=== PATIENT | male | born 1985 | race Caucasian/White ===

== ENCOUNTER 2023-08-28 13:20 | Emergency (ER) | payer MEDICAID, SELFPAY ==
[2023-08-28] VITALS (33 sets, daily range): BP systolic 88–120; BP diastolic 55–76; PULSE 70–176; RESP 18; TEMP 36.7; O2SAT 97–100; BMI 23.0
[2023-08-28] MEDS: 0.9 % SODIUM CHLORIDE 1000 ml 1,000 ML IV (13:30)
[2023-08-28] MEDS: ADENOSINE 6 MG/2ML INJ 12 MG IVP (13:35)
[2023-08-28 14:02] LABS: Basophils Absolute Auto 0.04 K/uL (0.00-0.30); Basophils Percent Auto 0.6 % (0.0-3.0); Eosinophils Absolute Auto 0.12 K/uL (0.00-0.50); Eosinophils Percent Auto 1.8 % (0.0-7.0); Hematocrit 45.4 % (37.0-53.0); Hemoglobin* 15.3 gm/dL (13.5-17.5); Lymphocytes Absolute Auto 2.33 K/uL (0.90-2.90); Lymphocytes Percent Auto 35.3 % (20-44); Mean Corpuscular HGB Conc 34 gm/dL (32-36); Mean Corpuscular Hemoglobin 30 pg (26-34); Mean Corpuscular Volume 88 fL (80-100); Monocytes Percent Auto 6.8 % (0.0-11.0); Neutrophils Absolute Auto 3.66 K/uL (1.7-7.0); Neutrophils Percent Auto 55.5 % (42.0-72.0); Platelet Count* 195 K/uL (140-440); RDW Coefficient of Variation % 13.1 % (11.5-15.5); Red Blood Count 5.19 m/uL (4.30-5.90)
[2023-08-28 14:03] LABS: Chloride* 104 mmol/L (96-114)
[2023-08-28 14:04] LABS: Potassium* 3.9 mmol/L (3.6-5.1); Sodium* 139 mmol/L (135-149)
[2023-08-28 14:06] LABS: Anion Gap 8 mEq/L (7-15); Carbon Dioxide* 27 mmol/L (20-32); Creatinine* 0.4 mg/dL (0.5-1.5); Est. Creatinine Clearance* 207.45; Estimated Glomerular Filt Rate 146 ml/min
[2023-08-28 14:07] LABS: Blood Urea Nitrogen* 20 mg/dL (5-24); Calcium* 9.7 mg/dL (8.4-10.6); Glucose* 81 mg/dL (60-115); Magnesium* 1.8 mg/dL (1.5-2.6)
[2023-08-28] MEDS: dilTIAZem 5 MG/ML inj 15 MG IVP (14:07)
[2023-08-28 14:08] LABS: Slide Review Reflex No
--- OUTSIDE RECORDS SUMMARY | 2023-08-28 14:10 | XMS_ITS | Clinical Summary ---
Author Name Unknown Organization [facility] Address [place], [place] [address] Care Team Providers Care Heating And Ventilating Worker Name Role Phone Roberto Marie MD Primary Care Provider [phone] Allergies Active Allergy Reactions Criticality Noted Date Comments Ciprofloxacin *Unknown - Follow up needed,Angioedema,Flu shing,Itching,Diaphor esis,Edema High 06/26/2020 Doxycycline Diarrhea Low 03/12/2022 Homeopathic Products 12/03/2006 stuffy nose and post nasal drip. Vancomycin Itching Low 12/12/2021 Itchy face and hair Itchy face and hair - resolved with Benadryl Itchy face and hair - resolved with Benadryl Medications Medication Sig Dispensed Refills Start Date End Date Status cholecalciferol, Vitamin D3, 2,000 unit tablet Take 2,000 units by mouth. Active ascorbic acid SR (VITAMIN C) 500 mg capsule Take 1,000 Capsules by mouth. Active Kbppr-1-PGV-EPA-Fish Oil (Fish OiL) 1,000 mg (120 mg-180 mg) cap Take by mouth. Active lactobacillus combination no.4 (Probiotic) 3 billion cell cap Take by mouth. Acti ve magnesium aspartate/vit B6/Zn (ZINC MAGNESIUM ASPARTATE ORAL) Take by mouth. Activ e oxybutynin (DITROPAN XL) 15 mg CR tabletIndications:Sp inal cord injury, T7-T12 (HC) Take 1 Tablet (15 mg) by mouth once daily. 30 Tablet 11 04/22/2023 Active pregabalin (LYRICA) 150 mg capsuleIndications:S connor cord injury, T7-T12 (HC) Take 1 Capsule (150 mg) by mouth two times daily. 60 Capsule 5 04/22/2023 Active Active Problems Problem Noted Date Diagnosed Date Other acne 12/03/2006 Allergic rhinitis, cause unspecified 12/03/2006 Immunizations Name Administration Dates Next Due DTP 12/19/1992, 0,06/13/1988,05/02/1988 ,02/29/1988 Hepatitis B (Peds) 12/29/2000,09/16/2000, 001 Hib Conjugate, Unspecified 06/11/1989 Inactivated Polio Vaccine 06/11/1989,06/13/1988, 05/02/1988,02/29/1988 MMR 08/17/2000 Measles 12/19/1992 Meningococcal Vaccine (Menactra) 12/03/2006 Mumps 03/19/1989 Polio Virus, Unspecified 06/11/1989,06/13/1988,1 1987,02/29/1988 Rubella 03/19/1989 Td (Age >=7 Years) 05/25/2001,08/17/2000 Tdap 05/05/2011 Family History Medical History Relation Name Comments Cancer Father malignant melan miah Heart Disease Father stents Relation Name Status Comments Father Alive Mother Alive Social History Tobacco Use Types Packs/Day Years Used Date Smoking Tobacco: Never Smokeless Tobacco: Never Tobacco Cessation:Counseling Given: Yes Alcohol Use Standard Drinks/Week Comments No 0 (1 standard drink = 0.6 oz pur e alcohol) PHQ-2 Answer Date Recorded PHQ-2 TOTAL SCORE 1 04/22/2023 Social Connections Answer Date Recorded Frequency of Communication with Friends and Fami ly Not on file 04/22/2023 Sex and Gender Information Value Date Recorded Sex Assigned at Not on file Gender Identity Not on file Sexual Orientation Not on file Obstetrics History Last Filed Vital Signs Vital Sign Reading Time Taken Comments Blood Pressure 104/66 04/22/2023 4:12 PM BOG WORKER Pulse 72 04/22/2023 4:12 PM BOG WORKER Temperature 36.5 ??C (97.7 ??F) 08/15/2009 2:00 PM CD T Respiratory Rate - - Oxygen Saturation 94% 04/22/2023 4:12 PM BOG WORKER Inhaled Oxygen Concentration - - Weight 69.4 kg (153 lb) 08/15/2009 2:00 PM CDT Height 172.1 cm (5' 7.75) 12/03/2006 10:00 AM C DT Body Mass Index - - Plan of Treatment Health Maintenance Due Date Last Done Comments HIV for age 15-65 12/22/2002 BMI (ht and wt on same day) for age 18+ 12/22/2005 Hepatitis C screening for ag e 18-79 12/22/2005 Tetanus booster 05/05/2021 05/05/2011, 05/25/2001, 08/17/2000 Lipids for age 35-44 12/22/2022 COVID-19 vaccine series (2022-24 season) 2023 Influenza for age 9-49 01/24/2024 Depression screening for age 12+ 04/22/2024 04/22/2023 Tdap Completed 05/05/2011 Pneumococcal series for age 6-64 Aged Out No longer eligible b ased on patient's age to complete this topic Care Teams Heating And Ventilating Worker Relationship Specialty Start Date End Date Roberto Marie MD [address] [place] [address] [address] [place] [address] PCP - General 06/29/09
[2023-08-28 14:19] LABS: Troponin, Point-of-Care* 0.02 ng/ml (0.01-0.04)
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
== END 2023-08-28 15:41 | disposition home or self-care (01) ==
PROVIDERS: Emergency Provider Student in an Organized Health Care Education/Training Program
DX: I48.92 Unspecified atrial flutter (principal)
CPT/HCPCS: 36415; 80048; 83735; 84484; 85025; 93005; 99284; 99285; 99291; J0153; J7030

== ENCOUNTER 2023-09-05 05:23 | Emergency (ER) | payer MEDICAID, SELFPAY ==
[2023-09-05 05:38] VITALS: BP 111/75; PULSE 89; RESP 20; TEMP 37.1; O2SAT 97
--- NOTE | 2023-09-05 05:49 | ED_ITS ---
HPI - Arrhythmia/Palpitations General Chief Complaint: Arrhythmia/Palpitations Stated Complaint: feeling tachycardia Time Seen by Provider: 09/05/23 05:41 History of Present Illness HPI narrative: Patient is a 37-year-old gentleman who was here proximally week ago and cardioverted from a tachycardic narrow rhythm with diltiazem. He was initially felt that he had SVT but did sheet turner that he actually had atrial flutter. He has been feeling well but at bedtime tonight he felt like his heart was racing. He woke up with sensations of his heart racing again I came to the emergency room where his rate is under good control 89 beats per minute but is rhythm is atrial flutter. He has had no neurologic symptoms no fevers chills night sweats chest pain shortness a breath orthopnea no PND. He is otherwise feeling well. Related Data Home Medications Medication Instructions Recorded Confirmed oxybutynin chloride 5 mg tablet 5 mg PO QDAY 04/09/23 09/05/23 Previous Rx's Medication Instructions Recorded pregabalin 150 mg capsule 150 mg PO BID #30 caps 04/09/23 apixaban 5 mg tablet 5 mg PO BID #60 tabs 09/05/23 diltiazem HCl 120 mg 120 mg PO DAILY #30 caps 09/05/23 capsule,extended release 24 hr (Cardizem CD) Allergies Allergy/AdvReac Type Severity Reaction Status Date / Time ciprofloxacin Allergy Unknown Verified 09/05/23 05:38 vancomycin Allergy Unknown Verified 09/05/23 05:38 doxycycline AdvReac Intermediate Verified 09/05/23 05:38 Review of Systems Status of ROS: Reports: 10 or more systems reviewed and unremarkable except as noted in History and below [facility] Medical History History of pressure injury of skin ?Z87.2 - Personal history of diseases of the skin and subcutaneous tissue (ICD-10) History of spinal cord injury ?Z87.828 - Personal history of other (healed) physical injury and trauma (ICD-10) Social History Smoking Status: Unknown if ever smoked Exam Narrative: Exam Narrative: EXAM GENERAL: Patient appears comfortable and well. EYES: No scleral icterus. LYMPH: No supraclavicular or cervical lymphadenopathy. SKIN: Visible skin seen during exam normal or with benign process only. EXT: No dependent lower extremity pedal edema. HEART: Regular rate and rhythm with no murmurs, rubs, or gallops. LUNGS: Clear to auscultation bilaterally with no crackles or wheezes. ABD: Soft, non tender, non distended. PSYCH: Good eye contact, speech is not pressured. Const: Vital Signs, click to edit/add: Vital Signs - 24 hr 09/05/23 05:38 Temperature 98.8 F Pulse Rate [Right Pulse Oximeter] 89 Respiratory Rate 20 Blood Pressure [Le ft Upper Arm] 111/75 Pulse Oximetry 97 Oxygen Delivery Me thod Room Air Course Course ED Course: Patient seen and examined. Vital Signs Vital signs: Initial Vital Signs Temperature 98.8 F 09/05/23 05:38 Temperature Source Temporal Artery Scan 09/05/23 05:38 Pulse Rate 89 09/05/23 05:38 Respiratory Rate 20 09/05/23 05:38 Blood Pressure 111/75 09/05/23 05:38 Blood Pressure Mean 87 09/05/23 05:38 Blood Pressure Position Sitting 09/05/23 05:38 Pulse Oximetry 97 09/05/23 05:38 Oxygen Delivery Method Room Air 09/05/23 05:38 Vital Signs Temperature 98.8 F 09/05/23 05:38 Pulse Rate 89 09/05/23 05:38 Respiratory Rate 20 09/05/23 05:38 Blood Pressure 111/75 09/05/23 05:38 Pulse Oximetry 97 09/05/23 05:38 Oxygen Delivery Method Room Air 09/05/23 05:38 Temperature 98.8 F 09/05/23 05:38 Pulse Rate 89 09/05/23 05:38 Respiratory Rate 20 09/05/23 05:38 Blood Pressure 111/75 09/05/23 05:38 Pulse Oximetry 97 09/05/23 05:38 Oxygen Delivery Method Room Air 09/05/23 05:38 MDM - Arrhythmia/Palpitations MDM Narrative Medical decision making narrative: This very interesting gentleman comes in tonight with a recurrence of his atrial flutter. His rate is controlled he has no unstable cardiovascular symptoms. I do not believe further workup is indicated. I do think we should start him on Cardizem CD and 120 mg daily which is started as well as anticoagulation with apixaban. Patient will be in contact with my office in the next few days will range for cardiology follow-up. Differential diagnosis includes but not limited to atrial fibrillation atrial flutter SVT stable ventricular tachycardia junctional rhythm. Discharge Plan Discharge Clinical Impression: Atrial flutter Patient Disposition: Home, Self-Care Condition: Stable Instructions: Atrial Flutter (ED) Additional Instructions: Cardizem CD as directed Apixaban as directed Follow-up Dr. Fowler by phone this week to arrange cardiology follow-up. Activity Level: No Restrictions Discharge Diet: Regular Prescriptions: New diltiazem HCl [Cardizem CD] 120 mg capsule,extended release 24hr 120 mg PO DAILY Qty: 30 2RF apixaban 5 mg tablet 5 mg PO BID Qty: 60 2RF No Action oxybutynin chloride 5 mg tablet 5 mg PO QDAY pregabalin 150 mg capsule 150 mg PO BID Qty: 30 0RF Follow Up/Referrals: Provider,Not a Local [Primary Care Provider] - Stand Alone Forms: [employer] Info Instructions
[2023-09-05] MEDS: dilTIAZem 120 MG CAP.ER.24H PO (06:02)
--- OUTSIDE RECORDS SUMMARY | 2023-09-05 06:03 | XMS_ITS | Clinical Summary ---
Author Name Unknown Organization [employer] Address [place], [place] [address] Care Team Providers Care Field Horticultural Specialty Grower Name Role Phone Roberto Marie MD Primary Care Provider [phone] Allergies Active Allergy Reactions Criticality Noted Date [...] capsule Take 1,000 Capsules by mouth. Active Cjtit-3-MQS-EPA-Fish Oil (Fish OiL) 1,000 mg (120 mg-180 [...] Comments Blood Pressure 104/66 04/22/2023 4:12 PM HISTORIC SITE ADMINISTRATOR Pulse 72 04/22/2023 4:12 PM HISTORIC SITE ADMINISTRATOR Temperature 36.5 ??C (97.7 ??F) 08/15/2009 2:00 PM CD T Respiratory Rate - - Oxygen Saturation 94% 04/22/2023 4:12 PM HISTORIC SITE ADMINISTRATOR Inhaled Oxygen Concentration - - Weight 69.4 [...] age to complete this topic Care Teams Field Horticultural Specialty Grower Relationship Specialty Start Date End Date Roberto Marie MD [address] [place] [address] [address] [place] [address] PCP - General 06/29/09
== END 2023-09-05 06:46 | disposition home or self-care (01) ==
LOC: ED 06:01
PROVIDERS: Emergency Provider Internal Medicine
DX: I48.92 Unspecified atrial flutter (principal)
CPT/HCPCS: 93005; 99283; 99284; A9270

== ENCOUNTER 2023-10-24 04:23 | Outpatient (CLI) | payer MEDICAID, SELFPAY ==
--- OUTSIDE RECORDS SUMMARY | 2023-11-13 14:43 | XMS_ITS | Clinical Summary ---
Author Organization [facility] Address [address] [place] [id number] Care Team Providers Care Dispatcher Electric Power Name Role Phone Elsewhere, Pcp Primary Care Provider Unavailabl e Source Comments Patient records contain information from all sites at [facility]. For routine questions regarding patient records, call [phone] during business hours, M-F 8:00 AM - 5:00 PM Central Time. Record requests for emergency care only can be directed to [phone] at any time.[facility] Allergies Active Allergy Reactions Criticality Noted Date [...] by mouth every 6 (six) hours. Active sulfamethoxazole -trimethoprim (Bactrim DS) 800-160 mg per tablet Take 1 tablet by mouth 2 (two) times a day. 10/30/2023 4 Active UNABLE TO FIND DILTIAZEM HCL (CARDIZEM CD) 120 MG CAPSULE,EXTEND ED RELEASE 24HR Active metoprolol tartrate (LOPRESSOR) 25 mg tabletIndication s:Flutter Atrial (HCC) Take 1 tablet (25 mg total) by mouth as needed (for atrial flutter). 30 tablet 10/05/2023 4 Discontinued pregabalin (Lyrica) 150 mg capsule Take 150 mg by mouth 2 (two) times a day. 04/09/2023 4 Discontinued(Dup licate order) Active Problems Problem Noted Date Diagnosed Date Flutter Atrial 11/03/2023 Neurogenic Bladder 11/03/2023 Pain Neuropathic 11/03/2023 Paraplegia 01/17/2013 Resolved Problems Problem Noted Date Diagnosed Date Resolved Date Atypical Atrial Flutter 11/03/202310/23 Encounters Date Type Department Care Team Description 11/12/2023 8:00 AM CDT Comprehensive Visit Division of Pain Medicine in [place], [place] [address] [place] [address] Angelina Jefferson APRN, C.N.P., M.S.N. Pain Neuropathic (Primary Dx); Injury Thoracic Spinal Cord Subsequent (HCC) 11/03/2023 11:59 AM CDT - 11/03/2023 11:59 PM CDT Hospital Encounter Department of Radiology, [facility], in [place], [place] [address] [place] [address] Rosemary Gregorio APRN, SPORTS NUTRITIONIST, M.S. Injury Thoracic Spinal Cord Subsequent (HCC); Paraplegia (HCC); Osteoporosis Discharge Disposition: Home or Self Care 11/03/2023 10:00 AM CDT Clinical Support Healthy Living Program in [place], [place] [address] [place] [phone] Avtar Aaron M.D. Kiersten Quigley, [facility] Wellness Screening (Primary Dx) 11/03/2023 9:00 AM CDT Clinical Support Healthy Living Program in [place], [place] [address] [place] [phone] Bubba Perez M.D., M.S. Paraplegia (HCC) (Primary Dx); Flutter Atrial (HCC); Pain Neuropathic; Wellness Screening 10/09/2023 1:00 PM CDT Comprehensive Visit Department of Physical Medicine and Rehabilitation in [address] [phone] Karoline Carney M.D. Pain Shoulder Left (Primary Dx); Tear Glenoid Labral Initial Left; Rotator Cuff Disorder Left; Tendinitis Bicipital Left 10/09/2023 Clinical Communication Division of General Internal Medicine in [address] [phone] Avtar Aaron M.D. 10/08/2023 11:00 AM CDT Comprehensive Visit Department of Physical Medicine and Rehabilitation in [address] [phone] Avtar Aaron M.D. Stanecki, Catherine E MTracyS., O.T. Injury Thoracic Spinal Cord Subsequent (HCC) (Primary Dx) Discharge Disposition: Home or Self Care 10/08/2023 10:00 AM CDT Comprehensive Visit Department of Physical Medicine and Rehabilitation in [address] [phone] Rosemary Gregorio APRN, CNS, M.S. Paraplegia (HCC) (Primary Dx); Injury Thoracic Spinal Cord Subsequent (HCC); Osteoporosis; Neurogenic Bladder; Neurogenic Bowel; Abnormal Posture; Mobility Limited; Pain Neuropathic; Sensation Skin Altered Discharge Disposition: Home or Self Care 10/08/2023 Clinical Communication Department of Cardiovascular Medicine in [address] [phone] Sticker Machine OperatorRobert M.D. INT REF TRIAGE (INT / GIM / symptomatic a flutter.) 10/07/2023 7:24 PM CDT - 10/07/2023 11:59 PM CDT Hospital Encounter Department of Radiology, [facility] in [place], [place] [address] [place] [address] Avtar Aaron M.D. Rotator Cuff Disorder Left Discharge Disposition: Home or Self Care 10/07/2023 Clinical Communication Division of General Internal Medicine in [place], [place] [address] [place] [address] Avtar Aaron M.D. Holter result (Notification Result: Holter result for Michael Bauman showed atrial flutter was 30 seconds or longer during the start of the test noted on 10/06/23 8:57 AM. /) 10/07/2023 Clinical Communication Division of General Internal Medicine in [place], [place] [address] [place] [address] Avtar Aaron M.D. 10/07/2023 Clinical Communication Division of General Internal Medicine in [place], [place] [address] [place] [address] Avtar Aaron M.D. 10/06/2023 8:34 AM CDT - 10/06/2023 11:59 PM CDT Hospital Encounter Department of Cardiovascular Diseases in [place], [place] [address] [place] [phone] Avtar Aaron M.D. Flutter Atrial (HCC) Discharge Disposition: Home or Self Care 10/05/2023 4:03 PM CDT - 10/05/2023 11:59 PM CDT Hospital Encounter Department of Laboratory Medicine and Pathology, [facility] in [place], [place] [address] [place] [address] Avtar Aaron M.D. Flutter Atrial (HCC) Discharge Disposition: Home or Self Care 10/05/2023 2:58 PM CDT - 10/05/2023 4:02 PM CDT Hospital Encounter Department of Radiology, [facility], in [place], [place] [address] [place] [phone] Avtar Aaron M.D. Flutter Atrial (HCC) Discharge Disposition: Home or Self Care 10/05/2023 2:58 PM CDT - 10/05/2023 4:02 PM CDT Hospital Encounter Department of Radiology, [facility], in [place], [place] [address] [place] [phone] Avtar Aaron M.D. Pain Shoulder Left Discharge Disposition: Home or Self Care 10/05/2023 2:57 PM CDT Hospital Encounter Department of Radiology, [facility], in [place], [place] [address] [place] [phone] Avtar Aaron M.D. Injury Thoracic Spinal Cord Subsequent (HCC) Discharge Disposition: Home or Self Care 10/05/2023 1:00 PM CDT Comprehensive Visit Division of General Internal Medicine in [place], [place] [address] [place] [phone] Avtar Aaron M.D. Flutter Atrial (HCC) (Primary Dx); Injury Thoracic Spinal Cord Subsequent (HCC); Rotator Cuff Disorder Left; Tendinitis Bicipital Left 10/05/2023 8:50 AM CDT - 10/05/2023 2:56 PM CDT Hospital Encounter Department of Cardiovascular Diseases in [place], [place] [address] [place] [phone] Avtar Aaron M.D. Flutter Atrial (HCC) Discharge Disposition: Home or Self Care 10/05/2023 Clinical Communication Division of General Internal Medicine in [address] [phone] Avtar Aaron M.D. Outside EKG reports 10/02/2023 3:00 PM CDT Clinical Communication Virtual Review in [place], [place] 200 [place] [address] Pre-visit Intake 09/15/2023 Clinical Communication Department of Cardiovascular Medicine in [place], [place] [address] [place] [address] Sticker Machine OperatorRobert M.D. INTERNAL REFERRAL (KADE [id number]) 09/15/2023 Clinical Communication Division of General Internal Medicine in [place], [place] [address] [place] [address] Prescheduling, Provider Echo Movep for 10/04 visit 09/08/2023 Clinical Communication Division of General Internal Medicine in [place], [place] [address] [place] [address] Prescheduling, Provider Triage from Last 3 Months Immunizations Name Administration Dates Next Due DTP 12/19/1992, 0,06/13/1988,1987,02/29/1988 HepB Pediatric/Adolescent 12/29/2000,09/16/2000, 08/17/2000 Hib, Unspecified 06/11/1989 IPV 06/11/1989, 9,05/02/1988,1987 Influenza, Unspecified 10/02/2023(Deferred: Manuela ent decision) MCV4 (Menactra)(Discontinued) 12/03/2006 MMR 08/17/2000 Measles 12/19/1992 Mumps 03/19/1989 Polio, Unspecified 06/11/1989, 9,05/02/1988,1987 Rubella 03/19/1989 SARS-COV-2 (COVID-19) - MODE RNA (12 YEARS AND OLDER) [id number] 10/05/2023(Deferred: Patient decision - Patinet has received [...] for many years. I stopped in 2013. [facility] pfwaterworksities Answer Date Recorded In the past 12 months has [employer], [employer], or water [employer] threatened to shut off services in your [...] your living situation today? 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 Body Mass Index - - Plan of Treatment Upcoming Encounters Date Type Department Care Team (Latest Contact Info) Description 12/30/2023 11:10 AM CDT Appointment Department of Laboratory Medicine and Pathology, [place], [place] [address] Rosemary Gregorio APRN, SPORTS NUTRITIONIST, M.S. [address] [place] [address] 12/30/2023 11:20 AM CDT Appointment Department of Laboratory Medicine and Pathology, [place], [place] [address] [place] [address] Rosemary Gregorio APRN, SPORTS NUTRITIONIST, [place] [address] 12/30/2023 12:30 PM CDT Appointment Department of Radiology, [facility], in [place], [place] [address] [place] [phone] Rosemary Gregorio APRN, SPORTS NUTRITIONIST, M.S. [address] [place] [phone] 12/31/2023 12:40 PM CDT Ancillary Procedure Department of Cardiovascular Medicine in [place], [place] [address] [place] [phone] Fredi Horner M.D. [address] [place] [phone] 12/31/2023 1:45 PM CDT Comprehensive Visit Department of Urology in [place], [place] [address] [place] [phone] Tabitha Rich, [place] [address] [place] [phone] 12/31/2023 2:30 PM CDT Procedure visit Department of Urology in [place], [place] [address] [place] [phone] Rosemary Gregorio APRN, SPORTS NUTRITIONIST, M.S. [address] [place] [phone] 01/01/2024 8:00 AM CDT Comprehensive Visit Department of Cardiovascular Medicine in [place], [place] [address] [place] [phone] Fredi Horner M.D. [address] [place] [phone] 01/01/2024 1:30 PM CDT Comprehensive Visit Division of Endocrinology in [place], [place] [address] [place] [phone] Horacio Harp M.D. [address] [place] [phone] 01/01/2024 3:00 PM CDT Office Visit Section of Executive Medicine in [place], [place] [address] [place] [phone] Avtar Aaron M.D. [address] [place] [phone] Health Maintenance Due Date Last Done Comments DTaP,Tdap,and Td Vaccines (7 - Td or Tdap) 05/05/2021 05/05/2011, 05/25/2001, 08/17/2000, Additional history exists COVID-19 Vaccine ( season) 2023 Influenza Vaccine (#1) 2023 Lipid [...] this topic Medical Devices Implanted Type Area Novelty Maker Device Identifier Shelf Expiration Date Model / Serial / Lot Conversions - Default Historical Implant Device Implanted:08/22 (Quantity not on file) Hardware e.g. pins/screws /rods Description:Device Status Te xt - Hardware. Gm-Syn Cocr 5.5 X 400mm - [employer] [id number] Implanted:Qty: 1 on 01/15/2013 Spine Implant Depuy Synthes Description:Device Manufactu rer - Synthes. Device Status Text - [id number]. Head Reduction Ti Polyaxial - [place] [id number] Implanted:Qty: 2 on 01/15/2013 Spine Implant Depuy Synthes Description:Device Manufactu rer - Synthes. Device Status Text - [id number]. Screw-Matrix Bone 5.0 X 45mm - [employer]ia [id number] Implanted:Qty: 8 on 01/15/2013 Spine Implant Depuy Synthes Description:Device Manufactu rer - Synthes. Device Status Text - [id number] [id number]. Synthes-Transco n. 30mm - [place]ia [id number] Implanted:Qty: 2 on 01/15/2013 Spine Implant Depuy Synthes Description:Device Manufactu rer - Synthes. Device Status Text - [id number]. Cap-Synthes Matrix Locking Ti - [employer]ia [id number] Implanted:Qty: 12 on 01/15/2013 Spine Implant Depuy Synthes Description:Device Manufactu rer - Synthes. Device Status Text - [id number]. Screw-Matrix Bone 6.0 X 45mm - [employer]ia [id number] Implanted:Qty: 4 on 01/15/2013 Spine Implant Depuy Synthes Description:Device Manufactu rer - Synthes. Device Status Text - [id number]. Cap-Synthes Matrix Polyax Head Ti - [place] [id number] Implanted:Qty: 10 on 01/15/2013 Spine Implant Depuy Synthes Description:Device Manufactu rer - Synthes. Device Status Text - [id number] [id number]. Graft Tag Thoracic Endo 21 X 10 - [employer]adia [id number] Implanted:Qty: 1 on 01/15/2013 Vascular Graft Other/Legacy - See Implant Description [place] Description:Device Manufactu rer - [employer] [place] [employer] Body Location - Other. Vascular. Device Status Text - [id number]. Procedures Procedure Name Priority Date/Time Associated Diagnosis Comments BMD BONE DENSITY HIPS KNEES RAD - Routine (most inpatients and all outpatients) 11/03/2023 2:21 PM CDT Injury Thoracic Spinal Cord Subsequent (HCC) Paraplegia (HCC) Osteoporosis MR SHOULDER LEFT WITHOUT IV CONTRAST RAD - Routine (most inpatients and all outpatients) 10/07/2023 8:16 PM CDT Rotator Cuff Disorder Left HOLTER MONITOR - IN CLINIC PARASITOLOGY TEACHER Routine 10/07/2023 9:43 AM CDT Flutter Atrial [...] Bone Mineral Density (BMD) analysis performed on Adviqo with serial number [id number]. ? FINDINGS: Left Hip: Femur Neck: BMD = 0.618 g/cm2 Z-score = -2.9 Total Hip: BMD = 0.543 g/cm2 Z-score = -3.4 Right Hip: Femur Neck: BMD = 0.549 g/cm2 Z-score = -3.4 Total Hip: BMD = 0.474 g/cm2 Z-score = -3.9 ? Please note: A more comprehensive DXA report, including images and graphs, is available in WritePath. In the absence of other causes of [...] Bone Mineral Density (BMD) analysis performed on [employer] iDXA with serialnumber [id number]. FINDINGS: Left Hip: Femur Neck: BMD = [...] range for age. DULCE Perera APRN, M.S. [facility] DXA PROC EDURES * MR Shoulder Left [...] 3 mm, para labral cyst (series 5 [id number]). No donal labral detachment. The glenoid labrum [...] 3. Mild subacromial/subdeltoid bursopathy. Avtar Aaron M.D. IMBrandi MRI PROCEDU RES * HOLTER MONITOR - IN CLINIC PARASITOLOGY TEACHER (10/07/2023 9:43 AM CDT) Min Heart Rate [...] 1h 35m duration INFOBION IC MOME AF [place] 6.71 percent INFOBIONIC MOME Longest AF Duration 1h 36m duration INFOBIONIC MOME Symptom Count 1 count INFOBI ONIC MOME 10/06/2023 8:39 AM CDT Narrative INFOBIONIC MOME - 10/11/2023 2:23 PM CDT [place] 1. The basic rhythm was sinus with [...] this event, there was no ectopy noted. General Accountant: COLETTE Rivera/ COLETTE Bray A Holter monitor with cascade to extended monitoring was ordered for the indication of Atrial fibrillation or flutter calculate burden/% time in AF. During the Holter monitoring period, the patient did have atrial fibrillation or flutter >=30 seconds. Therefore, the study was not cascaded to extended monitoring. Procedure Note Lisandro Ellison M.D. - 10/11/2023 [facility]. The basic rhythm was sinus with [...] this event, there was no ectopy noted. General Accountant: COLETTE Rivera/ COLETTE Bray A Holter monitor with cascade to extended monitoring was ordered for theindication of Atrial fibrillation or flutter calculate burden/% time inAF. During the Holter monitoring period, the patient did have atrialfibrillation or flutter >=30 seconds. Therefore, the study was not cascaded to extended monitoring. Avtar Aaron M.D. CV CARDIAC SERV ICES PROCEDURES Performing Organization Address [facility] de Phone Number INFOBIONIC GEMMA NA * ECG 12 Lead (10/06/2023 8:33 AM CDT) Ventricular Rate ECG/Min 89 BPM MUSE QRSD Interval 96 ms MUSE QT Interval 364 ms MUSE QTC Interval 442 ms MUSE P Sabina 78 degrees MUSE R Sabina 54 degrees MUSE T Wave Sabina 29 degrees MUSE 10/06/2023 8:33 AM CDT [...] Aaron M.D. ECG ORDERABLES Performing Organization Address [facility] Phone Number MUSE NA * Lipid Panel [...] LAB BLOOD ADD-O N Performing Organization Address [facility] Co de Phone Number [facility] [address] [place] [address] * Thyroid Function [place] (10/05/2023 4:15 PM CDT) TSH, Sensitive 1.4 0.3 - 4.2 mIU/L 10/05/2023 5:30 PM CDT DTL Blood (Blood, Venous) 10/05/2023 4:15 PM CDT 10/05/2023 4:58 PM CDT Avtar Aaron M.D. LAB BLOOD ADD-O N Performing Organization Address City/[facility]/ZIP Co de Phone Number [facility] [address] [place] [address], [facility] [place] [address] * Magnesium (10/05/2023 4:15 PM CDT) Magnesium, S 1.8 1.7 - 2.3 mg/dL 10/05/2023 5:30 PM CDT DTL Blood (Blood, Venous) 10/05/2023 4:15 PM CDT 10/05/2023 4:58 PM CDT Avtar Aaron M.D. LAB BLOOD ADD-O N Performing Organization Address City/[facility]/ZIP Co de Phone Number [facility] [address] [place], [place] [phone] [place] [address] * Hemoglobin A1c (10/05/2023 4:15 PM CDT) Pathologist [facility] Hemoglobin A1c, B 4.9 4.0 - 5.6 % 10/05/2023 5:21 PM CDT DTL Blood (Blood, Venous) 10/05/2023 4:15 PM CDT 10/05/2023 4:41 PM CDT Avtar Aaron M.D. LAB BLOOD ADD-O N Performing Organization Address City/[facility]/ZIP Co de Phone Number [facility] [address] [place], [place] [phone] [place] [address] * (ABNORMAL) Basic Metabolic Panel (10/05/2023 4:15 [...] Avtar Aaron M.D. [place] [address], [facility] [place] [address] * DX Chest AP or PA and [...] effusion has largely resolved. Avtar Aaron M.D. [facility] DIAGNOSTIC IMAGING PROCEDURES * DX Shoulder Left [...] IMPRESSION: Negative left shoulder. Avtar Aaron M.D. [facility] DIAGNOSTIC IMAGING PROCEDURES * DX Lumbar Spine [...] L5-S1. Thoracic aortic endograft. Avtar Aaron M.D. [facility] DIAGNOSTIC IMAGING PROCEDURES * DX Thoracic Spine [...] L5-S1. Thoracic aortic endograft. Avtar Aaron M.D. Brandi DIAGNOSTIC IMAGING PROCEDURES * (TTE) 2D ECHO [...] Acute Hepatitis Profile (02/06/2013 1:58 PM CDT) Pathologist [facility] HBs Antigen, S Negative Negative [facility] Comment:Drawn From PIC Hepatitis A IgM Ab, S Negative Negative [facility] Comment:Drawn From PICC HBc IgM Ab, S Negative Negative [facility] Comment:Drawn From PICC HCV Ab, S Negative Negative [facility] Comment: Drawn From PICC ? Yfzkoj-qh-bfyqjq ratio is <1.00. ? 

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
--- OUTSIDE RECORDS SUMMARY | 2023-11-13 14:44 | XMS_ITS | Encounter Summary ---
Author Organization [facility] Address [address] [place] [address] Care Team Providers Care Regional Account Director Name Role Phone Unavailable Primary Care [...] Communication Division of General Internal Medicine in [place], [place] [address] [place] [phone] Avtar Aaron M.D. [address] [place] [phone] Holter result (Notification Result: Holter result for [...] years. I stopped in 2013. [facility] Utilities Answer Date Recorded In the [...] your living situation today? I have a [facility] place to live 10/01/2023 Sex and [...] Medicine and Pathology, [facility] in [place], [place] [address] [place] [phone] Rosemary Gregorio APRN, ONLINE COMMUNICATIONS SPECIALIST, M.S. [address] [place] [phone] 12/30/2023 11:20 AM CDT Appointment Department of Laboratory Medicine and Pathology, [facility] in [place], [place] [address] [place] [phone] Rosemary Gregorio APRN, ONLINE COMMUNICATIONS SPECIALIST, M.S. [address] [place] [phone] 12/30/2023 12:30 PM CDT Appointment Department of Radiology, [facility] in [place], [place] [address] [place] [phone] Rosemary Gregorio APRN, ONLINE COMMUNICATIONS SPECIALIST, M.S. [address] [place] [phone] 12/31/2023 12:40 PM CDT Ancillary Procedure Department of Cardiovascular Medicine in [place], [place] [address] [place] [phone] Fredi Horner M.D. [address] [place] [phone] 12/31/2023 1:45 PM CDT Comprehensive Visit Department of Urology in [place], [place] [address] [place] [phone] Tabitha Rich P.A.-C. [address] [place] [phone] 12/31/2023 2:30 PM CDT Procedure visit Department of Urology in [place], [place] [address] [place] [phone] Rosemary Gregorio APRN, ONLINE COMMUNICATIONS SPECIALIST, M.S. [address] [place] [phone] 01/01/2024 8:00 AM CDT Comprehensive Visit Department of Cardiovascular Medicine in [place], [place] [address] [place] [phone] Fredi Horner M.D. [address] [place] [phone] 01/01/2024 1:30 PM CDT Comprehensive Visit Division of Endocrinology in [place], [place] [address] [place] [phone] Horacio Harp M.D. [address] [place] [phone] 01/01/2024 3:00 PM CDT Office Visit Section of Executive Medicine in [address] [phone] Avtar Aaron M.D. 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
--- OUTSIDE RECORDS SUMMARY | 2023-11-13 14:44 | XMS_ITS | Encounter Summary ---
Author Organization [facility] Address [address] [place] [address] Care Team Providers Care Hog Cooler Name Role Phone Unavailable Primary Care Provider Unavailabl e Reason for Visit * Outpatient (Routine) - Closed Specialty Diagnoses / Procedures Referred By Candice maki Referred To Contact Wellness Diagnoses Wellness Screening Avtar Aaron M.D. [address] [place] [phone] [facility] Referral ID Status Reason Start Date Expiration Date Visits Re quested Visits Authorized [id number] Closed 09/14/2023 03/15/2025 1 1 Encounter Details Date Type Department Care Team (Latest Contact Info) Description 11/03/2023 10:00 AM CDT Clinical Support Healthy Living Program in [place], [place] [address] [place] [address] Avtar Aaron M.D. [address] [place] [phone] Kiersten Quigley, [facility] Wellness Screening (Primary Dx) Social History Tobacco [...] years. I stopped in 2013. [facility] Utilities Answer Date Recorded In the past 12 months has th e [employer], gas, oil, or water company threatened to [...] your living situation today? I have a [facility] place to live 10/01/2023 Sex and Gender Information Value Date Recorded Sex Assigned at Male 09/11/2023 10:52 AM CDT Gender Identity Male 09/11/2023 10:52 AM CDT Sexual Orientation Straight 09/11/2023 10 :52 AM CDT documented as of this encounter Progress Notes * Kiersten Quigley, [facility] - 11/03/2023 10:00 AM CDT SUBJECTIVE REASON FOR VISIT Wellness Coaching Wellness Coaching The wellness manager from this encounter is a non-physician health client care consultant certified by [facility] Board for Health and Wellness Coaching.?Concierge Receptionist training includes behavior change theory, motivational strategies, communication techniques, and health promotion. Wellness coaches build relationships to support patients in moving toward optimal health and wellness by experimenting with behaviors or ways of thinking, overcoming barriers, identifying support networks and building self-awareness.?? HISTORY OF PRESENT ILLNESS Michael Bauman engaged in wellness coaching through a Lifestyle Medicine Consult at the [facility] Healthy Living Program via cndj-ui-roqo visit. Session Summary This session focused on [...] Laboratory Medicine and Pathology, [facility] in [place], [place] [address] [place] [phone] Rosemary Gregorio APRN, CRUSHER, M.S. [address] [place] [address] 12/30/2023 11:20 AM CDT Appointment Department of Laboratory Medicine and Pathology, [facility] in [place], [place] [address] [place] [phone] Rosemary Gregorio APRN, DULCE, M.S. [address] [place] [phone] 12/30/2023 12:30 PM CDT Appointment Department of Radiology, [facility] in [place], [place] [address] [place] [phone] Rosemary Gregorio APRN, DULCE, M.S. [address] [place] [phone] 12/31/2023 12:40 PM CDT Ancillary Procedure Department of Cardiovascular Medicine in [place], [place] [address] [place] [phone] Fredi Horner M.D. [address] [place] [phone] 12/31/2023 1:45 PM CDT Comprehensive Visit Department of Urology in [place], [place] [address] [place] [phone] Tabitha Rich P.A.-C. [address] [place] [phone] 12/31/2023 2:30 PM CDT Procedure visit Department of Urology in [place], [place] [address] [place] [phone] Rosemary Gregorio APRN, DULCE, M.S. [address] [place] [phone] 01/01/2024 8:00 AM CDT Comprehensive Visit Department of Cardiovascular Medicine in [place], [place] [address] [place] [phone] Fredi Horner M.D. [address] [place] [address] [place] [phone] 01/01/2024 1:30 PM CDT Comprehensive Visit Division of Endocrinology in [place], [place] [address] [place] [address] Horacio Harp M.D. [address] [place] [phone] 01/01/2024 3:00 PM CDT Office Visit Section of Executive Medicine in [place], [place] [address] [place] [address] Avtar Aaron M.D. 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
--- OUTSIDE RECORDS SUMMARY | 2023-11-13 14:44 | XMS_ITS | Encounter Summary ---
Author Organization [facility] Address [address] [place] [address] Care Team Providers Care Compressor Repairer Name Role Phone Unavailable Primary Care Provider Unavailabl e Encounter Details Date Type Department Care Team (Late st Contact Info) Description 10/07/2023 Clinical Communication Division of General Internal Medicine in [place], [place] [address] [place] [phone] Avtar Aaron M.D. [address] [place] [address] Social History Tobacco Use Types Packs/Day Years [...] for many years. I stopped in 2013. [facility] Utilities Answer Date Recorded In the past 12 months has [employer], gas, oil, or water [employer] threatened to shut off services in your [...] your living situation today? I have a [facility] place to live 10/01/2023 Sex and Gender [...] Appointment Department of Laboratory Medicine and Pathology, [place], [place] [address] [place] [address] Rosemary Gregorio APRN, TUMBLING BARREL PAINTER, M.S. [address] [place] [phone] 12/30/2023 11:20 AM CDT Appointment Department of Laboratory Medicine and Pathology, [facility] in [place], [place] [address] [place] [address] Rosemary Gregorio APRN, TUMBLING BARREL PAINTER, M.S. [address] [place] [phone] 12/30/2023 12:30 PM CDT Appointment Department of Radiology, [facility], in [place], [place] [address] [place] [address] Rosemayr Gregorio APRN, TUMBLING BARREL PAINTER, M.S. [address] [place] [phone] 12/31/2023 12:40 PM CDT Ancillary Procedure Department of Cardiovascular Medicine in [place], [place] [address] [place] [phone] Fredi Horner M.D. [address] [place] [phone] 12/31/2023 1:45 PM CDT Comprehensive Visit Department of Urology in [place], [place] [address] [place] [phone] Tabitha Rich, [place] [address] [place] [phone] 12/31/2023 2:30 PM CDT Procedure visit Department of Urology in [place], [place] [address] [place] [phone] Rosemary Gregorio APRN, TUMBLING BARREL PAINTER, M.S. [address] [place] [phone] 01/01/2024 8:00 AM CDT Comprehensive Visit Department of Cardiovascular Medicine in [place], [place] [address] [place] [phone] Fredi Horner M.D. [address] [place] [phone] 01/01/2024 1:30 PM CDT Comprehensive Visit Division of Endocrinology in [place], [place] [address] [place] [phone] Horacio Harp M.D. [address] [place] [phone] 01/01/2024 3:00 PM CDT Office Visit Section of Executive Medicine in [place], [place] [address] [place] [phone] Avtar Aaron M.D. 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
--- OUTSIDE RECORDS SUMMARY | 2023-11-13 14:44 | XMS_ITS | Encounter Summary ---
Author Organization [facility] Address [address] [place] [address] Care Team Providers Care Vascular Technician Name Role Phone Unavailable Primary Care Provider Unavailabl e Reason for Referral * Physical Therapy (Routine) - Authorized Specialty Diagnoses / Procedures Referred By Candice maki Referred To Contact Diagnoses Pain Shoulder Left Rotator Cuff Disorder Left Tear Glenoid Labral Initial Left Karoline Carney M.D. 200 [place] [address] Referral ID Status Reason Start Date Expiration Date Visits Requested Visits Authorized [id number] Authorized Patient Preference 10/09/2023 04/09/2025 99 99 Reason for Visit * Outpatient (Routine) - Closed Specialty Diagnoses / Procedures Referred By Contact Referred To Contact Physical Medicine and Rehabilitation Diagnoses Rotator Cuff Disorder Left Tendinitis Bicipital Left Avtar Aaron M.D. 200 [place] [address] [facility] Referral ID Status Reason Start Date Expiration Date Visits Re quested Visits Authorized [id number] Closed 10/05/2023 04/05/2025 1 1 Encounter Details Date Type Department Care Team (Latest Contact Info) Description 10/09/2023 1:00 PM CDT Comprehensive Visit Department of Physical Medicine and Rehabilitation in [place], [place] [address] [place] [phone] Karoline Carney M.D. [address] [place] [address] Pain Shoulder Left (Primary Dx); Tear Glenoid [...] many years. I stopped in 2013. [facility] Twice Answer Date Recorded In the past 12 months has [employer], [employer], oil, or water [employer] threatened to shut off services in [...] of this encounter Consult Notes * Karoline Craney M.D. - 10/09/2023 1:00 PM CDT SUBJECTIVE [...] upper limb weight exercises. He lives in [place], [place] having recently moved there. 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 Trenton's positive in supination, labral grind positive. DIAGNOSTICS [...] barriers were identified. Total time spent including yrws-oe-ulid and non hbmf-sy-csbd time [address] Castro. Karoline Reyes M.D. documented in this encounter Plan of Treatment Upcoming Encounters Date Type Department Care Team (Latest Contact Info) Description 12/30/2023 11:10 AM CDT Appointment Department of Laboratory Medicine and Pathology, [address] [phone] Rosemary Gregorio APRN, EXECUTIVE WELLNESS PROGRAMS DIRECTOR, M.S. [address] [place] [phone] 12/30/2023 11:20 AM CDT Appointment Department of Laboratory Medicine and Pathology, [place], [place] [address] [place] [phone] Rosemary Gregorio APRN, EXECUTIVE WELLNESS PROGRAMS DIRECTOR, M.S. [address] [place] [phone] 12/30/2023 12:30 PM CDT Appointment Department of Radiology, [place], [place] [address] [place] [phone] Rosemary Gregorio APRN, EXECUTIVE WELLNESS PROGRAMS DIRECTOR, M.S. [address] [place] [phone] 12/31/2023 12:40 PM CDT Ancillary Procedure Department of Cardiovascular Medicine in [address] [phone] Fredi Horner M.D. [address] [place] [phone] 12/31/2023 1:45 PM CDT Comprehensive Visit Department of Urology in [place], [place] [address] [place] [phone] Tabitha Rich P.A.-C. [address] [place] [phone] 12/31/2023 2:30 PM CDT Procedure visit Department of Urology in [place], [place] [address] [place] [phone] Rosemary Gregorio APRN, EXECUTIVE WELLNESS PROGRAMS DIRECTOR, M.S. [address] [place] [phone] 01/01/2024 8:00 AM CDT Comprehensive Visit Department of Cardiovascular Medicine in [place], [place] [address] [place] [phone] Fredi Horner M.D. [address] [place] [phone] 01/01/2024 1:30 PM CDT Comprehensive Visit Division of Endocrinology in [address] [phone] Horacio Harp M.D. [address] [place] [phone] 01/01/2024 3:00 PM CDT Office Visit Section of Executive Medicine in [address] [phone] Avtar Aaron M.D. [address] [place] [phone] documented as of this encounter Visit Diagnoses [...]
--- OUTSIDE RECORDS SUMMARY | 2023-11-13 14:44 | XMS_ITS | Encounter Summary ---
Author Organization [facility] Address [address] [place] [address] Care Team Providers Care Bioprocess Development Engineer Name Role Phone Unavailable Primary Care Provider Unavailabl e Reason for Referral * Occupational Therapy (Routine) - Pending Review Specialty Diagnoses / Procedures Referred By Contac t Referred To Contact Diagnoses Injury Thoracic Spinal Cord Subsequent (HCC) Procedures OT Ongoing Treatment Rst Pmr Tex [address] [place] [phone] [facility] Referral ID Status Reason Start Date Expiration Date V isits Requested Visits Authorized [id number] Pending Review 10/09/2023 10/08/2024 99 99 Reason for Visit * Physical Therapy (Routine) - Closed Specialty Diagnoses / Procedures Referred By Contac t Referred To Contact Diagnoses Injury Thoracic Spinal Cord Subsequent (HCC) Procedures PT or OT eval and treat (first available) Avtar Aaron M.D. [address] [place] [phone] [facility] Referral ID Status Reason Start Date Expiration Date Visits Re quested Visits Authorized [id number] Closed 09/14/2023 09/13/2024 1 1 Encounter Details Date Type Department Care Team (Latest Contact Info) Description 10/08/2023 11:00 AM CDT Comprehensive Visit Department of Physical Medicine and Rehabilitation in [place], [place] [address] [place] [phone] Avtar Aaron M.D. [address] [place] [phone] Al Fraser M.S., O.T. [address] [place] [phone] Injury Thoracic Spinal Cord Subsequent (HCC) (Primary [...] years. I stopped in 2013. [facility] Utilities Answer Date Recorded In the past 12 months has [employer], gas, oil, or water [employer] threatened to shut off services in your [...] your living situation today? I have a [facility] place to live 10/01/2023 Sex [...] may be considered the completion of the jucw-vl-gldi evaluation. SUBJECTIVE Patient's Name: Michael Merna Referring Provider: Avtar Aaron M.D. Reason for Referral: Patient was referred to the outpatient wheelchair/seating clinic for occupational therapy examination, evaluation and determination of the most appropriate durable medical equipment to accomplish mobility-related activities of daily living in the home. t 1. Injury Thoracic Spinal Cord Subsequent (HCC) Payor: [place] MED[place] / Plan: [place] MED[place] / Product Type: Medicaid / Pertinent [...] skin breakdown during ADL performance. Xensor device: [place] First trial setup: Initial map on ride [...] note has no financial relationship with the [employer] rehabilitation technology vendor/supplier. Parts of this note was completed using voice recognition software (Ariagora). A reasonable attempt has been made to [...] Appointment Department of Laboratory Medicine and Pathology, [place], [place] [address] [place] [phone] Rosemary Gregorio APRN, WILDLIFE BIOLOGY TECHNICIAN, M.S. [address] [place] [phone] 12/30/2023 11:20 AM CDT Appointment Department of Laboratory Medicine and Pathology, [place], [place] [address] [place] [phone] Roesmary Gregorio APRN, WILDLIFE BIOLOGY TECHNICIAN, M.S. [address] [place] [phone] 12/30/2023 12:30 PM CDT Appointment Department of Radiology, [facility], in [place], [place] [address] [place] [phone] Rosemary Gregorio APRN, WILDLIFE BIOLOGY TECHNICIAN, M.S. [address] [place] [phone] 12/31/2023 12:40 PM CDT Ancillary Procedure Department of Cardiovascular Medicine in [place], [place] [address] [place] [phone] Fredi Horner M.D. [address] [place] [phone] 12/31/2023 1:45 PM CDT Comprehensive Visit Department of Urology in [place], [place] [address] [place] [phone] Tabitha Rich P.A.-C. [address] [place] [phone] 12/31/2023 2:30 PM CDT Procedure visit Department of Urology in [place], [place] [address] [place] [phone] Rosemary Gregorio APRN, WILDLIFE BIOLOGY TECHNICIAN, M.S. [address] [place] [phone] 01/01/2024 8:00 AM CDT Comprehensive Visit Department of Cardiovascular Medicine in [place], [place] [address] [place] [phone] Fredi Horner M.D. [address] [place] [phone] 01/01/2024 1:30 PM CDT Comprehensive Visit Division of Endocrinology in [place], [place] [address] [place] [phone] Horacio Harp M.D. [address] [place] [phone] 01/01/2024 3:00 PM CDT Office Visit Section of Executive Medicine in [place], [place] [address] [place] [address] Avtar Aaron M.D. 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
--- OUTSIDE RECORDS SUMMARY | 2023-11-13 14:44 | XMS_ITS | Encounter Summary ---
Author Organization [facility] Address [address] [place] [address] Care Team Providers Care Occupational Rehabilitation Aide Name Role Phone Unavailable Primary Care Provider Unavailabl e Encounter Details Date Type Department Care Team (Late st Contact Info) Description 10/09/2023 Clinical Communication Division of General Internal Medicine in [place], [place] [address] [place] [phone] Avtar Aaron M.D. [address] [place] [phone] Social History Tobacco Use Types Packs/Day Years [...] years. I stopped in 2013. [facility] Utilities Answer Date Recorded In the past 12 months has [employer], gas, oil, or water [employer] threatened to shut off services in your [...] your living situation today? I have a [facility] place to live 10/01/2023 Sex and [...] Appointment Department of Laboratory Medicine and Pathology, [place], [place] [address] [place] [address] Rosemary Grgeorio APRN, INTERLOCKING AND SIGNAL MECHANIC, M.S. [address] [place] [phone] 12/30/2023 11:20 AM CDT Appointment Department of Laboratory Medicine and Pathology, [facility] in [place], [place] [address] [place] [address] Rosemary Gregorio APRN, INTERLOCKING AND SIGNAL MECHANIC, M.S. [address] [place] [phone] 12/30/2023 12:30 PM CDT Appointment Department of Radiology, [facility], in [place], [place] [address] [place] [address] Rosemary Gregorio APRN, INTERLOCKING AND SIGNAL MECHANIC, M.S. [address] [place] [phone] 12/31/2023 12:40 PM CDT Ancillary Procedure Department of Cardiovascular Medicine in [place], [place] [address] [place] [phone] Fredi Horner M.D. [address] [place] [phone] 12/31/2023 1:45 PM CDT Comprehensive Visit Department of Urology in [place], [place] [address] [place] [phone] Tabitha Rich, [place] [address] [place] [phone] 12/31/2023 2:30 PM CDT Procedure visit Department of Urology in [place], [place] [address] [place] [phone] Rosemary Gregorio APRN, INTERLOCKING AND SIGNAL MECHANIC, M.S. [address] [place] [phone] 01/01/2024 8:00 AM CDT Comprehensive Visit Department of Cardiovascular Medicine in [place], [place] [address] [place] [phone] Fredi Horner M.D. [address] [place] [phone] 01/01/2024 1:30 PM CDT Comprehensive Visit Division of Endocrinology in [place], [place] [address] [place] [phone] Horacio Harp M.D. [address] [place] [phone] 01/01/2024 3:00 PM CDT Office Visit Section of Executive Medicine in [place], [place] [address] [place] [phone] Avtar Aaron M.D. 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
--- OUTSIDE RECORDS SUMMARY | 2023-11-13 14:44 | XMS_ITS | Encounter Summary ---
Author Organization [facility] Address [address] [place] [address] Care Team Providers Care Material Liaison Name Role Phone Unavailable Primary Care Provider Unavailabl e Encounter Details Date Type Department Care Team (Late st Contact Info) Description 10/07/2023 Clinical Communication Division of General Internal Medicine in [place], [place] [address] [place] [phone] Avtar Aaron M.D. [address] [place] [address] Social History Tobacco Use Types Packs/Day Years [...] I stopped in 2013. [facility] Utilities Answer Date Recorded In the past 12 months has [employer], gas, oil, or water [employer] threatened to shut off services in your [...] Appointment Department of Laboratory Medicine and Pathology, [place], [place] [address] [place] [address] Rosemary Gregorio APRN, COOKIE PADDER, M.S. [address] [place] [phone] 12/30/2023 11:20 AM CDT Appointment Department of Laboratory Medicine and Pathology, [facility] in [place], [place] [address] [place] [address] Rosemary Gregorio APRN, COOKIE PADDER, M.S. [address] [place] [phone] 12/30/2023 12:30 PM CDT Appointment Department of Radiology, [facility], in [place], [place] [address] [place] [address] Rosemary Gregorio APRN, COOKIE PADDER, M.S. [address] [place] [phone] 12/31/2023 12:40 PM CDT Ancillary Procedure Department of Cardiovascular Medicine in [place], [place] [address] [place] [phone] Fredi Horner M.D. [address] [place] [phone] 12/31/2023 1:45 PM CDT Comprehensive Visit Department of Urology in [place], [place] [address] [place] [phone] Tabitha Rich, [place] [address] [place] [phone] 12/31/2023 2:30 PM CDT Procedure visit Department of Urology in [place], [place] [address] [place] [phone] Rosemary Gregorio APRN, COOKIE PADDER, M.S. [address] [place] [phone] 01/01/2024 8:00 AM CDT Comprehensive Visit Department of Cardiovascular Medicine in [place], [place] [address] [place] [phone] Fredi Horner M.D. [address] [place] [phone] 01/01/2024 1:30 PM CDT Comprehensive Visit Division of Endocrinology in [place], [place] [address] [place] [phone] Horacio Harp M.D. [address] [place] [phone] 01/01/2024 3:00 PM CDT Office Visit Section of Executive Medicine in [place], [place] [address] [place] [phone] Avtar Aaron M.D. 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
--- OUTSIDE RECORDS SUMMARY | 2023-11-13 14:44 | XMS_ITS | Encounter Summary ---
Author Organization [facility] Address [address] [place] [address] Care Team Providers Care Grain Packer Name Role Phone Unavailable Primary Care Provider Unavailabl e Reason for Visit * Outpatient (Routine) - Closed Specialty Diagnoses / Procedures Referred By Candice maki Referred To Contact Wellness Diagnoses Wellness Screening Avtar Aaron M.D. [address] [place] [phone] [facility] Referral ID Status Reason Start Date Expiration Date Visits Re quested Visits Authorized [id number] Closed 09/14/2023 03/15/2025 1 1 Encounter Details Date Type Department Care Team (Latest Contact Info) Description 11/03/2023 9:00 AM CDT Clinical Support Healthy Living Program in [place], [place] [address] [place] [address] Bbuba Perez M.D., M.S. [address] [place] [phone] Paraplegia (HCC) (Primary Dx); Flutter Atrial (HCC); [...] years. I stopped in 2013. [facility] Utilities Answer Date Recorded In the past 12 months has th e [employer], gas, oil, or water company threatened to [...] your living situation today? I have a [facility] place to live 10/01/2023 Sex [...] old habits when disruption occurs. A good lean coach cannot play the game for you, [...] in diet and physicalactivity habits is The [facility] Diet and the associated [facility] Diet Journal. While weight loss is an obvious goal, making healthy changes in diet and physical activity behaviors have many other benefits including feeling better, being more mobile, and decreasing the risks of many different diseases. For further recommendations, please see The [facility] Diet or [facility] Substance Use: Tobacco use, opioid and other [...] Substance Abuse and Mental Health Services Administration ([facility]) Hotline - 2-217-509-UWEH (4569) Further Resources: [facility] Guide to Healthy Living The [facility] Diet, 2nd ed. The [facility] Diet Journal Cook Smart, Eat Well ([facility] cookbook) The [facility] Guide to Stress-Free Living The [facility] Handbook for Happiness No More Sleepless Nights Substance Abuse and Mental Health Services Administration ([facility]) I reviewed the above with the patient and answered questions. I spent a total of greater than 40 minutes, with over 50% spent counseling with the patient and coordination of care activities describedabove. documented in this encounter Plan of Treatment Upcoming Encounters Date Type Department Care Team (Latest Contact Info) Description 12/30/2023 11:10 AM CDT Appointment Department of Laboratory Medicine and Pathology, [facility] in [place] [address] [address] [place] [address] Rosemary Gregorio APRN, PRODUCTION PAINTER, M.S. [address] [place] [phone] 12/30/2023 11:20 AM CDT Appointment Department of Laboratory Medicine and Pathology, [facility] in [place], [place] [address] [place] [phone] Rosemary Gregorio APRN, PRODUCTION PAINTER, M.S. [address] [place] [phone] 12/30/2023 12:30 PM CDT Appointment Department of Radiology, [facility] in [place], [place] [address] [place] [phone] Rosemary Gregorio APRN, PRODUCTION PAINTER, M.S. [address] [place] [phone] 12/31/2023 12:40 PM CDT Ancillary Procedure Department of Cardiovascular Medicine in [place], [place] [address] [place] [phone] Fredi Horner M.D. [address] [place] [phone] 12/31/2023 1:45 PM CDT Comprehensive Visit Department of Urology in [place], [place] [address] [place] [phone] Tabitha Rich, PRajeev [address] [place] [phone] 12/31/2023 2:30 PM CDT Procedure visit Department of Urology in [place], [place] [address] [place] [phone] Rosemary Gregorio APRN, PRODUCTION PAINTER, M.S. [address] [place] [phone] 01/01/2024 8:00 AM CDT Comprehensive Visit Department of Cardiovascular Medicine in [place], [place] [address] [place] [address] Fredi Horner M.D. [address] [place] [phone] 01/01/2024 1:30 PM CDT Comprehensive Visit Division of Endocrinology in [place], [place] [address] [place] [phone] Horacio Harp M.D. [address] [place] [phone] 01/01/2024 3:00 PM CDT Office Visit Section of Executive Medicine in [place], [place] [address] [place] [address] Avtar Aaron M.D. 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
--- OUTSIDE RECORDS SUMMARY | 2023-11-13 14:44 | XMS_ITS ---
Author Organization [facility] Address [address] [place] [address] Care Team Providers Care Gas Line Repairer Name Role Phone Unavailable Unavailable Unavailable Surgery Details Not on file Complications Check Surgery Details section. Procedure Estimated Blood Loss Check Surgery Details section. Procedure Findings Check Surgery Details section. Procedure Specimens Taken Check Surgery Details section.
--- OUTSIDE RECORDS SUMMARY | 2023-11-13 14:44 | XMS_ITS | Referral Summary ---
Author Organization [facility] Address [address] [place] [id number] Care Team Providers Care Payroll And Benefits Coordinator Name Role Phone Elsewhere, Pcp Primary Care Provider Unavailabl e Source Comments Patient records contain information from all sites at [facility]. For routine questions regarding patient records, call [phone] during business hours, M-F 8:00 AM - 5:00 PM Central Time. Record requests for emergency care only can be directed to [phone] at any time.[facility] Encounters Date Type Department Care Team Description 11/12/2023 8:00 AM CDT Comprehensive Visit Division of Pain Medicine in [place], [place] [address] [place] [address] Angelina Jefferson APRN, C.N.P., M.S.N. Pain Neuropathic (Primary Dx); Injury Thoracic Spinal Cord Subsequent (HCC) 11/03/2023 11:59 AM CDT - 11/03/2023 11:59 PM CDT Hospital Encounter Department of Radiology, [facility], in [place], [place] [address] [place] [address] Rosemary Gregorio APRN, UNIFORM CAP OPERATOR, M.S. Injury Thoracic Spinal Cord Subsequent (HCC); Paraplegia (HCC); Osteoporosis Discharge Disposition: Home or Self Care 11/03/2023 10:00 AM CDT Clinical Support Healthy Living Program in [place], [place] [address] [place] [address] UdayappanAvtar M.D. Peterson, Stacy M, [facility] Wellness Screening (Primary Dx) 11/03/2023 9:00 AM CDT Clinical Support Healthy Living Program in [address] [phone] Bubba Perez M.D., M.S. Paraplegia (HCC) (Primary Dx); Flutter Atrial (HCC); Pain Neuropathic; Wellness Screening 10/09/2023 Clinical Communication Division of General Internal Medicine in [place], [place] [address] [place], [place] [phone] Avtar Aaron M.D. 10/09/2023 1:00 PM CDT Comprehensive Visit Department of Physical Medicine and Rehabilitation in [place] [phone] Karoline Carney M.D. Pain Shoulder Left (Primary Dx); Tear Glenoid Labral Initial Left; Rotator Cuff Disorder Left; Tendinitis Bicipital Left 10/08/2023 Clinical Communication Department of Cardiovascular Medicine in [address] [phone] School LibrarianRobert M.D. INT REF TRIAGE (INT / GIM / symptomatic a flutter.) 10/08/2023 10:00 AM CDT Comprehensive Visit Department of Physical Medicine and Rehabilitation in [address] [phone] Rosemary Gregorio APRN, UNIFORM CAP OPERATOR, M.S. Paraplegia (HCC) (Primary Dx); Injury Thoracic Spinal Cord Subsequent (HCC); Osteoporosis; Neurogenic Bladder; Neurogenic Bowel; Abnormal Posture; Mobility Limited; Pain Neuropathic; Sensation Skin Altered Discharge Disposition: Home or Self Care 10/08/2023 11:00 AM CDT Comprehensive Visit Department of Physical Medicine and Rehabilitation in [address] [phone] Avtar Aaron M.D. Stanecki, Catherine E, M.S., O.T. Injury Thoracic Spinal Cord Subsequent (HCC) (Primary Dx) Discharge Disposition: Home or Self Care 10/07/2023 Clinical Communication Division of General Internal Medicine in [place], [place] [address] [place] [phone] Avtar Aaron M.D. Holter result (Notification Result: Holter result for Michael Bauman showed atrial flutter was 30 seconds or longer during the start of the test noted on 10/06/23 8:57 AM. /) 10/07/2023 Clinical Communication Division of General Internal Medicine in [place], [place] [address] [place] [phone] Avtar Aaron M.D. 10/07/2023 Clinical Communication Division of General Internal Medicine in [place], [place] [address] [place] [phone] Avtar Aaron M.D. 10/07/2023 7:24 PM CDT - 10/07/2023 11:59 PM CDT Hospital Encounter Department of Radiology, [place], [place] [address] [place] [phone] Avtar Aaron M.D. Rotator Cuff Disorder Left Discharge Disposition: Home or Self Care 10/06/2023 8:34 AM CDT - 10/06/2023 11:59 PM CDT Hospital Encounter Department of Cardiovascular Diseases in [place], [place] [address] [place] [phone] Avtar Aaron M.D. Flutter Atrial (HCC) Discharge Disposition: Home or Self Care 10/05/2023 Clinical Communication Division of General Internal Medicine in [place], [place] [address] [place] [phone] Avtar Aaron M.D. Outside EKG reports 10/05/2023 4:03 PM CDT - 10/05/2023 11:59 PM CDT Hospital Encounter Department [place] [address] [place] [phone] Avtar Aaron M.D. Flutter Atrial (HCC) Discharge Disposition: Home or Self Care 10/05/2023 8:50 AM CDT - 10/05/2023 2:56 PM CDT Hospital Encounter Department of Cardiovascular Diseases in [place], [place] [address] [place] [phone] Avtar Aaron M.D. Flutter Atrial (HCC) Discharge Disposition: Home or Self Care 10/05/2023 2:58 PM CDT - 10/05/2023 4:02 PM CDT Hospital Encounter Department of Radiology, [facility], in [place], [place] [address] [place] [phone] Avtar Aaron M.D. Flutter Atrial (HCC) Discharge Disposition: Home or Self Care 10/05/2023 2:58 PM CDT - 10/05/2023 4:02 PM CDT Hospital Encounter Department of Radiology, [facility], in [place], [place] [address] [place] [phone] Avtar Aaron M.D. Pain Shoulder Left Discharge Disposition: Home or Self Care 10/05/2023 2:57 PM CDT Hospital Encounter Department of Radiology, [facility], in [address] [phone] Avtar Aaron M.D. Injury Thoracic Spinal Cord Subsequent (HCC) Discharge Disposition: Home or Self Care 10/05/2023 1:00 PM CDT Comprehensive Visit Division of General Internal Medicine in [address] [phone] Avtar Aaron M.D. Flutter Atrial (HCC) (Primary Dx); Injury Thoracic Spinal Cord Subsequent (HCC); Rotator Cuff Disorder Left; Tendinitis Bicipital Left 10/02/2023 3:00 PM CDT Clinical Communication Virtual Review in [address] [phone] Pre-visit Intake 09/15/2023 Clinical Communication Department of Cardiovascular Medicine in [address] [phone] School LibrarianRobert manzanares M.D. INTERNAL REFERR[place] (GI [id number]) 09/15/2023 Clinical Communication Division of General Internal Medicine in [place], [place] [address] [place] [phone] Prescheduling, Provider Echo Movep for 10/04 visit 09/08/2023 Clinical Communication Division of General Internal Medicine in [place], [place] [address] [place] [phone] Prescheduling, Provider Triage from Last 3 Months [...] mouth 2 (two) times a day. 10/30/2023 Active UNABLE TO FIND DILTIAZEM HCL (CARDIZEM [...] - MODE RNA (12 YEARS AND OLDER) [id number] 10/05/2023(Deferred: Patient decision - Patinet has received [...] years. I stopped in 2013. [facility] Utilities Answer Date Recorded In the past 12 months has th e blogfoster, gas, oil, or water company threatened to [...] your living situation today? I have a [facility] place to live 10/01/2023 Sex [...] cm (5' 10.08) 04/14/2013 10 :43 AM CUSTODIAN BLOOD BANK Vital sign result from Clinical Notes. Body Mass Index - - Plan of Treatment Upcoming Encounters Date Type Department Care Team (Latest Contact Info) Description 12/30/2023 11:10 AM CDT Appointment Department of Laboratory Medicine and Pathology, [place], [place] [address] [place] [phone] Rosemary Gregorio APRN, UNIFORM CAP OPERATOR, M.S. [address] [place] [phone] 12/30/2023 11:20 AM CDT Appointment Department of Laboratory Medicine and Pathology, [place], [place] [address] [place] [phone] Rosemary Gregorio APRN, UNIFORM CAP OPERATOR, M.S. [address] [place] [phone] 12/30/2023 12:30 PM CDT Appointment Department of Radiology, [place], [place] [address] [place] [phone] Rosemary Gregorio APRN, UNIFORM CAP OPERATOR, M.S. [address] [place] [phone] 12/31/2023 12:40 PM CDT Ancillary Procedure Department of Cardiovascular Medicine in [place], [place] [address] [place] [phone] Fredi Horner M.D. [address] [place] [phone] 12/31/2023 1:45 PM CDT Comprehensive Visit Department of Urology in [place], [place] [address] [place] [phone] Tabitha Rich P.A.-C. [address] [place] [phone] 12/31/2023 2:30 PM CDT Procedure visit Department of Urology in [place], [place] [address] [place] [phone] Rosemary Gregorio APRN, UNIFORM CAP OPERATOR, M.S. [address] [place] [phone] 01/01/2024 8:00 AM CDT Comprehensive Visit Department of Cardiovascular Medicine in [address] [phone] Fredi Horner M.D. [address] [place] [phone] 01/01/2024 1:30 PM CDT Comprehensive Visit Division of Endocrinology in [address] [phone] Horacio Harp M.D. [address] [place] [phone] 01/01/2024 3:00 PM CDT Office Visit Section of Executive Medicine in [address] [phone] Avtar Aaron M.D. [address] [place] [phone] Medical Devices Implanted Type Area Patient Financial Services Manager Device Identifier Shelf Expiration Date Model / Serial / Lot Conversions - Default Historical Implant Device Implanted:08/22 (Quantity not on file) Hardware e.g. pins/screws /rods Description:Device Status Te xt - Hardware. Gm-Syn Cocr 5.5 X 400mm - [place] [id number] Implanted:Qty: 1 on 01/15/2013 Spine Implant Depuy Synthes Description:Device Manufactu rer - Synthes. Device Status Text - [id number]. Head Reduction Ti Polyaxial - [place] [id number] Implanted:Qty: 2 on 01/15/2013 Spine Implant Depuy Synthes Description:Device Manufactu rer - Synthes. Device Status Text - [id number]. Screw-Matrix Bone 5.0 X 45mm - [place] [id number] Implanted:Qty: 8 on 01/15/2013 Spine Implant Depuy Synthes Description:Device Manufactu rer - Synthes. Device Status Text - [id number]. Synthes-Transco n. 30mm - [place] [id number] Implanted:Qty: 2 on 01/15/2013 Spine Implant Depuy Synthes Description:Device Manufactu rer - Synthes. Device Status Text - [id number]. Cap-Synthes Matrix Locking Ti - [place] [id number] Implanted:Qty: 12 on 01/15/2013 Spine Implant Depuy Synthes Description:Device Manufactu rer - Synthes. Device Status Text - [id number]. Screw-Matrix Bone 6.0 X 45mm - [place] [id number] Implanted:Qty: 4 on 01/15/2013 Spine Implant Depuy Synthes Description:Device Manufactu rer - Synthes. Device Status Text - [id number]. Cap-Synthes Matrix Polyax Head Ti - [place] [id number] Implanted:Qty: 10 on 01/15/2013 Spine Implant Depuy Synthes Description:Device Manufactu rer - Synthes. Device Status Text - [id number]. Graft Tag Thoracic Endo 21 X 10 - [place] [id number] Implanted:Qty: 1 on 01/15/2013 Vascular Graft Other/Legacy - See Implant Description [place] Description:Device Manufactu rer - [employer] Body Location - Other. Vascular. Device Status Text - [id number]. Procedures Procedure Name Priority Date/Time Associated Diagnosis Comments BMD BONE DENSITY HIPS KNEES RAD - Routine (most inpatients and all outpatients) 11/03/2023 2:21 PM CDT Injury Thoracic Spinal Cord Subsequent (HCC) Paraplegia (HCC) Osteoporosis MR SHOULDER LEFT WITHOUT IV CONTRAST RAD - Routine (most inpatients and all outpatients) 10/07/2023 8:16 PM CDT Rotator Cuff Disorder Left HOLTER MONITOR - IN CLINIC COMMERCIAL REAL ESTATE LENDER Routine 10/07/2023 9:43 AM CDT Flutter Atrial [...] Bone Mineral Density (BMD) analysis performed on Eqvilibria with serial number [id number]. ? FINDINGS: Left Hip: Femur Neck: BMD = 0.618 g/cm2 Z-score = -2.9 Total Hip: BMD = 0.543 g/cm2 Z-score = -3.4 Right Hip: Femur Neck: BMD = 0.549 g/cm2 Z-score = -3.4 Total Hip: BMD = 0.474 g/cm2 Z-score = -3.9 ? Please note: A more comprehensive DXA report, including images and graphs, is available in [email or web address]. In the absence of other causes of [...] Bone Mineral Density (BMD) analysis performed on Ads-FiXA with serialnumber [id number]. FINDINGS: Left Hip: Femur Neck: BMD = [...] expected range for age. Rosemary Gregorio APRN, UNIFORM CAP OPERATOR, M.S. G DXA PROC EDURES * MR Shoulder Left [...] 3 mm, para labral cyst (series 5 -06). No donal labral detachment. The glenoid labrum [...] RES * HOLTER MONITOR - IN CLINIC [employer]ER[employer] REAL ESTATE LENDER (10/07/2023 9:43 AM CDT) Min Heart Rate [...] 1h 35m duration INFOBION IC MOME AF [place] 6.71 percent INFOBIONIC MOME Longest AF Duration 1h 36m duration INFOBIONIC MOME Symptom Count 1 count JUAN JOSE MENENDEZ 10/06/2023 8:39 AM CDT Narrative DIANDRA MENENDEZ - 10/11/2023 2:23 PM CDT [facility] 1. The basic rhythm was sinus with [...] this event, there was no ectopy noted. Dresser Tender: COLETTE Rivera/ CLOETTE Bray A Holter monitor with cascade to extended monitoring was ordered for the indication of Atrial fibrillation or flutter calculate burden/% time in AF. During the Holter monitoring period, the patient did have atrial fibrillation or flutter >=30 seconds. Therefore, the study was not cascaded to extended monitoring. Procedure Note Lisandro Ellison M.D. - 10/11/2023 [facility] 1. The basic rhythm was sinus with [...] this event, there was no ectopy noted. Dresser Tender: COLETTE Rivera/ COLETTE Bray A Holter monitor with cascade to extended monitoring was ordered for theindication of Atrial fibrillation or flutter calculate burden/% time inAF. During the Holter monitoring period, the patient did have atrialfibrillation or flutter >=30 seconds. Therefore, the study was not cascaded to extended monitoring. Avtar Aaron M.D. CV CARDIAC SERV ICES PROCEDURES Performing Organization Address [facility] Co de Phone Number DIANDRA MENENDEZ NA * ECG 12 Lead (10/06/2023 8:33 AM CDT) Ventricular Rate ECG/Min 89 BPM MUSE QRSD Interval 96 ms MUSE QT Interval 364 ms MUSE QTC Interval 442 ms MUSE P [place] 78 degrees MUSE R [place] 54 degrees MUSE T Wave [place] 29 degrees MUSE 10/06/2023 8:33 AM CDT [...] Aaron M.D. ECG ORDERABLES Performing Organization Address [facility] Co de Phone Number MUSE NA [...] [facility] [address] [place] [address], [facility] [address] [place] [address] * Thyroid Function [place] (10/05/2023 4:15 PM CDT) TSH, Sensitive 1.4 0.3 - 4.2 mIU/L 10/05/2023 5:30 PM CDT DT Blood (Blood, Venous) 10/05/2023 4:15 PM CDT 10/05/2023 4:58 PM CDT Avtar Aaron M.D. LAB BLOOD ADD-O N [facility] [address] [place] [address] * Magnesium (10/05/2023 4:15 PM CDT) Magnesium, S 1.8 1.7 - 2.3 mg/dL 10/05/2023 5:30 PM CDT DT Blood (Blood, Venous) 10/05/2023 4:15 PM CDT 10/05/2023 4:58 PM CDT Avtar Aaron M.D. LAB BLOOD ADD-O N Performing Organization Address City/[facility]/ZIP Co de Phone Number [facility] [address] [place] [address] * Hemoglobin A1c (10/05/2023 4:15 PM CDT) Hemoglobin A1c, B 4.9 4.0 - 5.6 % 10/05/2023 5:21 PM CDT DT Blood (Blood, Venous) 10/05/2023 4:15 PM CDT 10/05/2023 4:41 PM CDT Avtar Aaron M.D. LAB BLOOD ADD-O N [facility] [address] [place] [address] * (ABNORMAL) Basic Metabolic Panel (10/05/2023 4:15 [...] [facility] [address] [place] [address], [place] [facility] [address] [place] [address] * DX Chest AP or PA and [...] largely resolved. Avtar Aaron M.D. [facility]ST[facility]AGING PROCEDURES * DX Shoulder Left [...] IMPRESSION: Negative left shoulder. Avtar Aaron M.D. IM DIAGNOSTIC IMAGING PROCEDURES * DX Lumbar Spine [...] ECHO DOPPLER COLOR (10/05/2023 10:32 AM CDT) [facility] Ejection Fraction 50 MC CV EIMS [...] PM CDT) HBs Antigen, S Negative Negative [facility] Comment:Drawn From PICC Hepatitis A IgM Ab, S Negative Negative [facility] Comment:Drawn From PICC HBc IgM Ab, S Negative Negative [place] [facility] Comment:Drawn From PICC HCV Ab, S Negative Negative [facility] Comment: Drawn From PICC ? Rmjygm-fm-ddvqcl ratio is <1.00. ? 02/06/2013 1:58 PM CDT 02/06/2013 1:58 PM CDT Narrative [facility] - 02/07/2013 12:12 PM CDT Drawn From PICC Hunter Celeste APRN, C.N.P., D.N.P. 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
--- OUTSIDE RECORDS SUMMARY | 2023-11-13 14:44 | XMS_ITS | Encounter Summary ---
Author Organization [facility] Address [address] [place] [address] Care Team Providers Care District Attorney Name Role Phone Unavailable Primary Care Provider Unavailabl e Reason for Referral * Physical Therapy (Routine) - Authorized Specialty Diagnoses / Procedures Referred By Contac t Referred To Contact Diagnoses Paraplegia (HCC) Abnormal Posture Mobility Limited Procedures PT or OT eval and treat (first available) Rosemary Gregorio APRN, CNS, M.S. [address] [place] [phone] [facility] Referral ID Status Reason Start Date Expiration Date V isits Requested Visits Authorized [id number] Authorized 10/08/2023 10/07/2024 99 99 * Outpatient (Routine) - Authorized Specialty Diagnoses / Procedures Referred By Contact Referred To Contact Physical Medicine and Rehabilitation Rosemary Gregorio APRN, CNS, M.S. [address] [place] [phone] [facility] Referral ID Status Reason Start Date Expiration Date V isits Requested Visits Authorized [id number] Authorized 10/08/2023 04/08/2025 1 1 Scheduling Instructions Please double with seating clinic in 2024 for face to face for replacement wheelchair * Outpatient (Routine) - Authorized Specialty Diagnoses / Procedures Referred By Contac t Referred To Contact Diagnoses Paraplegia (HCC) Neurogenic Bladder Procedures US Kidneys Bilateral with Bladder Rosemary Gregorio APRN, CNS, M.S. [address] [place] [phone] [facility] Referral ID Status Reason Start Date Expiration Date V isits Requested Visits Authorized [id number] Authorized 10/08/2023 10/07/2024 1 1 * Outpatient (Routine) - Authorized Specialty Diagnoses / Procedures Referred By Contac t Referred To Contact Diagnoses Paraplegia (HCC) Neurogenic Bladder Procedures URO Urodynamic study (with flow) Rosemary Gregorio APRN, CNS, M.S. [address] [place] [phone] [facility] Referral ID Status Reason Start Date Expiration Date V isits Requested Visits Authorized [id number] Authorized 10/08/2023 10/07/2024 1 1 * Outpatient (Routine) - Authorized Specialty Diagnoses / Procedures Referred By Contac t Referred To Contact Urology Diagnoses Paraplegia (HCC) Neurogenic Bladder Rosemary Gregorio APRN, CNS, M.S. [address] [place] [phone] [facility] Referral ID Status Reason Start Date Expiration Date V isits Requested Visits Authorized [id number] Authorized 10/08/2023 04/08/2025 1 1 * Outpatient (Routine) - Closed Specialty Diagnoses / Procedures Referred By Contac t Referred To Contact Diagnoses Injury Thoracic Spinal Cord Subsequent (HCC) Paraplegia (HCC) Osteoporosis Procedures BMD Bone Density Hips Knees Rosemary Gregorio APRN, CNS, M.S. [address] [place] [phone] [facility] Referral ID Status Reason Start Date Expiration Date Visits Re quested Visits Authorized [id number] Closed 10/08/2023 10/07/2024 1 1 * Outpatient (Routine) - Authorized Specialty Diagnoses / Procedures Referred By Contac t Referred To Contact Endocrinology Diagnoses Injury Thoracic Spinal Cord Subsequent (HCC) Paraplegia (HCC) Osteoporosis Rosemary Gregorio APRN, CNS, M.S. 200 [place] [phone] [facility] Referral ID Status Reason Start Date Expiration Date V isits Requested Visits Authorized [id number] Authorized 10/08/2023 04/08/2025 1 1 Reason for Visit * Outpatient (Routine) - Closed Specialty Diagnoses / Procedures Referred By Contact Referred To Contact Physical Medicine and Rehabilitation Diagnoses Injury Thoracic Spinal Cord Subsequent (HCC) Avtar Aaron M.D. [address] [place] [phone] Referral ID Status Reason Start Date Expiration Date Visits Re quested Visits Authorized [id number] Closed 09/14/2023 03/15/2025 1 1 Encounter Details Date Type Department Care Team (Latest Contact Info) Description 10/08/2023 10:00 AM CDT Comprehensive Visit Department of Physical Medicine and Rehabilitation in [place], [place] [address] [place] [phone] Rosemary Gregorio APRN, CNS, M.S. [address] [place] [phone] Paraplegia (HCC) (Primary Dx); Injury Thoracic Spinal [...] for many years. I stopped in 2013. [facility] Utilities Answer Date Recorded In the past 12 months has e [employer], gas, oil, or water [employer] threatened to shut off services in your [...] your living situation today? I have a [facility] place to live 10/01/2023 Sex and [...] 2012. He had been living in the [facility] and was followed closely by primary care provider, however not so much by a spinal cord specialist. He has moved to [place] and would like to reestablishhis care especially spinal cord related care at [facility]. 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 He was 27 years old [...] He had been followed by Urology via [facility], but would like to transition his urology care to [facility] as well. Since I have last [...] 2 years old that he obtained from [employer] He also has a rigid [place] back rest. He unfortunately developed a left [...] our percutaneous spinal stimulation research here at [facility], and has been in contact with our milieu coordinator. At this time he has no [...] transition to our urology colleagues here at [facility]. I did place orders for our [...] have placed orders for next year for mozx-or-ihuf with myself and seating clinic and his [...] will be seen by our seating clinical research nurse to assure appropriate pressure relief of his [...] patient today. Signed by: Rosemary Gregorio APRN, GRADER GREEN MEAT, M.S. 10/08/2023 11:01 AM CDT documented in this encounter Plan of Treatment Upcoming Encounters Date Type Department Care Team (Latest Contact Info) Description 12/30/2023 11:10 AM CDT Appointment Department of Laboratory Medicine and Pathology, [facility] in [address] [phone] Rosemary Gregorio APRN, DULCE, M.S. [address] [place] [phone] 12/30/2023 11:20 AM CDT Appointment Department of Laboratory Medicine and Pathology, [facility] in [place], [place] [address] [place] [phone] Rosemary Gregorio APRN, DLUCE, M.S. [address] [place] [phone] 12/30/2023 12:30 PM CDT Appointment Department of Radiology, [facility] in [place], [place] [address] [place] [phone] Rosemary Gregorio APRN, GRADER GREEN MEAT, M.S. [address] [place] [phone] 12/31/2023 12:40 PM CDT Ancillary Procedure Department of Cardiovascular Medicine in [place], [place] [address] [place] [phone] Fredi Horner M.D. [address] [place] [phone] 12/31/2023 1:45 PM CDT Comprehensive Visit Department of Urology in [address] [phone] Tabitha Rich P.A.-C. [address] [place] [phone] 12/31/2023 2:30 PM CDT Procedure visit Department of Urology in [place], [place] [address] [place] [phone] Rosemary Gregorio APRN, GRADER GREEN MEAT, M.S. [address] [place] [phone] 01/01/2024 8:00 AM CDT Comprehensive Visit Department of Cardiovascular Medicine in [place], [place] [address] [place] [phone] Fredi Horner M.D. [address] [place] [phone] 01/01/2024 1:30 PM CDT Comprehensive Visit Division of Endocrinology in [place], [place] [address] [place] [phone] Horacio Harp M.D. [address] [place] [phone] 01/01/2024 3:00 PM CDT Office Visit Section of Executive Medicine in [place], [place] [address] [place] [phone] Avtar Aaron M.D. [address] [place] [phone] Scheduled Orders Name Type Priority Associated Diagnoses [...] Bone Mineral Density (BMD) analysis performed on [employer] with serial number [id number]. ? FINDINGS: Left Hip: Femur Neck: BMD = 0.618 g/cm2 Z-score = -2.9 Total Hip: BMD = 0.543 g/cm2 Z-score = -3.4 Right Hip: Femur Neck: BMD = 0.549 g/cm2 Z-score = -3.4 Total Hip: BMD = 0.474 g/cm2 Z-score = -3.9 ? Please note: A more comprehensive DXA report, including images and graphs, is available in QREADS. In the absence of [...] Bone Mineral Density (BMD) analysis performed on [employer] with serialnumber [id number]. FINDINGS: Left Hip: Femur Neck: BMD = [...] range for age. DULCE Perera APRN, M.S. [facility] DXA PROC EDURES documented in this encounter [...]
--- OUTSIDE RECORDS SUMMARY | 2023-11-13 14:44 | XMS_ITS | Encounter Summary ---
Author Organization [facility] Address [address] [place] [address] Care Team Providers Care Pearl Digger Name Role Phone Unavailable Primary Care Provider Unavailabl e Reason for Referral * Outpatient (Routine) - Authorized Specialty Diagnoses / Procedures Referred By Contac t Referred To Contact Diagnoses Flutter Atrial (HCC) Procedures ECG 12 Lead Fredi Horner M.D. [address] [place] [phone] [facility] Referral ID Status Reason Start Date Expiration Date V isits Requested Visits Authorized [id number] Authorized 10/13/2023 10/12/2024 1 1 Reason for Visit * Reason Onset Date Comments INT REF TRIAGE 10/08/2023 INT / GIM / symp tomatic a flutter. Encounter Details Date Type Department Care Team (Latest Contact Info) Description 10/08/2023 Clinical Communication Department of Cardiovascular Medicine in [place], [place] [address] [place] [phone] Stonecutter AssistantRobert M.D. INT REF TRIAGE (INT / GIM [...] for many years. I stopped in 2013. [facility] Utilities Answer Date Recorded In the past 12 months has th e [employer], gas, oil, or water company threatened to [...] your living situation today? I have a [facility] place to live 10/01/2023 Sex and [...] questions, please contact the patient's primary provider. [facility]' Nurse Chart Review: [...] Requested date: First Available Additional comments: GIM [phone] documented in this encounter Plan of Treatment Upcoming Encounters Date Type Department Care Team (Latest Contact Info) Description 12/30/2023 11:10 AM CDT Appointment Department of Laboratory Medicine and Pathology, [facility] in [place], [place] [address] [place] [phone] Rosemary Gregorio APRN, CLOTH SHRINKER, M.S. [address] [place] [phone] 12/30/2023 11:20 AM CDT Appointment Department of Laboratory Medicine and Pathology, [facility] in [place], [place] [address] [place] [phone] oRsemary Gregorio APRN, CLOTH SHRINKER, M.S. [address] [place] [phone] 12/30/2023 12:30 PM CDT Appointment Department of Radiology, [facility] in [place], [place] [address] [place] [phone] Rosemary Gregorio APRN, CLOTH SHRINKER, M.S. [address] [place] [phone] 12/31/2023 12:40 PM CDT Ancillary Procedure Department of Cardiovascular Medicine in [place], [place] [address] [place] [phone] Fredi Horner M.D. [address] [place] [phone] 12/31/2023 1:45 PM CDT Comprehensive Visit Department of Urology in [place], [place] [address] [place] [phone] Tabitha Rich P.A.-C. [address] [place] [phone] 12/31/2023 2:30 PM CDT Procedure visit Department of Urology in [place], [place] [address] [place] [phone] Rosemary Gregorio APRN, CLOTH SHRINKER, M.S. [address] [place] [phone] 01/01/2024 8:00 AM CDT Comprehensive Visit Department of Cardiovascular Medicine in [place], [place] [address] [place] [phone] Fredi Horner M.D. [address] [place] [phone] 01/01/2024 1:30 PM CDT Comprehensive Visit Division of Endocrinology in [place], [place] [address] [place] [phone] Horacio Harp M.D. [address] [place] [phone] 01/01/2024 3:00 PM CDT Office Visit Section of Executive Medicine in [address] [phone] Chase Savage M.D. [address] [place] [phone] Scheduled Orders Name Type Priority Associated Diagnoses [...]
--- OUTSIDE RECORDS SUMMARY | 2023-11-13 14:44 | XMS_ITS | Encounter Summary ---
Author Organization [facility] Address [address] [place] [address] Care Team Providers Care Peer Counselor Name Role Phone Unavailable Primary Care Provider Unavailabl e Reason for Referral * Outpatient (Routine) - Closed Specialty Diagnoses / Procedures Referred By Contac t Referred To Contact Diagnoses Injury Thoracic Spinal Cord Subsequent (HCC) Paraplegia (HCC) Osteoporosis Procedures BMD Bone Density Hips Knees Rosemary Gregorio APRN, SERVICE TRANSFORMER REPAIR SUPERVISOR, M.S. [address] [place] [phone] [facility] Referral ID Status Reason Start Date Expiration Date Visits Re quested Visits Authorized [id number] Closed 10/08/2023 10/07/2024 1 1 Electronically signed by Rosemary Gregorio APRN SERVICE TRANSFORMER REPAIR SUPERVISOR, M.S. at 11/03/2023 11:59 AM CDT Reason for Visit * Outpatient (Routine) - Closed Specialty Diagnoses / Procedures Referred By Contac t Referred To Contact Diagnoses Injury Thoracic Spinal Cord Subsequent (HCC) Paraplegia (HCC) Osteoporosis Procedures BMD Bone Density Hips Knees Rosemary Gregorio APRN, SERVICE TRANSFORMER REPAIR SUPERVISOR, M.S. [address] [place] [phone] [facility] Referral ID Status Reason Start Date Expiration Date Visits Re quested Visits Authorized [id number] Closed 10/08/2023 10/07/2024 1 1 Encounter Details Date Type Department Care Team (Latest Contact Info) Description 11/03/2023 11:59 AM CDT - 11/03/2023 11:59 PM CDT Hospital Encounter Department of Radiology, [facility], in [place], [place] [address] [place] [phone] Rosemary Gregorio APRN, SERVICE TRANSFORMER REPAIR SUPERVISOR, M.S. [address] [place] [address] Injury Thoracic Spinal Cord Subsequent (HCC); Paraplegia [...] many years. I stopped in 2013. [facility] Utilities Answer Date Recorded In the past 12 months has [employer], gas, oil, or water [employer] threatened to shut off services in your [...] your living situation today? I have a [facility] place to live 10/01/2023 Sex [...] by mouth 2 (two) times a day. sulfamethoxazole-trimetho prim (Bactrim DS) 800-160 mg per tablet Take 1 tablet by mouth 2 (two) times a day. 10/30/2023 11/21/2023 pregabalin (Lyrica) 150 mg capsule Take 150 mg by mouth 2 (two) times a day. 04/09/2023 11/12/2023 documented as of this encounter Plan of Treatment Upcoming Encounters Date Type Department Care Team (Latest Contact Info) Description 12/30/2023 11:10 AM CDT Appointment Department of Laboratory Medicine and Pathology, [facility], in [place], [place] [address] [place] [phone] Rosemary Gregorio APRN, SERVICE TRANSFORMER REPAIR SUPERVISOR, M.S. [address] [place] [phone] 12/30/2023 11:20 AM CDT Appointment Department of Laboratory Medicine and Pathology, [facility] in [place], [place] [address] [place] [address] Rosemary Gregorio APRN, SERVICE TRANSFORMER REPAIR SUPERVISOR, M.S. [address] [place] [phone] 12/30/2023 12:30 PM CDT Appointment Department of Radiology, [facility] in [place], [place] [address] [place] [address] Rosemary Gregorio APRN, SERVICE TRANSFORMER REPAIR SUPERVISOR, M.S. [address] [place] [phone] 12/31/2023 12:40 PM CDT Ancillary Procedure Department of Cardiovascular Medicine in [place], [place] [address] [place] [phone] Fredi Horner M.D. [address] [place] [phone] 12/31/2023 1:45 PM CDT Comprehensive Visit Department of Urology in [place], [place] [address] [place] [phone] Tabitha Rich, [place] [address] [place] [phone] 12/31/2023 2:30 PM CDT Procedure visit Department of Urology in [place], [place] [address] [place] [phone] Rosemary Gregorio APRN, SERVICE TRANSFORMER REPAIR SUPERVISOR, M.S. [address] [place] [phone] 01/01/2024 8:00 AM CDT Comprehensive Visit Department of Cardiovascular Medicine in [place], [place] [address] [place] [phone] Fredi Horner M.D. [address] [place] [phone] 01/01/2024 1:30 PM CDT Comprehensive Visit Division of Endocrinology in [place], [place] [address] [place] [phone] Horacio Harp M.D. [address] [place] [phone] 01/01/2024 3:00 PM CDT Office Visit Section of Executive Medicine in [place], [place] [address] [place] [phone] Avtar Aaron M.D. [address] [place] [phone] documented as of this encounter Procedures Procedure [...] Bone Mineral Density (BMD) analysis performed on [employer] with serial number [id number]. ? FINDINGS: Left Hip: Femur Neck: BMD = 0.618 g/cm2 Z-score = -2.9 Total Hip: BMD = 0.543 g/cm2 Z-score = -3.4 Right Hip: Femur Neck: BMD = 0.549 g/cm2 Z-score = -3.4 Total Hip: BMD = 0.474 g/cm2 Z-score = -3.9 ? Please note: A more comprehensive DXA report, including images and graphs, is available in 3FLOZ. In the absence of other causes of [...] Bone Mineral Density (BMD) analysis performed on [employer] iDXA with serialnumber [id number]. FINDINGS: Left Hip: Femur Neck: BMD = [...] Time VRE Comment:No Historical Comment Imported in [facility] 02/07/2013 02/07/2013 Assessment Noted Time PHQ-9 Depression Total Score: 1 01/28/20 13 5:52 PM CDT documented as of this encounter
--- OUTSIDE RECORDS SUMMARY | 2023-11-13 14:45 | XMS_ITS | Encounter Summary ---
Author Organization [facility] Address [address] [place] [address] Care Team Providers Care Dental Insurance Biller Name Role Phone Unavailable Primary Care Provider Unavailabl e Reason for Visit * Reason Onset Date Comments [place] REFERRAL 09/15/[place] [id number] Encounter Details Date Type Department Care Team (Latest Contact Info) Description 09/15/2023 Clinical Communication Department of Cardiovascular Medicine in [place], [place] [address] [place] [address] Gas Station Service Attendant, Frantz Jones [place] ([place] [id number]) Social History Tobacco Use Types Packs/Day Years Used Date Smoking Tobacco: Former [facility] Utilities Answer Date Recorded In the past 12 months has [facility], gas, oil, or water company [...] your living situation today? I have a [facility] place to live 10/01/2023 Sex and [...] Appointment Department of Laboratory Medicine and Pathology, [place], [place] [address] [place] [address] Rosemary Gregorio APRN, ORAL AND MAXILLOFACIAL SURGEON, M.S. [address] [place] [phone] 12/30/2023 11:20 AM CDT Appointment Department of Laboratory Medicine and Pathology, [place], [place] [address] [place] [address] Rosemary Gregorio APRN, ORAL AND MAXILLOFACIAL SURGEON, M.S. [address] [place] [phone] 12/30/2023 12:30 PM CDT Appointment Department of Radiology, [facility], in [place], [place] [address] [place] [phone] Rosemary Gregorio APRN, ORAL AND MAXILLOFACIAL SURGEON, M.S. [address] [place] [phone] 12/31/2023 12:40 PM CDT Ancillary Procedure Department of Cardiovascular Medicine in [place], [place] [address] [place] [phone] Fredi Horner M.D. [address] [place] [phone] 12/31/2023 1:45 PM CDT Comprehensive Visit Department of Urology in [place], [place] [address] [place] [phone] Tabitha Rich P.A.-C. [address] [place] [phone] 12/31/2023 2:30 PM CDT Procedure visit Department of Urology in [place], [place] [address] [place] [phone] Rosemary Gregorio APRN, ORAL AND MAXILLOFACIAL SURGEON, M.S. [address] [place] [phone] 01/01/2024 8:00 AM CDT Comprehensive Visit Department of Cardiovascular Medicine in [place], [place] [address] [place] [phone] Fredi Horner M.D. [address] [place] [phone] 01/01/2024 1:30 PM CDT Comprehensive Visit Division of Endocrinology in [place], [place] [address] [place] [phone] Horacio Harp M.D. [address] [place] [phone] 01/01/2024 3:00 PM CDT Office Visit Section of Executive Medicine in [place], [place] [address] [place] [address] Avtar Aaron M.D. [address] [place] [phone] documented as of this encounter Visit Diagnoses Not on filedocumented in this encounter Additional Health Concerns Infection 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
--- OUTSIDE RECORDS SUMMARY | 2023-11-13 14:45 | XMS_ITS | Encounter Summary ---
Author Organization [facility] Address [address] [place] [address] Care Team Providers Care Thermodynamics Professor Name Role Phone Unavailable Primary Care Provider Unavailabl e Reason for Referral * Outpatient (Routine) - Closed Specialty Diagnoses / Procedures Referred By Candice maki Referred To Contact Diagnoses Flutter Atrial (HCC) Procedures DX Chest AP or PA and Lateral 2 Views Avtar Araon M.D. 200 [place] [address] [facility] Referral ID Status Reason Start Date Expiration Date Visits Re quested Visits Authorized [id number] Closed 09/14/2023 09/13/2024 1 1 Reason for Visit * Outpatient (Routine) - Closed Specialty Diagnoses / Procedures Referred By Candice maki Referred To Contact Diagnoses Flutter Atrial (HCC) Procedures DX Chest AP or PA and Lateral 2 Views Avtar Aaron M.D. [address] [place] [phone] [facility] Referral ID Status Reason Start Date Expiration Date Visits Re quested Visits Authorized [id number] Closed 09/14/2023 09/13/2024 1 1 Encounter Details Date Type Department Care Team (Latest Contact Info) Description 10/05/2023 2:58 PM CDT - 10/05/2023 4:02 PM CDT Hospital Encounter Department of Radiology, [facility], in [place], [place] [address] [place] [address] Avtar Aaorn M.D. [address] [place] [address] Flutter Atrial (HCC) Discharge Disposition: Home or [...] [facility] Utilities Answer Date Recorded In the past 12 months has [employer], oil, or water [employer] threatened to shut off services in your [...] your living situation today? I have a [facility] [facility] [employer] place to live 10/01/2023 Sex and Gender [...] (for atrial flutter). 30 tablet 10/05/2023 11/03/2023 pregabalin (Lyrica) 150 mg capsule Take 150 mg by mouth 2 (two) times a day. 04/09/2023 11/12/2023 documented as of this encounter Plan of Treatment Upcoming Encounters Date Type Department Care Team (Latest Contact Info) Description 12/30/2023 11:10 AM CDT Appointment Department of Laboratory Medicine and Pathology, [facility] in [place], [place] [address] [place] [address] Rosemary Gregorio APRN, MACHINE ASSEMBLER SUPERVISOR, M.S. [address] [place] [address] 12/30/2023 11:20 AM CDT Appointment Department of Laboratory Medicine and Pathology, [facility] in [place], [place] [address] [place] [phone] Rosemary Gregorio APRN, MACHINE ASSEMBLER SUPERVISOR, M.S. [address] [place] [phone] 12/30/2023 12:30 PM CDT Appointment Department of Radiology, [facility] in [place], [place] [address] [place] [phone] Rosemary Gregorio APRN, MACHINE ASSEMBLER SUPERVISOR, M.S. [address] [place] [phone] 12/31/2023 12:40 PM CDT Ancillary Procedure Department of Cardiovascular Medicine in [place], [place] [address] [place] [phone] Fredi Horner M.D. [address] [place] [phone] 12/31/2023 1:45 PM CDT Comprehensive Visit Department of Urology in [place], [place] [address] [place] [phone] Tabitha Rich P.A.-C. [address] [place] [phone] 12/31/2023 2:30 PM CDT Procedure visit Department of Urology in [place], [place] [address] [place] [phone] Rosemary Gregorio APRN, MACHINE ASSEMBLER SUPERVISOR, M.S. [address] [place] [phone] 01/01/2024 8:00 AM CDT Comprehensive Visit Department of Cardiovascular Medicine in [place], [place] [address] [place] [address] Fredi Horner M.D. [address] [place] [phone] 01/01/2024 1:30 PM CDT Comprehensive Visit Division of Endocrinology in [place], [place] [address] [place] [phone] Horacio Harp M.D. [address] [place] [phone] 01/01/2024 3:00 PM CDT Office Visit Section of Executive [facility] in [place], [place] [address] [place] [phone] Avtar Aaron M.D. [address] [place] [phone] documented as of this encounter Procedures Procedure [...] Time VRE Comment:No Historical Comment Imported in [facility] 02/07/2013 02/07/2013 Assessment Noted Time PHQ-9 Depression Total Score: 1 01/28/20 13 5:52 PM CDT documented as of this encounter
--- OUTSIDE RECORDS SUMMARY | 2023-11-13 14:45 | XMS_ITS | Encounter Summary ---
Author Organization [facility] [place] [facility] Address [address] [place] [address] Care Team Providers Care Programmer Engineering And Scientific Name Role Phone Unavailable Primary Care Provider Unavailabl e Reason for Referral * Outpatient (Routine) - Closed Specialty Diagnoses / Procedures Referred By Candice maki Referred To Contact Diagnoses Flutter Atrial (HCC) Procedures Echo Transthoracic (TTE) Avtar Aaron M.D. 200 [place] [address] [facility] Referral ID Status Reason Start Date Expiration Date Visits Re quested Visits Authorized [id number] Closed 09/14/2023 09/13/2024 1 1 Reason for Visit * Outpatient (Routine) - Closed Specialty Diagnoses / Procedures Referred By Candice maki Referred To Contact Diagnoses Flutter Atrial (HCC) Procedures Echo Transthoracic (TTE) Avtar Aaron M.D. [address] [place] [phone] [facility] Referral ID Status Reason Start Date Expiration Date Visits Re quested Visits Authorized [id number] Closed 09/14/2023 09/13/2024 1 1 Encounter Details Date Type Department Care Team (Latest Contact Info) Description 10/05/2023 8:50 AM CDT - 10/05/2023 2:56 PM CDT Hospital Encounter Department of Cardiovascular Diseases in [place], [place] [address] [place] [address] Avtar Aaron M.D. [address] [place] [address] Flutter Atrial (HCC) Discharge Disposition: Home or [...] I stopped in 2013. [facility] [employer] Answer Date Recorded In the past 12 months has th e [employer], [employer], oil, or water [employer] threatened to shut off services in your [...] your living situation today? I have a [facility] place to live 10/01/2023 Sex [...] Medicine and Pathology, [facility], in [place], [place] [address] [place] [address] Rosemary Gregorio APRN, NURSE INFORMATICS EDUCATOR, M.S. [address] [place] [address] 12/30/2023 11:20 AM CDT Appointment Department of Laboratory Medicine and Pathology, [facility] in [place], [place] [address] [place] [phone] Rosemary Gregorio APRN, DULCE, M.S. [address] [place] [phone] 12/30/2023 12:30 PM CDT Appointment Department of Radiology, [facility] in [place], [place] [address] [place] [phone] Rosemary Gregorio APRN, DULCE, M.S. [address] [place] [phone] 12/31/2023 12:40 PM CDT Ancillary Procedure Department of Cardiovascular Medicine in [place], [place] [address] [place] [phone] Fredi Horner M.D. [address] [place] [phone] 12/31/2023 1:45 PM CDT Comprehensive Visit Department of Urology in [address] [phone] Tabitha Rich P.A.-C. [address] [place] [phone] 12/31/2023 2:30 PM CDT Procedure visit Department of Urology in [place], [place] [address] [place] [phone] Rosemary Gregorio APRN, DULCE, M.S. [address] [place] [phone] 01/01/2024 8:00 AM CDT Comprehensive Visit Department of Cardiovascular Medicine in [address] [phone] Fredi Horner M.D. [address] [place] [phone] 01/01/2024 1:30 PM CDT Comprehensive Visit Division of Endocrinology in [place], [place] [address] [place] [address] Horacio Harp M.D. [address] [place] [phone] 01/01/2024 3:00 PM CDT Office Visit Section of Executive Medicine in [place], [place] [address] [place] [phone] Avtar Aaron M.D. [address] [place] [phone] documented as of this encounter Procedures Procedure [...] for agitated saline (bubble) studies, Starting on Thu10/05/23 at 1018, Intraprocedure - Diagnostic, See Marni. 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
--- OUTSIDE RECORDS SUMMARY | 2023-11-13 14:45 | XMS_ITS | Encounter Summary ---
Author Organization [facility] Address [address] [place] [address] Care Team Providers Care Customer Experience Intern Name Role Phone Unavailable Primary Care Provider Unavailabl e Reason for Referral * MRI/CAT/PET Scan (Routine) - Closed Specialty Diagnoses / Procedures Referred By Candice maki Referred To Contact Radiology Diagnoses Rotator Cuff Disorder Left Procedures MR Shoulder Left without IV Contrast Avtar Aaron M.D. 200 [place] [address] [facility] Referral ID Status Reason Start Date Expiration Date Visits Re quested Visits Authorized [id number] Closed 10/05/2023 10/04/2024 1 1 Reason for Visit * MRI/CAT/PET Scan (Routine) - Closed Specialty Diagnoses / Procedures Referred By Candice maki Referred To Contact Radiology Diagnoses Rotator Cuff Disorder Left Procedures MR Shoulder Left without IV Contrast Avtar Aaron M.D. [address] [place] [address] [facility] Referral ID Status Reason Start Date Expiration Date Visits Re quested Visits Authorized [id number] Closed 10/05/2023 10/04/2024 1 1 Encounter Details Date Type Department Care Team (Latest Contact Info) Description 10/07/2023 7:24 PM CDT - 10/07/2023 11:59 PM CDT Hospital Encounter Department of Radiology, [facility], in [place], [place] [address] [place] [address] Avtar Aaron M.D. [address] [place] [address] Rotator Cuff Disorder Left Discharge Disposition: Home [...] years. I stopped in 2013. [facility] Utilities Answer Date Recorded In the past 12 months has e [employer], [employer], oil, or water [employer] threatened to shut off services in your [...] your living situation today? I have a [facility] place to live 10/01/2023 Sex [...] Appointment Department of Laboratory Medicine and Pathology, [facility] in [place], [place] [address] [place] [address] Rosemary Gregorio APRN, MEDICAL SERVICES ASSISTANT, M.S. [address] [place] [address] 12/30/2023 11:20 AM CDT Appointment Department of Laboratory Medicine and Pathology, [facility] in [place], [place] [address] [place] [phone] Rosemary Gregorio APRN, MEDICAL SERVICES ASSISTANT, M.S. [address] [place] [phone] 12/30/2023 12:30 PM CDT Appointment Department of Radiology, [facility] in [place], [place] [address] [place] [address] Rosemary Gregorio APRN, DULCE, M.S. [address] [place] [phone] 12/31/2023 12:40 PM CDT Ancillary Procedure Department of Cardiovascular Medicine in [place], [place] [address] [place] [phone] Fredi Horner M.D. [address] [place] [phone] 12/31/2023 1:45 PM CDT Comprehensive Visit Department of Urology in [place], [place] [address] [place] [phone] Tabitha Rich P.A.-C. [address] [place] [phone] 12/31/2023 2:30 PM CDT Procedure visit Department of Urology in [place], [place] [address] [place] [phone] Rosemary Gregorio APRN, MEDICAL SERVICES ASSISTANT, M.S. [address] [place] [phone] 01/01/2024 8:00 AM CDT Comprehensive Visit Department of Cardiovascular Medicine in [place], [place] [address] [place] [phone] Fredi Horner M.D. [address] [place] [phone] 01/01/2024 1:30 PM CDT Comprehensive Visit Division of Endocrinology in [place], [place] [address] [place] [address] Horacio Harp M.D. [address] [place] [phone] 01/01/2024 3:00 PM CDT Office Visit Section of [facility] in [place], [place] [address] [place] [address] Avtar Aaron M.D. [address] [place] [phone] documented as of this encounter Procedures Procedure [...] 3 mm, para labral cyst (series 5 -26). No donal labral detachment. The glenoid labrum [...]
--- OUTSIDE RECORDS SUMMARY | 2023-11-13 14:45 | XMS_ITS | Encounter Summary ---
Author Organization [facility] Address [address] [place] [address] Care Team Providers Care Brine Tank Tender Name Role Phone Unavailable Primary Care Provider Unavailabl e Encounter Details Date Type Department Care Team (Latest Contact Info) Description 10/05/2023 4:03 PM CDT - 10/05/2023 11:59 PM CDT Hospital Encounter Department of Laboratory Medicine and Pathology, [place], [place] [address] [place] [address] Avtar Aaron M.D. [address] [place] [phone] Flutter Atrial (HCC) Discharge Disposition: Home or [...] for many years. I stopped in 2013. [facility] Utilities Answer Date Recorded In the past 12 months has [employer], gas, oil, or water company threatened [...] living situation today? I have a [facility] place to live 10/01/2023 Sex and Gender [...] Appointment Department of Laboratory Medicine and Pathology, [place], [place] [address] [place] [phone] Rosemary Gregorio APRN, ADVERTISING DISPATCH CLERKS SUPERVISOR, M.S. [address] [place] [phone] 12/30/2023 11:20 AM CDT Appointment Department of Laboratory Medicine and Pathology, [place], [place] [address] [place] [phone] Rosemary Gregorio APRN, DULCE, M.S. [address] [place] [phone] 12/30/2023 12:30 PM CDT Appointment Department of Radiology, [place], [place] [address] [place] [phone] Rosemary Gregorio APRN, DULCE, M.S. [address] [place] [phone] 12/31/2023 12:40 PM CDT Ancillary Procedure Department of Cardiovascular Medicine in [address] [phone] Fredi Horner M.D. [address] [place] [phone] 12/31/2023 1:45 PM CDT Comprehensive Visit Department of Urology in [place], [place] [address] [place] [phone] Tabitha Rich P.A.-C. [address] [place] [phone] 12/31/2023 2:30 PM CDT Procedure visit Department of Urology in [place], [place] [address] [place] [phone] Rosemary Gregorio APRN, DULCE, M.S. [address] [place] [phone] 01/01/2024 8:00 AM CDT Comprehensive Visit Department of Cardiovascular Medicine in [place], [place] [address] [place] [phone] Fredi Horner M.D. [address] [place] [phone] 01/01/2024 1:30 PM CDT Comprehensive Visit Division of Endocrinology in [address] [phone] Horacio Harp M.D. [address] [place] [phone] 01/01/2024 3:00 PM CDT Office Visit Section of Executive Medicine in [address] [phone] Avtar Aaron M.D. [address] [place] [phone] documented as of this encounter Procedures Procedure [...] Avtar Aaron M.D. LAB BLOOD ADD-O N [place] [address] [place] [address], [facility] [address] [place] [address] * Lipid Panel (10/05/2023 4:15 PM CDT) [...] LAB BLOOD ADD-O N Performing Organization Address City/[facility]/ZIP Co de Phone Number [facility] 200 [place] [address], [facility] [address] [place] [address] * Hemoglobin A1c (10/05/2023 4:15 PM CDT) Hemoglobin A1c, B 4.9 4.0 - 5.6 % 10/05/2023 5:21 PM CDT DTL Blood (Blood, Venous) 10/05/2023 4:15 PM CDT 10/05/2023 4:41 PM CDT Avtar Aaron M.D. LAB BLOOD ADD-O N [place] [id number] [place] [address] * Thyroid Function Phillips (10/05/2023 4:15 PM CDT) [facility] TSH, Sensitive 1.4 0.3 - 4.2 mIU/L 10/05/2023 5:30 PM CDT DTL Blood (Blood, Venous) 10/05/2023 4:15 PM CDT 10/05/2023 4:58 PM CDT Avtar Aaron M.D. LAB BLOOD ADD-O N [address] [address], [place] [address] * (ABNORMAL) Basic Metabolic Panel (10/05/2023 4:15 PM CDT) [facility] Potassium, S 4.0 3.6 - 5.2 mmol/L [...] M.D. 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
--- OUTSIDE RECORDS SUMMARY | 2023-11-13 14:45 | XMS_ITS | Encounter Summary ---
Author Organization [facility] Address [address] [place] [address] Care Team Providers Care Meat Specialist Name Role Phone Unavailable Primary Care Provider Unavailabl e Reason for Referral * Outpatient (Routine) - Closed Specialty Diagnoses / Procedures Referred By Contac t Referred To Contact Diagnoses Injury Thoracic Spinal Cord Subsequent (HCC) Procedures DX Thoracic Spine 2 Views Avtar Aaron M.D. 200 [place] [address] [facility] Referral ID Status Reason Start Date Expiration Date Visits Re quested Visits Authorized [id number] Closed 09/14/2023 09/13/2024 1 1 * Outpatient (Routine) - Closed Specialty Diagnoses / Procedures Referred By Contac t Referred To Contact Diagnoses Injury Thoracic Spinal Cord Subsequent (HCC) Procedures DX Lumbar Spine 2-3 Views Avtar Aaron M.D. 200 [place] [address] [facility] Referral ID Status Reason Start Date Expiration Date Visits Re quested Visits Authorized [id number] Closed 09/14/2023 09/13/2024 1 1 Reason for Visit * Outpatient (Routine) - Closed Specialty Diagnoses / Procedures Referred By Contac t Referred To Contact Diagnoses Injury Thoracic Spinal Cord Subsequent (HCC) Procedures DX Thoracic Spine 2 Views Avtar Aaron M.D. [address] [place] [address] [facility] Referral ID Status Reason Start Date Expiration Date Visits Re quested Visits Authorized [id number] Closed 09/14/2023 09/13/2024 1 1 Encounter Details Date Type Department Care Team (Latest Contact Info) Description 10/05/2023 2:57 PM CDT Hospital Encounter Department of Radiology, [facility], in [place], [place] [address] [place] [address] Avtar Aaron M.D. [address] [place] [address] Injury Thoracic Spinal Cord Subsequent [...] for many years. I stopped in 2013. [facility] Utilities Answer Date Recorded In the past 12 months has [employer], [employer], oil, or water [employer] threatened to shut off services in your [...] Appointment Department of Laboratory Medicine and Pathology, [facility] in [place], [place] [address] [place] [phone] Rosemary Gregorio APRN, VP HOME HEALTH, M.S. [address] [place] [phone] 12/30/2023 11:20 AM CDT Appointment Department of Laboratory Medicine and Pathology, [facility] in [place], [place] [address] [place] [phone] Rosemary Gregorio APRN, DULCE, M.S. [address] [place] [phone] 12/30/2023 12:30 PM CDT Appointment Department of Radiology, [facility] in [place], [place] [address] [place] [phone] Rosemary Gregorio APRN, VP HOME HEALTH, M.S. [address] [place] [phone] 12/31/2023 12:40 PM CDT Ancillary Procedure Department of Cardiovascular Medicine in [place], [place] [address] [place] [phone] Fredi Horner M.D. [address] [place] [phone] 12/31/2023 1:45 PM CDT Comprehensive Visit Department of Urology in [place], [place] [address] [place] [phone] Tabitha Rich PRajeev [address] [place] [phone] 12/31/2023 2:30 PM CDT Procedure visit Department of Urology in [place], [place] [address] [place] [phone] Rosemary Gregorio APRN, VP HOME HEALTH, M.S. [address] [place] [phone] 01/01/2024 8:00 AM CDT Comprehensive Visit Department of Cardiovascular Medicine in [place], [place] [address] [place] [phone] Fredi Horner M.D. [address] [place] [phone] 01/01/2024 1:30 PM CDT Comprehensive Visit Division of Endocrinology in [address] [phone] Horacio Harp M.D. [address] [place] [phone] 01/01/2024 3:00 PM CDT Office Visit Section of Executive Medicine in [address] [phone] Avtar Aaron M.D. 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
--- OUTSIDE RECORDS SUMMARY | 2023-11-13 14:45 | XMS_ITS | Encounter Summary ---
Author Organization [facility] Address [address] [place] [address] Care Team Providers Care Underwriting Consultant Name Role Phone Unavailable Primary Care Provider Unavailabl e Reason for Referral * Outpatient (Routine) - Closed Specialty Diagnoses / Procedures Referred By Contac t Referred To Contact Pain Medicine Diagnoses Injury Thoracic Spinal Cord Subsequent (HCC) Avtar Aaron M.D. 200 [place] [address] [facility] Referral ID Status Reason Start Date Expiration Date V isits Requested Visits Authorized [id number] Closed Specialty Services Required 09/14/2023 03/15/2025 1 1 * Outpatient (Routine) - Closed Specialty Diagnoses / Procedures Referred By Contac t Referred To Contact Diagnoses Injury Thoracic Spinal Cord Subsequent (HCC) Procedures DX Thoracic Spine 2 Views Avtar Aaron M.D. [address] [place] [address] [facility] Referral ID Status Reason Start Date Expiration Date Visits Re quested Visits Authorized [id number] Closed 09/14/2023 09/13/2024 1 1 * Outpatient (Routine) - Closed Specialty Diagnoses / Procedures Referred By Contac t Referred To Contact Diagnoses Injury Thoracic Spinal Cord Subsequent (HCC) Procedures DX Lumbar Spine 2-3 Views Avtar Aaron M.D. 200 [place] [address] [facility] Referral ID Status Reason Start Date Expiration Date Visits Re quested Visits Authorized [id number] Closed 09/14/2023 09/13/2024 1 1 * Outpatient (Routine) - Closed Specialty Diagnoses / Procedures Referred By Contact Referred To Contact Physical Medicine and Rehabilitation Diagnoses Injury Thoracic Spinal Cord Subsequent (HCC) Avtar Aaron M.D. 200 [place] [address] Referral ID Status Reason Start Date Expiration Date Visits Re quested Visits Authorized [id number] Closed 09/14/2023 03/15/2025 1 1 * Physical Therapy (Routine) - Closed Specialty Diagnoses / Procedures Referred By Contac t Referred To Contact Diagnoses Injury Thoracic Spinal Cord Subsequent (HCC) Procedures PT or OT eval and treat (first available) Avtar Aaron M.D. 200 [place] [address] [facility] Referral ID Status Reason Start Date Expiration Date Visits Re quested Visits Authorized [id number] Closed 09/14/2023 09/13/2024 1 1 * Outpatient (Routine) - Closed Specialty Diagnoses / Procedures Referred By Contac t Referred To Contact Diagnoses Pain Shoulder Left Procedures DX Shoulder Left 2+ Views Avtar Aaron M.D. 200 [place] [address] [facility] Referral ID Status Reason Start Date Expiration Date Visits Re quested Visits Authorized [id number] Closed 09/14/2023 09/13/2024 1 1 * Outpatient (Routine) - Closed Specialty Diagnoses / Procedures Referred By Contac t Referred To Contact Wellness Diagnoses Wellness Screening Avtar Aaron M.D. [address] [place] [phone] [facility] Referral ID Status Reason Start Date Expiration Date Visits Re quested Visits Authorized [id number] Closed 09/14/2023 03/15/2025 1 1 Scheduling Instructions CM * Outpatient (Routine) - Closed Specialty Diagnoses / Procedures Referred By Contac t Referred To Contact Diagnoses Flutter Atrial (HCC) Procedures Echo Transthoracic (TTE) Avtar Aaron M.D. 200 [place] [address] [facility] Referral ID Status Reason Start Date Expiration Date Visits Re quested Visits Authorized [id number] Closed 09/14/2023 09/13/2024 1 1 * Outpatient (Routine) - Closed Specialty Diagnoses / Procedures Referred By Contac t Referred To Contact Diagnoses Flutter Atrial (HCC) Procedures DX Chest AP or PA and Lateral 2 Views Avtar Aaron M.D. 200 [place] [address] [facility] Referral ID Status Reason Start Date Expiration Date Visits Re quested Visits Authorized [id number] Closed 09/14/2023 09/13/2024 1 1 * Outpatient (Routine) - Authorized Specialty Diagnoses / Procedures Referred By Contac t Referred To Contact Diagnoses Flutter Atrial (HCC) Procedures ECG Heart rhythm monitor (Holter) Avtar Aaron M.D. [address] [place] [phone] [facility] Referral ID Status Reason Start Date Expiration Date V isits Requested Visits Authorized [id number] Authorized 09/14/2023 09/13/2024 1 1 * Outpatient (Routine) - Closed Specialty Diagnoses / Procedures Referred By Contac t Referred To Contact Diagnoses Flutter Atrial (HCC) Procedures ECG 12 Lead Avtar Aaron M.D. 200 [place] [address] [facility] Referral ID Status Reason Start Date Expiration Date Visits Re quested Visits Authorized [id number] Closed 09/14/2023 09/13/2024 1 1 * Outpatient (Routine) - Authorized Specialty Diagnoses / Procedures Referred By Contact Referred To Contact Cardiovascular Diseases / Cardiovascular Disease Diagnoses Flutter Atrial (HCC) Avtar Aaron M.D. 200 [place] [address] [facility] Referral ID Status Reason Start Date Expiration Date V isits Requested Visits Authorized [id number] Authorized 09/14/2023 03/15/2025 1 1 Scheduling Instructions CM Reason for Visit * Reason Onset Date Comments Triage 09/08/2023 Encounter Details Date Type Department Care Team (Late st Contact Info) Description 09/08/2023 Clinical Communication Division of General Internal Medicine in [place], [place] [address] [place] [phone] Prescheduling, Provider Triage Social History Tobacco Use Types Packs/Day Years Used Date Smoking Tobacco: Former [facility] Utilities Answer Date Recorded In the [...] your living situation today? [facility] 10/01/2023 Sex and Gender Information Value Date Recorded Sex Assigned at Male 09/11/2023 10:52 AM CDT Gender Identity Male 09/11/2023 10:52 AM CDT Sexual Orientation Straight 09/11/2023 10 :52 AM CDT documented as of this encounter Miscellaneous Notes * Telephone Encounter - Lillian Rich Diogo - 09/08/2023 2:49 PM CDT Michael Bauman 1985 [id number] 37 years Height: 5'8?? Weight: 130 Lbs [...] than 12 months Previous Eval: Yes Location: [facility] Have had: None of the above Diagnosis: [...] than 12 months Previous Eval: Yes Location: [facility] Have had: Procedures (surgeries, colonoscopies, biopsies, etc.), Images (X-Rays, CT scan, MRI scan, etc.), Blood or urine tests Diagnosis: Stage 4 Pressure Ulcer with Osteomyelitis Outcome: Flap surgery and Hyperbaric Oxygen Therapy. 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 This happened about 10 years ago. I had a spinal fusion with rods and screws placed in. Since then my posture has changed and I haven't had the hardware examined for years. I also had an aortic stent, which also hasn't been examined for years. Duration: More than 12 months Previous Eval: Yes Location: [facility] Have had: Procedures (surgeries, colonoscopies, biopsies, etc.), Images (X-Rays, CT scan, MRI scan, etc.), Blood or urine tests Diagnosis: T7 Complete Spinal Cord Injury Outcome: I was treated and rehabilitated at [facility] initially, but haven't been examined for [...] than 12 months Previous Eval: Yes Location: [facility] Have had: None of the above [...] WEEKS: SLEEP APNEA DIAGNOSIS: Willing to attend [facility] or [facility] appointments - Probably yes DAILY MEDS: 2 OPIOIDS: No CURRENT DIALYSIS: No CURRENT HEALTH/PAST YEAR: Very Good CONFIDENCE: Agree NOT AVAILABLE: 09/14, 09/20, 10/30-11/04, 12/20-12/24, Saturdays PHONE: [phone] documented in this encounter Plan of Treatment Upcoming Encounters Date Type Department Care Team (Latest Contact Info) Description 12/30/2023 11:10 AM CDT Appointment Department of Laboratory Medicine and Pathology, [facility] in [place], [place] [address] [place] [phone] Rosemary Gregorio APRN, FARM EQUIPMENT ASSEMBLER, M.S. [address] [place] [phone] 12/30/2023 11:20 AM CDT Appointment Department of Laboratory Medicine and Pathology, [facility] in [place], [place] [address] [place] [phone] Rosemary Gregorio APRN, FARM EQUIPMENT ASSEMBLER, M.S. [address] [place] [phone] 12/30/2023 12:30 PM CDT Appointment Department of Radiology, [place], [place] [address] [place] [address] Rosemary Gregorio APRN, FARM EQUIPMENT ASSEMBLER, M.S. [address] [place] [phone] 12/31/2023 12:40 PM CDT Ancillary Procedure Department of Cardiovascular Medicine in [place], [place] [address] [place] [phone] rFedi Horner M.D. [address] [place] [phone] 12/31/2023 1:45 PM CDT Comprehensive Visit Department of Urology in [place], [place] [address] [place] [phone] Tabitha Rich P.A.-C. [address] [place] [phone] 12/31/2023 2:30 PM CDT Procedure visit Department of Urology in [place], [place] [address] [place] [phone] Rosemary Gregorio APRN, FARM EQUIPMENT ASSEMBLER, M.S. [address] [place] [phone] 01/01/2024 8:00 AM CDT Comprehensive Visit Department of Cardiovascular Medicine in [place], [place] [address] [place] [phone] Fredi Horner M.D. [address] [place] [phone] 01/01/2024 1:30 PM CDT Comprehensive Visit Division of Endocrinology in [place], [place] [address] [place] [phone] Horacio Harp M.D. [address] [place] [phone] 01/01/2024 3:00 PM CDT Office Visit Section of Executive Medicine in [place], [place] [address] [place] [phone] Avtar Aaron M.D. [address] [place] [phone] Scheduled Referrals Name Type Priority Associated Diagnoses [...] Results * HOLTER MONITOR - IN CLINIC TEST AND TURN UP TECHNICIAN (10/07/2023 9:43 AM CDT) Min Heart [...] 1h 35m duration INFOBION IC MOME AF Downing 6.71 percent INFOBIONIC MOME Longest AF Duration 1h 36m duration INFOBIONIC MOME Symptom Count 1 count INFOBI ONIC MOME 10/06/2023 8:39 AM CDT Narrative INFOBIONIC MOME - 10/11/2023 2:23 PM CDT [facility] 1. The basic rhythm was sinus with [...] this event, there was no ectopy noted. Nurse Special: COLETTE Rivera/ COLETTE Bray A Holter monitor with cascade to extended monitoring was ordered for the indication of Atrial fibrillation or flutter calculate burden/% time in AF. During the Holter monitoring period, the patient did have atrial fibrillation or flutter >=30 seconds. Therefore, the study was not cascaded to extended monitoring. Procedure Note Lisandro Ellison M.D. - 10/11/2023 [facility] 1. The basic rhythm was sinus with [...] this event, there was no ectopy noted. Nurse Special: COLETTE Rivera/ COLETTE Bray A Holter monitor [...] ECG 12 Lead (10/06/2023 8:33 AM CDT) Pathologist [facility] Ventricular Rate ECG/Min 89 BPM MUSE QRSD Interval 96 ms MUSE QT Interval 364 ms MUSE QTC Interval 442 ms MUSE P [place] 78 degrees MUSE R [place] 54 degrees MUSE T Wave [place] 29 degrees MUSE 10/06/2023 8:33 AM CDT [...] ECG ORDERABLES MUSE NA * Thyroid Function Lenorah (10/05/2023 4:15 PM CDT) TSH, Sensitive 1.4 0.3 - 4.2 mIU/L 10/05/2023 5:30 PM CDT DTL Blood (Blood, Venous) 10/05/2023 4:15 PM CDT 10/05/2023 4:58 PM CDT Avtar Aaron M.D. LAB BLOOD ADD-O N [facility] [address] [place] [address], [facility] [address] [place] [address] * (ABNORMAL) Basic Metabolic Panel (10/05/2023 4:15 [...] Avtar Aaron M.D. LAB BLOOD ADD-O N [facility] [address] [place] [address], [facility] DTL [facility] [address] [place] [address] * DX Chest AP or PA and [...] IMPRESSION: Negative left shoulder. Avtar Aaron M.D. [facility] DIAGNOSTIC IMAGING PROCEDURES * DX Thoracic [...] L5-S1. Thoracic aortic endograft. Avtar Aaron M.D. [facility] DIAGNOSTIC IMAGING PROCEDURES * DX Lumbar [...] L5-S1. Thoracic aortic endograft. Avtar Aaron M.D. [facility] DIAGNOSTIC IMAGING PROCEDURES * (TTE) 2D ECHO DOPPLER COLOR (10/05/2023 10:32 AM CDT) Pathologist [facility] Ejection Fraction 50 MC CV EIMS Sinus [...]
--- OUTSIDE RECORDS SUMMARY | 2023-11-13 14:45 | XMS_ITS | Encounter Summary ---
Author Organization [facility] Address [address] [place] [address] Care Team Providers Care Animal Cruelty Investigation Supervisor Name Role Phone Unavailable Primary Care Provider Unavailabl e Reason for Referral * Outpatient (Routine) - Closed Specialty Diagnoses / Procedures Referred By Contact Referred To Contact Physical Medicine and Rehabilitation Diagnoses Rotator Cuff Disorder Left Tendinitis Bicipital Left Avtar Aaron M.D. 200 [place] [address] [facility] Referral ID Status Reason Start Date Expiration Date Visits Re quested Visits Authorized [id number] Closed 10/05/2023 04/05/2025 1 1 * MRI/CAT/PET Scan (Routine) - Closed Specialty Diagnoses / Procedures Referred By Candice maki Referred To Contact Radiology Diagnoses Rotator Cuff Disorder Left Procedures MR Shoulder Left without IV Contrast Avtar Aaron M.D. 200 [place] [address] [facility] Referral ID Status Reason Start Date Expiration Date Visits Re quested Visits Authorized [id number] Closed 10/05/2023 10/04/2024 1 1 Reason for [...] Expiration Date Visits Re quested Visits Authorized [id number] Closed 09/07/2023 09/06/2024 1 1 Encounter Details Date Type Department Care Team (Latest Contact Info) Description 10/05/2023 1:00 PM CDT Comprehensive Visit Division of General Internal Medicine in [place], [place] [address] [place] [address] Avtar Aaron M.D. [address] [place] [address] Flutter Atrial (HCC) (Primary Dx); Injury Thoracic [...] your living situation today? 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 [...] -continue pregabalin -continue oxybutynin Nitesh Aaron MD Acetylene Plant Operator [employer] [place] Hammerer Consultative Medicine, General Internal Medicine [facility] Total visit time greater than 90 minutes, with over 50% spent counseling with the patient and coordination of care activities described above. documented in this encounter Plan of Treatment Upcoming Encounters Date Type Department Care Team (Latest Contact Info) Description 12/30/2023 11:10 AM CDT Appointment Department of Laboratory Medicine and Pathology, [facility] in [place], [place] [address] [place] [phone] Rosemary Gregorio APRN, AUDIO/VISUAL OPERATOR, M.S. [address] [place] [phone] 12/30/2023 11:20 AM CDT Appointment Department of Laboratory Medicine and Pathology, [facility] in [place], [place] [address] [place] [phone] Rosemary Gregorio APRN, AUDIO/VISUAL OPERATOR, M.S. [address] [place] [phone] 12/30/2023 12:30 PM CDT Appointment Department of Radiology, [facility] in [place], [place] [address] [place] [phone] Rosemary Gregorio APRN, AUDIO/VISUAL OPERATOR, M.S. [address] [place] [phone] 12/31/2023 12:40 PM CDT Ancillary Procedure Department of Cardiovascular Medicine in [place], [place] [address] [place] [phone] Fredi Horner M.D. [address] [place] [phone] 12/31/2023 1:45 PM CDT Comprehensive Visit Department of Urology in [place], [place] [address] [place] [phone] Tabitha Rich, PRajeev [address] [place] [phone] 12/31/2023 2:30 PM CDT Procedure visit Department of Urology in [place], [place] [address] [place] [phone] Rosemary Gregorio APRN, AUDIO/VISUAL OPERATOR, M.S. [address] [place] [phone] 01/01/2024 8:00 AM CDT Comprehensive Visit Department of Cardiovascular Medicine in [place], [place] [address] [place] [phone] Fredi Horner M.D. [address] [place] [phone] 01/01/2024 1:30 PM CDT Comprehensive Visit Division of Endocrinology in [address] [phone] Horacio Harp M.D. [address] [place] [phone] 01/01/2024 3:00 PM CDT Office Visit Section of Executive Medicine in [place], [place] [address] [place] [phone] Avtar Aaron M.D. [address] [place] [phone] Scheduled Referrals Name Type Priority Associated Diagnoses [...] 3 mm, para labral cyst (series 5 [id number]). No donal labral detachment. The glenoid labrum [...] 3. Mild subacromial/subdeltoid bursopathy. Avtar Aaron M.D. [facility] MRI PROCEDU RES * Magnesium (10/05/2023 4:15 PM CDT) Magnesium, S 1.8 1.7 - 2.3 mg/dL 10/05/2023 5:30 PM CDT DTL Blood (Blood, Venous) 10/05/2023 4:15 PM CDT 10/05/2023 4:58 PM CDT Avtar Aaron M.D. LAB BLOOD ADD-O N [facility] [address] [place] [address], [facility] DTL [facility] [address] [place] [address] * Lipid Panel (10/05/2023 4:15 PM CDT) [...] Avtar Aaron M.D. LAB BLOOD ADD-O N [facility] [address] [place] [address], [facility] DTL [facility] 200 [place] [address] * Hemoglobin A1c (10/05/2023 4:15 PM CDT) Hemoglobin A1c, B 4.9 4.0 - 5.6 % 10/05/2023 5:21 PM CDT DTL Blood (Blood, Venous) 10/05/2023 4:15 PM CDT 10/05/2023 4:41 PM CDT Avtar Aaron M.D. LAB BLOOD ADD-O N [facility] [address] [place] [address], [facility] [address] [place] [address] documented in this encounter Visit Diagnoses Diagnosis [...]
--- OUTSIDE RECORDS SUMMARY | 2023-11-13 14:45 | XMS_ITS | Encounter Summary ---
Author Organization [facility] Address [address] [place] [address] Care Team Providers Care Vp Public Relations Name Role Phone Unavailable Primary Care Provider Unavailabl e Reason for Visit * Reason Onset Date Comments Outside EKG reports 10/05/2023 Encounter Details Date Type Department Care Team (Latest Contact Info) Description 10/05/2023 Clinical Communication Division of General Internal Medicine in [place], [place] [address] [place] [address] Avtar Aaron M.D. [address] [place] [phone] Outside EKG reports Social History Tobacco Use [...] many years. I stopped in 2013. [facility] Utilities Answer Date Recorded In the [...] your living situation today? I have a [facility] place to live 10/01/2023 Sex and [...] of Laboratory Medicine and Pathology, [facility], in [place], [place] [address] [place] [phone] Rosemary Gregorio APRN, BOOK ILLUSTRATOR, M.S. [address] [place] [address] 12/30/2023 11:20 AM CDT Appointment Department of Laboratory Medicine and Pathology, [facility] in [place], [place] [address] [place] [phone] Rosemary Gregorio APRN, DULCE, M.S. [address] [place] [phone] 12/30/2023 12:30 PM CDT Appointment Department of Radiology, [facility] in [place], [place] [address] [place] [phone] Rosemary Gregorio APRN, BOOK ILLUSTRATOR, M.S. [address] [place] [phone] 12/31/2023 12:40 PM CDT Ancillary Procedure Department of Cardiovascular Medicine in [place], [place] [address] [place] [phone] Fredi Horner M.D. [address] [place] [phone] 12/31/2023 1:45 PM CDT Comprehensive Visit Department of Urology in [place], [place] [address] [place] [phone] Tabitha Rich, PRajeev [address] [place] [phone] 12/31/2023 2:30 PM CDT Procedure visit Department of Urology in [place], [place] [address] [place] [phone] Rosemary Gregorio APRN, DULCE, M.S. [address] [place] [phone] 01/01/2024 8:00 AM CDT Comprehensive Visit Department of Cardiovascular Medicine in [place], [place] [address] [place] [phone] Fredi Horner M.D. [address] [place] [phone] 01/01/2024 1:30 PM CDT Comprehensive Visit Division of Endocrinology in [place], [place] [address] [place] [address] Horacio Harp M.D. [address] [place] [phone] 01/01/2024 3:00 PM CDT Office Visit Section of Executive Medicine in [place], [place] [address] [place] [address] Avtar Aaron M.D. 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
--- OUTSIDE RECORDS SUMMARY | 2023-11-13 14:45 | XMS_ITS | Encounter Summary ---
Author Organization [facility] Address [address] [place] [address] Care Team Providers Care Pie Chef Name Role Phone Unavailable Primary Care Provider Unavailabl e Reason for Referral * Outpatient (Routine) - Authorized Specialty Diagnoses / Procedures Referred By Candice maki Referred To Contact Diagnoses Flutter Atrial (HCC) Procedures ECG Heart rhythm monitor (Holter) Avtar Aaron M.D. [address] [place] [address] [facility] Referral ID Status Reason Start Date Expiration Date V isits Requested Visits Authorized [id number] Authorized 09/14/2023 09/13/2024 1 1 Reason for Visit * Outpatient (Routine) - Authorized Specialty Diagnoses / Procedures Referred By Candice maki Referred To Contact Diagnoses Flutter Atrial (HCC) Procedures ECG Heart rhythm monitor (Holter) Avtar Aaron M.D. [address] [place] [address] [facility] Referral ID Status Reason Start Date Expiration Date V isits Requested Visits Authorized [id number] Authorized 09/14/2023 09/13/2024 1 1 Encounter Details Date Type Department Care Team (Latest Contact Info) Description 10/06/2023 8:34 AM CDT - 10/06/2023 11:59 PM CDT Hospital Encounter Department of Cardiovascular Diseases in [place], [place] [address] [place] [address] Avtar Aaron M.D. [address] [place] [address] Flutter Atrial (HCC) Discharge Disposition: Home or [...] 2013. [facility] [employer] Answer Date Recorded In the past 12 months has th e [email or web address], [employer] oil, or water [employer] threatened to shut off services in your [...] situation today? I have a [facility] place to live 10/01/2023 Sex [...] of Laboratory Medicine and Pathology, [facility], in [place], [place] [address] [place] [address] Rosemary Gregorio APRN, TAX DIRECTOR, M.S. [address] [place] [phone] 12/30/2023 11:20 AM CDT Appointment Department of Laboratory Medicine and Pathology, [facility] in [place], [place] [address] [place] [phone] Rosemary Gregorio APRN, TAX DIRECTOR, M.S. [address] [place] [phone] 12/30/2023 12:30 PM CDT Appointment Department of Radiology, [facility] in [place], [place] [address] [place] [phone] Rosemary Gregorio APRN, TAX DIRECTOR, M.S. [address] [place] [phone] 12/31/2023 12:40 PM CDT Ancillary Procedure Department of Cardiovascular Medicine in [place], [place] [address] [place] [phone] Fredi Horner M.D. [address] [place] [phone] 12/31/2023 1:45 PM CDT Comprehensive Visit Department of Urology in [address] [phone] Tabitha Rich, [place] [address] [place] [phone] 12/31/2023 2:30 PM CDT Procedure visit Department of Urology in [place], [place] [address] [place] [phone] Rosemary Gregorio APRN, TAX DIRECTOR, M.S. [address] [place] [phone] 01/01/2024 8:00 AM CDT Comprehensive Visit Department of Cardiovascular Medicine in [place], [place] [address] [place] [phone] Fredi Horner M.D. [address] [place] [address] 01/01/2024 1:30 PM CDT Comprehensive Visit Division of Endocrinology in [place], [place] [address] [place] [address] Horacio Harp M.D. [address] [place] [phone] 01/01/2024 3:00 PM CDT Office Visit Section of Executive Medicine in [place], [place] [address] [place] [phone] Avtar Aaron M.D. [address] [place] [phone] documented as of this encounter Procedures Procedure Name Priority Date/Time Associated Diagnosis Comments HOLTER MONITOR - IN CLINIC VALLEZ FILTER OPERATOR Routine 10/07/2023 9:43 AM CDT Flutter Atrial (HCC) documented in this encounter Results * HOLTER MONITOR - IN CLINIC VALLEZ FILTER OPERATOR (10/07/2023 9:43 AM CDT) Min Heart [...] 1h 35m duration INFOBION IC MOME AF Mikana 6.71 percent INFOBIONIC MOME Longest AF Duration 1h 36m duration INFOBIONIC MOME Symptom Count 1 count INFOBI ONIC MOME 10/06/2023 8:39 AM CDT Narrative INFOBIONIC MOME - 10/11/2023 2:23 PM CDT [facility] 1. The basic rhythm was sinus [...] this event, there was no ectopy noted. Leveling Machine Operator: COLETTE Rivera/ COLETTE Bray A Holter monitor with cascade to extended monitoring was ordered for the indication of Atrial fibrillation or flutter calculate burden/% time in AF. During the Holter monitoring period, the patient did have atrial fibrillation or flutter >=30 seconds. Therefore, the study was not cascaded to extended monitoring. Procedure Note Lisandro Ellison M.D. - 10/11/2023 [facility] 1. The basic rhythm was sinus [...] this event, there was no ectopy noted. Leveling Machine Operator: Jose Hameister, CRAT/ Angeles Carstensen, CRAT A Holter monitor with cascade to [...]
--- OUTSIDE RECORDS SUMMARY | 2023-11-13 14:45 | XMS_ITS | Encounter Summary ---
Author Organization [facility] Address [address] [place] [address] Care Team Providers Care Manager Implementation Name Role Phone Unavailable Primary Care Provider Unavailabl e Reason for Referral * Outpatient (Routine) - Closed Specialty Diagnoses / Procedures Referred By Candice maki Referred To Contact Diagnoses Pain Shoulder Left Procedures DX Shoulder Left 2+ Views Avtar Aaron M.D. [address] [place] [address] [facility] Referral ID Status Reason Start Date Expiration Date Visits Re quested Visits Authorized [id number] Closed 09/14/2023 09/13/2024 1 1 Reason for Visit * Outpatient (Routine) - Closed Specialty Diagnoses / Procedures Referred By Candice maki Referred To Contact Diagnoses Pain Shoulder Left Procedures DX Shoulder Left 2+ Views Avtar Aaron M.D. [address] [place] [phone] [facility] Referral ID Status Reason Start Date Expiration Date Visits Re quested Visits Authorized [id number] Closed 09/14/2023 09/13/2024 1 1 Encounter Details Date Type Department Care Team (Latest Contact Info) Description 10/05/2023 2:58 PM CDT - 10/05/2023 4:02 PM CDT Hospital Encounter Department of Radiology, [facility], in [place], [place] [address] [place] [address] Avtar Aaron M.D. [address] [place] [address] Pain Shoulder Left Discharge Disposition: Home or [...] years. I stopped in 2013. [facility] [employer]ities Answer Date Recorded In the past 12 months has [employer], [employer], oil, or water [employer] threatened to shut off services in your [...] your living situation today? I have a [facility] place to live 10/01/2023 Sex and [...] Laboratory Medicine and Pathology, [facility], in [place], [place] [address] [place] [address] Rosemary Gregorio APRN, CERAMIC ENGINEER, M.S. [address] [place] [address] 12/30/2023 11:20 AM CDT Appointment Department of Laboratory Medicine and Pathology, [facility] in [place], [place] [address] [place] [phone] Rosemary Gregorio APRN, DULCE, M.S. [address] [place] [phone] 12/30/2023 12:30 PM CDT Appointment Department of Radiology, [facility] in [place], [place] [address] [place] [phone] Rosemary Gregorio APRN, DULCE, M.S. [address] [place] [phone] 12/31/2023 12:40 PM CDT Ancillary Procedure Department of Cardiovascular Medicine in [place], [place] [address] [place] [phone] Fredi Horner M.D. [address] [place] [phone] 12/31/2023 1:45 PM CDT Comprehensive Visit Department of Urology in [address] [phone] Tabitha Rich P.A.-C. [address] [place] [phone] 12/31/2023 2:30 PM CDT Procedure visit Department of Urology in [place], [place] [address] [place] [phone] Rosemary Gregorio APRN, DLUCE, M.S. [address] [place] [phone] 01/01/2024 8:00 AM CDT Comprehensive Visit Department of Cardiovascular Medicine in [place], [place] [address] [place] [phone] Fredi Horner M.D. [address] [place] [phone] 01/01/2024 1:30 PM CDT Comprehensive Visit Division of Endocrinology in [place], [place] [address] [place] [address] Hroacio Harp M.D. [address] [place] [phone] 01/01/2024 3:00 PM CDT Office Visit Section of Executive Medicine in [place], [place] [address] [place] [phone] Avtar Aaron M.D. [address] [place] [phone] documented as of this encounter Procedures Procedure [...] IMPRESSION: Negative left shoulder. Avtar Aaron M.D. 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
--- OUTSIDE RECORDS SUMMARY | 2023-11-13 14:45 | XMS_ITS | Encounter Summary ---
Author Organization [facility] Address [address] [place] [address] Care Team Providers Care Community Relations Advisor Name Role Phone Elsewhere, Pcp Primary Care Provider Unavailabl e Encounter Details Date Type Department Care Team (Late st Contact Info) Description 01/27/2013 Confidential HX RST NO MAPPING Ilir Anne, Ph.D., L.P. [address] [place] [phone] Social History Tobacco Use Types Packs/Day Years [...] 27 Y Birthdate: 1985 Sex: M Address: [facility] [address], [address] City: [place] [address] CONFIDENTIAL NOTE Service Date/Time: 27-Jan-2013 18:24 Provider: Ilir Anne, PhD, Pager: [phone] Service: PSIRCI Type/Desc: CON Status: Fnl Revision #: [address] Juliano Edward and Kusum Arriaza. CHIEF COMPLAINT/PURPOSE OF VISIT Comprehensive rehabilitation psychology evaluation. HISTORY OF PRESENT ILLNESS Mr. Michael Bauman is a 27-year-old single male from [place], [place], admitted to [address] [place] [address] on January 25 with a T7 MAC [...] injury occurred on January [address] [facility] in [place], [place]. The reader is referred to the [...] HISTORY: Mr. Bauman reports being born in [place] and moving to [place], [place], at age 12. He is an only child. He reports that his parents when he was 18. His father moved to [place], [place], and he was alienated from his father during his high school years with a reconciliation occurring in more recent years. He was raised in the Pentec[employer]al candelario but had abandoned his candelario. He reports he is becoming much more spiritual in the past year. He reports graduating from [employer] in 2006 with a 3.7 GPA. He attended [email or web address] for two years, majoring in biology and psychology, but it was too expensive. He had a 3.5 at [employer]. He became seriously depressed about 2008 and stayed out of school for a year. He returned to the [employer], completing a degree in psychology in 2011. He was uncertain what he wanted to do with this degree. 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 He was last working at [employer] in [facility]. He precipitously quit that job in September of this year and had been living off of savings. MENTAL HEALTH HISTORY: Mr. Bauman has struggled throughout his life with feelings of depression. He states that he was somewhat depressed as a child, [place] 12[place] He states good friends in [place] helped pull him through this early. Yet, [...] years. 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 Thus, he meets CAGE criteria for abuse. [...] saw a psychiatrist at the [employer] [facility] and was prescribed Prozac, with the dose escalating to 40 mg. The emotional blunting and the sexual side effects resulted in him discontinuing this medication after about six months. He began taking this medication again in 2010, but again stopped its use as a result of the side effects. He also saw two different counselors, one session each at the [employer] [facility] and instantly did not like either [...] impulsively quit his job at an upscale [employer]. He had begun volunteering for a nonprofit organization called [employer]. He found this organizationon the internet. He also was beginning to get more information about [facility]. [facility] is an outdoor recreational nonprofit organization that is devoted to bringing able and yuw-qtvl-lzbqmk individuals together in recreational pursuits to the [...] further information including the new website entitled [email or web address]. This will be an excellent resource to him and his parents as he goes through the rehabilitation process. At the present time, there is no acute reason to pursue the issue of alcohol abuse. This issue willbe part of his overall program planning. 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 Fords II: Deferred. Fords III: T7 MAC A spinal cord injury, polytrauma Fords IV: None. Fords V: GAF equals 50/80. PATIENT EDUCATION Ready to learn, no apparent learning barriers were identified; learning preferences include listening. Explained diagnosis and treatment plan; patient expressed understanding of the content. BILLING Margin Code: DIC Total Time: 60 minutes Counseling Time: 60 minutes Original: [email or web address] revised by jonna Electronically Signed: 04-Feb-2013 13:52 by [place] Anne, PhD, Clinical Notes - [id number] Id: [id number] Status: Fnl S OUTFITTER documented in this encounter Plan of Treatment Upcoming Encounters Date Type Department Care Team (Latest Contact Info) Description 12/30/2023 11:10 AM CDT Appointment Department of Laboratory Medicine and Pathology, [address] [phone] Rosemary Gregorio APRN, TRAVELER CHANGER, M.S. [address] [place] [phone] 12/30/2023 11:20 AM CDT Appointment Department of Laboratory Medicine and Pathology, [address] [phone] Rosemary Gregorio APRN, TRAVELER CHANGER, M.S. [address] [place] [phone] 12/30/2023 12:30 PM CDT Appointment Department of Radiology, [address] [phone] Rosemary Gregorio APRN, TRAVELER CHANGER, M.S. [address] [place] [phone] 12/31/2023 12:40 PM CDT Ancillary Procedure Department of Cardiovascular Medicine in [address] [phone] Fredi Horner M.D. [address] [place] [phone] 12/31/2023 1:45 PM CDT Comprehensive Visit Department of Urology in [place], [place] [address] [place] [phone] Tabitha Rich P.A.-C. [address] [place] [phone] 12/31/2023 2:30 PM CDT Procedure visit Department of Urology in [place], [place] [address] [place] [phone] Rosemary Gregorio APRN, DULCE, M.S. [address] [place] [phone] 01/01/2024 8:00 AM CDT Comprehensive Visit Department of Cardiovascular Medicine in [address] [phone] Fredi Horner M.D. [address] [place] [phone] 01/01/2024 1:30 PM CDT Comprehensive Visit Division of Endocrinology in [address] [phone] Horacio Harp M.D. [address] [place] [phone] 01/01/2024 3:00 PM CDT Office Visit Section of Executive Medicine in [address] [phone] Avtar Aaron M.D. 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
--- OUTSIDE RECORDS SUMMARY | 2023-11-13 14:45 | XMS_ITS | Encounter Summary ---
Author Organization [facility] Address [address] [place] [address] Care Team Providers Care Marble Supervisor Name Role Phone Unavailable Primary Care Provider Unavailabl e Reason for Visit * Reason Onset Date Comments Echo Movep for 10/04 visit 09/15/2023 Encounter Details Date Type Department Care Team (Latest Contact Info) Description 09/15/2023 Clinical Communication Division of General Internal Medicine in [place], [place] [address] [place] [address] Prescheduling, Provider Echo Movep for 10/04 visit Social History Tobacco Use Types Packs/Day Years Used Date Smoking Tobacco: Former [facility] Utilities Answer Date Recorded In [...] your living situation today? I have a [facility] place to live 10/01/2023 Sex and [...] Appointment Department of Laboratory Medicine and Pathology, [place], [place] [address] [place] [address] Rosemary Gregorio APRN, DULCE, M.S. [address] [place] [phone] 12/30/2023 11:20 AM CDT Appointment Department of Laboratory Medicine and Pathology, [place], [place] [address] [place] [address] Rosemary Gregorio APRN, DULCE, M.S. [address] [place] [phone] 12/30/2023 12:30 PM CDT Appointment Department of Radiology, [place], [place] [address] [place] [address] Rosemary Gergorio APRN, DULCE, M.S. [address] [place] [phone] 12/31/2023 12:40 PM CDT Ancillary Procedure Department of Cardiovascular Medicine in [place], [place] [address] [place] [phone] Fredi Horner M.D. [address] [place] [phone] 12/31/2023 1:45 PM CDT Comprehensive Visit Department of Urology in [place], [place] [address] [place] [phone] Tabitha Rich P.A.-C. [address] [place] [phone] 12/31/2023 2:30 PM CDT Procedure visit Department of Urology in [place], [place] [address] [place] [phone] Rosemary Gregorio APRN, DULCE, M.S. [address] [place] [phone] 01/01/2024 8:00 AM CDT Comprehensive Visit Department of Cardiovascular Medicine in [place], [place] [address] [place] [phone] Fredi Horner M.D. [address] [place] [phone] 01/01/2024 1:30 PM CDT Comprehensive Visit Division of Endocrinology in [place], [place] [address] [place] [phone] Horacio Harp M.D. [address] [place] [phone] 01/01/2024 3:00 PM CDT Office Visit Section of Executive Medicine in [place], [place] [address] [place] [phone] Avtar Aaron M.D. 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
--- OUTSIDE RECORDS SUMMARY | 2023-11-13 14:45 | XMS_ITS | Encounter Summary ---
Author Organization [facility] Address [address] [place] [address] Care Team Providers Care Desk Pens Assembler Name Role Phone Unavailable Primary Care Provider Unavailabl e Reason for Visit * Reason Onset Date Comments Pre-visit Intake 10/02/2023 * Appointment Request (Routine) - Authorized Specialty Diagnoses / Procedures Referred By Candice maki Referred To Contact General Internal Medicine Referral ID Status Reason Start Date Expiration Date V isits Requested Visits Authorized [id number] Authorized 09/10/2023 09/09/2024 1 1 Encounter Details Date Type Department Care Team (Latest Contact Info) Description 10/02/2023 3:00 PM CDT Clinical Communication Virtual Review in [place], [place] 200 [place] [address] Pre-visit Intake Social History Tobacco Use Types [...] for many years. I stopped in 2013. [facility] Utilities Answer Date Recorded In the past 12 months has e [employer], gas, oil, or water [employer] threatened to shut off services in your [...] your living situation today? I have a [facility] place to live 10/01/2023 Sex and [...] Department of Laboratory Medicine and Pathology, [place], [place] [address] [place] [phone] Rosemary Gregorio APRN, LABOR UNION BUSINESS REPRESENTATIVE, M.S. 200 [place] [address] 12/30/2023 11:20 AM CDT Appointment Department of Laboratory Medicine and Pathology, [facility] in [place], [place] [address] [place] [phone] Rosemary Gregorio APRN, LABOR UNION BUSINESS REPRESENTATIVE, M.S. [address] [place] [phone] 12/30/2023 12:30 PM CDT Appointment Department of Radiology, [facility] in [place], [place] [address] [place] [address] Rosemary Gregorio APRN, LABOR UNION BUSINESS REPRESENTATIVE, M.S. [address] [place] [phone] 12/31/2023 12:40 PM CDT Ancillary Procedure Department of Cardiovascular Medicine in [place], [place] [address] [place] [phone] Fredi Horner M.D. [address] [place] [phone] 12/31/2023 1:45 PM CDT Comprehensive Visit Department of Urology in [place], [place] [address] [place] [phone] Tabitha Rich, [place] [address] [place] [phone] 12/31/2023 2:30 PM CDT Procedure visit Department of Urology in [place], [place] [address] [place] [phone] Rosemary Gregorio APRN, LABOR UNION BUSINESS REPRESENTATIVE, M.S. [address] [place] [phone] 01/01/2024 8:00 AM CDT Comprehensive Visit Department of Cardiovascular Medicine in [place], [place] [address] [place] [phone] Fredi Horner M.D. [address] [place] [phone] 01/01/2024 1:30 PM CDT Comprehensive Visit Division of Endocrinology in [place], [place] [address] [place] [address] Horacio Harp M.D. [address] [place] [phone] 01/01/2024 3:00 PM CDT Office Visit Section of Executive Medicine in [place], [place] [address] [place] [address] Avtar Aaron M.D. 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
--- OUTSIDE RECORDS SUMMARY | 2023-11-13 14:46 | XMS_ITS | Clinical Summary ---
Author Organization [facility] Address [place], [place] [address] Care Team Providers Care Data Analytics Developer Name Role Phone Roberto Marie MD Primary Care Provider [phone] Allergies Active Allergy Reactions Criticality Noted Date [...] capsule Take 1,000 Capsules by mouth. Active Slyao-9-YGO-EPA-F kendall Oil (Fish OiL) 1,000 mg (120 [...] Type Department Care Team Description 10/22/2023 Refill [facility] [address] [place] [address] Votel, Michael Flood MD Refill Request (Pregabalin) [...] Comments Blood Pressure 104/66 04/22/2023 4:12 PM REDRYING MACHINE OPERATOR Pulse 72 04/22/2023 4:12 PM REDRYING MACHINE OPERATOR Temperature 36.5 ??C (97.7 ??F) 08/15/2009 2:00 PM CD T Respiratory Rate - - Oxygen Saturation 94% 04/22/2023 4:12 PM REDRYING MACHINE OPERATOR Inhaled Oxygen Concentration - - Weight 69.4 [...] age to complete this topic Care Teams Data Analytics Developer Relationship Specialty Start Date End Date Roberto Marie MD [address] [facility] [address] [place] [address] [facility] - General 06/29/09
== END 2023-10-24 04:24 | disposition home or self-care (01) ==
LOC: AMB 11-13 14:42
PROVIDERS: PCP Family Medicine; Visit Provider Student in an Organized Health Care Education/Training Program
DX: R50.9 Fever, unspecified (principal); R11.2 Nausea with vomiting, unspecified
CPT/HCPCS: A0425; A0427

== ENCOUNTER 2023-10-24 04:59 | Emergency (ER) | payer MEDICAID, SELFPAY ==
[2023-10-24] VITALS (30 sets, daily range): BP systolic 87–121; BP diastolic 35–67; PULSE 74–125; RESP 16–18; TEMP 37.6–38.4; O2SAT 93–100; BMI 19.9
--- NOTE | 2023-10-24 05:07 | ED_ITS ---
HPI - General Adult General Date Seen: 10/24/23 Chief complaint: Fever Stated complaint: vomiting Time Seen by Provider: 10/24/23 05:00 Source: patient Mode of arrival: EMS Limitations: no limitations History of Present Illness HPI narrative: Patient is a 37-year-old male presenting to emergency department for fevers, nausea, fatigue. He is paraplegic with no sensation from about T12 down. He has a neurogenic bladder and bowel. He self caths and has a colostomy bag. Recently diagnosed with a flutter which she takes Cardizem for as needed. States he about 02:00 he woke up feeling very nauseated and had some emesis. Was also having fever with chills. Overall is feeling very stiff and is concerned about these symptoms considering his history. States he says symptoms like this before in previously he has had flu ill and UTIs associated with them. States they have happened maybe 3 or 4 times in the past. Denies chest pain, shortness of breath. Can only feel does upper abdominal region in denies any pain at this time. Has been eating and drinking well and states his colostomy has been working appropriately. Has not taken anything yet for the fever. No other concerns noted at this time. Was given Zofran and follows at mL of normal saline by EMS. He is does state that improved his symptoms. Related Data Home Medications ?Medication ?Instructions ?Recorded ?Confirmed oxybutynin chloride 5 mg tablet 5 mg PO QDAY 04/09/23 09/05/23 Previous Rx's ?Medication ?Instructions ?Recorded pregabalin 150 mg capsule 150 mg PO BID #30 caps 04/09/23 apixaban 5 mg tablet 5 mg PO BID #60 tabs 09/05/23 diltiazem HCl 120 mg 120 mg PO DAILY #30 caps 09/05/23 capsule,extended release 24 hr (Cardizem CD) Allergies Allergy/AdvReac Type Severity Reaction Status Date / Time ciprofloxacin Allergy Severe Swelling Verified 10/22/23 12:59 of Lip/Tongue/Throat vancomycin Allergy Severe Swelling Verified 10/22/23 12:59 of Lip/Tongue/Throat doxycycline AdvReac Mild Diarrhea Verified 10/22/23 12:59 Review of Systems Status of ROS: Reports: 10 or more systems reviewed and unremarkable except as noted in History and below [facility] Medical History History of alcohol use ?Z87.898 - Personal history of other specified conditions (ICD-10) Surgical History History of spinal fusion (01/15/13) ?Z98.1 - Arthrodesis status (ICD-10) 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 Does not use EtOH or drugs. Past smoker and smokeless tobacco use. Smoking Status: Never smoker Do you use any of these nicotine containing products: None Second hand tobacco smoke exposure: No How often do you have a drink containing alcohol: never AUDIT-C Alcohol total score: 0 Non-prescribed substance use: denies use service: No Exam Narrative: Exam Narrative: Const: Well-nourished, Well-developed, in mild distress Eyes: PERRL, no conjunctival injection, and symmetrical lids HENT: Atraumatic external nose and ears. Moist mucous membranes. Neck: Symmetric, trachea midline, No thyromegaly. CVS: RRR, No murmurs or gallops. Peripheral pulses 2+ and equal in all extremities RESP: Unlabored respiratory effort. Clear to auscultation bilaterally. GI: Nontender in the upper abdominal region, no sensation mid abdomen and down/Nondistended, No rebound or guarding. MSK:Extremities w/o deformity, Normal Active ROM of upper extremities. No sensation or movement of lower extremity secondary to previous injury Skin: Warm, Dry. No rashes or lesions. Neuro: Normal Muscle tone, No focal neurological deficits. Psych: Awake, Alert, & Oriented x3. Appropriate mood and affect. Const: Vital Signs, click to edit/add: Vital Signs - 24 hr 10/24/23 05:21 10/24/23 05:33 10/24/23 05:39 Temperature 100.8 F H 100.8 F H 100.8 F H Pulse Rate [Pulse Oximeter] 117 H 116 H Respiratory Rate 18 18 Blood Pressure [Ri ght Arm] 110/56 L Blood Pressure [Ri ght Upper Arm] 110/56 L Pulse Oximetry 100 100 Oxygen Delivery Me thod Room Air Room Air 10/24/23 06:12 10/24/23 06:14 10/24/23 06:23 Temperature 101.1 F H 101 F H Pulse Rate [Pulse Oximeter] 115 H Respiratory Rate 18 Blood Pressure [Ri ght Arm] Blood Pressure [Ri ght Upper Arm] 95/47 L Pulse Oximetry 100 Oxygen Delivery Me thod Room Air 10/24/23 06:56 Temperature 101 F H Pulse Rate [Pulse Oximeter] Respiratory Rate Blood Pressure [Ri ght Arm] Blood Pressure [Ri ght Upper Arm] Pulse Oximetry Oxygen Delivery Me thod Course Vital Signs Vital signs: Initial Vital Signs Temperature 100.8 F H 10/24/23 05:21 Temperature Source Temporal Artery Scan 10/24/23 05:21 Vital Signs Temperature 100.8 F H 10/24/23 05:21 Temperature 101 F H 10/24/23 06:56 Pulse Rate 115 H 10/24/23 06:12 Respiratory Rate 18 10/24/23 06:12 Blood Pressure 95/47 L 10/24/23 06:12 Pulse Oximetry 100 10/24/23 06:12 Oxygen Delivery Method Room Air 10/24/23 06:12 Medications Administered Medications: Generic Name Dose Route Start Last Admin Trade Name Freq PRN Reason Stop Dose Admin Sodium Chloride 1,000 mls @ 1,000 mls/hr 10/24/23 07:15 10/24/23 07:21 0.9 % Sodium Chloride 1000 Ml IV 10/24/23 08:14 1,000 mls/hr .Q1H BRENDEN Administration Discontinued Medications Generic Name Dose Route Start Last Admin Trade Name Freq PRN Reason Stop Dose Admin Acetaminophen 650 mg 10/24/23 05:09 10/24/23 05:21 Acetaminophen 325 Mg Tablet PO 10/24/23 05:10 650 mg ONCE ONE Administration Lactated Ringer's 1,000 mls @ 1,000 mls/hr 10/24/23 05:06 10/24/23 07:25 Lactated Ringers 1000 Ml IV 10/24/23 06:05 Infused .Q1H ONE Infusion Ceftriaxone Sodium 1 gm/ 100 mls @ 200 mls/hr 10/24/23 06:25 06/01/24 07:25 Sodium Chloride IVPB 10/24/23 06:26 Infused ONCE ONE Infusion Ibuprofen 600 mg 10/24/23 06:29 10/24/23 06:56 Ibuprofen 200 Mg Tablet PO 10/24/23 06:30 600 mg ONCE ONE Administration Medical Decision Making MDM Narrative Medical decision making narrative: Patient is a 37-year-old paraplegic male presenting to the emergency department for fevers, nausea. Previously we had symptoms like this he has been diagnosed with flu and UTIs. Was started out by ordering a CMP, COVID/flu/RSV, urinalysis, CBC, troponin, lipase, magnesium. Will give Tylenol for his fever. Considering he is tachycardic and has a fever he meets SIRS criteria blood cultures and lactate were ordered. His blood pressures are within his normal he states. He says he usually runs in the 100s systolic. EKG was also done. A L of lactated Ringer's was given. He is having some neck pain that is in the paraspinal region of the neck. He states he gets this neck pain whenever he has symptoms like this. I consider meningitis but he is having no altered mental status and has full range of motion of the neck. Seems very unlikely at this time. EKG shows sinus tachycardia with a rate of 110 beats per minute, no signs of his previously seen a flutter. Lactate within normal limits any does not meet criteria for severe sepsis. White count is elevated 15.14. Previous white blood cell count 2 months ago was 6.6. I am concerned about infection at this time. Neutrophils are elevated. CMP returns with slightly elevated AST and ALT with normal bilirubin and alkaline phosphatase. Lipase within normal limits. Electrolytes within normal limits. Creatinine appears normal. Urinalysis does show possible signs of a UTI. There are +1 leukocyte esterases and 10-25 white blood cells. It was a clean sample. Considering he does self cath he does states he calmly comes up slightly positive for UTIs at baseline. I cannot definitively say that is what is causing his symptoms at this time. We will do a CT scan of his chest abdomen pelvis to look for any other possible causes of his fever. Will give a g of Rocephin. Patient's CT returned showing what appears to be acute prostatitis. There is also concern about an abscess forming within the prostate. He cannot take Cipro due to a severe allergy and per my review gentamicin is recommended. This will be ordered. Went to speak to the patient in noticed his blood pressures have been on the lower and with a map under 65. Readjust the blood pressure cuff in the most recent map was 64 with a blood pressure of 93/50. This time he is feeling okay and I do not believe it is necessary to start him on pressors at this time. We will keep this closely monitored. I spoke to Dr. Martini of Urology who is in agreement with giving him gentamicin and transfer. Will be transferred to [place] pending my Colleague speaking to the hospitalist. Lab Data Labs: Lab Results 10/24/23 10/24/23 Range/Units 05:06 05:25 WBC 15.14 H (4.50-11.00) K/uL RBC 5.15 (4.30-5.90) m/uL Hgb 15.2 (13.5-17.5) gm/dL Hct 44.8 (37.0-53.0) % MCV 87 (80-100) fL MCH 30 (26-34) pg MCHC 34 (32-36) gm/dL RDW Coeff of Kory 13.1 (11.5-15.5) % Plt Count 166 (140-440) K/uL Neut % (Auto) 91.3 H (42.0-72.0) % Lymph % (Auto) 4.0 L (20-44) % [place] % (Auto) 4.0 (0.0-11.0) % Eos % (Auto) 0.3 (0.0-7.0) % Baso % (Auto) 0.1 (0.0-3.0) % Neut # (Auto) 13.80 H (1.7-7.0) K/uL Lymph # (Auto) 0.60 L (0.90-2.90) K/uL [place] # (Auto) 0.60 (0.00-0.90) K/UL Eos # (Auto) 0.00 (0.00-0.50) K/uL Baso # (Auto) 0.00 (0.00-0.30) K/uL Abs Immat Gran (auto) 0.00 (0.00-0.30) K/uL Imm/Tot Granulo (auto) 0.3 % Sodium 138 (135-149) mmol/L Potassium 3.7 (3.6-5.1) mmol/L Chloride 105 (96-114) mmol/L Carbon Dioxide 24 (20-32) mmol/L Anion Gap 9 (7-15) mEq/L BUN 18 (5-24) mg/dL Creatinine 0.4 L (0.5-1.5) mg/dL Estimated Creat Clear 223.25 Estimated GFR 146 ml/min Glucose 92 (60-115) mg/dL Lactate 1.7 (0.5-1.9) mmol/L Calcium 9.1 (8.4-10.6) mg/dL Magnesium 1.6 (1.5-2.6) mg/dL Total Bilirubin 0.7 (0.1-1.5) mg/dL AST 47 H (12-35) U/L ALT 69 H (4-50) U/L Alkaline Phosphatase 69 (40-150) U/L Total Protein 7.8 (6.0-8.3) g/dL Albumin 4.7 (3.3-5.0) g/dL Lipase 47 (23-300) U/L Urine Color Yellow (Yellow) Urine Appearance Clear (Clear) Urine pH 5.5 (5.0-8.5) Ur Specific [place] 1.025 (1.000-1.030) Urine Protein Negative (Negative) Urine Glucose (UA) Negative (Negative) Urine Ketones 1+ A (Negative) Urine Blood Trace-intact A (Negative) Urine Nitrite Negative (Negative) Urine Bilirubin Negative (Negative) Urine Urobilinogen 0.2 (0.2-1.0) Ur Leukocyte Esterase 1+ A (Negative) Urine RBC 2-5 A (0-2) Urine WBC 10-25 A (0-5) Ur Squamous Epith Cells None (None-Few) Urine Bacteria Few A (None) SARS-CoV-2 (PCR) Negative SARS-CoV-2 (Negative) Influenza Type A (PCR) Negative PCR FLU A (Negative) Influenza Type B (PCR) Negative PCR FLU B (Negative) RSV (PCR) Negative PCR RSV (Negative) POC Troponin I 0.01 (0.01-0.04) ng/ml Imaging Data CT Chest/Ab/Pelvis: Attestation: I have reviewed the pertinent imaging results. Radiologist's impression: 1. CHEST: No evidence of active pulmonary disease 2. ABDOMEN: Hepatic steatosis. Distended but otherwise unremarkable appearing gallbladder. Left lower quadrant stoma. Significant diffuse fecal retention pattern without donal mechanical obstruction. 3. PELVIS: Bladder wall thickening could be due to chronic bladder outlet obstruction or UTI. Correlate with urinalysis. Enlargement and abnormal low- density of the prostate gland with periprostatic inflammatory change consistent with acute prostatitis. I also can not exclude a developing abscess especially in the anterolateral lower left peripheral zone measuring about 2.5 centimeters. 4. OSSEOUS STRUCTURES: Postoperative change. 5. BODY WALL: Soft tissue induration posterior to the lower sacrum and coccyx probably a decubitus ulcer or a developing decubitus ulcer. No bone destruction. Direct evaluation of this area is advised 6. Other nonacute appearing findings as above Please note that all CT scans at this facility use dose modulation, iterative reconstruction, and/or weight-based dosing when appropriate to reduce radiation dose to as low as reasonably achievable. Dictated by Ilir Morales MD @ 10/24/2023 7:22:44 AM ECG Data Attestation: I personally reviewed and interpreted this ECG as follows: Prior ECG tracings: available for review Interpretation: Sinus tachycardia with a rate of 110 beats per minute, normal intervals, normal axis, no ST or T-wave abnormalities. Appears similar to previous EKGs on file. Critical Care Time Critical Care Time Critical Care Time: Yes Attestation: The patient required my highest level preparedness to intervene emergently and I personally spent this critical care time directly and personally managing the patient. This critical care time included: Obtaining a history; Examining the patient; Pulse oximetry; Ordering and reviewing of studies; Arranging urgent treatment with development of a management plan; Evaluation of patients response to treatment; Frequent reassessment discussions with other providers. This critical care time was performed to assess and manage the high probability of imminent life-threatening deterioration that could result in multiorgan failure. It was exclusive of separate billable procedures and treating other patients and teaching time. Total Critical Care Time in Minutes: 60 Discharge Plan Discharge Clinical Impression: Acute prostatitis Patient Disposition: [facility] Condition: Improved Prescriptions: No Action oxybutynin chloride 5 mg tablet 5 mg PO QDAY pregabalin 150 mg capsule 150 mg PO BID Qty: 30 0RF diltiazem HCl [Cardizem CD] 120 mg capsule,extended release 24hr 120 mg PO DAILY Qty: 30 2RF apixaban 5 mg tablet 5 mg PO BID Qty: 60 2RF Follow Up/Referrals: Keo Cobb MD [Primary Care Provider] - Stand Alone Forms: [employer] Info Instructions
[2023-10-24] MEDS: LACTATED RINGERS 1000 ML 1,000 ML IV ×2 (05:20→10:20)
[2023-10-24] MEDS: ACETAMINOPHEN 325 MG TABLET 650 MG PO (05:21)
[2023-10-24 05:33] LABS: Lactate* 1.7 mmol/L (0.5-1.9)
[2023-10-24 05:34] LABS: Basophils Percent Auto 0.1 % (0.0-3.0); Eosinophils Percent Auto 0.3 % (0.0-7.0); Hematocrit 44.8 % (37.0-53.0); Hemoglobin* 15.2 gm/dL (13.5-17.5); Immature Granulocytes Pct Auto 0.3 %; Mean Corpuscular HGB Conc 34 gm/dL (32-36); Mean Corpuscular Hemoglobin 30 pg (26-34); Mean Corpuscular Volume 87 fL (80-100); Neutrophils Percent Auto 91.3 % (42.0-72.0); Platelet Count* 166 K/uL (140-440); RDW Coefficient of Variation % 13.1 % (11.5-15.5); Red Blood Count 5.15 m/uL (4.30-5.90); White Blood Count* 15.14 K/uL (4.50-11.00)
[2023-10-24 05:35] LABS: Slide Review Reflex No
[2023-10-24 05:39] LABS: Troponin, Point-of-Care* 0.01 ng/ml (0.01-0.04)
[2023-10-24 05:41] LABS: Appearance Urine Clear (Clear); Bilirubin Urine Negative (Negative); Blood Urine Trace-intact (Negative); Color Urine Yellow (Yellow); Glucose Urine Negative (Negative); Ketones Urine 1+ (Negative); Leukocyte Esterase Urine 1+ (Negative); Nitrite Urine Negative (Negative); Protein Urine Negative (Negative); Specific Gravity Urine 1.025 (1.000-1.030); Urobilinogen Urine 0.2 (0.2-1.0); pH Urine 5.5 (5.0-8.5)
--- NOTE | 2023-10-24 05:49 | CRLHL7_ITS ---
For Patients: As a result of the 21st Century Cures Act, medical imaging exams and procedure reports are released immediately into your electronic medical record. You may view this report before your referring provider. If you have questions, please contact your health care provider. INDICATION: FUO. Paraplegia. COMPARISON: None TECHNIQUE: CT examination of the chest, abdomen and pelvis was performed following the uneventful intravenous administration of 66 cc of Isovue 370. Thin section axial images were obtained from the thoracic inlet through the pubic symphysis. Oral contrast was not administered. Sagittal and coronal reformatted imaging was performed Please note that all CT scans at this facility use dose modulation, iterative reconstruction, and/or weight-based dosing when appropriate to reduce radiation dose to as low as reasonably achievable. FINDINGS: CHEST: The heart size is normal. There is no mediastinal or hilar adenopathy or mass. No pericardial effusion. Lungs and pleural spaces appear normal. There is a stent in the distal thoracic aorta. ABDOMEN AND PELVIS: LIVER/BILIARY SYSTEM:The liver is normal in size and configuration. There is no focal mass and there is no intra- or extra hepatic biliary ductal dilatation.Hepatic steatosis. Distended but otherwise unremarkable appearing gallbladder. ADRENALS: Normal KIDNEYS, URETERS and BLADDER:The kidneys appear normal. The ureters are not dilated. There is bladder wall thickening which may be due to chronic bladder outlet obstruction or cystitis. Correlate with urinalysis. Abnormal prostate as below SPLEEN:Normal appearance. PANCREAS: Appears normal. RETROPERITONEUM and MESENTERY: There is no mass, adenopathy or aortic aneurysm. GASTROINTESTINAL SYSTEM: Left lower quadrant stoma. Significant diffuse fecal retention pattern without donal mechanical obstruction. No acute inflammatory process of bowel . OSSEOUS STRUCTURES and ABDOMINAL WALL: Postoperative changes of the spine.Cutaneous induration of the soft tissues dorsal to the sacrum and coccyx might be related to a decubitus ulcer or a developing decubitus ulcer. Direct clinical correlation of this area is advised. No bone destruction in this area. OTHER: No free fluid or free air. PELVIC STRUCTURES: Marked enlargement and abnormal low-density of the prostate gland with surrounding periprostatic inflammatory change consistent with prostatitis. I can not exclude a developing abscess especially in the low anterolateral left prostate. This is best seen on series 2, image 248 measuring about 2.5 centimeters. IMPRESSION: 1. CHEST: No evidence of active pulmonary disease 2. ABDOMEN: Hepatic steatosis. Distended but otherwise unremarkable appearing gallbladder. Left lower quadrant stoma. Significant diffuse fecal retention pattern without donal mechanical obstruction. 3. PELVIS: Bladder wall thickening could be due to chronic bladder outlet obstruction or UTI. Correlate with urinalysis. Enlargement and abnormal low-density of the prostate gland with periprostatic inflammatory change consistent with acute prostatitis. I also can not exclude a developing abscess especially in the anterolateral lower left peripheral zone measuring about 2.5 centimeters. 4. OSSEOUS STRUCTURES: Postoperative change. 5. BODY WALL: Soft tissue induration posterior to the lower sacrum and coccyx probably a decubitus ulcer or a developing decubitus ulcer. No bone destruction. Direct evaluation of this area is advised 6. Other nonacute appearing findings as above Please note that all CT scans at this facility use dose modulation, iterative reconstruction, and/or weight-based dosing when appropriate to reduce radiation dose to as low as reasonably achievable. Dictated by Ilir Morales MD @ 10/24/2023 7:22:44 AM (Electronically Signed)
[2023-10-24 05:50] LABS: Bacteria Urine Few
[2023-10-24 05:51] LABS: Albumin* 4.7 g/dL (3.3-5.0); Chloride* 105 mmol/L (96-114); Sodium* 138 mmol/L (135-149)
[2023-10-24 05:52] LABS: Potassium* 3.7 mmol/L (3.6-5.1)
[2023-10-24 05:54] LABS: Alkaline Phosphatase* 69 U/L (40-150); Anion Gap 9 mEq/L (7-15); Aspartate Amino Transferase* 47 U/L (12-35); Bilirubin Total* 0.7 mg/dL (0.1-1.5); Blood Urea Nitrogen* 18 mg/dL (5-24); Carbon Dioxide* 24 mmol/L (20-32); Creatinine* 0.4 mg/dL (0.5-1.5); Est. Creatinine Clearance* 223.25; Estimated Glomerular Filt Rate 146 ml/min; Glucose* 92 mg/dL (60-115); Lipase* 47 U/L (23-300); Total Protein* 7.8 g/dL (6.0-8.3)
[2023-10-24 05:55] LABS: Alanine Aminotransferase* 69 U/L (4-50); Calcium* 9.1 mg/dL (8.4-10.6); Magnesium* 1.6 mg/dL (1.5-2.6)
[2023-10-24 06:14] LABS: PCR FLU A Negative PCR FLU A (Negative); PCR FLU B Negative PCR FLU B (Negative); PCR RSV Negative PCR RSV (Negative); SARS PCR* Negative SARS-CoV-2 (Negative)
[2023-10-24] MEDS: cefTRIAXone 1 GM in 0.9 % SODIUM CHLORIDE Mini-bag 100 ML IVPB (06:55)
[2023-10-24] MEDS: IBUPROFEN 200 MG TABLET 600 MG PO (06:56)
[2023-10-24] MEDS: 0.9 % SODIUM CHLORIDE 1000 ml 1,000 ML IV (07:21)
--- OUTSIDE RECORDS SUMMARY | 2023-10-24 07:38 | XMS_ITS | Clinical Summary ---
Author Organization [facility] Address [address] [place] [phone] Care Team Providers Care Director Of Quality Control Name Role Phone Unavailable Primary Care Provider Unavailabl e Source Comments Patient records contain information from all sites at [facility]. For routine questions regarding patient records, call [phone] during business hours, M-F 8:00 AM - 5:00 PM Central Time. Record requests for emergency care only can be directed to [phone] at any time.[facility] Allergies Active Allergy Reactions Criticality Noted Date Comments Ciprofloxacin Itching,Swelling,Joce ma (Reselect Reaction),Angioedema,Duglas a, suggestive of allergic reaction, i.e., lip, tongue, or throat swelling High 06/26/2020 Doxycycline Diarrhea Low 03/12/2022 Vancomycin Itching,Rash,Angioed rose marie,E albert, suggestive of allergic reaction, i.e., lip, tongue, or throat swelling High 12/12/2021 Itchy face and hair Itchy face and hair - resolved with Benadryl Medications Medication Sig Dispensed Refills Start Date End Date Status ascorbic acid, vitamin C, 1,000 mg capsule Take 1,000 mg by mouth daily. 09/27/2018 Active cholecalciferol (VITAMIN D3) 50 mcg (2,000 Unit) tablet Take 2,000 Units by mouth daily. 07/10/2022 Active Lactobacillus acidophilus (Probiotic) 10 billion cell capsule Take 1 capsule by mouth daily. 09/27/2018 Active oxyBUTYnin (DITROPAN XL) 15 mg 24 hr tablet Take 15 mg by mouth daily. Active pregabalin (LYRICA) 150 mg capsule Take 150 mg by mouth 2 (two) times a day. Active COQ10, UBIQUINOL, ORAL Take 100 mg by mouth 2 (two) times a day. Active metoprolol tartrate (LOPRESSOR) 25 mg tabletIndications:Flu tter Atrial (HCC) Take 1 tablet (25 mg total) by mouth as needed (for atrial flutter). 30 tablet 10/05/2023 Active Active Problems Problem Noted Date Diagnosed Date Paraplegia 01/17/2013 Encounters Date Type Department Care Team Description 10/09/2023 1:00 PM CDT Comprehensive Visit Department of Physical Medicine and Rehabilitation in [place], [place] [address] [place] [phone] Karoline Carney M.D. Pain Shoulder Left (Primary Dx); Tear Glenoid Labral Initial Left; Rotator Cuff Disorder Left; Tendinitis Bicipital Left 10/09/2023 Clinical Communication Division of General Internal Medicine in [address] [phone] Avtar Aaron M.D. 10/08/2023 11:00 AM CDT Comprehensive Visit Department of Physical Medicine and Rehabilitation in [address] [phone] Avtar Aaron M.D. Stanecki, Catherine E, M.S., O.T. 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 Paraplegia (HCC) (Primary Dx); Injury Thoracic Spinal Cord Subsequent (HCC); Osteoporosis; Neurogenic Bladder; Neurogenic Bowel; Abnormal Posture; Mobility Limited; Pain Neuropathic; Sensation Skin Altered Discharge Disposition: Home or Self Care 10/08/2023 Clinical Communication Department of Cardiovascular Medicine in [address] [phone] Religious Activities DirectorRobert M.D. INT REF TRIAGE (INT / GIM / symptomatic a flutter.) 10/07/2023 7:24 PM CDT - 10/07/2023 11:59 PM CDT Hospital Encounter Department of Radiology, [facility] in [place], [place] [address] [place] [address] Avtar Aaron M.D. Rotator Cuff Disorder Left Discharge Disposition: Home or Self Care 10/07/2023 Clinical Communication Division of General Internal Medicine in [place], [place] [address] [place] [address] Avtar Aaron M.D. Holter result (Notification Result: Holter result for Michael Bauman showed atrial flutter was 30 seconds or longer during the start of the test noted on 10/06/23 8:57 AM. /) 10/07/2023 Clinical Communication Division of General Internal Medicine in [place], [place] [address] [place] [phone] Avtar Aaron M.D. 10/07/2023 Clinical Communication Division of General Internal Medicine in [place], [place] [address] [place] [address] Avtar Aaron M.D. 10/06/2023 8:34 AM CDT - 10/06/2023 11:59 PM CDT Hospital Encounter Department of Cardiovascular Diseases in [place], [place] [address] [place] [address] Avtar Aaron M.D. Flutter Atrial (HCC) Discharge Disposition: Home or Self Care 10/05/2023 4:03 PM CDT - 10/05/2023 11:59 PM CDT Hospital Encounter Department of Laboratory Medicine and Pathology, [facility] in [place], [place] [address] [place] [address] vAtar Aaron M.D. Flutter Atrial (HCC) Discharge Disposition: Home or Self Care 10/05/2023 2:58 PM CDT - 10/05/2023 4:02 PM CDT Hospital Encounter Department of Radiology, [facility] in [place], [place] [address] [place] [phone] Avtar Aaron M.D. Flutter Atrial (HCC) Discharge Disposition: Home or Self Care 10/05/2023 2:58 PM CDT - 10/05/2023 4:02 PM CDT Hospital Encounter Department of Radiology, [facility], in [place], [place] [address] [place] [phone] Avtar Aaron M.D. Pain Shoulder Left Discharge Disposition: Home or Self Care 10/05/2023 2:57 PM CDT Hospital Encounter Department of Radiology, [facility], in [place], [place] [address] [place] [phone] Avtar Aaron M.D. Injury Thoracic Spinal Cord Subsequent (HCC) Discharge Disposition: Home or Self Care 10/05/2023 1:00 PM CDT Comprehensive Visit Division of General Internal Medicine in [place], [place] [address] [place] [phone] Avtar Aaron M.D. Flutter Atrial (HCC) (Primary Dx); Injury Thoracic Spinal Cord Subsequent (HCC); Rotator Cuff Disorder Left; Tendinitis Bicipital Left 10/05/2023 8:50 AM CDT - 10/05/2023 2:56 PM CDT Hospital Encounter Department of Cardiovascular Diseases in [place], [place] [address] [place] [phone] Avtar Aaron M.D. Flutter Atrial (HCC) Discharge Disposition: Home or Self Care 10/05/2023 Clinical Communication Division of General Internal Medicine in [place], [place] [address] [place] [phone] Avtar Aaron M.D. Outside EKG reports 10/02/2023 3:00 PM CDT Clinical Communication Virtual Review in [place], [place] 200 [place] [address] Pre-visit Intake 09/15/2023 Clinical Communication Department of Cardiovascular Medicine in [place], [place] [address] [place] [phone] Religious Activities DirectorRobert M.D. INTERNAL REFERRAL (GIM [id number]) 09/15/2023 Clinical Communication Division of General Internal Medicine in [place], [place] [address] [place] [address] Prescheduling, Provider Echo Movep for 10/04 visit 09/08/2023 Clinical Communication Division of General Internal Medicine in [place], [place] [address] [place] [phone] Prescheduling, Provider Triage from Last 3 Months Immunizations Name Administration Dates Next Due DTP 12/19/1992, 0,06/13/1988,1987,02/29/1988 HepB Pediatric/Adolescent 12/29/2000,09/16/2000, 08/17/2000 Hib, Unspecified 06/11/1989 IPV 06/11/1989, 9,05/02/1988,1987 Influenza, Unspecified 10/02/2023(Deferred: Manuela ent decision) MCV4 (Menactra)(Discontinued) 12/03/2006 MMR 08/17/2000 Measles 12/19/1992 Mumps 03/19/1989 Polio, Unspecified 06/11/1989, 9,05/02/1988,1987 Rubella 03/19/1989 SARS-COV-2 (COVID-19) - MODE RNA (12 YEARS AND OLDER) [id number] 10/05/2023(Deferred: Patient decision - Patinet has received no COVID vaccines.) Td (Adult), adsorbed 05/25/2001,08/17/2000 Tdap 10/05/2023(Deferred: Other - pt states is utd),05/05/2011 Social History Tobacco Use Types Packs/Day Years Used Date Smoking Tobacco: Former Cigarettes 0.5 3 0 05/25/2009 - 05/25/2012 Cigars Hookah Passive Smoke Exposure: Never Smokeless Tobacco: Former Chew Quit: 05/25/2012 Comments:Smoked and chewed r egularly for a few years. Stopped and never done it since. Alcohol Use Standard Drinks/Week Comments Not Currently 72 (1 standard drink = 0.6 oz pure alcohol) I was a heavy drinker for many years. I stopped in 2013. [facility] Utilities Answer Date Recorded In the past 12 months has th e electric, gas, oil, or water company threatened to shut off services in your home? No 10/01/2023 PHQ-2 Answer Date Recorded PHQ-2 Score 0 10/05/2023 Exercise Vital Sign Answer Date Recorde d On average, how many days pe r week do you engage in moderate to strenuous exercise (like a brisk walk)? 4 days 10/01/2023 On average, how many minutes do you engage in exercise at this level? 60 min 10/01/2023 Hunger Vital Sign Answer Date Recorded Within the past 12 months, y ou worried that your food would run out before you got the money to buy more. Never true 10/01/19 Within the past 12 months, t he food you bought just didn't last and you didn't have money to get more. Never true 10/01/2023 PRAPARE - Transportation Answer Date Re corded In the past 12 months, has l ack of transportation kept you from medical appointments or from getting medications? No 01/2024 In the past 12 months, has l ack of transportation kept you from meetings, work, or from getting things needed for daily living? No 10/01/2023 Nutrition Answer Date Recorded On average, how many serving s of fruits and vegetables do you eat per day (serving size is equal to 1 cup or approximately the size of a tennis ball)? 3-5 10/01/2023 Dental Answer Date Recorded Dental: Regular Dentist No 10/01/19 Employment Answer Date Recorded Employment status Employed and actively working without restrictions 10/01/2023 Housing Stability Answer Date Recorded What is your living situation today? I have a [facility] place to live 10/01/2023 Sex and Gender Information Value Date Recorded Sex Assigned at Male 09/11/2023 10:52 AM CDT Gender Identity Male 09/11/2023 10:52 AM CDT Sexual Orientation Straight 09/11/2023 10 :52 AM CDT Last Filed Vital Signs Vital Sign Reading Time Taken Comments Blood Pressure 110/62 10/05/2023 12:28 PM CDT Pulse 80 10/05/2023 12:28 PM CDT Temperature - - Respiratory Rate 16 03/13/2013 5:46 AM CDT Value from [employer]. Oxygen Saturation 98% 10/05/2023 12: 28 PM CDT On room air at rest. Inhaled Oxygen Concentration - - Weight 60.1 kg (132 lb 7.9 oz) 10/05/2023 12:28 PM CDT Per W/C Scale Height 178 cm (5' 10.08) 04/14/2013 10 :43 AM MINISTER Vital sign result from Clinical Notes. Body Mass Index - - Plan of Treatment Upcoming Encounters Date Type Department Care Team (Latest Contact Info) Description 11/03/2023 9:00 AM CDT Clinical Support Healthy Living Program in [address] [phone] Bubba Perez M.D., M.S. [address] [place] [phone] 11/03/2023 10:00 AM CDT Clinical Support Healthy Living Program in [address] [phone] Avtar Aaron M.D. [address] [place] [phone] [address] [phone] 11/03/2023 1:40 PM CDT Appointment Department of Radiology, [facility], in [address] [phone] Rosemary Gregorio APRN, BARREL POLISHER INSIDE, M.S. [address] [place] [phone] 11/09/2023 8:00 AM CDT Clinical Communication Virtual Review in [place], [place] 200 [place] [address] 11/12/2023 8:00 AM CDT Comprehensive Visit Division of Pain Medicine in [address] [phone] Angelina Jefferson APRN, Carmen.P., M.S.N. [address] [place] [phone] 11/13/2023 10:00 AM CDT Telemedicine Section of Executive Medicine in [place], [place] [address] [place] [address] Avtar Aaron M.D. [address] [place] [phone] 12/30/2023 11:10 AM CDT Appointment Department of Laboratory Medicine and Pathology, [place], [place] [address] [place] [address] Rosemary Gregorio APRN, BARREL POLISHER INSIDE, M.S. [address] [place] [phone] 12/30/2023 11:20 AM CDT Appointment Department of Laboratory Medicine and Pathology, [facility] in [place], [place] [address] [place] [phone] Rosemary Gregorio APRN, BARREL POLISHER INSIDE, M.S. [address] [place] [phone] 12/30/2023 12:30 PM CDT Appointment Department of Radiology, [facility] in [place], [place] [address] [place] [address] Rosemary Gregorio APRN, BARREL POLISHER INSIDE, M.S. [address] [place] [phone] 12/31/2023 12:40 PM CDT Ancillary Procedure Department of Cardiovascular Medicine in [place], [place] [address] [place] [address] Fredi Horner M.D. [address] [place] [phone] 12/31/2023 1:45 PM CDT Comprehensive Visit Department of Urology in [place], [place] [address] [place] [phone] Tabitha Rich P.A.-C. [address] [place] [phone] 12/31/2023 2:30 PM CDT Procedure visit Department of Urology in [place], [place] [address] [place] [phone] Rosemary Gregorio APRN, DULCE, M.S. [address] [place] [phone] 01/01/2024 8:00 AM CDT Comprehensive Visit Department of Cardiovascular Medicine in [address] [phone] Fredi Horner M.D. [address] [place] [phone] 01/01/2024 1:30 PM CDT Comprehensive Visit Division of Endocrinology in [address] [phone] Horacio Harp M.D. [address] [place] [phone] Health Maintenance Due Date Last Done Comments DTaP,Tdap,and Td Vaccines (7 - Td or Tdap) 05/05/2021 05/05/2011, 05/25/2001, 08/17/2000, Additional history exists COVID-19 Vaccine (2022-24 season) 2023 Influenza Vaccine (#1) 2023 Lipid (Cholesterol) Screening 10/04/2028 10/05/2023 Hepatitis B Vaccines Completed 12/29/2000, 09/16/2000, 08/17/2000 Hepatitis C Screening Completed 02/06/2013 Depression Screening (Annual PHQ-2) Completed 10/05/2023, 10/05/2023 HPV Vaccines Aged Out No longer eligi ble based on patient's age to complete this topic Pneumococcal vaccine (0-64 years) Aged Out No longer eligible based on patient's age to complete this topic Medical Devices Implanted Type Area Pest Control Pilot Device Identifier Shelf Expiration Date Model / Serial / Lot Conversions - Default Historical Implant Device Implanted:08/22 (Quantity not on file) Hardware e.g. pins/screws /rods Description:Device Status Te xt - Hardware. Gm-Syn Cocr 5.5 X 400mm - [employer] [id number] Implanted:Qty: 1 on 01/15/2013 Spine Implant Depuy Synthes Description:Device Manufactu rer - Synthes. Device Status Text - [id number]. Head Reduction Ti Polyaxial - [employer] [id number] Implanted:Qty: 2 on 01/15/2013 Spine Implant Depuy Synthes Description:Device Manufactu rer - Synthes. Device Status Text - [id number]. Screw-Matrix Bone 5.0 X 45mm - [employer] [id number] Implanted:Qty: 8 on 01/15/2013 Spine Implant Depuy Synthes Description:Device Manufactu rer - Synthes. Device Status Text - [id number]. Synthes-Transco n. 30mm - [employer] [id number] Implanted:Qty: 2 on 01/15/2013 Spine Implant Depuy Synthes Description:Device Manufactu rer - Synthes. Device Status Text - [id number]. Cap-Synthes Matrix Locking Ti - [employer] [id number] Implanted:Qty: 12 on 01/15/2013 Spine Implant Depuy Synthes Description:Device Manufactu rer - Synthes. Device Status Text - [id number]. Screw-Matrix Bone 6.0 X 45mm - [employer]ia [id number] Implanted:Qty: 4 on 01/15/2013 Spine Implant Depuy Synthes Description:Device Manufactu rer - Synthes. Device Status Text - [id number]. Cap-Synthes Matrix Polyax Head Ti - [employer] [id number] Implanted:Qty: 10 on 01/15/2013 Spine Implant Depuy Synthes Description:Device Manufactu rer - Synthes. Device Status Text - [id number]. Graft Tag Thoracic Endo 21 X 10 - [employer]ia [id number] Implanted:Qty: 1 on 01/15/2013 Vascular Graft Other/Legacy - See Implant Description [place] Description:Device Manufactu rer - [employer] [place] [employer] Body Location - Other. Vascular. Device Status Text - [id number]. Procedures Procedure Name Priority Date/Time Associated Diagnosis Comments MR SHOULDER LEFT WITHOUT IV CONTRAST RAD - Routine (most inpatients and all outpatients) 10/07/2023 8:16 PM CDT Rotator Cuff Disorder Left HOLTER MONITOR - IN CLINIC DOOR TECHNICIAN Routine 10/07/2023 9:43 AM CDT Flutter Atrial (HCC) ECG Routine 10/06/2023 8:33 AM CDT Flutter Atrial (HCC) MAGNESIUM, S Routine 10/05/2023 4:15 PM CDT Flutter Atrial (HCC) LIPID PANEL, S Routine 10/05/2023 4:15 PM CDT Flutter Atrial (HCC) HEMOGLOBIN A1C, B Routine 10/05/2023 4:1 5 PM CDT Flutter Atrial (HCC) THYROID FUNCTION CASCADE, S Routine 10/05/2023 4:15 PM CDT Flutter Atrial (HCC) BASIC METABOLIC PANEL, S/P Routine 10/05/2023 4:15 PM CDT Flutter Atrial (HCC) DX CHEST AP OR PA AND LATERAL 2 VIEWS RAD - Routine (most inpatients and all outpatients) 10/05/2023 3:36 PM CDT Flutter Atrial (HCC) DX SHOULDER LEFT 2+ VIEWS RAD - Routine (most inpatients and all outpatients) 10/05/2023 3:35 PM CDT Pain Shoulder Left DX THORACIC SPINE 2 VIEWS RAD - Routine (most inpatients and all outpatients) 10/05/2023 3:33 PM CDT Injury Thoracic Spinal Cord Subsequent (HCC) DX LUMBAR SPINE 2-3 VIEWS RAD - Routine (most inpatients and all outpatients) 10/05/2023 3:33 PM CDT Injury Thoracic Spinal Cord Subsequent (HCC) (TTE) 2D ECHO DOPPLER COLOR Routine 10/05/2023 10:32 AM CDT Flutter Atrial (HCC) ACUTE HEPATITIS PROFILE Routine 02/06/2013 1:58 PM CDT from Last 3 Months or Most Recently Relevant to Health Maintenance Results * MR Shoulder Left without IV Contrast (10/07/2023 8:16 PM CDT) Anatomical Region Laterality Modality Upper Extremity, Shoulder, M usculoskeletal RST LOS, Musculoskeletal ARZ LOS, Muskuloskeletal FLA LOS Left Magne tic Resonance Impressions 10/08/2023 8:36 AM CDT 1. Minimal supraspinatus tendinopathy/fraying without full-thickness tear or retraction. No muscular edema or atrophy. Rotator cuff otherwise normal in appearance. 2. SLAP type tear of the glenoid labrum superiorly with tiny, 3 mm, para labral cyst. 3. Mild subacromial/subdeltoid bursopathy. Narrative 10/08/2023 8:36 AM CDT EXAM: ??MR SHOULDER LEFT WITHOUT IV CONTRAST COMPARISON: ??MRI of the left shoulder dated 01/14/2023. Radiographs of the left shoulder dated 10/05/2023. FINDINGS: ??MRI left shoulder without IV gadolinium performed at [facility]. TENDONS: Redemonstrated is mild tendinopathy of the distal supraspinatus tendon with some bursal surface fraying. No full-thickness or retracted tear. The infraspinatus, teres minor, subscapularis and intra-articular long head of biceps tendons are all intact and normal in appearance. LABRUM/ARTICULAR CARTILAGE: SLAP type tear of the glenoid labrum superiorly with a probable tiny, 3 mm, para labral cyst (series 5 images 15-16). No donal labral detachment. The glenoid labrum is otherwise intact. No significant chondromalacia and no full-thickness chondral defects. GLENOHUMERAL LIGAMENTS/ROTATOR INTERVAL: Glenohumeral ligaments are intact. No effacement of the subcoracoid fat. Minimal nonspecific edema within the anterior rotator interval (series 7 images 15-16). AC JOINT/SUBACROMIAL SPACE: Trace fluid in the subacromial/subdeltoid bursa compatible with mild bursitis. AC joint is otherwise normal in appearance. MUSCLES/BONES: Benign cystic change right humeral head near the insertional footprint and greater tuberosity. Islands of red marrow within the proximal humerus. Visualized bones are otherwise normal in appearance. Procedure Note Brayan Daley M.D. - 10/08/2023 EXAM: MR SHOULDER LEFT WITHOUT IV CONTRAST COMPARISON: MRI of the left shoulder dated 01/14/2023. Radiographs of theleft shoulder dated 10/05/2023. FINDINGS: MRI left shoulder without IV gadolinium performed at [facility]. TENDONS: Redemonstrated is mild tendinopathy of the distal supraspinatustendon with some bursal surface fraying. No full-thickness or retractedtear. The infraspinatus, teres minor, subscapularis and intra-articularlong head of biceps tendons are all intact and normal in appearance. LABRUM/ARTICULAR CARTILAGE: SLAP type tear of the glenoid labrumsuperiorly with a probable tiny, 3 mm, para labral cyst (series 5 [id number]). No donal labral detachment. The glenoid labrum is otherwiseintact. No significant chondromalacia and no full-thickness chondral defects. GLENOHUMERAL LIGAMENTS/ROTATOR INTERVAL: Glenohumeral ligaments areintact. No effacement of the subcoracoid fat. Minimal nonspecific edemawithin the anterior rotator interval (series 7 images 15-16). AC JOINT/SUBACROMIAL SPACE: Trace fluid in the subacromial/subdeltoidbursa compatible with mild bursitis. AC joint is otherwise normal inappearance. MUSCLES/BONES: Benign cystic change right humeral head near theinsertional footprint and greater tuberosity. Islands of red marrow withinthe proximal humerus. Visualized bones are otherwise normal inappearance. IMPRESSION: 1. Minimal supraspinatus tendinopathy/fraying without full-thickness tearor retraction. No muscular edema or atrophy. Rotator cuff otherwise normalin appearance. 2. SLAP type tear of the glenoid labrum superiorly with tiny, 3 mm, paralabral cyst. 3. Mild subacromial/subdeltoid bursopathy. Avtar COLON MRI PROCEDU RES * HOLTER MONITOR - IN CLINIC DOOR TECHNICIAN (10/07/2023 9:43 AM CDT) Min Heart Rate 58 bpm INFOB IONIC MOME Max Heart Rate 184 bpm INFOB IONIC MOME Mean Heart Rate 87 bpm INFOBIONIC MOME VE Total Beats 0 count INFOB IONIC MOME VE Percent Beats less than 1 percent INFOBIONIC MOME SVE Total Beats 83 count INFOBIONIC MOME SVE Percent Beats less than 1 percent INFOBIONIC MOME AF Count 1 count INFOBIONIC MOME AF Duration 1h 35m duration INFOBION IC MOME AF Warren 6.71 percent INFOBIONIC MOME Longest AF Duration 1h 36m duration INFOBIONIC MOME Symptom Count 1 count INFOBI ONIC MOME 10/06/2023 8:39 AM CDT Narrative INFOBIONIC MOME - 10/11/2023 2:23 PM CDT [facility] 1. The basic rhythm was sinus with intermittent atrial flutter. The total analyzed time was 23h 45m. The heart rate varied from 58 (SR) to 184 (AF) bpm. The average HR was 87 bpm. There was an AF burden of 6.71%. The longest AF duration was 1h 35m. The total time in AF was 1h 35m. 2. No premature ventricular and/or aberrantly conducted complexes were noted. 3. Premature supraventricular complexes were noted singly. There were 83 PACs recorded with a PAC burden of less than 1%. 4. A total of 1 symptomatic event was noted, which included shortness of breath and palpitations. The basic rhythm was atrial flutter with a heart rate of 174 bpm. During or around this event, there was no ectopy noted. Kelp Or Seagrass Gatherer: COLETTE Rivera/ COLETTE Bray A Holter monitor with cascade to extended monitoring was ordered for the indication of Atrial fibrillation or flutter calculate burden/% time in AF. During the Holter monitoring period, the patient did have atrial fibrillation or flutter >=30 seconds. Therefore, the study was not cascaded to extended monitoring. Procedure Note Lisandro Ellison M.D. - 10/11/2023 [facility] 1. The basic rhythm was sinus with intermittent atrial flutter. The totalanalyzed time was 23h 45m. The heart rate varied from 58 (SR) to 184 (AF)bpm. The average HR was 87 bpm. There was an AF burden of 6.71%. Thelongest AF duration was 1h 35m. The total time in AF was 1h 35m. 2. No premature ventricular and/or aberrantly conducted complexes werenoted. 3. Premature supraventricular complexes were noted singly. There were 83PACs recorded with a PAC burden of less than 1%. 4. A total of 1 symptomatic event was noted, which included shortness ofbreath and palpitations. The basic rhythm was atrial flutter with a heartrate of 174 bpm. During or around this event, there was no ectopy noted. Kelp Or Seagrass Gatherer: COLETTE Rivera/ COLETTE Bray A Holter monitor with cascade to extended monitoring was ordered for theindication of Atrial fibrillation or flutter calculate burden/% time inAF. During the Holter monitoring period, the patient did have atrialfibrillation or flutter >=30 seconds. Therefore, the study was not cascaded to extended monitoring. Avtar Aaron M.D. CV CARDIAC SERV ICES PROCEDURES INFOBIONIC MOME NA * ECG 12 Lead (10/06/2023 8:33 AM CDT) Ventricular Rate ECG/Min 89 BPM MUSE QRSD Interval 96 ms MUSE QT Interval 364 ms MUSE QTC Interval 442 ms MUSE P [place] 78 degrees MUSE R [place] 54 degrees MUSE T Wave [place] 29 degrees MUSE 10/06/2023 8:33 AM CDT 10/06/2023 8:36 AM CDT Impressions MUSE - 10/06/2023 8:36 AM CDT Atrial flutter with 4:1 A-V conduction Nonspecific ST abnormality No previous ECGs available Reviewed by COLETTE Reich Narrative Procedure Note Ruben Garrison Jr., M.D. - 10/06/2023 IMPRESSION: Atrial flutter with 4:1 A-V conduction Nonspecific ST abnormality No previous ECGs available Reviewed by COLETTE Reich Avtar Aaron M.D. ECG ORDERABLES MUSE NA * Lipid Panel (10/05/2023 4:15 PM CDT) Triglycerides 48 mg/dL 10/05/2023 5:30 PM CDT DTL Comment: ----REFERENCE VALUE---- Normal: <150 mg/dL Borderline High: 150-199 mg/dL High: 200-499 mg/dL Very High: > or =500 mg/dL Cholesterol, Total 162 mg/dL 2023 5:30 PM CDT DTL Comment: ----REFERENCE VALUE---- Desirable: < 200 mg/dL Borderline High: 200 - 239 mg/dL High: > or = 240 mg/dL Cholesterol, LDL, Calculated 107 mg/dL 10/05/2023 5:30 PM CDT DTL Comment: ----REFERENCE VALUE---- Desirable: <100 mg/dL Above Desirable: 100-129 mg/dL Borderline High: 130-159 mg/dL High: 160-189 mg/dL Very High: >=190 mg/dL ----ADDITIONAL INFORMATION---- LDL cholesterol calculated using the Christian/NIH equation. Cholesterol, HDL, S 45 >=40 mg/dL 10/05/2023 5:30 PM CDT DTL Cholesterol, Non-HDL, Calculated 117 mg/dL 10/05/2023 5:30 PM CDT DTL Comment: ----REFERENCE VALUE---- Desirable: <130 mg/dL Above Desirable: 130-159 mg/dL Borderline High: 160-189 mg/dL High: 190-219 mg/dL Very High: > or =220 mg/dL Fasting (8 HR or more) Unknown 10/05/2023 4:58 PM CDT DTL Blood (Blood, Venous) 10/05/2023 4:15 PM CDT 10/05/2023 4:58 PM CDT Avtar Aaron M.D. LAB BLOOD ADD-O N [facility] [address] [place] [address] * Thyroid Function [place] (10/05/2023 4:15 PM CDT) TSH, Sensitive 1.4 0.3 - 4.2 mIU/L 10/05/2023 5:30 PM CDT DTL Blood (Blood, Venous) 10/05/2023 4:15 PM CDT 10/05/2023 4:58 PM CDT Avtar Aaron M.D. LAB BLOOD ADD-O N Performing Organization Address City/[facility]/ZIP Co de Phone Number [facility] [address] [place] [address], [facility] [address] [place] [address] * Magnesium (10/05/2023 4:15 PM CDT) Magnesium, S 1.8 1.7 - 2.3 mg/dL 10/05/2023 5:30 PM CDT DTL Blood (Blood, Venous) 10/05/2023 4:15 PM CDT 10/05/2023 4:58 PM CDT Avtar Aaron M.D. LAB BLOOD ADD-O N [facility] [address] [place], [place] [address] [address] [place] [address] * Hemoglobin A1c (10/05/2023 4:15 PM CDT) [facility] Hemoglobin A1c, B 4.9 4.0 - 5.6 % 10/05/2023 5:21 PM CDT DTL Blood (Blood, Venous) 10/05/2023 4:15 PM CDT 10/05/2023 4:41 PM CDT Avtar Aaron M.D. LAB BLOOD ADD-O N [facility] [address] [place] [address], [facility] [address] [place] [address] * (ABNORMAL) Basic Metabolic Panel (10/05/2023 4:15 PM CDT) [facility] Potassium, S 4.0 3.6 - 5.2 mmol/L 10/05/2023 5:30 PM CDT DTL Sodium, S 140 135 - 145 mmol/L 10/05/2023 5:30 PM CDT DTL Chloride, S 101 98 - 107 mmol/L 10/05/2023 5:30 PM CDT DTL Bicarbonate, S 29 22 - 29 mmol/L 10/05/2023 5:30 PM CDT DTL Anion Gap 10 7 - 15 10/05/2023 5:30 PM CDT DTL BUN (Blood Urea Nitrogen), S 10 8 - 24 mg/dL 10/05/2023 5:30 PM CDT DTL Creatinine 0.54(L) 0.74 - 1.35 mg/dL 10/05/2023 5:30 PM CDT DTL Estimated GFR (eGFR) >90 >=60 mL/min/BSA 10/05/2023 5:30 PM CDT DTL Comment: Estimated GFR calculated using the 2020 CKD_EPI creatinine equation. Calcium, Total, S 9.6 8.6 - 10.0 mg/dL 10/05/2023 5:30 PM CDT DTL Glucose, S 91 70 - 140 mg/dL 10/05/2023 5:30 PM CDT DTL Blood (Blood, Venous) 10/05/2023 4:15 PM CDT 10/05/2023 4:58 PM CDT Avtar Aaron M.D. LAB BLOOD ADD-O N [facility] [address] [place] [address], [facility] DTL [facility] [address] [place] [address] * DX Chest AP or PA and Lateral 2 Views (10/05/2023 3:36 PM CDT) Anatomical Region Laterality Modality Chest, Thoracic RST LOS, Tho racic ARZ LOS, Thoracic FLA LOS N/A Digital Radiography Impressions 10/05/2023 3:38 PM CDT Posterior pedicular screw and gm fixation lower thoracic spine. Descending thoracic aortic endograft. Small amount of fluid or pleural thickening in the costophrenic angles. Lungs clear. Since 02/16/2013, the left pleural effusion has largely resolved. Narrative 10/05/2023 3:38 PM CDT EXAM: ??DX CHEST AP OR PA AND LATERAL 2 VIEWS Procedure Note Eddy Caballero M.D. - 10/05/2023 EXAM: DX CHEST AP OR PA AND LATERAL 2 VIEWS IMPRESSION: Posterior pedicular screw and gm fixation lower thoracic spine.Descending thoracic aortic endograft. Small amount of fluid or pleuralthickening in the costophrenic angles. Lungs clear. Since 02/16/2013, theleft pleural effusion has largely resolved. Avtar Aaron M.D. IMG DIAGNOSTIC IMAGING PROCEDURES * DX Shoulder Left 2+ Views (10/05/2023 3:35 PM CDT) Anatomical Region Laterality Modality Upper Extremity, Shoulder, M usculoskeletal RST LOS, Musculoskeletal ARZ LOS, Muskuloskeletal FLA LOS Left Digit al Radiography Impressions 10/05/2023 3:43 PM CDT Negative left shoulder. Narrative 10/05/2023 3:43 PM CDT EXAM: ??DX SHOULDER LEFT 2+ VIEWS Procedure Note Rajan Garcia M.D. - 10/05/2023 EXAM: DX SHOULDER LEFT 2+ VIEWS IMPRESSION: Negative left shoulder. Avtar Aaron M.D. [facility] DIAGNOSTIC IMAGING PROCEDURES * DX Lumbar Spine 2-3 Views (10/05/2023 3:33 PM CDT) Anatomical Region Laterality Modality Lumbar Spine, Musculoskeleta l RST LOS, Neuroradiology ARZ LOS, Muskuloskeletal FLA LOS N/A Digital Radiography Impressions 10/05/2023 3:57 PM CDT Thoracolumbar curvature. Posterior gm and pedicle screw fixation T7-T12. No radiographic evidence of loosening. Mild scattered spondylotic changes. Mild disc space narrowing at L5-S1. Thoracic aortic endograft. Narrative 10/05/2023 3:57 PM CDT EXAM: ??DX LUMBAR SPINE 2-3 VIEWS, DX THORACIC SPINE 2 VIEWS Procedure Note Gayla Lloyd M.D. - 10/05/2023 EXAM: DX LUMBAR SPINE 2-3 VIEWS, DX THORACIC SPINE 2 VIEWS IMPRESSION: Thoracolumbar curvature. Posterior gm and pedicle screw fixation T7-T12.No radiographic evidence of loosening. Mild scattered spondylotic changes.Mild disc space narrowing at L5-S1. Thoracic aortic endograft. Avtar Aaron M.D. [facility] DIAGNOSTIC IMAGING PROCEDURES * DX Thoracic Spine 2 Views (10/05/2023 3:33 PM CDT) Anatomical Region Laterality Modality Thoracic Spine, Musculoskele martine RST LOS, Neuroradiology ARZ LOS, Muskuloskeletal FLA LOS N/A Digita l Radiography Impressions 10/05/2023 3:57 PM CDT Thoracolumbar curvature. Posterior gm and pedicle screw fixation T7-T12. No radiographic evidence of loosening. Mild scattered spondylotic changes. Mild disc space narrowing at L5-S1. Thoracic aortic endograft. Narrative 10/05/2023 3:57 PM CDT EXAM: ??DX LUMBAR SPINE 2-3 VIEWS, DX THORACIC SPINE 2 VIEWS Procedure Note Gayla Lloyd M.D. - 10/05/2023 EXAM: DX LUMBAR SPINE 2-3 VIEWS, DX THORACIC SPINE 2 VIEWS IMPRESSION: Thoracolumbar curvature. Posterior gm and pedicle screw fixation T7-T12.No radiographic evidence of loosening. Mild scattered spondylotic changes.Mild disc space narrowing at L5-S1. Thoracic aortic endograft. Avtar COLON DIAGNOSTIC IMAGING PROCEDURES * (TTE) 2D ECHO DOPPLER COLOR (10/05/2023 10:32 AM CDT) Ejection Fraction 50 MC CV EIMS Sinus of Valsalva 35 MC CV EIMS Proximal Ascending Aorta 26 MC CV EIMS Mid-Ascending Aorta 24 MC CV EIMS LV Mass Index 61 MC CV EIMS LV End-Diastolic Diameter 45 MC CV EIMS LV End-Systolic Diameter 34 MC CV EIMS MV E Velocity 0.8 MC CV EIMS MV A Velocity 0.5 MC CV EIMS MV E/A 1.6 MC CV EIMS MV e' Velocity Medial 0.13 MC CV EIMS MV e' Velocity Lateral 0.13 MC CV EIMS MV E/e' Medial 6.2 MC CV EIMS MV E/e' Lateral 6.2 MC CV EIMS Left ventricular stroke volume index 43 MC CV EIMS Cardiac Output 4.41 MC CV EIMS Cardiac Index 2.59 MC CV EIMS LV Interventricular Septal Wall Thickness 7 MC CV EIMS LV Posterior Wall Thickness 8 MC CV EIMS LV Relative Wall Thickness 36 MC CV EIMS Tricuspid Annular S? 0.12 MC CV EIMS TR Vmax 2.03 MC CV EIMS RA Pressure 5 MC CV EIMS RV Systolic Pressure 21 MC CV EIMS Estimated diastolic pulmonary artery pressure 8 MC CV EIMS IVC Diameter 15 MC CV EIMS AV mean gradient 2 MC CV EIMS Aortic valve area 3.89 MC CV EIMS Aortic Valve Dimensionless Index 0.94 MC CV EIMS Aortic Valve Systolic Peak Velocity 0.9 MC CV EIMS Anatomical Region Laterality Modality Echocardiography 10/05/2023 9:17 AM CDT Impressions 10/05/2023 10:39 AM CDT The available image quality was limited. LEFT VENTRICLE:Normal left ventricular chamber size. Normal left ventricular geometry. Estimated left ventricular ejection fraction range 50% - 55%. No regional wall motion abnormalities. Normal left ventricular diastolic function. RIGHT VENTRICLE:Normal right ventricular chamber size by visual estimate. Normal right ventricular systolic function. Estimated right ventricular systolic pressure 21 mmHg (right atrial pressure of 5 mmHg). ATRIA:Normal left atrial size by visual estimate. Normal right atrial size by visual estimate. CARDIAC VALVES:Indeterminate number of cusps of the aortic valve. No aortic valve regurgitation. Normal mitral valve. Trivial mitral valve regurgitation. Normal pulmonary valve. Normal pulmonary valve systolic velocities. Trivial pulmonary valve regurgitation. Normal tricuspid valve. Mild tricuspid valve regurgitation. OTHER ECHO FINDINGS:Coronary sinus dilatation. Agitated saline contrast administered. Persistent left superior vena cava. Normal inferior vena cava size with normal inspiratory collapse (>50%). Normal sinus of Valsalva diameter of 35 mm. Normal proximal ascending aorta diameter of 26 mm. Abdominal aorta incompletely visualized. Normal abdominal aorta Doppler flow pattern. No atrial level shunt by color flow imaging. No intracardiac mass or thrombus, but the left atrial appendage cannot be visualized adequately with transthoracic echo to exclude thrombus in this location. No ??pericardial effusion. For the complete report, see the Order-Level Documents. Narrative 10/05/2023 10:39 AM CDT For the complete report, see the Order-Level Documents. Hemodynamics Heart Rate: 62 BPM Blood Pressure: 111 / 79 mmHg ECG: Sinus rhythm Final Impressions 1. Persistent left superior vena cava. 2. Normal left ventricular chamber size, no regional wall motion abnormalities, estimated ejection fraction range 50% - 55%. 3. Normal left ventricular geometry, normal diastolic function. 4. Normal right ventricular chamber size, normal systolic function, estimated right ventricular systolic pressure 21 mmHg (right atrial pressure of 5 mmHg). 5. No ??significant valvular heart disease. 6. No ??pericardial effusion. Procedure Note Derick Benavidez M.D. - 05/13/2024 For the complete report, see the Order-Level Documents. Hemodynamics Heart Rate: 62 BPM Blood Pressure: 111 / 79 mmHg ECG: Sinus rhythm Final Impressions 1. Persistent left superior vena cava. 2. Normal left ventricular chamber size, no regional wall motionabnormalities, estimated ejection fraction range 50% - 55%. 3. Normal left ventricular geometry, normal diastolic function. 4. Normal right ventricular chamber size, normal systolic function,estimated right ventricular systolic pressure 21 mmHg (right atrialpressure of 5 mmHg). 5. No significant valvular heart disease. 6. No pericardial effusion. Findings The available image quality was limited. LEFT VENTRICLE:Normal left ventricular chamber size. Normal leftventricular geometry. Estimated left ventricular ejection fraction range50% - 55%. No regional wall motion abnormalities. Normal left ventriculardiastolic function. RIGHT VENTRICLE:Normal right ventricular chamber size by visual estimate.Normal right ventricular systolic function. Estimated right ventricularsystolic pressure 21 mmHg (right atrial pressure of 5 mmHg). ATRIA:Normal left atrial size by visual estimate. Normal right atrial sizeby visual estimate. CARDIAC VALVES:Indeterminate number of cusps of the aortic valve. Noaortic valve regurgitation. Normal mitral valve. Trivial mitral valveregurgitation. Normal pulmonary valve. Normal pulmonary valve systolicvelocities. Trivial pulmonary valve regurgitation. Normal tricuspid valve.Mild tricuspid valve regurgitation. OTHER ECHO FINDINGS:Coronary sinus dilatation. Agitated saline contrastadministered. Persistent left superior vena cava. Normal inferior venacava size with normal inspiratory collapse (>50%). Normal sinus ofValsalva diameter of 35 mm. Normal proximal ascending aorta diameter of 26mm. Abdominal aorta incompletely visualized. Normal abdominal aortaDoppler flow pattern. No atrial level shunt by color flow imaging. Nointracardiac mass or thrombus, but the left atrial appendage cannot bevisualized adequately with transthoracic echo to exclude thrombus in thislocation. No pericardial effusion. For the complete report, see the Order-Level Documents. Avtar Aaron M.D. CV ECHO PROCEDU RES * Acute Hepatitis Profile (02/06/2013 1:58 PM CDT) HBs Antigen, S Negative Negative [facility] A IgM Ab, S Negative Negative [facility] Comment:Drawn From PICC HBc IgM Ab, S Negative Negative [place] [facility] Comment:Drawn From PICC HCV Ab, S Negative Negative [facility] Comment: Drawn From PICC ? Bkppoo-lr-[id number] ratio is <1.00. ? 02/06/2013 1:58 PM CDT 02/06/2013 1:58 PM CDT Narrative [facility] - 02/07/2013 12:12 PM CDT Drawn From PICC Hunter Celeste APRN, C.N.P., D.N.P. 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
--- OUTSIDE RECORDS SUMMARY | 2023-10-24 07:39 | XMS_ITS | Encounter Summary ---
Author Organization [facility] Address [address] [place] [id number] Care Team Providers Care Assistant Printer Floor Covering Name Role Phone Unavailable Primary Care Provider Unavailabl e Reason for Visit * Reason Onset Date Comments Holter result 10/07/2023 Notification Res ult: Holter result for Michael Bauman showed atrial flutter was 30 seconds or longer during the start of the test noted on 10/06/23 8:57 AM. Encounter Details Date Type Department Care Team (Latest Contact Info) Description 10/07/2023 Clinical Communication Division of General Internal Medicine in [place], [place] [address] [place] [phone] Avtar Aaron M.D. [address] [place] [phone] Holter result (Notification Result: Holter result for Michael Bauman showed atrial flutter was 30 seconds or longer during the start of the test noted on 10/06/23 8:57 AM. /) Social History Tobacco Use Types Packs/Day Years [...] for many years. I stopped in 2013. [facility] Utilities Answer Date Recorded In the past [...] Date Recorded Dental: Regular Dentist No 10/01/19 24 Employment Answer Date Recorded Employment status Employed and actively working without restrictions 10/01/2023 Housing Stability Answer Date Recorded What is your living situation today? I have a [facility] place to live 10/01/2023 Sex and Gender Information Value Date Recorded Sex Assigned at Male 09/11/2023 10:52 AM CDT Gender Identity Male 09/11/2023 10:52 AM CDT Sexual Orientation Straight 09/11/2023 10 :52 AM CDT documented as of this encounter Miscellaneous Notes * Telephone Encounter - Tom Castle III, COLETTE - 10/07/2023 12:55 PM CDT Notification Result: Holter result for Michael Bauman showed atrial flutter was 30 seconds or longer during the start of the test noted on 10/06/23 8:57 AM. documented in this encounter Plan of Treatment Upcoming Encounters Date Type Department Care Team (Latest Contact Info) Description 11/03/2023 9:00 AM CDT Clinical Support Healthy Living Program in [address] [phone] Bubba Perez M.D., M.S. [address] [place] [phone] 11/03/2023 10:00 AM CDT Clinical Support Healthy Living Program in [address] [phone] Avtar Aaron M.D. [address] [place] [phone] Lillian Winkler, [address] [phone] 11/03/2023 1:40 PM CDT Appointment Department of Radiology, [facility], in [address] [phone] Rosemary Gregorio APRN, PRESS OPERATOR [employer], M.S. [address] [place] [phone] 11/09/2023 8:00 AM CDT Clinical Communication Virtual Review in [address] [phone] 11/12/2023 8:00 AM CDT Comprehensive Visit Division of Pain Medicine in [address] [phone] Angelina Jefferson APRN, C.N.P., M.S.N. [address] [place] [phone] 11/13/2023 10:00 AM CDT Telemedicine Section of Executive Medicine in [place], [place] [address] [place] [phone] Avtar Aaron M.D. [address] [place] [phone] 12/30/2023 11:10 AM CDT Appointment Department of Laboratory Medicine and Pathology, [place], [place] [address] [place] [phone] Rosemary Gregorio APRN, PRESS OPERATOR [employer], M.S. [address] [place] [phone] 12/30/2023 11:20 AM CDT Appointment Department of Laboratory Medicine and Pathology, [facility] in [place], [place] [address] [place] [phone] Rosemary Gregorio APRN, PRESS OPERATOR [employer], M.S. [address] [place] [phone] 12/30/2023 12:30 PM CDT Appointment Department of Radiology, [facility] in [place], [place] [address] [place] [phone] Rosemary Gregorio APRN, PRESS OPERATOR [employer], M.S. [address] [place] [phone] 12/31/2023 12:40 PM CDT Ancillary Procedure Department of Cardiovascular Medicine in [place], [place] [address] [place] [phone] Fredi Horner M.D. [address] [place] [phone] 12/31/2023 1:45 PM CDT Comprehensive Visit Department of Urology in [place], [place] [address] [place] [phone] Tabitha Rich P.A.-C. [address] [place] [phone] 12/31/2023 2:30 PM CDT Procedure visit Department of Urology in [place], [place] [address] [place] [phone] Rosemary Gregorio APRN, PRESS OPERATOR [employer], M.S. [address] [place] [phone] 01/01/2024 8:00 AM CDT Comprehensive Visit Department of Cardiovascular Medicine in [place], [place] [address] [place] [phone] Fredi Horner M.D. [address] [place] [phone] 01/01/2024 1:30 PM CDT Comprehensive Visit Division of Endocrinology in [place], [place] [address] [place] [phone] Horacio Harp M.D. 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
--- OUTSIDE RECORDS SUMMARY | 2023-10-24 07:39 | XMS_ITS | Encounter Summary ---
Author Organization [facility] Address [address] [place] [address] Care Team Providers Care Online Marketing Director Name Role Phone Unavailable Primary Care Provider Unavailabl e Reason for Referral * Physical Therapy (Routine) - Authorized Specialty Diagnoses / Procedures Referred By Candice maki Referred To Contact Diagnoses Pain Shoulder Left Rotator Cuff Disorder Left Tear Glenoid Labral Initial Left Karoline Carney M.D. 200 [place] [address] Referral ID Status Reason Start Date Expiration Date Visits Requested Visits Authorized [id number] Authorized Patient Preference 10/09/2023 04/09/2025 99 99 Reason for Visit * Outpatient (Routine) - Closed Specialty Diagnoses / Procedures Referred By Contact Referred To Contact Physical Medicine and Rehabilitation Diagnoses Rotator Cuff Disorder Left Tendinitis Bicipital Left Avtar Aaron M.D. 200 [place] [address] [facility] Referral ID Status Reason Start Date Expiration Date Visits Re quested Visits Authorized [id number] Closed 10/05/2023 04/05/2025 1 1 Encounter Details Date Type Department Care Team (Latest Contact Info) Description 10/09/2023 1:00 PM CDT Comprehensive Visit Department of Physical Medicine and Rehabilitation in [place], [place] [address] [place] [phone] Karoline Carney M.D. [address] [place] [address] Pain Shoulder Left (Primary Dx); Tear Glenoid Labral Initial Left; Rotator Cuff Disorder Left; Tendinitis Bicipital Left Social History Tobacco Use Types Packs/Day Years [...] for many years. I stopped in 2013. [facility] [employer] Answer Date Recorded In the past 12 months has [email or web address], oil, or water [employer] threatened to shut off services in your [...] money to buy more. Never true 10/01/19 24 Within the past 12 months, t he [...] your living situation today? I have a [facility] place to live 10/01/2023 Sex and Gender Information Value Date Recorded Sex Assigned at Male 09/11/2023 10:52 AM CDT Gender Identity Male 09/11/2023 10:52 AM CDT Sexual Orientation Straight 09/11/2023 10 :52 AM CDT documented as of this encounter Consult Notes * Karoline Carney M.D. - 10/09/2023 1:00 PM CDT SUBJECTIVE REQUESTING PROVIDER Avtar Aaron M.D. REASON FOR CONSULT Left shoulder pain HISTORY OF PRESENT ILLNESS Mr. Michael Bauman a 37 y.o. male who presents today for evaluation of left shoulder pain. 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 He developed left shoulder pain approximately 2-3 months ago. There was no inciting injury or trauma. His pain is located anteriolaterally, and becomes sharp with overhead movement, supinated elbow extension, heavy lifting. He has not noticed any weakness, numbness, tingling, shooting pains. He does not have pain at rest or at night, and his pain is not exacerbated with typical wheelchair use, though he does notice some pain with long distances. Since the pains onset he feels like it has been fairly stable, maybe improving mildly. He has not tried anything for his pain, including oral or topical pain medications, physical therapy, ice, heat, injections. He exercises regularly with an arm bike, doing upper limb weight exercises. He lives in [place], [place] having recently moved there. 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 REVIEW OF SYSTEMS I have briefly reviewed the Review of Systems as noted on the Health history form. I am only responding to those symptoms which are directly relevant to the specific indication for my consultation. Irecommend that the patient follow up with their primary or referring provider to pursue any other symptoms which may be of concern. Pertinent items are noted in HPI; all other review of systems was negative. OBJECTIVE There were no vitals taken for this visit. PHYSICAL EXAM General/Constitutional: Alert. Well-developed, well-nourished individual in no acute distress. Sitting comfortably in a manual wheelchair. Mental Status/Psychiatric: Appropriate mood and affect. Grossly oriented with coherent speech and thought processing. Neurologic: Cranial nerves: Cranial nerve function grossly intact bilaterally. Coordination: Coordination is grossly normal in upper extremities. Sensation: Normal light touch sensation throughout upper extremities. Musculoskeletal: Strength: All major muscle groups of the bilateral upper extremities have normal and symmetric muscle strength, bulk, and tone. Joint ROM: Joint range of motion is full in bilateral shoulders, elbows. He has pain with shoulder abduction near the end of the range of motion. Provocative maneuvers: Shoulder: Negative Neer, Todd, Speed. Oxford's positive in supination, labral grind positive. DIAGNOSTICS Left shoulder x-ray 10/05/2023 normal. Left shoulder MRI 10/07/2023 shows slept tear of the glenoid labrum with small paralabral cyst, mild supraspinatus tendinopathy without tear and otherwise intact rotator cuff muscles, mild subacromial and subdeltoid bursopathy. ASSESSMENT / PLAN #1 Pain Shoulder Left #2 Tear Glenoid Labral Initial Left #3 Rotator Cuff Disorder Left #4 Tendinitis Bicipital Left Mr. Bauman is a 37-year-old male with subacute left shoulder pain exacerbated by overhead lifting. His physical exam and imaging are most consistent with a labral (SLAP) tear. Plan: Physical therapy (external prescription provided) to focus on scapulothoracic stabilization, rotator cuff and biceps strengthening, stretching to provide good support to the shoulder joint. We also discussed minimizing heavy weightlifting, overhead weightlifting while he was healing. He is physically active and has a good exercise program overall, and this will support his long-term shoulder health. We discussed the option of a corticosteroid injection. Since his pain is intermittent and somewhat improving at this point we will not pursue an injection currently, but could consider one in the future if his symptoms worsen. We also discussed that surgery is occasionally needed for this type of tear, but given his manual wheelchair use and the relatively long recovery from surgery, along with his improving and intermittent symptoms, do not think surgery is a consideration at this time. For his wheelchair, he does have an electrical assist device that he can use for longer distances during his shoulder rehabilitation. EDUCATION We discussed the diagnosis and treatment plan in detail. The patient expressed understanding of thecontent. No apparent learning barriers were identified. Total time spent including [id number] and non qagv-jr-uvmi time [address] Castro. Karoline Reyes M.D. documented in this encounter Plan of Treatment Upcoming Encounters Date Type Department Care Team (Latest Contact Info) Description 11/03/2023 9:00 AM CDT Clinical Support Healthy Living Program in [address] [phone] Bubba Perez M.D., M.S. [address] [place] [phone] 11/03/2023 10:00 AM CDT Clinical Support Healthy Living Program in [address] [phone] Avtar Aaron M.D. [address] [place] [phone] Lillian Winkler, [address] [phone] 11/03/2023 1:40 PM CDT Appointment Department of Radiology, [facility], in [address] [phone] Rosemary Gregorio APRN, APPLICATION SUPPORT MANAGER, M.S. [address] [place] [phone] 11/09/2023 8:00 AM CDT Clinical Communication Virtual Review in [address] [phone] 11/12/2023 8:00 AM CDT Comprehensive Visit Division of Pain Medicine in [place], [place] [address] [place] [phone] Angelina Jefferson APRN, C.N.P., M.S.N. [address] [place] [phone] 11/13/2023 10:00 AM CDT Telemedicine Section of Executive Medicine in [place], [place] [address] [place] [phone] Avtar Aaron M.D. [address] [place] [phone] 12/30/2023 11:10 AM CDT Appointment Department of Laboratory Medicine and Pathology, [facility] in [place], [place] [address] [place] [phone] Rosemary Gregorio APRN, APPLICATION SUPPORT MANAGER, M.S. [address] [place] [phone] 12/30/2023 11:20 AM CDT Appointment Department of Laboratory Medicine and Pathology, [facility] in [place], [place] [address] [place] [phone] Rosemary Gregorio APRN, APPLICATION SUPPORT MANAGER, M.S. [address] [place] [phone] 12/30/2023 12:30 PM CDT Appointment Department of Radiology, [facility] in [place], [place] [address] [place] [phone] Rosemary Gregorio APRN, APPLICATION SUPPORT MANAGER, M.S. [address] [place] [phone] 12/31/2023 12:40 PM CDT Ancillary Procedure Department of Cardiovascular Medicine in [place], [place] [address] [place] [phone] Fredi Horner M.D. [address] [place] [phone] 12/31/2023 1:45 PM CDT Comprehensive Visit Department of Urology in [place], [place] [address] [place] [phone] Tabitha Rich P.A.-C. [address] [place] [phone] 12/31/2023 2:30 PM CDT Procedure visit Department of Urology in [place], [place] [address] [place] [phone] Rosemary Gregorio APRN, DULCE, M.S. [address] [place] [phone] 01/01/2024 8:00 AM CDT Comprehensive Visit Department of Cardiovascular Medicine in [place], [place] [address] [place] [phone] Fredi Horner M.D. [address] [place] [phone] 01/01/2024 1:30 PM CDT Comprehensive Visit Division of Endocrinology in [address] [phone] Horacio Harp M.D. 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
--- OUTSIDE RECORDS SUMMARY | 2023-10-24 07:39 | XMS_ITS | Encounter Summary ---
Author Organization [facility] Address [address] [place] [address] Care Team Providers Care Underwear Cutter Name Role Phone Unavailable Primary Care Provider Unavailabl e Reason for Referral * Outpatient (Routine) - Authorized Specialty Diagnoses / Procedures Referred By Candice maki Referred To Contact Diagnoses Flutter Atrial (HCC) Procedures ECG Heart rhythm monitor (Holter) Avtar Aaron M.D. 200 [place] [address] [facility] Referral ID Status Reason Start Date Expiration Date V isits Requested Visits Authorized [id number] Authorized 09/14/2023 09/13/2024 1 1 Reason for Visit * Outpatient (Routine) - Authorized Specialty Diagnoses / Procedures Referred By Candice maki Referred To Contact Diagnoses Flutter Atrial (HCC) Procedures ECG Heart rhythm monitor (Holter) Avtar Aaron M.D. [address] [place] [address] [facility] Referral ID Status Reason Start Date Expiration Date V isits Requested Visits Authorized [id number] Authorized 09/14/2023 09/13/2024 1 1 Encounter Details Date Type Department Care Team (Latest Contact Info) Description 10/06/2023 8:34 AM CDT - 10/06/2023 11:59 PM CDT Hospital Encounter Department of Cardiovascular Diseases in [place], [place] [address] [place] [address] Avtar Aaron M.D. [address] [place] [address] Flutter Atrial (HCC) Discharge Disposition: Home or Self Care Social History Tobacco Use Types Packs/Day Years [...] for many years. I stopped in 2013. [facility] [employer] Answer Date Recorded In the past 12 months has th e [employer], oil, or water [employer] threatened to shut off services in your [...] your living situation today? I have a [facility] place to live 10/01/2023 Sex and Gender Information Value Date Recorded Sex Assigned at Male 09/11/2023 10:52 AM CDT Gender Identity Male 09/11/2023 10:52 AM CDT Sexual Orientation Straight 09/11/2023 10 :52 AM CDT documented as of this encounter Medications at Time of Discharge Medication Sig Dispensed Refills Start Date End Date ascorbic acid, vitamin C, 1,000 mg capsule Take 1,000 mg by mouth daily. 09/27/2018 cholecalciferol (VITAMIN D3) 50 mcg (2,000 Unit) tablet Take 2,000 Units by mouth daily. 07/10/2022 COQ10, UBIQUINOL, ORAL Take 100 mg by mouth 2 (two) times a day. Lactobacillus acidophilus (Probiotic) 10 billion cell capsule Take 1 capsule by mouth daily. 09/27/2018 metoprolol tartrate (LOPRESSOR) 25 mg tabletIndications:Flutter Atrial (HCC) Take 1 tablet (25 mg total) by mouth as needed (for atrial flutter). 30 tablet 10/05/2023 oxyBUTYnin (DITROPAN XL) 15 mg 24 hr tablet Take 15 mg by mouth daily. pregabalin (LYRICA) 150 mg capsule Take 150 mg by mouth 2 (two) times a day. documented as of this encounter Plan of Treatment Upcoming Encounters Date Type Department Care Team (Latest Contact Info) Description 11/03/2023 9:00 AM CDT Clinical Support Healthy Living Program in [place], [place] 200 [place] [address] Bubba Perez M.D., M.S. 200 [place] [phone] 11/03/2023 10:00 AM CDT Clinical Support Healthy Living Program in [place], [place] 200 [place] [address] Avtar Aaron M.D. [address] [place] [phone] Lillian Winkler, [facility] [address] [place] [phone] 11/03/2023 1:40 PM CDT Appointment Department of Radiology, [facility] in [place], [place] [address] [place] [phone] Rosemary Gregorio APRN, LAMINATION MACHINE OPERATOR, M.S. [address] [place] [phone] 11/09/2023 8:00 AM CDT Clinical Communication Virtual Review in [place], [place] 200 [place] [address] 11/12/2023 8:00 AM CDT Comprehensive Visit Division of Pain Medicine in [address] [phone] Angelina Jefferson APRN, C.N.P., M.S.N. [address] [place] [phone] 11/13/2023 10:00 AM CDT Telemedicine Section of Executive Medicine in [address] [address] Avtar Aaron M.D. [address] [place] [phone] 12/30/2023 11:10 AM CDT Appointment Department of Laboratory Medicine and Pathology, [facility] in [place], [place] [address] [place] [phone] Rosemary Gregorio APRN, LAMINATION MACHINE OPERATOR, M.S. [address] [place] [phone] 12/30/2023 11:20 AM CDT Appointment Department of Laboratory Medicine and Pathology, [facility] in [place], [place] [address] [place] [phone] Rosemary Gregorio APRN, DULCE, M.S. [address] [place] [phone] 12/30/2023 12:30 PM CDT Appointment Department of Radiology, [facility] in [place], [place] [address] [place] [phone] Rosemary Gregorio APRN, DULCE, M.S. [address] [place] [phone] 12/31/2023 12:40 PM CDT Ancillary Procedure Department of Cardiovascular Medicine in [place], [place] [address] [place] [phone] Fredi Horner M.D. [address] [place] [phone] 12/31/2023 1:45 PM CDT Comprehensive Visit Department of Urology in [place], [place] [address] [place] [phone] Tabitha Rich P.A.-C. [address] [place] [phone] 12/31/2023 2:30 PM CDT Procedure visit Department of Urology in [place], [place] [address] [place] [phone] Rosemary Gregorio APRN, DULCE, M.S. [address] [place] [phone] 01/01/2024 8:00 AM CDT Comprehensive Visit Department of Cardiovascular Medicine in [place], [place] [address] [place] [phone] Fredi Horner M.D. [address] [place] [address] 01/01/2024 1:30 PM CDT Comprehensive Visit Division of Endocrinology in [place], [place] [address] [place] [address] Horacio Harp M.D. [address] [place] [phone] documented as of this encounter Procedures Procedure Name Priority Date/Time Associated Diagnosis Comments HOLTER MONITOR - IN CLINIC JEWELRY INSPECTOR Routine 10/07/2023 9:43 AM CDT Flutter Atrial (HCC) documented in this encounter Results * HOLTER MONITOR - IN CLINIC JEWELRY INSPECTOR (10/07/2023 9:43 AM CDT) Min Heart Rate [...] 1h 35m duration INFOBION IC MOME AF [place] 6.71 percent INFOBIONIC MOME Longest AF Duration 1h 36m duration INFOBIONIC MOME Symptom Count 1 count INFOBI ONIC MOME 10/06/2023 8:39 AM CDT Narrative INFOBIONIC MOME - 10/11/2023 2:23 PM CDT [place] 1. The basic rhythm was sinus with [...] this event, there was no ectopy noted. Outbound Sales Professional: COLETTE Rivera/ COLTETE Bray A Holter monitor with cascade to extended monitoring was ordered for the indication of Atrial fibrillation or flutter calculate burden/% time in AF. During the Holter monitoring period, the patient did have atrial fibrillation or flutter >=30 seconds. Therefore, the study was not cascaded to extended monitoring. Procedure Note Lisandro Ellison M.D. - 10/11/2023 [place] 1. The basic rhythm was sinus with [...] this event, there was no ectopy noted. Outbound Sales Professional: NINO Rivera CRAT A Holter monitor with cascade to extended monitoring was ordered for theindication of Atrial fibrillation or flutter calculate burden/% time inAF. During the Holter monitoring period, the patient did have atrialfibrillation or flutter >=30 seconds. Therefore, the study was not cascaded to extended monitoring. Avtar Aaron M.D. 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
--- OUTSIDE RECORDS SUMMARY | 2023-10-24 07:39 | XMS_ITS | Referral Summary ---
Author Organization [facility] Address [address] [place] [address] Care Team Providers Care Threshing Department Supervisor Name Role Phone Unavailable Primary Care Provider Unavailabl e Source Comments Patient records contain information from all sites at [facility]. For routine questions regarding patient records, call [phone] during business hours, M-F 8:00 AM - 5:00 PM Central Time. Record requests for emergency care only can be directed to [phone] at any time.[facility] Encounters Date Type Department Care Team Description 10/09/2023 Clinical Communication Division of General Internal Medicine in [place], [place] [address] [place] [phone] Avtar Aaron M.D. 10/09/2023 1:00 PM CDT Comprehensive Visit Department of Physical Medicine and Rehabilitation in [place], [place] [address] [place] [address] Karoline Carney M.D. Pain Shoulder Left (Primary Dx); Tear Glenoid Labral Initial Left; Rotator Cuff Disorder Left; Tendinitis Bicipital Left 10/08/2023 Clinical Communication Department of Cardiovascular Medicine in [place], [place] [address] [place] [phone] Lift Builder WholeRobert M.D. INT REF TRIAGE (INT / GIM / symptomatic a flutter.) 10/08/2023 10:00 AM CDT Comprehensive Visit Department of Physical Medicine and Rehabilitation in [place], [place] [address] [place] [address] Rosemary Gregorio APRN, BREAKFAST HOSTESS, M.S. Paraplegia (HCC) (Primary Dx); Injury Thoracic Spinal Cord Subsequent (HCC); Osteoporosis; Neurogenic Bladder; Neurogenic Bowel; Abnormal Posture; Mobility Limited; Pain Neuropathic; Sensation Skin Altered Discharge Disposition: Home or Self Care 10/08/2023 11:00 AM CDT Comprehensive Visit Department of Physical Medicine and Rehabilitation in [place], [place] [address] [place] [address] Avtar Aaron M.D. Stanecki, Catherine E, M.S., O.T. Injury Thoracic Spinal Cord Subsequent (HCC) (Primary Dx) Discharge Disposition: Home or Self Care 10/07/2023 Clinical Communication Division of General Internal Medicine in [place], [place] [address] [place] [phone] Avtar Aaron M.D. Holter result (Notification Result: Holter result for Michael Bauman showed atrial flutter was 30 seconds or longer during the start of the test noted on 10/06/23 8:57 AM. /) 10/07/2023 Clinical Communication Division of General Internal Medicine in [place], [place] [address] [place] [phone] Avtar Aaron M.D. 10/07/2023 Clinical Communication Division of General Internal Medicine in [place], [place] [address] [place] [phone] Avtar Aaron M.D. 10/07/2023 7:24 PM CDT - 10/07/2023 11:59 PM CDT Hospital Encounter Department of Radiology, [facility], in [place], [place] [address] [place] [phone] Avtar Aaron M.D. Rotator Cuff Disorder Left Discharge Disposition: Home or Self Care 10/06/2023 8:34 AM CDT - 10/06/2023 11:59 PM CDT Hospital Encounter Department of Cardiovascular Diseases in [place], [place] [address] [place] [phone] Avtar Aaron M.D. Flutter Atrial (HCC) Discharge Disposition: Home or Self Care 10/05/2023 Clinical Communication Division of General Internal Medicine in [address] [phone] Avtar Aaron M.D. Outside EKG reports 10/05/2023 4:03 PM CDT - 10/05/2023 11:59 PM CDT Hospital Encounter Department [place] [address] [place] [phone] Avtar Aaron M.D. Flutter Atrial (HCC) Discharge Disposition: Home or Self Care 10/05/2023 8:50 AM CDT - 10/05/2023 2:56 PM CDT Hospital Encounter Department of Cardiovascular Diseases in [place], [place] [address] [place] [phone] Avtar Aaron M.D. Flutter Atrial (HCC) Discharge Disposition: Home or Self Care 10/05/2023 2:58 PM CDT - 10/05/2023 4:02 PM CDT Hospital Encounter Department of Radiology, [address] [phone] Avtar Aaron M.D. Flutter Atrial (HCC) Discharge Disposition: Home or Self Care 10/05/2023 2:58 PM CDT - 10/05/2023 4:02 PM CDT Hospital Encounter Department of Radiology, [facility] in [place], [place] [address] [place] [phone] Avtar Aaron M.D. Pain Shoulder Left Discharge Disposition: Home or Self Care 10/05/2023 2:57 PM CDT Hospital Encounter Department of Radiology, [place], [place] [address] [place] [phone] Avtar Aaron M.D. Injury Thoracic Spinal Cord Subsequent (HCC) Discharge Disposition: Home or Self Care 10/05/2023 1:00 PM CDT Comprehensive Visit Division of General Internal Medicine in [place], [place] [address] [place] [phone] Avtar Aaron M.D. Flutter Atrial (HCC) (Primary Dx); Injury Thoracic Spinal Cord Subsequent (HCC); Rotator Cuff Disorder Left; Tendinitis Bicipital Left 10/02/2023 3:00 PM CDT Clinical Communication Virtual Review in [place], [place] 200 [place] [address] Pre-visit Intake 09/15/2023 Clinical Communication Department of Cardiovascular Medicine in [place], [place] [address] [place] [phone] Lift Builder WholeRobert M.D. INTERNAL REFERRAL (GI [id number]) 09/15/2023 Clinical Communication Division of General Internal Medicine in [place], [place] [address] [place] [phone] Prescheduling, Provider Echo Movep for 10/04 visit 09/08/2023 Clinical Communication Division of General Internal Medicine in [place], [place] [address] [place] [phone] Prescheduling, Provider Triage from Last 3 Months Allergies Active Allergy Reactions Criticality Noted Date [...] Problem Noted Date Diagnosed Date Paraplegia 01/17/2013 Immunizations Name Administration Dates Next Due DTP 12/19/1992, 0,06/13/1988,1987,02/29/1988 HepB Pediatric/Adolescent 12/29/2000,09/16/2000, 08/17/2000 Hib, Unspecified 06/11/1989 IPV 06/11/1989, 9,05/02/1988,1987 Influenza, Unspecified 10/02/2023(Deferred: Manuela ent decision) MCV4 (Menactra)(Discontinued) 12/03/2006 MMR 08/17/2000 Measles 12/19/1992 Mumps 03/19/1989 Polio, Unspecified 06/11/1989, 9,05/02/1988,1987 Rubella 03/19/1989 SARS-COV-2 (COVID-19) - MODE RNA (12 YEARS AND OLDER) [id number] 10/05/2023(Deferred: Patient decision - Patinet has received [...] for many years. I stopped in 2013. [facility] Utilities Answer Date Recorded In the past [...] your living situation today? I have a [facility] place to live 10/01/2023 Sex and [...] cm (5' 10.08) 04/14/2013 10 :43 AM LOG HOOKER Vital sign result from Clinical Notes. Body Mass Index - - Plan of Treatment Upcoming Encounters Date Type Department Care Team (Latest Contact Info) Description 11/03/2023 9:00 AM CDT Clinical Support Healthy Living Program in [address] [phone] Bubba Perez M.D., M.S. [address] [place] [phone] 11/03/2023 10:00 AM CDT Clinical Support Healthy Living Program in [address] [phone] Avtar Aaron M.D. [address] [place] [phone] [phone] 11/03/2023 1:40 PM CDT Appointment Department of Radiology, [facility], in [address] [phone] Rosemary Gregorio APRN, BREAKFAST HOSTESS, M.S. [address] [place] [phone] 11/09/2023 8:00 AM CDT Clinical Communication Virtual Review in [place], [place] 200 [place] [address] 11/12/2023 8:00 AM CDT Comprehensive Visit Division of Pain Medicine in [address] [phone] Angelina Jefferson APRN, Camren.P., M.S.N. [address] [place] [phone] 11/13/2023 10:00 AM CDT Telemedicine Section of Executive Medicine in [place], [place] [address] [place] [address] Avtar Aaron M.D. [address] [place] [phone] 12/30/2023 11:10 AM CDT Appointment Department of Laboratory Medicine and Pathology, [place], [place] [address] [place] [address] Rosemary Gregorio APRN, BREAKFAST HOSTESS, M.S. [address] [place] [phone] 12/30/2023 11:20 AM CDT Appointment Department of Laboratory Medicine and Pathology, [facility] in [place], [place] [address] [place] [address] Rosemary Gregorio APRN, BREAKFAST HOSTESS, M.S. [address] [place] [phone] 12/30/2023 12:30 PM CDT Appointment Department of Radiology, [facility] in [place], [place] [address] [place] [address] Rosemary Gregorio APRN, BREAKFAST HOSTESS, M.S. [address] [place] [phone] 12/31/2023 12:40 PM CDT Ancillary Procedure Department of Cardiovascular Medicine in [place], [place] [address] [place] [address] Fredi Horner M.D. [address] [place] [phone] 12/31/2023 1:45 PM CDT Comprehensive Visit Department of Urology in [place], [place] [address] [place] [phone] Tabitha Rich P.A.-C. [address] [place] [phone] 12/31/2023 2:30 PM CDT Procedure visit Department of Urology in [place], [place] [address] [place] [phone] Rosemary Gregorio APRN, BREAKFAST HOSTESS, M.S. [address] [place] [phone] 01/01/2024 8:00 AM CDT Comprehensive Visit Department of Cardiovascular Medicine in [place], [place] [address] [place] [phone] Fredi Horner M.D. [address] [place] [phone] 01/01/2024 1:30 PM CDT Comprehensive Visit Division of Endocrinology in [place], [place] [address] [place] [phone] Horacio Harp M.D. [address] [place] [phone] Medical Devices Implanted Type Area Stock Fitter Device Identifier Shelf Expiration Date Model / Serial / Lot Conversions - Default Historical Implant Device Implanted:08/22 (Quantity not on file) Hardware e.g. pins/screws /rods Description:Device Status Te xt - Hardware. Gm-Syn Cocr 5.5 X 400mm - Kapadia [id number] Implanted:Qty: 1 on 01/15/2013 Spine Implant Depuy Synthes Description:Device Manufactu rer - Synthes. Device Status Text - [id number]. Head Reduction Ti Polyaxial - Kapadia [id number] Implanted:Qty: 2 on 01/15/2013 Spine Implant Depuy Synthes Description:Device Manufactu rer - Synthes. Device Status Text - [id number]. Screw-Matrix Bone 5.0 X 45mm - Kapadia [id number] Implanted:Qty: 8 on 01/15/2013 Spine Implant Depuy Synthes Description:Device Manufactu rer - Synthes. Device Status Text - [id number] [id number]. Synthes-Transco n. 30mm - Kapadia [id number] Implanted:Qty: 2 on 01/15/2013 Spine Implant Depuy Synthes Description:Device Manufactu rer - Synthes. Device Status Text - [id number] [id number]. Cap-Synthes Matrix Locking Ti - Kapadia [id number] Implanted:Qty: 12 on 01/15/2013 Spine Implant Depuy Synthes Description:Device Manufactu rer - Synthes. Device Status Text - [id number]. Screw-Matrix Bone 6.0 X 45mm - Kapadia [id number] Implanted:Qty: 4 on 01/15/2013 Spine Implant Depuy Synthes Description:Device Manufactu rer - Synthes. Device Status Text - [id number] [id number]. Cap-Synthes Matrix Polyax Head Ti - Kapadia [id number] Implanted:Qty: 10 on 01/15/2013 Spine Implant Depuy Synthes Description:Device Manufactu rer - Synthes. Device Status Text - [id number] [id number]. Graft Tag Thoracic Endo 21 X 10 - Kapadia [id number] Implanted:Qty: 1 on 01/15/2013 Vascular Graft Other/Legacy - See Implant Description [place] Description:Device Manufactu rer - [employer] [place] [employer] Body Location - Other. Vascular. Device Status Text - [id number]. Procedures Procedure Name Priority Date/Time Associated Diagnosis Comments MR SHOULDER LEFT WITHOUT IV CONTRAST RAD - Routine (most inpatients and all outpatients) 10/07/2023 8:16 PM CDT Rotator Cuff Disorder Left HOLTER MONITOR - IN CLINIC MALT HOUSE OPERATOR Routine 10/07/2023 9:43 AM CDT Flutter Atrial [...] 3 mm, para labral cyst (series 5 [id number]). No donal labral detachment. The glenoid labrum [...] RES * HOLTER MONITOR - IN CLINIC MALT HOUSE OPERATOR (10/07/2023 9:43 AM CDT) Min Heart Rate [...] 1h 35m duration INFOBION IC MOME AF [place] 6.71 percent INFOBIONIC MOME Longest AF Duration 1h 36m duration INFOBIONIC MOME Symptom Count 1 count INFOBI ONELMER MOME 10/06/2023 8:39 AM CDT Narrative INFOBIONIC MOME - 10/11/2023 2:23 PM CDT [facility] 1. The basic rhythm was sinus with [...] this event, there was no ectopy noted. Senior Trainer: COLETTE Rivera/ COLETTE Bray A Holter monitor with cascade to extended monitoring was ordered for the indication of Atrial fibrillation or flutter calculate burden/% time in AF. During the Holter monitoring period, the patient did have atrial fibrillation or flutter >=30 seconds. Therefore, the study was not cascaded to extended monitoring. Procedure Note Lisandro Ellison M.D. - 10/11/2023 [facility] 1. The basic rhythm was sinus with [...] this event, there was no ectopy noted. Senior Trainer: COLETTE Rivera/ COLETTE Bray A Holter monitor with cascade to extended monitoring was ordered for theindication of Atrial fibrillation or flutter calculate burden/% time inAF. During the Holter monitoring period, the patient did have atrialfibrillation or flutter >=30 seconds. Therefore, the study was not cascaded to extended monitoring. Avtar Aaron M.D. CV CARDIAC SERV ICES PROCEDURES Performing Organization Address [facility] Co de Phone Number INFOBIONIC GEMMA NA * ECG 12 Lead (10/06/2023 8:33 AM CDT) Ventricular Rate ECG/Min 89 BPM MUSE QRSD Interval 96 ms MUSE QT Interval 364 ms MUSE QTC Interval 442 ms MUSE P [place] 78 degrees MUSE R [place] 54 degrees MUSE T Wave [place] 29 degrees MUSE 10/06/2023 8:33 AM CDT [...] COLETTE Reich Avtar Aaron M.D. ECG ORDERABLES Performing Organization Address [facility] Co de Phone Number MUSE NA * Lipid Panel (10/05/2023 4:15 [...] Avtar Aaron M.D. LAB BLOOD ADD-O N [facility] [address] [place] [address], [facility] [address] [place] [address] * Thyroid Function Loving (10/05/2023 4:15 PM CDT) TSH, Sensitive 1.4 0.3 - 4.2 mIU/L 10/05/2023 5:30 PM CDT DTL Blood (Blood, Venous) 10/05/2023 4:15 PM CDT 10/05/2023 4:58 PM CDT Avtar Aaron M.D. LAB BLOOD ADD-O N [facility] [address] [place] [address], [facility] [address] [place] [address] * Magnesium (10/05/2023 4:15 PM CDT) Pathologist [facility] Magnesium, S 1.8 1.7 - 2.3 mg/dL 10/05/2023 5:30 PM CDT DTL Blood (Blood, Venous) 10/05/2023 4:15 PM CDT 10/05/2023 4:58 PM CDT Avtar Aaron M.D. LAB BLOOD ADD-O N Performing Organization Address City/[facility]/ZIP Co de Phone Number [facility] [address] [place] [address], [facility] [address] [place] [address] * Hemoglobin A1c (10/05/2023 4:15 PM CDT) Pathologist [facility] Hemoglobin A1c, B 4.9 4.0 - 5.6 % 10/05/2023 5:21 PM CDT DTL Blood (Blood, Venous) 10/05/2023 4:15 PM CDT 10/05/2023 4:41 PM CDT Avtar Aaron M.D. LAB BLOOD ADD-O N [facility] [address] [place] [address], [facility] [address] [place] [address] * (ABNORMAL) Basic Metabolic Panel (10/05/2023 4:15 PM CDT) Potassium, S 4.0 3.6 - 5.2 mmol/L [...] Avtar Aaron M.D. LAB BLOOD ADD-O N [facility] [address] [place] [address], [facility] [address] [place] [address] * DX Chest AP or PA and [...] effusion has largely resolved. Avtar Aaron M.D. [facility] PROCEDURES * DX Shoulder Left [...] IMPRESSION: Negative left shoulder. Avtar Aaron M.D. [facility]ED[facility] * DX Lumbar Spine [...] endograft. Avtar COLON DIAGNOSTIC IMAGING PROCEDURES * DX Thoracic Spine [...] ECHO DOPPLER COLOR (10/05/2023 10:32 AM CDT) [facility] Ejection Fraction 50 MC CV EIMS Sinus [...] effusion. Procedure Note Derick Benavidez M.D. - 10/05/2023 For the complete report, see the Order-Level [...] PM CDT) HBs Antigen, S Negative Negative [facility] Comment:Drawn From PICC Hepatitis A IgM Ab, S Negative Negative [facility] Comment:Drawn From PICC HBc IgM Ab, S Negative Negative [facility] Comment:Drawn From PICC HCV Ab, S Negative Negative [facility] Comment: Drawn From PICC ? Woblyi-rx-kkvbnh ratio is <1.00. ? 02/06/2013 1:58 PM CDT 02/06/2013 1:58 PM CDT Narrative [facility] - 02/07/2013 12:12 PM CDT Drawn From PICC Hunter Celeste APRN, C.N.P., D.N.P. 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
--- OUTSIDE RECORDS SUMMARY | 2023-10-24 07:39 | XMS_ITS | Encounter Summary ---
Author Organization [facility] Address [address] [place] [address] Care Team Providers Care Drawing Instructor Name Role Phone Unavailable Primary Care Provider Unavailabl e Reason for Referral * MRI/CAT/PET Scan (Routine) - Closed Specialty Diagnoses / Procedures Referred By Candice maki Referred To Contact Radiology Diagnoses Rotator Cuff Disorder Left Procedures MR Shoulder Left without IV Contrast Avtar Aaron M.D. 200 [place] [address] [facility] Referral ID Status Reason Start Date Expiration Date Visits Re quested Visits Authorized [id number] Closed 10/05/2023 10/04/2024 1 1 Reason for Visit * MRI/CAT/PET Scan (Routine) - Closed Specialty Diagnoses / Procedures Referred By Candice maki Referred To Contact Radiology Diagnoses Rotator Cuff Disorder Left Procedures MR Shoulder Left without IV Contrast Avtar Aaron M.D. [address] [place] [address] [facility] Referral ID Status Reason Start Date Expiration Date Visits Re quested Visits Authorized [id number] Closed 10/05/2023 10/04/2024 1 1 Encounter Details Date Type Department Care Team (Latest Contact Info) Description 10/07/2023 7:24 PM CDT - 10/07/2023 11:59 PM CDT Hospital Encounter Department of Radiology, [facility], in [place], [place] [address] [place] [address] Avtar Aaron M.D. [address] [place] [address] Rotator Cuff Disorder Left Discharge Disposition: Home or Self Care Social [...] for many years. I stopped in 2013. [facility] Utilities Answer Date Recorded In the past 12 months has e [employer], [employer], oil, or water [employer] threatened to shut off services in your [...] your living situation today? I have a [facility] place to live 10/01/2023 Sex and Gender [...] CDT Clinical Support Healthy Living Program in [place], [place] 200 [place] [address] Bubba Perez M.D., M.S. 200 [place] [address] 11/03/2023 10:00 AM CDT Clinical Support Healthy Living Program in [place], [place] [address] [place] [phone] Avtar Aaron M.D. [address] [place] [phone] Lillian Winkler, [facility] [address] [place] [phone] 11/03/2023 1:40 PM CDT Appointment Department of Radiology, [facility] in [place], [place] [address] [place] [phone] Rosemary Gregorio APRN, [employer], M.S. [address] [place] [phone] 11/09/2023 8:00 AM CDT Clinical Communication Virtual Review in [place], [place] 200 [place] [address] 11/12/2023 8:00 AM CDT Comprehensive Visit Division of Pain Medicine in [address] [address] Angelina Jefferson APRN, C.N.P., M.S.N. [address] [place] [phone] 11/13/2023 10:00 AM CDT Telemedicine Section of Executive Medicine in [address] [address] Avtar Aaron M.D. [address] [place] [phone] 12/30/2023 11:10 AM CDT Appointment Department of Laboratory Medicine and Pathology, [facility] in [place], [place] [address] [place] [phone] Rosemary Gregorio APRN, COOK ICE CREAM, M.S. [address] [place] [phone] 12/30/2023 11:20 AM CDT Appointment Department of Laboratory Medicine and Pathology, [facility] in [place], [place] [address] [place] [phone] Rosemary Gregorio APRN, DULCE, M.S. [address] [place] [phone] 12/30/2023 12:30 PM CDT Appointment Department of Radiology, [facility] in [place], [place] [address] [place] [phone] Rosemary Gregorio APRN, DULCE, M.S. [address] [place] [phone] 12/31/2023 12:40 PM CDT Ancillary Procedure Department of Cardiovascular Medicine in [place], [place] [address] [place] [phone] Fredi Horner M.D. [address] [place] [phone] 12/31/2023 1:45 PM CDT Comprehensive Visit Department of Urology in [place], [place] [address] [place] [phone] Tabitha Rich P.A.-C. [address] [place] [phone] 12/31/2023 2:30 PM CDT Procedure visit Department of Urology in [place], [place] [address] [place] [phone] Rosemary Gregorio APRN, DULCE, M.S. [address] [place] [phone] 01/01/2024 8:00 AM CDT Comprehensive Visit Department of Cardiovascular Medicine in [place], [place] [address] [place] [phone] Fredi Horner M.D. [address] [place] [address] 01/01/2024 1:30 PM CDT Comprehensive Visit Division of Endocrinology in [place], [place] [address] [place] [address] Horacio Harp M.D. [address] [place] [address] documented as of this encounter Procedures Procedure Name Priority Date/Time Associated Diagnosis Comments MR SHOULDER LEFT WITHOUT IV CONTRAST RAD - Routine (most inpatients and all outpatients) 10/07/2023 8:16 PM CDT Rotator Cuff Disorder Left documented in this encounter Results * MR Shoulder Left without IV [...] 3 mm, para labral cyst (series 5 [id number]). No donal labral detachment. The glenoid labrum [...] subacromial/subdeltoid bursopathy. 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
--- OUTSIDE RECORDS SUMMARY | 2023-10-24 07:39 | XMS_ITS | Encounter Summary ---
Author Organization [facility] Address [address] [place] [phone] Care Team Providers Care Outpatient Scheduler Name Role Phone Unavailable Primary Care Provider Unavailabl e Encounter Details Date Type Department Care Team (Late st Contact Info) Description 10/07/2023 Clinical Communication Division of General Internal Medicine in [place], [place] [address] [place] [phone] Avtar Aaron M.D. [address] [place] [address] Social History Tobacco Use Types Packs/Day Years [...] for many years. I stopped in 2013. [facility] Utilities Answer Date Recorded In the past 12 months has [employer], gas, oil, or water [employer] threatened to shut off services in your [...] your living situation today? I have a [facility] place to live 10/01/2023 Sex and Gender Information Value Date Recorded Sex Assigned at Male 09/11/2023 10:52 AM CDT Gender Identity Male 09/11/2023 10:52 AM CDT Sexual Orientation Straight 09/11/2023 10 :52 AM CDT documented as of this encounter Plan of Treatment Upcoming Encounters Date Type Department Care Team (Latest Contact Info) Description 11/03/2023 9:00 AM CDT Clinical Support Healthy Living Program in [place], [place] [address] [place] [address] Bubba Perez M.D., M.S. [address] [place] [address] 11/03/2023 10:00 AM CDT Clinical Support Healthy Living Program in [place], [place] [address] [place] [address] Avtar Aaron M.D. [address] [place] [phone] Lillian Winkler, [facility] [address] [place] [phone] 11/03/2023 1:40 PM CDT Appointment Department of Radiology, [facility], in [place], [place] [address] [place] [phone] Rosemary Gregorio APRN, MATCH UP PERSON, M.S. [address] [place] [phone] 11/09/2023 8:00 AM CDT Clinical Communication Virtual Review in [place], [place] 200 [place] [address] 11/12/2023 8:00 AM CDT Comprehensive Visit Division of Pain Medicine in [place], [place] [address] [place] [phone] Angelina Jefferson APRN, C.N.P., M.S.N. [address] [place] [phone] 11/13/2023 10:00 AM CDT Telemedicine Section of Executive Medicine in [address] [phone] Avtar Aaron M.D. [address] [place] [phone] 12/30/2023 11:10 AM CDT Appointment Department of Laboratory Medicine and Pathology, [facility], in [place], [place] [address] [place] [phone] Rosemary Gregorio APRN, MATCH UP PERSON, M.S. [address] [place] [phone] 12/30/2023 11:20 AM CDT Appointment Department of Laboratory Medicine and Pathology, [facility] in [place], [place] [address] [place] [address] Rosemary Gregorio APRN, DULCE, M.S. [address] [place] [phone] 12/30/2023 12:30 PM CDT Appointment Department of Radiology, [facility] in [place], [place] [address] [place] [phone] Rosemary Gregorio APRN, MATCH UP PERSON, M.S. [address] [place] [phone] 12/31/2023 12:40 PM CDT Ancillary Procedure Department of Cardiovascular Medicine in [place], [place] [address] [place] [phone] Fredi Horner M.D. [address] [place] [phone] 12/31/2023 1:45 PM CDT Comprehensive Visit Department of Urology in [place], [place] [address] [place] [phone] Tabitha Rich P.A.-C. [address] [place] [phone] 12/31/2023 2:30 PM CDT Procedure visit Department of Urology in [place], [place] [address] [place] [phone] Rosemary Gregorio APRN, DULCE, M.S. [address] [place] [phone] 01/01/2024 8:00 AM CDT Comprehensive Visit Department of Cardiovascular Medicine in [place], [place] [address] [place] [phone] Fredi Horner M.D. [address] [place] [phone] 01/01/2024 1:30 PM CDT Comprehensive Visit Division of Endocrinology in [place], [place] [address] [place] [address] Horacio Harp M.D. 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
--- OUTSIDE RECORDS SUMMARY | 2023-10-24 07:39 | XMS_ITS | Encounter Summary ---
Author Organization [facility] Address [address] [place] [address] Care Team Providers Care Fur Sorter Name Role Phone Unavailable Primary Care Provider Unavailabl e Reason for Referral * Outpatient (Routine) - Authorized Specialty Diagnoses / Procedures Referred By Contac t Referred To Contact Diagnoses Flutter Atrial (HCC) Procedures ECG 12 Lead Fredi Horner M.D. [address] [place] [address] [facility] Referral ID Status Reason Start Date Expiration Date V isits Requested Visits Authorized [id number] Authorized 10/13/2023 10/12/2024 1 1 Reason for Visit * Reason Onset Date Comments INT REF TRIAGE 10/08/2023 INT / GIM / symp tomatic a flutter. Encounter Details Date Type Department Care Team (Latest Contact Info) Description 10/08/2023 Clinical Communication Department of Cardiovascular Medicine in [place], [place] [address] [place] [phone] Coremaking SupervisorRobert M.D. INT REF TRIAGE (INT / GIM / symptomatic a flutter.) Social History Tobacco Use Types Packs/Day Years [...] for many years. I stopped in 2013. [facility] Utilities Answer Date Recorded In the past 12 months has th e [employer], gas, oil, or water company threatened to [...] your living situation today? I have a [facility] place to live 10/01/2023 Sex and Gender Information Value Date Recorded Sex Assigned at Male 09/11/2023 10:52 AM CDT Gender Identity Male 09/11/2023 10:52 AM CDT Sexual Orientation Straight 09/11/2023 10 :52 AM CDT documented as of this encounter Miscellaneous Notes * Telephone Encounter - [place] Bauer - 10/13/2023 10:28 AM CDT Called referring and scheduled. * Addendum Note - [place] Bauer - 10/13/2023 10:28 AM CDTAddended by: WARREN BAUER on: 10/13/2023 10:28 AM Modules accepted: Orders * Telephone Encounter - Arianna Barry, RTracyN. - 10/13/2023 9:08 AM CDT Images from the original note were not included. Pre-appointment cardiology triage/record review: The following information has been collected from the medical record. It is not a comprehensive summary, and has not been verified with the patient. The Appointment Triage Team does not establish a relationship with the patient, nor manage the patient's care outside of an initial review for the purposes of an appointment. For any questions, please contact the patient's primary provider. [facility]' Nurse Chart Review: REFERRING PROVIDER: Dr. Savage INDICATION: Aflutter SYMPTOMS & DURATION: pre-syncope, palpitations BRIEF HISTORY: CARDIAC TESTING COMPLETED: TTE 10/05/23 ECG 10/06/23 Holter 10/07/23- AF burden 6.71% Chest x-ray 10/05/23 BMP 10/05/23 TSH 10/05/23 HRS TESTING NEEDED: * Telephone Encounter - Rafael Aguayo - 10/08/2023 9:10 AM CDT SUBJECTIVE CHIEF COMPLAINT / REASON FOR CALL INT REF TRIAGE (INT / GIM / symptomatic a flutter.) Triage/Record Review Internal/external: INT / GIM / CHASE SAVAGE Questions to be answered: symptomatic a flutter Requested date: First Available Additional comments: GIM [phone] documented in this encounter Plan of Treatment Upcoming Encounters Date Type Department Care Team (Latest Contact Info) Description 11/03/2023 9:00 AM CDT Clinical Support Healthy Living Program in [address] [phone] Bubba Perez M.D., M.S. [address] [place] [phone] 11/03/2023 10:00 AM CDT Clinical Support Healthy Living Program in [address] [phone] Chase Savage M.D. [address] [place] [phone] [address] [phone] 11/03/2023 1:40 PM CDT Appointment Department of Radiology, [facility], in [address] [phone] Rosemary Gregorio APRN, GROUT MACHINE OPERATOR, M.S. [address] [place] [phone] 11/09/2023 8:00 AM CDT Clinical Communication Virtual Review in [place], [place] 200 [place] [address] 11/12/2023 8:00 AM CDT Comprehensive Visit Division of Pain Medicine in [address] [phone] Angelina Jefferson APRN, C.N.P., M.S.N. [address] [place] [phone] 11/13/2023 10:00 AM CDT Telemedicine Section of Executive Medicine in [place], [place] [address] [place] [phone] Chase Savage M.D. [address] [place] [phone] 12/30/2023 11:10 AM CDT Appointment Department of Laboratory Medicine and Pathology, [facility] in [place], [place] [address] [place] [phone] Rosemary Gregorio APRN, GROUT MACHINE OPERATOR, M.S. [address] [place] [phone] 12/30/2023 11:20 AM CDT Appointment Department of Laboratory Medicine and Pathology, [facility] in [place], [place] [address] [place] [phone] Rosemary Gregorio APRN, GROUT MACHINE OPERATOR, M.S. [address] [place] [phone] 12/30/2023 12:30 PM CDT Appointment Department of Radiology, [facility] in [place], [place] [address] [place] [phone] Rosemary Gregorio APRN, GROUT MACHINE OPERATOR, M.S. [address] [place] [phone] 12/31/2023 12:40 PM CDT Ancillary Procedure Department of Cardiovascular Medicine in [address] [phone] Fredi Horner M.D. [address] [place] [phone] 12/31/2023 1:45 PM CDT Comprehensive Visit Department of Urology in [place], [place] [address] [place] [phone] Tabitha Rich P.A.-C. [address] [place] [phone] 12/31/2023 2:30 PM CDT Procedure visit Department of Urology in [place], [place] [address] [place] [address] Rosemary Gregorio APRN, GROUT MACHINE OPERATOR, M.S. [address] [place] [phone] 01/01/2024 8:00 AM CDT Comprehensive Visit Department of Cardiovascular Medicine in [place], [place] [address] [place] [phone] Fredi Horner M.D. [address] [place] [phone] 01/01/2024 1:30 PM CDT Comprehensive Visit Division of Endocrinology in [place], [place] [address] [place] [phone] Horacio Harp M.D. 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
--- OUTSIDE RECORDS SUMMARY | 2023-10-24 07:39 | XMS_ITS | Encounter Summary ---
Author Organization [facility] Address [address] [place] [address] Care Team Providers Care Precision Jig Grinder Name Role Phone Unavailable Primary Care Provider Unavailabl e Encounter Details Date Type Department Care Team (Late st Contact Info) Description 10/09/2023 Clinical Communication Division of General Internal Medicine in [place], [place] [address] [place] [phone] Avtar Aaron M.D. [address] [place] [phone] Social History Tobacco Use Types Packs/Day Years [...] for many years. I stopped in 2013. [facility] Utilities Answer Date Recorded In the past 12 months has [employer], gas, oil, or water [employer] threatened to shut off services in your [...] your living situation today? I have a [facility] place to live 10/01/2023 Sex and [...] CDT Clinical Support Healthy Living Program in [place], [place] [address] [place] [address] Bubba Perez M.D., M.S. [address] [place] [address] 11/03/2023 10:00 AM CDT Clinical Support Healthy Living Program in [place], [place] [address] [place] [address] Avtar Aaron M.D. [address] [place] [phone] Lillian Winkler, [facility] [address] [place] [phone] 11/03/2023 1:40 PM CDT Appointment Department of Radiology, [facility], in [place], [place] [address] [place] [phone] Rosemary Gregorio APRN, FREELANCE ART DIRECTOR, M.S. [address] [place] [phone] 11/09/2023 8:00 AM CDT Clinical Communication Virtual Review in [place], [place] 200 [place] [address] 11/12/2023 8:00 AM CDT Comprehensive Visit Division of Pain Medicine in [place], [place] [address] [place] [phone] Angelina Jefferson APRN, C.N.P., M.S.N. [address] [place] [phone] 11/13/2023 10:00 AM CDT Telemedicine Section of Executive Medicine in [address] [phone] Avtar Aaron M.D. [address] [place] [phone] 12/30/2023 11:10 AM CDT Appointment Department of Laboratory Medicine and Pathology, [facility], in [place], [place] [address] [place] [phone] Rosemary Gregorio APRN, FREELANCE ART DIRECTOR, M.S. [address] [place] [phone] 12/30/2023 11:20 AM CDT Appointment Department of Laboratory Medicine and Pathology, [facility] in [place], [place] [address] [place] [address] Rosemary Gregorio APRN, DULCE, M.S. [address] [place] [phone] 12/30/2023 12:30 PM CDT Appointment Department of Radiology, [facility] in [place], [place] [address] [place] [phone] Rosemary Gregorio APRN, FREELANCE ART DIRECTOR, M.S. [address] [place] [phone] 12/31/2023 12:40 PM CDT Ancillary Procedure Department of Cardiovascular Medicine in [place], [place] [address] [place] [phone] Fredi Horner M.D. [address] [place] [phone] 12/31/2023 1:45 PM CDT Comprehensive Visit Department of Urology in [place], [place] [address] [place] [phone] Tabitha Rich P.A.-C. [address] [place] [phone] 12/31/2023 2:30 PM CDT Procedure visit Department of Urology in [place], [place] [address] [place] [phone] Rosemary Gregorio APRN, DULCE, M.S. [address] [place] [phone] 01/01/2024 8:00 AM CDT Comprehensive Visit Department of Cardiovascular Medicine in [place], [place] [address] [place] [phone] Fredi Horner M.D. [address] [place] [phone] 01/01/2024 1:30 PM CDT Comprehensive Visit Division of Endocrinology in [place], [place] [address] [place] [address] Horacio Harp M.D. 

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
--- OUTSIDE RECORDS SUMMARY | 2023-10-24 07:39 | XMS_ITS | Encounter Summary ---
Author Organization [facility] Address [address] [place] [phone] Care Team Providers Care Mds Nurse Name Role Phone Unavailable Primary Care Provider Unavailabl e Reason for Visit * Reason Onset Date Comments Outside EKG reports 10/05/2023 Encounter Details Date Type Department Care Team (Latest Contact Info) Description 10/05/2023 Clinical Communication Division of General Internal Medicine in [place], [place] [address] [place] [phone] Avtar Aaron M.D. [address] [place] [phone] Outside EKG reports Social History Tobacco Use Types Packs/Day Years [...] many years. I stopped in 2013. [facility] Utilities Answer Date Recorded In the past [...] your living situation today? I [facility] 10/01/2023 Sex and [...] CDT Clinical Support Healthy Living Program in [place], [place] 200 [place] [phone] Bubba Perez M.D., M.S. [address] [place] [phone] 11/03/2023 10:00 AM CDT Clinical Support Healthy Living Program in [place], [place] [address] [place] [phone] Avtar Aaron M.D. [address] [place] [phone] Lillian Winkler, [facility] [address] [place] [phone] 11/03/2023 1:40 PM CDT Appointment Department of Radiology, [facility] in [place], [place] [address] [place] [phone] Rosemary Gregorio APRN, DULCE, M.S. [address] [place] [phone] 11/09/2023 8:00 AM CDT Clinical Communication Virtual Review in [place], [place] 200 [place] [phone] 11/12/2023 8:00 AM CDT Comprehensive Visit Division of Pain Medicine in [address] [phone] Angelina Jefferson APRN, C.N.P., M.S.N. [address] [place] [phone] 11/13/2023 10:00 AM CDT Telemedicine Section of Executive Medicine in [address] [phone] Avtar Aaron M.D. [address] [place] [phone] 12/30/2023 11:10 AM CDT Appointment Department of Laboratory Medicine and Pathology, [facility], in [place], [place] [address] [place] [phone] Rosemary Gregorio APRN, DULCE, M.S. [address] [place] [phone] 12/30/2023 11:20 AM CDT Appointment Department of Laboratory Medicine and Pathology, [facility] in [place], [place] [address] [place] [phone] Rosemary Gregorio APRN, DULCE, M.S. [address] [place] [phone] 12/30/2023 12:30 PM CDT Appointment Department of Radiology, [facility] in [place], [place] [address] [place] [phone] Rosemary Gregorio APRN, TELESERVICES REPRESENTATIVE, M.S. [address] [place] [phone] 12/31/2023 12:40 PM CDT Ancillary Procedure Department of Cardiovascular Medicine in [place], [place] [address] [place] [phone] Fredi Horner M.D. [address] [place] [phone] 12/31/2023 1:45 PM CDT Comprehensive Visit Department of Urology in [address] [phone] Tabitha Rich P.A.-C. [address] [place] [phone] 12/31/2023 2:30 PM CDT Procedure visit Department of Urology in [place], [place] [address] [place] [phone] Rosemary Gregorio APRN, DULCE, M.S. [address] [place] [phone] 01/01/2024 8:00 AM CDT Comprehensive Visit Department of Cardiovascular Medicine in [place], [place] [address] [place] [phone] Fredi Horner M.D. [address] [place] [phone] 01/01/2024 1:30 PM CDT Comprehensive Visit Division of Endocrinology in [place], [place] [address] [place] [address] Horacio Harp M.D. 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
--- OUTSIDE RECORDS SUMMARY | 2023-10-24 07:39 | XMS_ITS | Encounter Summary ---
Author Organization [facility] Address [address] [place] [address] Care Team Providers Care Territory Service Representative Name Role Phone Unavailable Primary Care Provider Unavailabl e Reason for Referral * Occupational Therapy (Routine) - Pending Review Specialty Diagnoses / Procedures Referred By Contac t Referred To Contact Diagnoses Injury Thoracic Spinal Cord Subsequent (HCC) Procedures OT Ongoing Treatment Rst [place] [address] [place] [phone] [facility] Referral ID Status Reason Start Date Expiration Date V isits Requested Visits Authorized [id number] Pending Review 10/09/2023 10/08/2024 99 99 Reason for Visit * Physical Therapy (Routine) - Closed Specialty Diagnoses / Procedures Referred By Contac t Referred To Contact Diagnoses Injury Thoracic Spinal Cord Subsequent (HCC) Procedures PT or OT eval and treat (first available) Avtar Aaron M.D. [address] [place] [phone] [facility] Referral ID Status Reason Start Date Expiration Date Visits Re quested Visits Authorized [id number] Closed 09/14/2023 09/13/2024 1 1 Encounter Details Date Type Department Care Team (Latest Contact Info) Description 10/08/2023 11:00 AM CDT Comprehensive Visit Department of Physical Medicine and Rehabilitation in [place], [place] [address] [place] [phone] Avtar Aaron M.D. [address] [place] [phone] Al Fraser M.S., O.T. 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 I stopped in 2013. [facility] Utilities Answer Date Recorded In the past 12 months has [employer], gas, oil, or water [employer] threatened to shut off services in your [...] your living situation today? I have a [facility] place to live 10/01/2023 Sex and Gender Information Value Date Recorded Sex Assigned at Male 09/11/2023 10:52 AM CDT Gender Identity Male 09/11/2023 10:52 AM CDT Sexual Orientation Straight 09/11/2023 10 :52 AM CDT documented as of this encounter Consult Notes * Al Fraser M.S., O.T. - 10/08/2023 11:00 AM CDT Occupational Therapy Wheelchair Seating Evaluation/Treatment By co-signing this document, the provider concurs with the therapist's assessment and agrees with the equipment recommendations below. The co-sign date of this document may be considered the completion of the [id number] evaluation. SUBJECTIVE Patient's Name: Michael Merna Referring Provider: Avtar Aaron M.D. Reason for Referral: Patient was referred to the outpatient wheelchair/seating clinic for occupational therapy examination, evaluation and determination of the most appropriate durable medical equipment to accomplish mobility-related activities of daily living in the home. t 1. Injury Thoracic Spinal Cord Subsequent (HCC) Payor: [place] MEDICAID / Plan: [place] MEDICAID / Product Type: Medicaid / Pertinent Medical/Surgical History: Patient Active Problem List Diagnosis Paraplegia (HCC) Prior Function/Occupational Profile IADL/Homemaking Assistance: Modified independent Prior Mobility/Functional Transfers Gait Devices/Wheelchair Used: Front wheeled walker Precautions Other Precautions: spine, fall, pressure wounds Patient/Caregiver Goals: reduce onset of wounds developing OBJECTIVE Height: 1.78 cm Weight: 60.1 kg Cognition Arousal/Alertness: Appropriate responses to stimuli Initiation: No difficulty with initiation Proprioception: Severe deficits in the RLE, Severe deficits in the LLE Balance Static Sitting-Balance: Good (Maintains balance without support) Dynamic Sitting-Balance: Good (Maintains balance without support) Static Standing-Balance: Unable Dynamic Standing-Balance: Unable Coordination Overall Coordination: Movements are fluid and coordinated ROM - Upper Extremity Screen: Addressed, no concerns noted Strength - Upper Extremity Screen: Addressed, no concerns noted Bed, Chair, Wheelchair Transfers Transfer Surface: Wheelchair Transfer Approach: To and from Transfer Equipment: No device Level of Assistance: Independent Assessment/Delivery: Assessed Comments: low pivot transfer from wheelchairto mat Mat Assessment Sitting Balance While on Mat Table: Hands dependent Assistance from Examiner: None Head: Postural Control: Good Trunk: Postural Control: Good Pressure Mapping Patient participated in pressure mapping today to assess pressure distribution for wheelchair positioning needs with the Xsensor Pressure Imaging System. Pressure mapping assists in guiding clinical reasoning when assessing options that may reduce risk of skin breakdown during ADL performance. Xensor device: [place] First trial setup: Initial map on ride cushion Peak Pressure: 256 mmHG Average Pressure: 25 mmHG Pressure Surface Area: 146.25 in2 Second trial setup: following back rest modification , seat cushion shifted 1 inch forward Peak Pressure: 256 mmHG Average Pressure: 23 mmHG Pressure Surface Area: 173.5 in2 Third trial setup: following back rest modification , seat cushion shifted 1 inch forward and addition of rigidizer Peak Pressure: 96 mmHG Average Pressure: 17 mmHG Pressure Surface Area: 162 in2 The patient participated in education regarding these readings, risks for skin breakdown, and appropriate options for pressure distribution. Additional education information: Following cushion assessment and pressure map trials, Trial 3 indicates the most optimal pressure distribution through patient sitting surface. Assessment Michael Bauman is a pleasant 37 y.o. male who requires wheeled mobility in the setting of Paraplegia, IT pressure injuries. Vendor for the durable medical equipment is [employer].The patient's past medical history, functional level, home set-up, and physical/cognitive skills were assessed. Patient presents to seating clinic via manual wheelchair. He reports having noticed increasedredness and beginnings of pressure injuries forming on Sacrum and L IT. Patient underwent flap surgery in June of 2022. Following surgical intervention, patient began using his custom Ride cushion and has used this cushion ever since. He reports that he feels the foam has begun to break down to the point where it is no longer supporting him properly.Patient states that He feels he is sinking into the cushion well rather than floating on top of it. This lack of hip stability has also affected his posture as he notes he often leans to the left Upon assessment of cushion, therapist notes modifications that were previously made (by certified [employer]) to cushion by scraping out portions of the well on both right and left sides. Additionally, the back corners of the cushion had tigre cut away in order to fit with the patient's backrest.Unfortunately, this modification has seemed to weaken the integrity of the cushion, resulting in the cushion compressing and collapsing into itself. Today the following modifications / recommendations were made: back rest adjusted to provide greater anterior tilt, Ride cushion shifted forward on the seat brown in order to capture IT's, wood rigidizer placed under cushion in order to provide patientwith a more supportive sitting surface. Following these modifications, a final mapping was taken, demonstrating a reduction in overall peak pressure areas ( L and R Its). Patient was educated on how to procure a rigidizer and provided with the appropriate measurements. Patient is instructed to return to the clinic should patient experience worsening of pressure injury. Should this occur, additional options of new custom seating will be reviewed. At this time, it was deemed the patient would benefit from the recommended wheelchair equipment as outlined below. The patient, therapist, and vendor reviewed the wheelchair brands, seating system options, appropriate accessories, and specs for the recommended chair. The patient was agreeable to all discussed. Wheelchair rigidizer Seating Assessment Functional Goals and Timeframes: OT Goal #1: By the end of today's session, the client will verbalize understanding of cushion options. Goal met. OT Goal #2: By the end of today's session, the client will verbalize understanding of wheelchair seating and accessory set up and the effect on posture and skin/joint integrity. OT Goal #3: By the end of today's session, the client will verbalize understanding of the process and actions required for equipment procurement. Goal met. Plan Mr. Bauman was educated regarding evaluative findings, diagnosis, prognosis, potential risks andbenefits of rehabilitation interventions. A collaborative effort was used to establish goals and plan of care. He was informed of his right to make decisions regarding his care. Treatment Plan: Start of Plan of Care: 10/08/2023 Number of Visits: up to visits over OT Frequency: Follow-up visit only Plan: Continue with current plan Treatment interventions may include: Other OT Interventions: wheelchair seating and positioning Performance Deficits: 3 - 5 performance deficits Evaluation Complexity: Moderate Time Spent with Patient Evaluations OT Eval - Mod Complexity: 15 min Therapeutic Interventions Wheelchair Management (min): 45 min Time Tracking Total Timed Units (min): 45 min Total Treatment Time (min): 60 min The author of this note has no financial relationship with the [employer] rehabilitation technology vendor/supplier. Parts of this note was completed using voice recognition software ([employer]). A reasonable attempt has been made to edit, proofread, and amend or correct any dictation errors but some errors including spelling and typographical errors might have been missed. documented in this encounter Miscellaneous Notes * Addendum Note - Al Fraser M.S., O.T. - 10/08/2023 11:00 AM CDT Addended by: AL FRASER on: 10/09/2023 09:45 AM Modules accepted: Orders documented in this encounter Plan of Treatment Upcoming Encounters Date Type Department Care Team (Latest Contact Info) Description 11/03/2023 9:00 AM CDT Clinical Support Healthy Living Program in [place], [place] [address] [place] [phone] Bubba Perez M.D., M.S. [address] [place] [phone] 11/03/2023 10:00 AM CDT Clinical Support Healthy Living Program in [place], [place] [address] [place] [phone] Avtar Aaron M.D. [address] [place] [phone] Lillian Winkler, [facility] [address] [place] [phone] 11/03/2023 1:40 PM CDT Appointment Department of Radiology, [facility] in [place], [place] [address] [place] [phone] Rosemary Gregorio APRN, FREEZER OPERATOR, M.S. [address] [place] [phone] 11/09/2023 8:00 AM CDT Clinical Communication Virtual Review in [place], [place] 200 [place] [address] 11/12/2023 8:00 AM CDT Comprehensive Visit Division of Pain Medicine in [place], [place] [address] [place] [phone] Angelina Jefferson APRN, C.N.P., M.S.N. [address] [place] [phone] 11/13/2023 10:00 AM CDT Telemedicine Section of Executive Medicine in [address] [phone] Avtar Aaron M.D. [address] [place] [phone] 12/30/2023 11:10 AM CDT Appointment Department of Laboratory Medicine and Pathology, [facility] in [place], [place] [address] [place] [phone] Rosemary Gregorio APRN, FREEZER OPERATOR, M.S. [address] [place] [phone] 12/30/2023 11:20 AM CDT Appointment Department of Laboratory Medicine and Pathology, [facility], in [place], [place] [address] [place] [phone] Rosemary Gregorio APRN, FREEZER OPERATOR, M.S. [address] [place] [phone] 12/30/2023 12:30 PM CDT Appointment Department of Radiology, [facility], in [place], [place] [address] [place] [phone] Rosemary Gregorio APRN, FREEZER OPERATOR, M.S. [address] [place] [phone] 12/31/2023 12:40 PM CDT Ancillary Procedure Department of Cardiovascular Medicine in [place], [place] [address] [place] [phone] Fredi Horner M.D. [address] [place] [phone] 12/31/2023 1:45 PM CDT Comprehensive Visit Department of Urology in [place], [place] [address] [place] [phone] Tabitha Rich P.A.-C. [address] [place] [phone] 12/31/2023 2:30 PM CDT Procedure visit Department of Urology in [place], [place] [address] [place] [phone] Rosemary Gregorio APRN, FREEZER OPERATOR, M.S. [address] [place] [phone] 01/01/2024 8:00 AM CDT Comprehensive Visit Department of Cardiovascular Medicine in [place], [place] [address] [place] [phone] Fredi Horner M.D. [address] [place] [phone] 01/01/2024 1:30 PM CDT Comprehensive Visit Division of Endocrinology in [place], [place] [address] [place] [address] Horacio Hrap M.D. 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
--- OUTSIDE RECORDS SUMMARY | 2023-10-24 07:39 | XMS_ITS | Encounter Summary ---
Author Organization [facility] Address [address] [place] [address] Care Team Providers Care Human Resources Project Manager Name Role Phone Unavailable Primary Care Provider Unavailabl e Encounter Details Date Type Department Care Team (Late st Contact Info) Description 10/07/2023 Clinical Communication Division of General Internal Medicine in [place], [place] [address] [place] [phone] Avtar Aaron M.D. [address] [place] [address] Social History Tobacco Use Types Packs/Day Years [...] for many years. I stopped in 2013. [facility] Utilities Answer Date Recorded In the past 12 months has [employer], gas, oil, or water [employer] threatened to shut off services in your [...] your living situation today? I have a [facility] place to live 10/01/2023 Sex [...] CDT Clinical Support Healthy Living Program in [place], [place] [address] [place] [phone] Bubba Perez M.D., M.S. [address] [place] [address] 11/03/2023 10:00 AM CDT Clinical Support Healthy Living Program in [place], [place] [address] [place] [phone] Avtar Aaron M.D. [address] [place] [phone] Lillian Winkler, [facility] [address] [place] [phone] 11/03/2023 1:40 PM CDT Appointment Department of Radiology, [facility], in [place], [place] [address] [place] [phone] Rosemary Gregorio APRN, INTELLIGENCE APPLICATIONS, M.S. [address] [place] [phone] 11/09/2023 8:00 AM CDT Clinical Communication Virtual Review in [place], [place] 200 [place] [address] 11/12/2023 8:00 AM CDT Comprehensive Visit Division of Pain Medicine in [place], [place] [address] [place] [phone] Angelina Jefferson APRN, C.N.P., M.S.N. [address] [place] [phone] 11/13/2023 10:00 AM CDT Telemedicine Section of Executive Medicine in [address] [phone] Avtar Aaron M.D. [address] [place] [phone] 12/30/2023 11:10 AM CDT Appointment Department of Laboratory Medicine and Pathology, [facility], in [place], [place] [address] [place] [phone] Rosemary Gregorio APRN, INTELLIGENCE APPLICATIONS, M.S. [address] [place] [phone] 12/30/2023 11:20 AM CDT Appointment Department of Laboratory Medicine and Pathology, [facility] in [place], [place] [address] [place] [address] Rosemary Gregorio APRN, DULCE, M.S. [address] [place] [phone] 12/30/2023 12:30 PM CDT Appointment Department of Radiology, [facility] in [place], [place] [address] [place] [phone] Rosemary Gregorio APRN, INTELLIGENCE APPLICATIONS, M.S. [address] [place] [phone] 12/31/2023 12:40 PM CDT Ancillary Procedure Department of Cardiovascular Medicine in [place], [place] [address] [place] [phone] Fredi Horner M.D. [address] [place] [phone] 12/31/2023 1:45 PM CDT Comprehensive Visit Department of Urology in [place], [place] [address] [place] [phone] Tabitha Rich P.A.-C. [address] [place] [phone] 12/31/2023 2:30 PM CDT Procedure visit Department of Urology in [place], [place] [address] [place] [phone] Rosemary Gregorio APRN, DULCE, M.S. [address] [place] [phone] 01/01/2024 8:00 AM CDT Comprehensive Visit Department of Cardiovascular Medicine in [place], [place] [address] [place] [phone] Fredi Horner M.D. [address] [place] [phone] 01/01/2024 1:30 PM CDT Comprehensive Visit Division of Endocrinology in [place], [place] [address] [place] [address] Horacio Harp M.D. 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
--- OUTSIDE RECORDS SUMMARY | 2023-10-24 07:39 | XMS_ITS ---
Author Organization [facility] Address [address] [place] [address] Care Team Providers Care General Manager Farm Name Role Phone Unavailable Unavailable Unavailable Surgery Details Not on file Complications Check Surgery Details section. Procedure Estimated Blood Loss Check Surgery Details section. Procedure Findings Check Surgery Details section. Procedure Specimens Taken Check Surgery Details section.
--- OUTSIDE RECORDS SUMMARY | 2023-10-24 07:40 | XMS_ITS | Encounter Summary ---
Author Organization [facility] Address [address] [place] [address] Care Team Providers Care Appliance Line Assembler Name Role Phone Unavailable Primary Care Provider Unavailabl e Reason for Visit * Reason Onset Date Comments INTER[place] REFERRAL 09/15/[place] [id number] Encounter Details Date Type Department Care Team (Latest Contact Info) Description 09/15/2023 Clinical Communication Department of Cardiovascular Medicine in [place], [place] [address] [place] [address] Live Hanger, Frantz Jones [place]NAL [place] ([place] [id number]) Social History Tobacco Use Types Packs/Day Years Used Date Smoking Tobacco: Former [facility] Utilities Answer Date Recorded In the past 12 months has [employer], gas, oil, or water company threatened [...] your living situation today? I have a [facility] place to live 10/01/2023 Sex and Gender Information Value Date Recorded Sex Assigned at Male 09/11/2023 10:52 AM CDT Gender Identity Male 09/11/2023 10:52 AM CDT Sexual Orientation Straight 09/11/2023 10 :52 AM CDT documented as of this encounter Miscellaneous Notes * Telephone Encounter - Warren Lanza - 09/16/2023 7:36 AM CDT Called referring and relayed the message. documented in this encounter Plan of Treatment Upcoming Encounters Date Type Department Care Team (Latest Contact Info) Description 11/03/2023 9:00 AM CDT Clinical Support Healthy Living Program in [place], [place] 200 [place] [address] Bubba Perez M.D., M.S. 200 [place] [address] 11/03/2023 10:00 AM CDT Clinical Support Healthy Living Program in [place], [place] [address] [place] [address] Avtar Aaron M.D. [address] [place] [phone] Lillian Winkler, [facility] [address] [place] [phone] 11/03/2023 1:40 PM CDT Appointment Department of Radiology, [facility] in [place], [place] [address] [place] [phone] Rosemary Gregorio APRN, LONG DISTANCE OPERATOR, M.S. [address] [place] [phone] 11/09/2023 8:00 AM CDT Clinical Communication Virtual Review in [place], [place] 200 [place] [address] 11/12/2023 8:00 AM CDT Comprehensive Visit Division of Pain Medicine in [place], [place] [address] [place] [phone] Angelina Jefferson APRN, C.N.P., M.S.N. [address] [place] [phone] 11/13/2023 10:00 AM CDT Telemedicine Section of Executive Medicine in [address] [phone] Avtar Aaron M.D. [address] [place] [phone] 12/30/2023 11:10 AM CDT Appointment Department of Laboratory Medicine and Pathology, [facility] in [place], [place] [address] [place] [phone] Rosemary Gregorio APRN, LONG DISTANCE OPERATOR, M.S. [address] [place] [phone] 12/30/2023 11:20 AM CDT Appointment Department of Laboratory Medicine and Pathology, [facility], in [place], [place] [address] [place] [phone] Rosemary Gregorio APRN, LONG DISTANCE OPERATOR, M.S. [address] [place] [phone] 12/30/2023 12:30 PM CDT Appointment Department of Radiology, [facility], in [place], [place] [address] [place] [phone] Rosemary Gregorio APRN, LONG DISTANCE OPERATOR, M.S. [address] [place] [phone] 12/31/2023 12:40 PM CDT Ancillary Procedure Department of Cardiovascular Medicine in [place], [place] [address] [place] [phone] Fredi Horner M.D. [address] [place] [phone] 12/31/2023 1:45 PM CDT Comprehensive Visit Department of Urology in [place], [place] [address] [place] [phone] Tabitha Rich P.A.-C. [address] [place] [phone] 12/31/2023 2:30 PM CDT Procedure visit Department of Urology in [place], [place] [address] [place] [phone] Rosemary Gregorio APRN, LONG DISTANCE OPERATOR, M.S. [address] [place] [phone] 01/01/2024 8:00 AM CDT Comprehensive Visit Department of Cardiovascular Medicine in [place], [place] [address] [place] [phone] Fredi Horner M.D. [address] [place] [phone] 01/01/2024 1:30 PM CDT Comprehensive Visit Division of Endocrinology in [place], [place] [address] [place] [address] Horacio Harp M.D. 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
--- OUTSIDE RECORDS SUMMARY | 2023-10-24 07:40 | XMS_ITS | Encounter Summary ---
Author Organization [facility] Address [address] [place] [address] Care Team Providers Care Stacker And Sorter Operator Name Role Phone Unavailable Primary Care Provider Unavailabl e Reason for Referral * Outpatient (Routine) - Closed Specialty Diagnoses / Procedures Referred By Contac t Referred To Contact Diagnoses Injury Thoracic Spinal Cord Subsequent (HCC) Procedures DX Thoracic Spine 2 Views Avtar Aaron M.D. [address] [place] [phone] [facility] Referral ID Status Reason Start Date Expiration Date Visits Re quested Visits Authorized [id number] Closed 09/14/2023 09/13/2024 1 1 * Outpatient (Routine) - Closed Specialty Diagnoses / Procedures Referred By Contac t Referred To Contact Diagnoses Injury Thoracic Spinal Cord Subsequent (HCC) Procedures DX Lumbar Spine 2-3 Views Avtar Aaron M.D. [address] [place] [address] [facility] Referral ID Status Reason Start Date Expiration Date Visits Re quested Visits Authorized [id number] Closed 09/14/2023 09/13/2024 1 1 Reason for Visit * Outpatient (Routine) - Closed Specialty Diagnoses / Procedures Referred By Contac t Referred To Contact Diagnoses Injury Thoracic Spinal Cord Subsequent (HCC) Procedures DX Thoracic Spine 2 Views Avtar Aaron M.D. [address] [place] [address] [facility] Referral ID Status Reason Start Date Expiration Date Visits Re quested Visits Authorized [id number] Closed 09/14/2023 09/13/2024 1 1 Encounter Details Date Type Department Care Team (Latest Contact Info) Description 10/05/2023 2:57 PM CDT Hospital Encounter Department of Radiology, [facility], in [place], [place] [address] [place] [address] Avtar Aaron M.D. [address] [place] [address] Injury Thoracic Spinal Cord Subsequent (HCC) Discharge [...] years. I stopped in 2013. [facility] Utilities Answer Date Recorded In the past 12 months has [employer], oil, or water [employer] threatened to shut off services in [...] your living situation today? I have a [facility] place to live 10/01/2023 Sex [...] CDT Clinical Support Healthy Living Program in [place], [place] [address] [place] [phone] Bubba Perez M.D., M.S. [address] [place] [phone] 11/03/2023 10:00 AM CDT Clinical Support Healthy Living Program in [place], [place] [address] [place] [phone] Avtar Aaron M.D. [address] [place] [phone] Lillian Winkler, [facility] [address] [place] [phone] 11/03/2023 1:40 PM CDT Appointment Department of Radiology, [facility], in [place], [place] [address] [place] [phone] Rosemary Gregorio APRN, OVEN TENDER, M.S. [address] [place] [phone] 11/09/2023 8:00 AM CDT Clinical Communication Virtual Review in [place], [place] 200 [place] [address] 11/12/2023 8:00 AM CDT Comprehensive Visit Division of Pain Medicine in [place], [place] [address] [place] [phone] Angelina Jefferson APRN, C.N.P., M.S.N. [address] [place] [phone] 11/13/2023 10:00 AM CDT Telemedicine Section of Executive Medicine in [address] [phone] Avtar Aaron M.D. [address] [place] [phone] 12/30/2023 11:10 AM CDT Appointment Department of Laboratory Medicine and Pathology, [facility] in [place], [place] [address] [place] [phone] Rosemary Gregorio APRN, OVEN TENDER, M.S. [address] [place] [phone] 12/30/2023 11:20 AM CDT Appointment Department of Laboratory Medicine and Pathology, [facility] in [place], [place] [address] [place] [phone] Rosemary Gregorio APRN, OVEN TENDER, M.S. [address] [place] [phone] 12/30/2023 12:30 PM CDT Appointment Department of Radiology, [facility] in [place], [place] [address] [place] [phone] Rosemary Gregorio APRN, OVEN TENDER, M.S. [address] [place] [phone] 12/31/2023 12:40 PM CDT Ancillary Procedure Department of Cardiovascular Medicine in [place], [place] [address] [place] [phone] Fredi Horner M.D. [address] [place] [phone] 12/31/2023 1:45 PM CDT Comprehensive Visit Department of Urology in [place], [place] [address] [place] [phone] Tabitha Rich, [place] [address] [place] [phone] 12/31/2023 2:30 PM CDT Procedure visit Department of Urology in [place], [place] [address] [place] [phone] Rosemary Gregorio APRN, OVEN TENDER, M.S. [address] [place] [phone] 01/01/2024 8:00 AM CDT Comprehensive Visit Department of Cardiovascular Medicine in [place], [place] [address] [place] [phone] Fredi Horner M.D. [address] [place] [phone] 01/01/2024 1:30 PM CDT Comprehensive Visit Division of Endocrinology in [place], [place] [address] [place] [phone] Horacio Harp M.D. [address] [place] [phone] documented as of this encounter Procedures Procedure Name Priority Date/Time Associated Diagnosis Comments DX LUMBAR SPINE 2-3 VIEWS RAD - Routine (most inpatients and all outpatients) 10/05/2023 3:33 PM CDT Injury Thoracic Spinal Cord Subsequent (HCC) DX THORACIC SPINE 2 VIEWS RAD - Routine (most inpatients and all outpatients) 10/05/2023 3:33 PM CDT Injury Thoracic Spinal Cord Subsequent (HCC) documented in this encounter Results * DX Thoracic Spine 2 Views (10/05/2023 3:33 PM CDT) Anatomical Region Laterality Modality Thoracic Spine, Musculoskele martine RST LOS, Neuroradiology ARZ LOS, Muskuloskeletal FLA LOS N/A Digita l Radiography Impressions 10/05/2023 3:57 PM CDT Thoracolumbar curvature. Posterior dolores and pedicle screw fixation T7-T12. No radiographic evidence of loosening. Mild scattered spondylotic changes. Mild disc space narrowing at L5-S1. Thoracic aortic endograft. Narrative 10/05/2023 3:57 PM CDT EXAM: ??DX LUMBAR SPINE 2-3 VIEWS, DX THORACIC SPINE 2 VIEWS Procedure Note Gayla Lloyd M.D. - 10/05/2023 EXAM: DX LUMBAR SPINE 2-3 VIEWS, DX THORACIC SPINE 2 VIEWS IMPRESSION: Thoracolumbar curvature. Posterior dolores and pedicle screw fixation T7-T12.No radiographic evidence of loosening. Mild scattered spondylotic changes.Mild disc space narrowing at L5-S1. Thoracic aortic endograft. Avtar [facility] PROCEDURES * DX Lumbar Spine 2-3 Views (10/05/2023 3:33 PM CDT) Anatomical Region Laterality Modality Lumbar Spine, Musculoskeleta l RST LOS, Neuroradiology ARZ LOS, Muskuloskeletal FLA LOS N/A Digital Radiography Impressions 10/05/2023 3:57 PM CDT Thoracolumbar curvature. Posterior dolores and pedicle screw fixation T7-T12. No radiographic evidence of loosening. Mild scattered spondylotic changes. Mild disc space narrowing at L5-S1. Thoracic aortic endograft. Narrative 10/05/2023 3:57 PM CDT EXAM: ??DX LUMBAR SPINE 2-3 VIEWS, DX THORACIC SPINE 2 VIEWS Procedure Note Gayla Lloyd M.D. - 10/05/2023 EXAM: DX LUMBAR SPINE 2-3 VIEWS, DX THORACIC SPINE 2 VIEWS IMPRESSION: Thoracolumbar curvature. Posterior dolores and pedicle screw fixation T7-T12.No radiographic evidence of loosening. Mild scattered spondylotic changes.Mild disc space narrowing at L5-S1. Thoracic aortic endograft. 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
--- OUTSIDE RECORDS SUMMARY | 2023-10-24 07:40 | XMS_ITS | Encounter Summary ---
Author Organization [facility] Address [address] [place] [phone] Care Team Providers Care Wrapper Stripper Name Role Phone Unavailable Primary Care Provider Unavailabl e Encounter Details Date Type Department Care Team (Latest Contact Info) Description 10/05/2023 4:03 PM CDT - 10/05/2023 11:59 PM CDT Hospital Encounter Department of Laboratory Medicine and Pathology, [place], [place] [address] [place] [address] Avtar Aaron M.D. [address] [place] [phone] Flutter Atrial (HCC) Discharge Disposition: Home or [...] for many years. I stopped in 2013. [facility] Utilities Answer Date Recorded In the past 12 months has [employer], gas, oil, or water [employer] threatened to shut off services in your [...] your living situation today? I have a [facility] place to live 10/01/2023 Sex and Gender [...] CDT Clinical Support Healthy Living Program in [address] [phone] Bubba Perez M.D., M.S. [address] [place] [phone] 11/03/2023 10:00 AM CDT Clinical Support Healthy Living Program in [address] [phone] Avtar Aaron M.D. [address] [place] [phone] [phone] 11/03/2023 1:40 PM CDT Appointment Department of Radiology, [facility], in [address] [phone] Rosemary Gregorio APRN, LEGAL SUPPORT MANAGER, M.S. [address] [place] [phone] 11/09/2023 8:00 AM CDT Clinical Communication Virtual Review in [place], [place] 200 [place] [phone] 11/12/2023 8:00 AM CDT Comprehensive Visit Division of Pain Medicine in [address] [phone] Angelina Jefferson APRN, C.N.P., M.S.N. [address] [place] [phone] 11/13/2023 10:00 AM CDT Telemedicine Section of Executive Medicine in [place], [place] [address] [place] [phone] Avtar Aaron M.D. [address] [place] [phone] 12/30/2023 11:10 AM CDT Appointment Department of Laboratory Medicine and Pathology, [place], [place] [address] [place] [address] Rosemary Gregorio APRN, LEGAL SUPPORT MANAGER, M.S. [address] [place] [phone] 12/30/2023 11:20 AM CDT Appointment Department of Laboratory Medicine and Pathology, [facility] in [place], [place] [address] [place] [phone] Rosemary Gregorio APRN, LEGAL SUPPORT MANAGER, M.S. [address] [place] [phone] 12/30/2023 12:30 PM CDT Appointment Department of Radiology, [facility] in [place], [place] [address] [place] [address] Rosemary Gregorio APRN, LEGAL SUPPORT MANAGER, M.S. [address] [place] [phone] 12/31/2023 12:40 PM CDT Ancillary Procedure Department of Cardiovascular Medicine in [place], [place] [address] [place] [address] Fredi Horner M.D. [address] [place] [phone] 12/31/2023 1:45 PM CDT Comprehensive Visit Department of Urology in [place], [place] [address] [place] [phone] Tabitha Rich P.A.-C. [address] [place] [phone] 12/31/2023 2:30 PM CDT Procedure visit Department of Urology in [place], [place] [address] [place] [phone] Rosemary Gregorio APRN, DULCE, M.S. [address] [place] [phone] 01/01/2024 8:00 AM CDT Comprehensive Visit Department of Cardiovascular Medicine in [place], [place] [address] [place] [phone] Fredi Horner M.D. [address] [place] [phone] 01/01/2024 1:30 PM CDT Comprehensive Visit Division of Endocrinology in [place], [place] [address] [place] [phone] Horacio Harp M.D. [address] [place] [phone] documented as of this encounter Procedures Procedure Name Priority Date/Time Associated Diagnosis Comments LIPID PANEL, S Routine 10/05/2023 4:15 PM CDT Flutter Atrial (HCC) THYROID FUNCTION CASCADE, S Routine 10/05/2023 4:15 PM CDT Flutter Atrial (HCC) MAGNESIUM, S Routine 10/05/2023 4:15 PM CDT Flutter Atrial (HCC) HEMOGLOBIN A1C, B Routine 10/05/2023 4:1 5 PM CDT Flutter Atrial (HCC) BASIC METABOLIC PANEL, S/P Routine 10/05/2023 4:15 PM CDT Flutter Atrial (HCC) documented in this encounter Results * Magnesium (10/05/2023 4:15 PM CDT) Magnesium, S 1.8 1.7 - 2.3 mg/dL 10/05/2023 5:30 PM CDT DTL Blood (Blood, Venous) 10/05/2023 4:15 PM CDT 10/05/2023 4:58 PM CDT Avtar Aaron M.D. LAB BLOOD ADD-O N [place] [address] [place] [address], [facility] [address] [place] [address] * Lipid Panel (10/05/2023 4:15 PM CDT) [...] LAB BLOOD ADD-O N Performing Organization Address [facility]/ZIP Co de Phone Number [address] [place] [address] * Hemoglobin A1c (10/05/2023 4:15 PM CDT) Hemoglobin A1c, B 4.9 4.0 - 5.6 % 10/05/2023 5:21 PM CDT DTL Blood (Blood, Venous) 10/05/2023 4:15 PM CDT 10/05/2023 4:41 PM CDT Avtar Aaron M.D. LAB BLOOD ADD-O N Performing Organization Address City/[facility]/ZIP Co de Phone Number [facility] [address] [place] [address] * Thyroid Function [place] (10/05/2023 4:15 PM CDT) TSH, Sensitive 1.4 0.3 - 4.2 mIU/L 10/05/2023 5:30 PM CDT DTL Blood (Blood, Venous) 10/05/2023 4:15 PM CDT 10/05/2023 4:58 PM CDT Avtar Aaron M.D. LAB BLOOD ADD-O N Performing Organization Address City/State/[facility] Co de Phone Number [facility] [address] [place] [address], [facility] DTL [facility] [address] [place] [address] * (ABNORMAL) Basic Metabolic Panel (10/05/2023 4:15 [...] Avtar Aaron M.D. 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
--- OUTSIDE RECORDS SUMMARY | 2023-10-24 07:40 | XMS_ITS | Encounter Summary ---
Author Organization [facility] Address [address] [place] [address] Care Team Providers Care Window Shade Installer Name Role Phone Unavailable Primary Care Provider Unavailabl e Reason for Referral * Outpatient (Routine) - Closed Specialty Diagnoses / Procedures Referred By Contact Referred To Contact Physical Medicine and Rehabilitation Diagnoses Rotator Cuff Disorder Left Tendinitis Bicipital Left Avtar Aaron M.D. 200 [place] [address] [facility] Referral ID Status Reason Start Date Expiration Date Visits Re quested Visits Authorized [id number] Closed 10/05/2023 04/05/2025 1 1 * MRI/CAT/PET Scan (Routine) - Closed Specialty Diagnoses / Procedures Referred By Candice maki Referred To Contact Radiology Diagnoses Rotator Cuff Disorder Left Procedures MR Shoulder Left without IV Contrast Avtar Aaron M.D. 200 [place] [address] [facility] Referral ID Status Reason Start Date Expiration Date Visits Re quested Visits Authorized [id number] Closed 10/05/2023 10/04/2024 1 1 Reason for Visit * Reason Comments Cardiac History Patient states he wi ll feel his heart racing at times. Patient states he was diagnosed with atrial flutter. Shoulder Pain Patient states left shoulder pain for the past 3 months. History of Pressure Sores Patient states on his tail bone the skin is broken. Neuropathic Pain Patient states neuro pathic pain in his lower body since his spinal cord injury. Posture change Patient states he stark s noted some posture changes. He has hardware in the spinal cord. Fatigue Patient states by 4- 5 PM in the afternoon, he feels totally fatigued. He feels like he needs to sleep. * Appointment Request (Routine) - Closed Specialty Diagnoses / Procedures Referred By Candice maki Referred To Contact General Internal Medicine Diagnoses General Medical Examination Adult Pain Shoulder Left Referral ID Status Reason Start Date Expiration Date Visits Re quested Visits Authorized [id number] Closed 09/07/2023 09/06/2024 1 1 Encounter Details Date Type Department Care Team (Latest Contact Info) Description 10/05/2023 1:00 PM CDT Comprehensive Visit Division of General Internal Medicine in [place], [place] [address] [place] [address] Avtar Aaron M.D. [address] [place] [address] Flutter Atrial (HCC) (Primary Dx); Injury Thoracic [...] for many years. I stopped in 2013. [facility] Utilities Answer Date Recorded In the [...] your living situation today? I have a [facility] place to live 10/01/2023 Sex and Gender Information Value Date Recorded Sex Assigned at Male 09/11/2023 10:52 AM CDT Gender Identity Male 09/11/2023 10:52 AM CDT Sexual Orientation Straight 09/11/2023 10 :52 AM CDT documented as of this encounter Last Filed Vital Signs Vital Sign Reading Time Taken Comments Blood Pressure 110/62 10/05/2023 12:28 PM CDT Pulse 80 10/05/2023 12:28 PM CDT Temperature - - Respiratory Rate - - Oxygen Saturation 98% 10/05/2023 12: 28 PM CDT On room air at rest. Inhaled Oxygen Concentration - - Weight 60.1 kg (132 lb 7.9 oz) 10/05/2023 12:28 PM CDT Per W/C Scale Height - - Body Mass Index - - documented in this encounter H&P Notes * Avtar Aaron M.D. - 10/05/2023 1:00 PM CDT SUBJECTIVE CHIEF COMPLAINT / REASON FOR VISIT Michael Bauman is a 37 y.o. male presenting for a comprehensive evaluation. HISTORY OF PRESENT ILLNESS Mr. Bauman is a 37 y.o. male who presents for a comprehensive evaluation today and requests evaluation of the following symptoms/problems: atrial flutter, left shoulder pain Mr. Bauman was recently diagnosed with atrial fibrillation. He recalled that approximately 15 years ago, his heart rate would jump up to the 180s to 120s and he would feel like he is about to passout. This would last for approximately 2 minutes before abruptly terminating. This would occur a couple times per year. However, in the past 2 months, he has had this happen several times. A little mo re than 1 month ago, this sensation lasted for more than 1 hour and did not go away. He sought helpin the emergency room and he was placed on telemetry. He shows me an EKG (on his phone) demonstrating narrow complex tachycardia with a rate of approximately 150 without easily discernible atrial activity. He was then given adenosine and the flutter waves become very evident, at a rate of approximately 300 with much less frequent QRS complexes. Shortly after, he was given IV diltiazem which reverted him to normal sinus rhythm in his 3rd EKG. 1 week after this incident, his symptoms recurred and lasted for approximately 1 hour. However, it abruptly went away while he was on his way to the emergency room. At that time, he was prescribed Eliquis and oral diltiazem to use the next time he has symptoms when he did develop symptoms the next day, he used oral diltiazem and felt drained of energy and confused/out of it the next day. One weekago, he recalls that he had another 20 minute episode of palpitations. He also describes having left shoulder pain in the past 2-3 months, without an acute onset or associated physical exertion/event. He demonstrates that with certain movements like slight external rotation and extension of the elbow, he has lateral left shoulder pain. He does not describe any weakness in any plane of motion of his shoulder. This is an important issue for him as he uses a wheelchairand this is his only form of mobility. He experiences a pain in his mid abdomen as well as feet, similar to when his arms fall asleep. It is almost like a vibration sensation. He uses pregabalin to control this sensation. If he does not use pregabalin, this sensation becomes very intense. 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 He does not smoke or drink anymore. He last smoked 12 years ago. His last drink was approximately 10 years ago. He used to use marijuana, LSD, Adderall, and MDMA. He doesnot use these substances anymore. 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 REVIEW OF SYSTEMS All systems reviewed and negative excepted as noted in the HPI. OBJECTIVE PHYSICAL EXAM Vitals: SpO2 98% Comment: On room air at rest. General: Alert and oriented times three. Sitting comfortably in his wheelchair. No acute distress. HEENT: Extraocular movements intact. PERRL. Moist mucous membranes. Ears, nares, oropharynx clear. Heart: Regular rate and rhythm. S1, S2. No MRG Lungs: Clear to auscultation bilaterally. Abdomen: Soft, nontender, nondistended. No organomegaly. Musculoskeletal: as below The following findings are in addition to or supersede the above listed findings: -sensation is diminished 2-3 cm below the nipple line, consistent with T7 spinal cord injury -pain with resistance against supination and flexion of the right elbow, pain in the left lateral shoulder; minimal pain with empty can test, scarf test, external rotation and internal rotation; painful are test and drop-arm tests are normal; no decrease in strength appreciated -legs are atrophied compared to upper extremity, as expected OUTSIDE DATA REVIEWED: included in HPI as above ASSESSMENT / PLAN #Atrial flutter, paroxysmal His initial EKG seemed like a nonspecific SVT, possibly AVNRT. However, his EKG after adenosine clearly revealed the flutter waves, which was aborted with IV diltiazem. Flutter waves at rate of 300 and his initial EKG showed QRS rate of 150, signifying 2:1 flutter. I think this is CTI dependent flutter. His CHADSVASC is 0. TTE does not show any structural heart disease. He can continue to use pill in the pocket approach to treat this, unless he becomes unresponsive totreatment or burden of symptomatic disease is too frequent, at which point we can consider chronic therapy or CTI ablation. Given that his spinal cord injury is below the level of T6, I do not think there is a component of autonomic dysreflexia here Plan: -electrolyte, Mg, TSH, CBC -Holter with 30d escalation for burden -metop tartrate 25mg as needed (ensuring systolic BP>90 on use) -do not recommend anti-coagulation at this time -cardiology consult ADDENDUM: EKG here shows 4:1 flutter. Given the persistence especially, beta arjun is not likely to controlrates when needed nor help cardiovert to sinus as compared to diltiazem, which had felt he had a reaction to. CTI ablation needs to be discussed with cardiology vs chronic CCB/anti-arrhythmic therapy #Left biceps tendonitis #Left rotator cuff tendonitis There is pain with this speed test in Yergason's test. Slight pain with empty can test. Initially from history, I thought this would be supraspinatus or teres minor tendinitis with pain on external rotation. However the exam suggest bicipital tendinitis. This is an important issue for him to resolve given that he is dependent on a wheelchair for mobility Plan: -MRI shoulder -PMR consult #Spinal Cord Injury T7 #Traumatic aortic injury with pseudoaneurysm s/p stent placement #Hx of ischial osteomyelitis #Neurogenic bladder #Neuropathic pain in lower extremities TTE did not show any abnormalities of his abdominal or thoracic aorta. His aortic stent is in the descending thoracic aorta and ends prior to the celiac artery ostium. He does not have any signs of dysfunction including pain with eating. Plan: -PMR SCI clinic (pressure/offloading) -pain consult -continue pregabalin -continue oxybutynin Nitesh Aaron MD Balance Staff Inspector Chain Splitter Consultative Medicine, General Internal Medicine [facility] Total visit time greater than 90 minutes, with over 50% spent counseling with the patient and coordination of care activities described above. documented in this encounter Plan of Treatment Upcoming Encounters Date Type Department Care Team (Latest Contact Info) Description 11/03/2023 9:00 AM CDT Clinical Support Healthy Living Program in [place], [place] [address] [place] [phone] Bubba Perez M.D., M.S. [address] [place] [phone] 11/03/2023 10:00 AM CDT Clinical Support Healthy Living Program in [place], [place] [address] [place] [phone] Avtar Aaron M.D. [address] [place] [phone] Lillian Winkler, [facility] [address] [place] [phone] 11/03/2023 1:40 PM CDT Appointment [facility] [address] [phone] Rosemary Gregorio APRN, PROGRAM DIRECTOR SCOUTING, M.S. [address] [place] [phone] 11/09/2023 8:00 AM CDT Clinical Communication Virtual Review in [place], [place] 200 [place] [phone] 11/12/2023 8:00 AM CDT Comprehensive Visit Division of Pain Medicine in [address] [phone] Angelina Jefferson, TEOFILO, C.N.P., M.S.N. [address] [place] [phone] 11/13/2023 10:00 AM CDT Telemedicine Section of Executive Medicine in [place], [place] [address] [place] [phone] Avtar Aaron M.D. [address] [place] [phone] 12/30/2023 11:10 AM CDT Appointment Department of Laboratory Medicine and Pathology, [facility] in [place], [place] [address] [place] [address] Rosemary Gregorio APRN, PROGRAM DIRECTOR SCOUTING, M.S. [address] [place] [phone] 12/30/2023 11:20 AM CDT Appointment Department of Laboratory Medicine and Pathology, [facility] in [place], [place] [address] [place] [address] Rosemary Gregorio APRN, PROGRAM DIRECTOR SCOUTING, M.S. [address] [place] [phone] 12/30/2023 12:30 PM CDT Appointment Department of Radiology, [facility] in [place], [place] [address] [place] [address] Rosemary Gregorio APRN, PROGRAM DIRECTOR SCOUTING, M.S. [address] [place] [phone] 12/31/2023 12:40 PM CDT Ancillary Procedure Department of Cardiovascular Medicine in [place], [place] [address] [place] [phone] Fredi Horner M.D. [address] [place] [phone] 12/31/2023 1:45 PM CDT Comprehensive Visit Department of Urology in [place], [place] [address] [place] [phone] Tabitha Rich P.A.-C. [address] [place] [phone] 12/31/2023 2:30 PM CDT Procedure visit Department of Urology in [place], [place] [address] [place] [phone] Rosemary Gregorio APRN, PROGRAM DIRECTOR SCOUTING, M.S. [address] [place] [phone] 01/01/2024 8:00 AM CDT Comprehensive Visit Department of Cardiovascular Medicine in [place], [place] [address] [place] [phone] Fredi Horner M.D. [address] [place] [phone] 01/01/2024 1:30 PM CDT Comprehensive Visit Division of Endocrinology in [place], [place] [address] [place] [phone] Horacio Harp M.D. [address] [place] [phone] Scheduled Referrals Name Type Priority Associated Diagnoses Order Schedule Physical Medicine and Rehabilitation - General consult (clinic) Outpatient Referral Routine Rotator Cuff Disorder Left Tendinitis Bicipital Left Expected: 10/05/2023, Expires: 01/04/2025 documented as of this encounter Results * MR Shoulder Left [...] 3 mm, para labral cyst (series 5 -53). No donal labral detachment. The glenoid labrum [...] paralabral cyst. 3. Mild subacromial/subdeltoid bursopathy. Avtar Aaron M.D. IMG MRI PROCEDU RES * Magnesium (10/05/2023 4:15 PM CDT) Pathologist [facility] Magnesium, S 1.8 1.7 - 2.3 mg/dL 10/05/2023 5:30 PM CDT DTL Blood (Blood, Venous) 10/05/2023 4:15 PM CDT 10/05/2023 4:58 PM CDT Avtar Aaron M.D. LAB BLOOD ADD-O N [facility] [address] [place] [address], [facility] [address] [place] [address] * Lipid Panel (10/05/2023 4:15 PM CDT) Pathologist [facility] Triglycerides 48 mg/dL 10/05/2023 5:30 PM CDT [...] Avtar Aaron M.D. LAB BLOOD ADD-O N [facility] [address] [place] [address], [facility] [address] [place] [address] * Hemoglobin A1c (10/05/2023 4:15 PM CDT) Hemoglobin A1c, B 4.9 4.0 - 5.6 % 10/05/2023 5:21 PM CDT DTL Blood (Blood, Venous) 10/05/2023 4:15 PM CDT 10/05/2023 4:41 PM CDT Avtar Aaron M.D. 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
--- OUTSIDE RECORDS SUMMARY | 2023-10-24 07:40 | XMS_ITS | Encounter Summary ---
Author Organization [facility] Address [address] [place] [address] Care Team Providers Care Blow Molding Machine Tender Name Role Phone Unavailable Primary Care Provider Unavailabl e Reason for Referral * Outpatient (Routine) - Closed Specialty Diagnoses / Procedures Referred By Candice maki Referred To Contact Diagnoses Flutter Atrial (HCC) Procedures Echo Transthoracic (TTE) Avtar Aaron M.D. 200 [place] [phone] [facility] Referral ID Status Reason Start Date Expiration Date Visits Re quested Visits Authorized [id number] Closed 09/14/2023 09/13/2024 1 1 Reason for Visit * Outpatient (Routine) - Closed Specialty Diagnoses / Procedures Referred By Candice maki Referred To Contact Diagnoses Flutter Atrial (HCC) Procedures Echo Transthoracic (TTE) Avtar Aaron M.D. [address] [place] [phone] [facility] Referral ID Status Reason Start Date Expiration Date Visits Re quested Visits Authorized [id number] Closed 09/14/2023 09/13/2024 1 1 Encounter Details Date Type Department Care Team (Latest Contact Info) Description 10/05/2023 8:50 AM CDT - 10/05/2023 2:56 PM CDT Hospital Encounter Department of Cardiovascular Diseases in [place], [place] [address] [place] [address] Avtar Aaron M.D. [address] [place] [phone] Flutter Atrial (HCC) Discharge Disposition: Home or [...] for many years. I stopped in 2013. [facility] [employer] Answer Date Recorded In the past 12 months has th e [employer], [employer], oil, or water [employer] threatened to shut off services in your [...] your living situation today? I have a [facility] place to live 10/01/2023 Sex and Gender [...] CDT Clinical Support Healthy Living Program in [place], [place] [address] [place] [address] Bubba Perez M.D., M.S. [address] [place] [phone] 11/03/2023 10:00 AM CDT Clinical Support Healthy Living Program in [place], [place] [address] [place] [phone] Avtar Aaron M.D. [address] [place] [phone] Lillian Winkler, [facility] [address] [place] [phone] 11/03/2023 1:40 PM CDT Appointment Department of Radiology, [facility] in [place], [place] [address] [place] [phone] Rosemary Gregorio APRN, PHOTO LAB MANAGER, M.S. [address] [place] [phone] 11/09/2023 8:00 AM CDT Clinical Communication Virtual Review in [place], [place] 200 [place] [phone] 11/12/2023 8:00 AM CDT Comprehensive Visit Division of Pain Medicine in [place], [place] [address] [place] [phone] Angelina Jefferson APRN, C.N.P., M.S.N. [address] [place] [phone] 11/13/2023 10:00 AM CDT Telemedicine Section of Executive Medicine in [place], [place] [address] [place] [phone] Avtar Aaron M.D. [address] [place] [phone] 12/30/2023 11:10 AM CDT Appointment Department of Laboratory Medicine and Pathology, [facility] in [place], [place] [address] [place] [phone] Rosemary Gregorio APRN, PHOTO LAB MANAGER, M.S. [address] [place] [phone] 12/30/2023 11:20 AM CDT Appointment Department of Laboratory Medicine and Pathology, [facility] in [place], [place] [address] [place] [phone] Rosemary Gregorio APRN, DULCE, M.S. [address] [place] [phone] 12/30/2023 12:30 PM CDT Appointment Department of Radiology, [facility] in [place], [place] [address] [place] [phone] Rosemary Gregorio APRN, DULCE, M.S. [address] [place] [phone] 12/31/2023 12:40 PM CDT Ancillary Procedure Department of Cardiovascular Medicine in [place], [place] [address] [place] [phone] Fredi Horner M.D. [address] [place] [phone] 12/31/2023 1:45 PM CDT Comprehensive Visit Department of Urology in [place], [place] [address] [place] [phone] Tabitha Rich P.A.-C. [address] [place] [phone] 12/31/2023 2:30 PM CDT Procedure visit Department of Urology in [place], [place] [address] [place] [phone] Rosemary Gregorio APRN, DULCE, M.S. [address] [place] [phone] 01/01/2024 8:00 AM CDT Comprehensive Visit Department of Cardiovascular Medicine in [place], [place] [address] [place] [phone] Fredi Horner M.D. [address] [place] [phone] 01/01/2024 1:30 PM CDT Comprehensive Visit Division of Endocrinology in [place], [place] [address] [place] [address] Horacio Harp M.D. [address] [place] [phone] documented as of this encounter Procedures Procedure Name Priority Date/Time Associated Diagnosis Comments (TTE) 2D ECHO DOPPLER COLOR Routine 10/05/2023 10:32 AM CDT Flutter Atrial (HCC) documented in this encounter Results * (TTE) 2D ECHO DOPPLER COLOR (10/05/2023 [...] EIMS Aortic Valve Systolic Peak Velocity 0.9 CV EIMS Anatomical Region Laterality Modality Echocardiography [...] Avtar Aaron M.D. CV ECHO PROCEDU RES documented in this encounter Visit Diagnoses Diagnosis Flutter Atrial (HCC) documented in this encounter Administered Medications Inactive Administered Medications - up to 3 most recent administrations Medication Order MAR Action Action Date Dose Rate Site NaCl 0.9% bacteriostatic 0.9 % injection 30 mL 30 mL, intravenous, As needed, for agitated saline (bubble) studies, Starting on 10/05/23 at 1018, Intraprocedure - Diagnostic, See Marni. 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
--- OUTSIDE RECORDS SUMMARY | 2023-10-24 07:40 | XMS_ITS | Encounter Summary ---
Author Organization [facility] Address [address] [place] [address] Care Team Providers Care Dog Obedience Instructor Name Role Phone Unavailable Primary Care Provider Unavailabl e Reason for Visit * Reason Onset Date Comments Echo Movep for 10/04 visit 09/15/2023 Encounter Details Date Type Department Care Team (Latest Contact Info) Description 09/15/2023 Clinical Communication Division of General Internal Medicine in [place], [place] [address] [place] [address] Prescheduling, Provider Echo Movep for 10/04 visit Social History Tobacco Use Types Packs/Day Years Used Date Smoking Tobacco: Former [facility] Utilities Answer Date Recorded In [...] your living situation today? [facility] to [facility] 10/01/2023 Sex and Gender Information Value Date Recorded Sex Assigned at Male 09/11/2023 10:52 AM CDT Gender Identity Male 09/11/2023 10:52 AM CDT Sexual Orientation Straight 09/11/2023 10 :52 AM CDT documented as of this encounter Plan of Treatment Upcoming Encounters Date Type Department Care Team (Latest Contact Info) Description 11/03/2023 9:00 AM CDT Clinical Support Healthy Living Program in [place], [place] [address] [place] [phone] Bubba Perez M.D., M.S. [address] [place] [address] [phone] 11/03/2023 10:00 AM CDT Clinical Support Healthy Living Program in [place], [place] [address] [place] [phone] Avtar Aaron M.D. [address] [place] [address] [phone] Lillian Winkler, [facility] [address] [place] [phone] 11/03/2023 1:40 PM CDT Appointment Department of Radiology, [facility], in [place], [place] [address] [place] [phone] Rosemary Gregorio APRN, TRAVEL COUNSELOR [employer], M.S. [address] [place] [phone] 11/09/2023 8:00 AM CDT Clinical Communication Virtual Review in [place], [place] 200 [place] [phone] 11/12/2023 8:00 AM CDT Comprehensive Visit Division of Pain Medicine in [place], [place] [address] [place] [phone] Angelina Jefferson APRN, C.N.P., M.S.N. [address] [place] [phone] 11/13/2023 10:00 AM CDT Telemedicine Section of Executive Medicine in [place], [place] [address] [place] [phone] Avtar Aaron M.D. [address] [place] [phone] 12/30/2023 11:10 AM CDT Appointment Department of Laboratory Medicine and Pathology, [address] [phone] Rosemary Gregorio APRN, TRAVEL [employer], M.S. [address] [place] [phone] 12/30/2023 11:20 AM CDT Appointment Department of Laboratory Medicine and Pathology, [facility] in [place], [place] [address] [place] [phone] Rosemary Gregorio APRN, TRAVEL COUNSELOR [employer], M.S. [address] [place] [phone] 12/30/2023 12:30 PM CDT Appointment Department of Radiology, [facility] in [place], [place] [address] [place] [phone] Rosemary Gregorio APRN, DULCE, M.S. [address] [place] [phone] 12/31/2023 12:40 PM CDT Ancillary Procedure Department of Cardiovascular Medicine in [place], [place] [address] [place] [phone] Fredi Horner M.D. [address] [place] [phone] 12/31/2023 1:45 PM CDT Comprehensive Visit Department of Urology in [place], [place] [address] [place] [phone] Tbaitha Rich P.A.-C. [address] [place] [phone] 12/31/2023 2:30 PM CDT Procedure visit Department of Urology in [place], [place] [address] [place] [phone] Rosemary Gregorio APRN, DULCE, M.S. [address] [place] [phone] 01/01/2024 8:00 AM CDT Comprehensive Visit Department of Cardiovascular Medicine in [place], [place] [address] [place] [phone] Fredi Horner M.D. [address] [place] [phone] 01/01/2024 1:30 PM CDT Comprehensive Visit Division of Endocrinology in [place], [place] [address] [place] [phone] Horacio Harp M.D. 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
--- OUTSIDE RECORDS SUMMARY | 2023-10-24 07:40 | XMS_ITS | Encounter Summary ---
Author Organization [facility] Address [address] [place] [phone] Care Team Providers Care Shell Machine Operator Name Role Phone Unavailable Primary Care Provider Unavailabl e Reason for Referral * Outpatient (Routine) - Closed Specialty Diagnoses / Procedures Referred By Candice maki Referred To Contact Diagnoses Flutter Atrial (HCC) Procedures DX Chest AP or PA and Lateral 2 Views Avtar Aaron M.D. 200 [place] [phone] [facility] Referral ID Status Reason Start Date Expiration Date Visits Re quested Visits Authorized [id number] Closed 09/14/2023 09/13/2024 1 1 Reason for Visit * Outpatient (Routine) - Closed Specialty Diagnoses / Procedures Referred By Candice maki Referred To Contact Diagnoses Flutter Atrial (HCC) Procedures DX Chest AP or PA and Lateral 2 Views Avtar Aaron M.D. [address] [place] [phone] [facility] Referral ID Status Reason Start Date Expiration Date Visits Re quested Visits Authorized [id number] Closed 09/14/2023 09/13/2024 1 1 Encounter Details Date Type Department Care Team (Latest Contact Info) Description 10/05/2023 2:58 PM CDT - 10/05/2023 4:02 PM CDT Hospital Encounter Department of Radiology, [facility], in [place], [place] [address] [place] [phone] Avtar Aaron M.D. [address] [place] [phone] Flutter Atrial (HCC) Discharge Disposition: Home or [...] for many years. I stopped in 2013. [facility] Utilities Answer Date Recorded In the past 12 months has [employer], oil, or water [facility] threatened to shut off services in your [...] your living situation today? I have a [facility] place to live 10/01/2023 Sex and [...] CDT Clinical Support Healthy Living Program in [place], [place] 200 [place] [address] Bubba Perez M.D., M.S. 200 [place] [phone] 11/03/2023 10:00 AM CDT Clinical Support Healthy Living Program in [place], [place] [address] [place] [phone] Avtar Aaron M.D. [address] [place] [phone] Lillian Winkler, [facility] [address] [place] [phone] 11/03/2023 1:40 PM CDT Appointment Department of Radiology, [facility] in [place], [place] [address] [place] [phone] Rosemary Gregorio APRN, DULCE, M.S. [address] [place] [phone] 11/09/2023 8:00 AM CDT Clinical Communication Virtual Review in [address] [phone] 11/12/2023 8:00 AM CDT Comprehensive Visit Division of Pain Medicine in [address] [phone] Angelina Jefferson APRN, C.N.P., M.S.N. [address] [place] [phone] 11/13/2023 10:00 AM CDT Telemedicine Section of Executive Medicine in [address] [phone] Avtar Aaron M.D. [address] [place] [phone] 12/30/2023 11:10 AM CDT Appointment Department of Laboratory Medicine and Pathology, [facility], in [place], [place] [address] [place] [phone] Rosemary Gregorio APRN, DULCE, M.S. [address] [place] [phone] 12/30/2023 11:20 AM CDT Appointment Department of Laboratory Medicine and Pathology, [facility] in [place], [place] [address] [place] [phone] Rosemary Gregorio APRN, OFFICE MANAGER RECEPTIONIST, M.S. [address] [place] [phone] 12/30/2023 12:30 PM CDT Appointment Department of Radiology, [facility] in [place], [place] [address] [place] [phone] Rosemary Gregorio APRN, OFFICE MANAGER RECEPTIONIST, M.S. [address] [place] [phone] 12/31/2023 12:40 PM CDT Ancillary Procedure Department of Cardiovascular Medicine in [place], [place] [address] [place] [phone] Fredi Horner M.D. [address] [place] [phone] 12/31/2023 1:45 PM CDT Comprehensive Visit Department of Urology in [address] [phone] Tabitha Rich P.A.-C. [address] [place] [phone] 12/31/2023 2:30 PM CDT Procedure visit Department of Urology in [place], [place] [address] [place] [phone] Rosemary Gregorio APRN, DULCE, M.S. [address] [place] [phone] 01/01/2024 8:00 AM CDT Comprehensive Visit Department of Cardiovascular Medicine in [place], [place] [address] [place] [phone] Fredi Horner M.D. [address] [place] [address] 01/01/2024 1:30 PM CDT Comprehensive Visit Division of Endocrinology in [place], [place] [address] [place] [phone] Horacio Harp M.D. [address] [place] [phone] documented as of this encounter Procedures Procedure Name Priority Date/Time Associated Diagnosis Comments DX CHEST AP OR PA AND LATERAL 2 VIEWS RAD - Routine (most inpatients and all outpatients) 10/05/2023 3:36 PM CDT Flutter Atrial (HCC) documented in this encounter Results * DX Chest AP or PA and Lateral 2 Views (10/05/2023 3:36 PM CDT) Anatomical Region Laterality Modality Chest, Thoracic RST LOS, Tho racic ARZ LOS, Thoracic FLA LOS N/A Digital Radiography Impressions 10/05/2023 3:38 PM CDT Posterior pedicular screw and dolores fixation lower thoracic spine. Descending thoracic aortic endograft. Small amount of fluid or pleural thickening in the costophrenic angles. Lungs clear. Since 02/16/2013, the left pleural effusion has largely resolved. Narrative 10/05/2023 3:38 PM CDT EXAM: ??DX CHEST AP OR PA AND LATERAL 2 VIEWS Procedure Note Eddy Caballreo M.D. - 10/05/2023 EXAM: DX CHEST AP OR PA AND LATERAL 2 VIEWS IMPRESSION: Posterior pedicular screw and dolores fixation lower thoracic spine.Descending thoracic aortic endograft. Small amount of fluid or pleuralthickening in the costophrenic angles. Lungs clear. Since 02/16/2013, theleft pleural effusion has largely resolved. 

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
--- OUTSIDE RECORDS SUMMARY | 2023-10-24 07:40 | XMS_ITS | Encounter Summary ---
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 [address] [place] [address] [facility] Referral ID Status Reason Start Date Expiration Date Visits Requested Visits Authorized [id number] Authorized Specialty Services Required 09/14/2023 03/15/2025 1 1 * Outpatient (Routine) - Closed Specialty Diagnoses / Procedures Referred By Contac t Referred To Contact Diagnoses Injury Thoracic Spinal Cord Subsequent (HCC) Procedures DX Thoracic Spine 2 Views Avtar Aaron M.D. 200 [place] [address] [facility] Referral ID Status Reason Start Date Expiration Date Visits Re quested Visits Authorized [id number] Closed 09/14/2023 09/13/2024 1 1 * Outpatient (Routine) - Closed Specialty Diagnoses / Procedures Referred By Contac t Referred To Contact Diagnoses Injury Thoracic Spinal Cord Subsequent (HCC) Procedures DX Lumbar Spine 2-3 Views Avtar Aaron M.D. [address] [place] [phone] [facility] Referral ID Status Reason Start Date Expiration Date Visits Re quested Visits Authorized [id number] Closed 09/14/2023 09/13/2024 1 1 * Outpatient (Routine) - Closed Specialty Diagnoses / Procedures Referred By Contact Referred To Contact Physical Medicine and Rehabilitation Diagnoses Injury Thoracic Spinal Cord Subsequent (HCC) Avtar Aaron M.D. [address] [place] [phone] Referral ID Status Reason Start Date Expiration Date Visits Re quested Visits Authorized [id number] Closed 09/14/2023 03/15/2025 1 1 * Physical Therapy (Routine) - Closed Specialty Diagnoses / Procedures Referred By Candice t Referred To Contact Diagnoses Injury Thoracic Spinal Cord Subsequent (HCC) Procedures PT or OT eval and treat (first available) Avtar Aaron M.D. 200 [place] [address] [facility] Referral ID Status Reason Start Date Expiration Date Visits Re quested Visits Authorized [id number] Closed 09/14/2023 09/13/2024 1 1 * Outpatient (Routine) - Closed Specialty Diagnoses / Procedures Referred By Contac t Referred To Contact Diagnoses Pain Shoulder Left Procedures DX Shoulder Left 2+ Views Avtar Aaron M.D. 200 [place] [address] [place] [facility] Referral ID Status Reason Start Date Expiration Date Visits Re quested Visits Authorized [id number] Closed 09/14/2023 09/13/2024 1 1 * Outpatient (Routine) - Authorized Specialty Diagnoses / Procedures Referred By Candice t Referred To Contact Wellness Diagnoses Wellness Screening Avtar Aaron M.D. [address] [place] [phone] [facility] Referral ID Status Reason Start Date Expiration Date V isits Requested Visits Authorized [id number] Authorized 09/14/2023 03/15/2025 1 1 Scheduling Instructions CM * Outpatient (Routine) - Closed Specialty Diagnoses / Procedures Referred By Candice t Referred To Contact Diagnoses Flutter Atrial (HCC) Procedures Echo Transthoracic (TTE) Avtar Aaron M.D. 200 [place] [address] [facility] Referral ID Status Reason Start Date Expiration Date Visits Re quested Visits Authorized [id number] Closed 09/14/2023 09/13/2024 1 1 * Outpatient (Routine) - Closed Specialty Diagnoses / Procedures Referred By Contac t Referred To Contact Diagnoses Flutter Atrial (HCC) Procedures DX Chest AP or PA and Lateral 2 Views Avtar Aaron M.D. 200 [place] [address] [facility] Referral ID Status Reason Start Date Expiration Date Visits Re quested Visits Authorized [id number] Closed 09/14/2023 09/13/2024 1 1 * Outpatient (Routine) - Authorized Specialty Diagnoses / Procedures Referred By Contac t Referred To Contact Diagnoses Flutter Atrial (HCC) Procedures ECG Heart rhythm monitor (Holter) Avtar Aaron M.D. [address] [place] [phone] [facility] Referral ID Status Reason Start Date Expiration Date V isits Requested Visits Authorized [id number] Authorized 09/14/2023 09/13/2024 1 1 * Outpatient (Routine) - Closed Specialty Diagnoses / Procedures Referred By Contac t Referred To Contact Diagnoses Flutter Atrial (HCC) Procedures ECG 12 Lead Avtar Aaron M.D. [address] [place] [phone] [facility] Referral ID Status Reason Start Date Expiration Date Visits Re quested Visits Authorized [id number] Closed 09/14/2023 09/13/2024 1 1 * Outpatient (Routine) - Authorized Specialty Diagnoses / Procedures Referred By Contact Referred To Contact Cardiovascular Diseases / Cardiovascular Disease Diagnoses Flutter Atrial (HCC) Avtar Aaron M.D. 200 [place] [address] [facility] Referral ID Status Reason Start Date Expiration Date V isits Requested Visits Authorized [id number] Authorized 09/14/2023 03/15/2025 1 1 Scheduling Instructions CM Reason for Visit * Reason Onset Date Comments Triage 09/08/2023 Encounter Details Date Type Department Care Team (Late st Contact Info) Description 09/08/2023 Clinical Communication Division of General Internal Medicine in [place], [place] [address] [place] [phone] Prescheduling, Provider Triage Social History Tobacco Use Types Packs/Day Years Used Date Smoking Tobacco: Former [facility] Utilities Answer Date Recorded In the past [...] your living situation today? I have a [facility] place to live 10/01/2023 Sex and Gender Information Value Date Recorded Sex Assigned at Male 09/11/2023 10:52 AM CDT Gender Identity Male 09/11/2023 10:52 AM CDT Sexual Orientation Straight 09/11/2023 10 :52 AM CDT documented as of this encounter Miscellaneous Notes * Telephone Encounter - ashishLillian morrow Diogo - 09/08/2023 2:49 PM CDT Michael Bauman 1985 [id number] 37 years Height: 5'8?? Weight: 130 Lbs Gender: Male PCP: Who filled out ARF: Patient Request: I have medical symptoms without a clear diagnosis, I am diagnosed but want a second opinion or needhelp with treatment MAIN SYMPTOM Atrial Flutter Description: My heart starts racing and I feel strange, like a weakness or something bad will happen. It has happened multiple times over the years, but it wasn't caught on an EKG until recently. I was diagnosed with atrial flutter. Duration: More than 12 months Previous Eval: Yes Location: [facility] Have had: None of the above Diagnosis: Atrial Flutter Outcome: Was told to follow up. Expectations: Find out more information and create a treatment plan. ADDITIONAL - 1 Shoulder Pain Description: My left shoulder has started exhibiting pain for a few months. It is not severe and only occurs with certain movements, but I use a manual wheelchair, so shoulder health is very important for my mobility. Duration: Less than 6 months Previous Eval: No Location: Have had: Diagnosis: Outcome: Expectations: Diagnose the problem and create a treatment plan. ADDITIONAL - 2 Pressure Sores Description: I use a manual wheelchair and I develop pressure sores occasionally. One of them got really bad andgot infected about 2 years ago. I ended up having to get a flap surgery. My skin has mostly remained in tact, but there are initial signs of pressure sores that have appeared. Duration: More than 12 months Previous Eval: Yes Location: [facility] Have had: Procedures (surgeries, colonoscopies, biopsies, etc.), Images (X-Rays, CT scan, MRI scan, etc.), Blood or urine tests Diagnosis: Stage 4 Pressure Ulcer with Osteomyelitis Outcome: Flap surgery and Hyperbaric Oxygen Therapy. 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 This happened about 10 years ago. I had a spinal fusion with rods and screws placed in. Since then my posture has changed and I haven't had the hardware examined for years. I also had an aortic stent, which also hasn't been examined for years. Duration: More than 12 months Previous Eval: Yes Location: [facility] Have had: Procedures (surgeries, colonoscopies, biopsies, etc.), Images (X-Rays, CT scan, MRI scan, etc.), Blood or urine tests Diagnosis: T7 Complete Spinal Cord Injury Outcome: I was treated and rehabilitated at [facility] initially, but haven't been examined for multiple years since then. Expectations: Check to make sure everything is still working alright and that posture changes aren't causing problems with the hardware. ADDITIONAL - 4 Neuropathic Pain Description: I have had neuropathic pain in my lower body since my spinal cord injury. I have learned to live with it, but it does cause a lot of stress in my life. Duration: More than 12 months Previous Eval: Yes Location: [facility] Have had: None of the above Diagnosis: The original diagnosis was neuropathic pain, but I haven't been seen about this in years. Outcome: I have been taking Pregabalin since my injury occurred. Expectations: See if there are any other treatment options that would better take care of the pain. ADDITIONAL CONCERNS: LIFESTYLE MEDICINE CONSULTATION: Yes CONDITIONS: Pain BOTHERED BY: Feeling nervous, anxious or on edge - Not being able to control or stop worrying - Little interest or pleasure in doing things - Feeling down, depressed, or helpless - Willing to speak to a mental health professional - PAIN LONGER THAN 3 MONTHS: Yes CARE PROVIDERS TO DATE: 2 LOWEST PAIN LAST 7 DAYS (0 to 10): 2 PAIN INTERFERENCE PAST 3 MONTHS (0 to 10): 4 PAIN AREAS: Lower BACK, Right HIP, Right Lower LEG, Left SHOULDER, Left HIP, Left Lower LEG FATIGUE A MAIN REASON FOR VISIT: FATIGUE/HOW LONG: PROBLEMS WITH SLEEP: SLEEP PROBLEMS LAST 2 WEEKS: SLEEP APNEA DIAGNOSIS: Willing to attend [facility] or [facility] appointments - Probably yes DAILY MEDS: 2 OPIOIDS: No CURRENT DIALYSIS: No CURRENT HEALTH/PAST YEAR: Very Good CONFIDENCE: Agree NOT AVAILABLE: 09/14, 09/20, 10/30-11/04, 12/20-Saturdays PHONE: [phone] documented in this encounter Plan of Treatment Upcoming Encounters Date Type Department Care Team (Latest Contact Info) Description 11/03/2023 9:00 AM CDT Clinical Support Healthy Living Program in [place], [place] [address] [place] [phone] Bubba Perez M.D., M.S. [address] [place] [phone] 11/03/2023 10:00 AM CDT Clinical Support Healthy Living Program in [place], [place] [address] [place] [phone] Avtar Aaron M.D. [address] [place] [phone] Lillian Winkler, [facility] [address] [place] [phone] 11/03/2023 1:40 PM CDT Appointment Department of Radiology, [facility], in [place], [place] [address] [place] [phone] Rosemary Gregorio APRN, JAVA MANAGER, M.S. [address] [place] [phone] 11/09/2023 8:00 AM CDT Clinical Communication Virtual Review in [place], [place] 200 [place] [address] 11/12/2023 8:00 AM CDT Comprehensive Visit Division of Pain Medicine in [place], [place] [address] [place] [phone] Angelina Jefferson APRN, C.N.P., M.S.N. [address] [place] [phone] 11/13/2023 10:00 AM CDT Telemedicine Section of Executive Medicine in [place], [place] [address] [place] [phone] Avtar Aaron M.D. [address] [place] [phone] 12/30/2023 11:10 AM CDT Appointment Department of Laboratory Medicine and Pathology, [facility] in [place], [place] [address] [place] [phone] Rosemary Gregorio APRN, JAVA MANAGER, M.S. [address] [place] [phone] 12/30/2023 11:20 AM CDT Appointment Department of Laboratory Medicine and Pathology, [facility] in [place], [place] [address] [place] [phone] Rosemary Gregorio APRN, JAVA MANAGER, M.S. [address] [place] [phone] 12/30/2023 12:30 PM CDT Appointment Department of Radiology, [facility] in [place], [place] [address] [place] [phone] Rosemary Gregorio APRN, JAVA MANAGER, M.S. [address] [place] [phone] 12/31/2023 12:40 PM CDT Ancillary Procedure Department of Cardiovascular Medicine in [address] [phone] Fredi Horner M.D. [address] [place] [phone] 12/31/2023 1:45 PM CDT Comprehensive Visit Department of Urology in [place], [place] [address] [place] [phone] Tabitha Rich, Baljit. [address] [place] [phone] 12/31/2023 2:30 PM CDT Procedure visit Department of Urology in [place], [place] [address] [place] [phone] Rosemary Gregorio APRN, JAVA MANAGER, M.S. [address] [place] [phone] 01/01/2024 8:00 AM CDT Comprehensive Visit Department of Cardiovascular Medicine in [place], [place] [address] [place] [phone] Fredi Horner M.D. [address] [place] [phone] 01/01/2024 1:30 PM CDT Comprehensive Visit Division of Endocrinology in [place], [place] [address] [place] [phone] Horacio Harp M.D. [address] [place] [phone] Scheduled Referrals Name Type Priority Associated Diagnoses Order Schedule Cardiovascular Disease - Heart rhythm consult (clinic) Outpatient Referral Routine Flutter Atrial (HCC) Expected: 10/05/2023, Expires: 12/13/2024 Healthy Living Program - lifestyle consult (clinic) Outpatient Referral Routine Wellness Screening Expected: 10/05/2023, Expires: 12/13/2024 Physical Medicine and Rehabilitation - General consult (clinic) Outpatient Referral Routine Injury Thoracic Spinal Cord Subsequent (HCC) Expected: 10/05/2023, Expires: 12/13/2024 Pain Medicine - General consult (clinic) Outpatient Referral Routine Injury Thoracic Spinal Cord Subsequent (HCC) Expected: 10/05/2023, Expires: 12/13/2024 documented as of this encounter Results * HOLTER MONITOR - IN CLINIC ARTILLERY METEOROLOGICAL MAN (10/07/2023 9:43 AM CDT) Min Heart Rate [...] 1h 35m duration INFOBION IC MOME AF [place] 6.71 percent INFOBIONIC MOME Longest AF Duration 1h 36m duration INFOBIONIC MOME Symptom Count 1 count INFOBI ONIC MOME 10/06/2023 8:39 AM CDT Narrative INFOBIONIC MOME - 10/11/2023 2:23 PM CDT [place] 1. The basic rhythm was sinus with [...] this event, there was no ectopy noted. Jig Builder: COLETTE Rivera/ COLETTE Bray A Holter monitor with cascade to extended monitoring was ordered for the indication of Atrial fibrillation or flutter calculate burden/% time in AF. During the Holter monitoring period, the patient did have atrial fibrillation or flutter >=30 seconds. Therefore, the study was not cascaded to extended monitoring. Procedure Note Lisandro Ellison M.D. - 10/11/2023 [place] 1. The basic rhythm was sinus with [...] this event, there was no ectopy noted. Jig Builder: COLETTE Rivera/ COLETTE Bray A Holter monitor with cascade to extended monitoring was ordered for theindication of Atrial fibrillation or flutter calculate burden/% time inAF. During the Holter monitoring period, the patient did have atrialfibrillation or flutter >=30 seconds. Therefore, the study was not cascaded to extended monitoring. Avtar Aaron M.D. CV CARDIAC SERV ICES PROCEDURES Performing Organization Address [facility] Co de Phone Number INFOBIONIC GEMMA NA * ECG 12 Lead (10/06/2023 8:33 AM CDT) Ventricular Rate ECG/Min 89 BPM MUSE QRSD Interval 96 ms MUSE QT Interval 364 ms MUSE QTC Interval 442 ms MUSE P Duncan 78 degrees MUSE R [place] 54 degrees MUSE T Wave [place] 29 degrees MUSE 10/06/2023 8:33 AM CDT [...] Aaron M.D. ECG ORDERABLES Performing Organization Address [facility] Co de Phone Number MUSE NA * Thyroid Function [place] (10/05/2023 4:15 PM CDT) TSH, Sensitive 1.4 0.3 - 4.2 mIU/L 10/05/2023 5:30 PM CDT DTL Blood (Blood, Venous) 10/05/2023 4:15 PM CDT 10/05/2023 4:58 PM CDT Avtar Aaron M.D. LAB BLOOD ADD-O N [facility] [address] [place] [address], [facility] [[email or web address]] DTL [facility] [address] [place] [address] * (ABNORMAL) Basic Metabolic Panel (10/05/2023 4:15 [...] Avtar Aaron M.D. LAB BLOOD ADD-O N [facility] [address] [place] [address], [facility] [[email or web address]] DTL [facility] [address] [place] [address] * DX Chest AP or PA and [...] IMPRESSION: Negative left shoulder. Avtar Aaron M.D. [facility] * DX Thoracic Spine [...] L5-S1. Thoracic aortic endograft. Avtar Aaron M.D. 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
--- OUTSIDE RECORDS SUMMARY | 2023-10-24 07:40 | XMS_ITS | Encounter Summary ---
Author Organization [facility] Address [address] [place] [phone] Care Team Providers Care Infection Prevention Practitioner Name Role Phone Unavailable Primary Care Provider Unavailabl e Reason for Referral * Outpatient (Routine) - Closed Specialty Diagnoses / Procedures Referred By Candice maki Referred To Contact Diagnoses Pain Shoulder Left Procedures DX Shoulder Left 2+ Views Avtar Aaron M.D. [address] [place] [address] [facility] Referral ID Status Reason Start Date Expiration Date Visits Re quested Visits Authorized [id number] Closed 09/14/2023 09/13/2024 1 1 Reason for Visit * Outpatient (Routine) - Closed Specialty Diagnoses / Procedures Referred By Candice maki Referred To Contact Diagnoses Pain Shoulder Left Procedures DX Shoulder Left 2+ Views Avtar Aaron M.D. [address] [place] [phone] [facility] Referral ID Status Reason Start Date Expiration Date Visits Re quested Visits Authorized [id number] Closed 09/14/2023 09/13/2024 1 1 Encounter Details Date Type Department Care Team (Latest Contact Info) Description 10/05/2023 2:58 PM CDT - 10/05/2023 4:02 PM CDT Hospital Encounter Department [facility] in [place], [place] [address] [place] [address] Avtar Aaron M.D. [address] [place] [address] Pain Shoulder Left Discharge Disposition: Home or [...] 2013. [facility] [employer] Answer Date Recorded In the past 12 months has [employer], [employer], oil, or water Deep [employer] threatened to shut off services in your [...] your living situation today? [facility] 10/01/2023 Sex and [...] CDT Clinical Support Healthy Living Program in [place], [place] [address] [place] [phone] Bubba Perez M.D., M.S. [address] [place] [address] 11/03/2023 10:00 AM CDT Clinical Support Healthy Living Program in [place], [place] [address] [place] [phone] Avtar Aaron M.D. [address] [place] [phone] Lillian Winkler, [facility] [address] [place] [phone] 11/03/2023 1:40 PM CDT Appointment Department of Radiology, [facility], in [place], [place] [address] [place] [phone] Rosemary Gregorio APRN, DIRECTOR CAMP, M.S. [address] [place] [phone] 11/09/2023 8:00 AM CDT Clinical Communication Virtual Review in [place], [place] 200 [place] [phone] 11/12/2023 8:00 AM CDT Comprehensive Visit Division of Pain Medicine in [place], [place] [address] [place] [phone] Angelina Jefferson APRN, C.N.P., M.S.N. [address] [place] [phone] 11/13/2023 10:00 AM CDT Telemedicine Section of Executive Medicine in [place], [place] [address] [place] [phone] Avtar Aaron M.D. [address] [place] [phone] 12/30/2023 11:10 AM CDT Appointment Department of Laboratory Medicine and Pathology, [facility], in [place], [place] [address] [place] [phone] Rosemary Gregorio APRN, DIRECTOR CAMP, M.S. [address] [place] [phone] 12/30/2023 11:20 AM CDT Appointment Department of Laboratory Medicine and Pathology, [facility] in [place], [place] [address] [place] [phone] Rosemary Gregorio APRN, DULCE, M.S. [address] [place] [phone] 12/30/2023 12:30 PM CDT Appointment Department of Radiology, [facility] in [place], [place] [address] [place] [address] Rosemary Gregorio APRN, DULCE, M.S. [address] [place] [phone] 12/31/2023 12:40 PM CDT Ancillary Procedure Department of Cardiovascular Medicine in [place], [place] [address] [place] [phone] Fredi Horner M.D. [address] [place] [phone] 12/31/2023 1:45 PM CDT Comprehensive Visit Department of Urology in [place], [place] [address] [place] [phone] Tabitha Rich P.A.-C. [address] [place] [phone] 12/31/2023 2:30 PM CDT Procedure visit Department of Urology in [place], [place] [address] [place] [phone] Rosemary Gregorio APRN, DULCE, M.S. [address] [place] [phone] 01/01/2024 8:00 AM CDT Comprehensive Visit Department of Cardiovascular Medicine in [place], [place] [address] [place] [phone] Fredi Horner M.D. [address] [place] [address] 01/01/2024 1:30 PM CDT Comprehensive Visit Division of Endocrinology in [place], [place] [address] [place] [phone] Horacio Harp M.D. [address] [place] [phone] documented as of this encounter Procedures Procedure Name Priority Date/Time Associated Diagnosis Comments DX SHOULDER LEFT 2+ VIEWS RAD - Routine (most inpatients and all outpatients) 10/05/2023 3:35 PM CDT Pain Shoulder Left documented in this encounter Results * DX Shoulder Left 2+ Views (10/05/2023 [...] 2+ VIEWS IMPRESSION: Negative left shoulder. 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
--- OUTSIDE RECORDS SUMMARY | 2023-10-24 07:40 | XMS_ITS | Encounter Summary ---
Author Organization [facility] Address [address] [place] [address] Care Team Providers Care Air Conditioning Engineer Name Role Phone Unavailable Primary Care Provider Unavailabl e Reason for Visit * Reason Onset Date Comments Pre-visit Intake 10/02/2023 * Appointment Request (Routine) - Authorized Specialty Diagnoses / Procedures Referred By Candice maki Referred To Contact General Internal Medicine Referral ID Status Reason Start Date Expiration Date V isits Requested Visits Authorized [id number] Authorized 09/10/2023 09/09/2024 1 1 Encounter Details Date Type Department Care Team (Latest Contact Info) Description 10/02/2023 3:00 PM CDT Clinical Communication Virtual Review in [place], [place] 200 [place] [address] Pre-visit Intake Social History Tobacco Use Types Packs/Day Years [...] for many years. I stopped in 2013. [facility] Utilities Answer Date Recorded In the past 12 months has e [employer], gas, oil, or water [employer] threatened to shut off services in your home? No 10/01/2023 Exercise Vital Sign Answer Date Recorde d [...] your living situation today? [facility] 10/01/2023 Sex [...] CDT Clinical Support Healthy Living Program in [place], [place] 200 [place] [address] Bubba Perez M.D., M.S. 200 [place] [address] 11/03/2023 10:00 AM CDT Clinical Support Healthy Living Program in [place], [place] 200 [place] [address] Avtar Aaron M.D. [address] [place] [phone] Lillian Winkler, [facility] [address] [place] [phone] 11/03/2023 1:40 PM CDT Appointment Department of Radiology, [facility] in [place], [place] [address] [place] [phone] Rosemary Gregorio APRN, SUBSTITUTE TEACHER, M.S. [address] [place] [phone] 11/09/2023 8:00 AM CDT Clinical Communication Virtual Review in [place], [place] 200 [place] [address] 11/12/2023 8:00 AM CDT Comprehensive Visit Division of Pain Medicine in [place], [place] [address] [place] [phone] Angelina Jefferson APRN, C.N.P., M.S.N. [address] [place] [phone] 11/13/2023 10:00 AM CDT Telemedicine Section of Executive Medicine in [place], [place] [address] [place] [phone] Avtar Aaron M.D. [address] [place] [phone] 12/30/2023 11:10 AM CDT Appointment Department of Laboratory Medicine and Pathology, [facility] in [place], [place] [address] [place] [phone] Rosemary Gregorio APRN, SUBSTITUTE TEACHER, M.S. [address] [place] [phone] 12/30/2023 11:20 AM CDT Appointment Department of Laboratory Medicine and Pathology, [facility] in [place], [place] [address] [place] [phone] Rosemary Gregorio APRN, DULCE, M.S. [address] [place] [phone] 12/30/2023 12:30 PM CDT Appointment Department of Radiology, [facility] in [place], [place] [address] [place] [phone] Rosemary Gregorio APRN, DULCE, M.S. [address] [place] [phone] 12/31/2023 12:40 PM CDT Ancillary Procedure Department of Cardiovascular Medicine in [place], [place] [address] [place] [phone] Fredi Horner M.D. [address] [place] [phone] 12/31/2023 1:45 PM CDT Comprehensive Visit Department of Urology in [place], [place] [address] [place] [phone] Tabitha Rich P.A.-C. [address] [place] [phone] 12/31/2023 2:30 PM CDT Procedure visit Department of Urology in [place], [place] [address] [place] [phone] Rosemary Gregorio APRN, DULCE, M.S. [address] [place] [phone] 01/01/2024 8:00 AM CDT Comprehensive Visit Department of Cardiovascular Medicine in [place], [place] [address] [place] [phone] Fredi Horner M.D. [address] [place] [address] 01/01/2024 1:30 PM CDT Comprehensive Visit Division of Endocrinology in [place], [place] [address] [place] [address] Horacio Harp M.D. 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
--- OUTSIDE RECORDS SUMMARY | 2023-10-24 07:40 | XMS_ITS | Clinical Summary ---
Author Organization [facility] Address [place], [place] [address] Care Team Providers Care Electric Transfer Operator Name Role Phone Roberto Marie MD Primary Care Provider [phone] Allergies Active Allergy Reactions Criticality Noted Date [...] capsule Take 1,000 Capsules by mouth. Active Rhphs-3-XUQ-EPA-F kendall Oil (Fish OiL) 1,000 mg (120 mg-180 mg) cap Take by mouth. Active lactobacillus combination no.4 (Probiotic) 3 billion cell cap Take by mouth. Acti ve magnesium aspartate/vit B6/Zn (ZINC MAGNESIUM ASPARTATE ORAL) Take by mouth. Activ e oxybutynin (DITROPAN XL) 15 mg CR tabletIndications :Spinal cord injury, T7-T12 (HC) Take 1 Tablet (15 mg) by mouth once daily. 30 Tablet 11 04/22/2023 Active pregabalin (LYRICA) 150 mg capsuleIndication s:Spinal cord injury, T7-T12 (HC) TAKE 1 CAPSULE (150 MG) BY MOUTH TWO TIMES DAILY. 60 Capsule 2 10/22/2023 Active pregabalin (LYRICA) 150 mg capsuleIndication s:Spinal cord injury, T7-T12 (HC) Take 1 Capsule (150 mg) by mouth two times daily. 60 Capsule 5 04/22/2023 4 Discontinued Active Problems Problem Noted Date Diagnosed Date Other acne 12/03/2006 Allergic rhinitis, cause unspecified 12/03/2006 Encounters Date Type Department Care Team Description 10/22/2023 Refill [facility] [address] [place] [address] Votel, Michael Flood MD Refill Request (Pregabalin) from Last 3 Months Immunizations Name Administration [...] Comments Blood Pressure 104/66 04/22/2023 4:12 PM TEST ENGINEERING MANAGER Pulse 72 04/22/2023 4:12 PM TEST ENGINEERING MANAGER Temperature 36.5 ??C (97.7 ??F) 08/15/2009 2:00 PM CD T Respiratory Rate - - Oxygen Saturation 94% 04/22/2023 4:12 PM TEST ENGINEERING MANAGER Inhaled Oxygen Concentration - - Weight 69.4 [...] for age 35-44 12/22/2022 COVID-19 vaccine series ( season) 2023 Influenza for age 9-49 01/24/2024 Depression screening for age 12+ 04/22/2024 04/22/2023 Tdap Completed 05/05/2011 Pneumococcal series for age 6-64 Aged Out No longer eligible b ased on patient's age to complete this topic Care Teams Electric Transfer Operator Relationship Specialty Start Date End Date Roberto Marie MD [address] [facility] [address] [place] [address] [facility] - General 06/29/09
[2023-10-24] MEDS: LACTATED RINGERS 1000 ML 1,000 ML 125 ML IV (09:33)
== END 2023-10-24 11:38 | disposition short-term general hospital (02) ==
PROVIDERS: Emergency Provider Student in an Organized Health Care Education/Training Program; PCP Family Medicine
DX: N41.0 Acute prostatitis (principal)
CPT/HCPCS: 36415; 71260; 74177; 80053; 81001; 83605; 83690; 83735; 84484; 85025; 87040; 87086; 87186; 87631; 93005; 96365; 96366; 99284; 99291; A9270; J0612; J0696; J1580; J7030; J7120; Q9967

== ENCOUNTER 2023-10-24 10:40 | Outpatient (CLI) | payer MEDICAID, SELFPAY ==
--- OUTSIDE RECORDS SUMMARY | 2023-11-09 00:51 | XMS_ITS | Encounter Summary ---
Author Organization [facility] Address [address] [place] [address] Care Team Providers Care Fur Repair Inspector Name Role Phone Unavailable Primary Care Provider Unavailabl e Encounter Details Date Type Department Care Team (Late st Contact Info) Description 10/09/2023 Clinical Communication Division of General Internal Medicine in [place], [place] [address] [place] [phone] Avtar Aaron M.D. [address] [place] [phone] Social History Tobacco Use Types Packs/Day Years [...] I stopped in 2013. [facility] Utilities Answer Date Recorded In the past 12 months has [employer], gas, oil, or water [employer] threatened to shut off services in your [...] your living situation today? I have a [facility] place to live 10/01/2023 Sex and Gender Information Value Date Recorded Sex Assigned at Male 09/11/2023 10:52 AM CDT Gender Identity Male 09/11/2023 10:52 AM CDT Sexual Orientation Straight 09/11/2023 10 :52 AM CDT documented as of this encounter Plan of Treatment Upcoming Encounters Date Type Department Care Team (Latest Contact Info) Description 11/09/2023 3:45 PM CDT Clinical Communication Virtual Review in [place], [place] 200 [place] [address] 11/12/2023 8:00 AM CDT Comprehensive Visit Division of Pain Medicine in [place], [place] [address] [place] [phone] Angelina Jefferson, TEOFILO, C.N.P., M.S.N. [address] [place] [phone] 11/13/2023 10:00 AM CDT Telemedicine Section of Executive Medicine in [place], [place] [address] [place] [phone] Avtar Aaron M.D. [address] [place] [phone] 12/30/2023 11:10 AM CDT Appointment Department of Laboratory Medicine and Pathology, [place], [place] [address] [place] [phone] Rosemary Gregorio APRN, SENIOR INDUSTRIAL ENGINEER, M.S. [address] [place] [phone] 12/30/2023 11:20 AM CDT Appointment Department of Laboratory Medicine and Pathology, [facility] in [place], [place] [address] [place] [phone] Rosemary Gregorio APRN, SENIOR INDUSTRIAL ENGINEER, M.S. [address] [place] [phone] 12/30/2023 12:30 PM CDT Appointment Department of Radiology, [facility] in [place], [place] [address] [place] [phone] Rosemary Gregorio APRN, SENIOR INDUSTRIAL ENGINEER, M.S. [address] [place] [phone] 12/31/2023 12:40 PM CDT Ancillary Procedure Department of Cardiovascular Medicine in [address] [phone] Fredi Horner M.D. [address] [place] [phone] 12/31/2023 1:45 PM CDT Comprehensive Visit Department of Urology in [address] [phone] Tabitha Rich P.A.-C. [address] [place] [phone] 12/31/2023 2:30 PM CDT Procedure visit Department of Urology in [place], [place] [address] [place] [phone] Rosemary Gregorio APRN, SENIOR INDUSTRIAL ENGINEER, M.S. [address] [place] [phone] 01/01/2024 8:00 AM CDT Comprehensive Visit Department of Cardiovascular Medicine in [place], [place] [address] [place] [phone] Fredi Horner M.D. [address] [place] [phone] 01/01/2024 1:30 PM CDT Comprehensive Visit Division of Endocrinology in [place], [place] [address] [place] [phone] Horacio Harp M.D. 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
--- OUTSIDE RECORDS SUMMARY | 2023-11-09 00:51 | XMS_ITS | Encounter Summary ---
Author Organization [facility] Address [address] [place] [address] Care Team Providers Care Geological Manager Name Role Phone Unavailable Primary Care Provider Unavailabl e Reason for Referral * Outpatient (Routine) - Authorized Specialty Diagnoses / Procedures Referred By Contac t Referred To Contact Diagnoses Flutter Atrial (HCC) Procedures ECG 12 Lead Fredi Horner M.D. [address] [place] [address] [facility] Referral ID Status Reason Start Date Expiration Date V isits Requested Visits Authorized [id number] Authorized 10/13/2023 10/12/2024 1 1 Reason for Visit * Reason Onset Date Comments INT REF TRIAGE 10/08/2023 INT / GIM / symp tomatic a flutter. Encounter Details Date Type Department Care Team (Latest Contact Info) Description 10/08/2023 Clinical Communication Department of Cardiovascular Medicine in [place], [place] [address] [place] [phone] Web Operations AdministratorRobert M.D. INT REF TRIAGE (INT / GIM [...] for many years. I stopped in 2013. [facility] Utilities Answer Date Recorded In the past 12 months has th e [employer], gas, oil, or water company threatened to [...] your living situation today? I have a [facility] place to live 10/01/2023 Sex [...] questions, please contact the patient's primary provider. [facility]' Nurse Chart Review: [...] Requested date: First Available Additional comments: GIM [phone] documented in this encounter Plan of Treatment Upcoming Encounters Date Type Department Care Team (Latest Contact Info) Description 11/09/2023 3:45 PM CDT Clinical Communication Virtual Review in [place], [place] 200 [place] [phone] 11/12/2023 8:00 AM CDT Comprehensive Visit Division of Pain Medicine in [place], [place] [address] [place] [phone] Angelina Jefferson APRN, Elo.N.P., M.S.N. [address] [place] [phone] 11/13/2023 10:00 AM CDT Telemedicine Section of Executive Medicine in [address] [phone] Chase Savage M.D. [address] [place] [phone] 12/30/2023 11:10 AM CDT Appointment Department of Laboratory Medicine and Pathology, [address] [phone] Rosemary Gregorio APRN, ESCALATOR CONSTRUCTOR, M.S. [address] [place] [phone] 12/30/2023 11:20 AM CDT Appointment Department of Laboratory Medicine and Pathology, [facility] in [place], [place] [address] [place] [phone] Rosemary Gregorio APRN, ESCALATOR CONSTRUCTOR, M.S. [address] [place] [phone] 12/30/2023 12:30 PM CDT Appointment Department of Radiology, [facility] in [place], [place] [address] [place] [phone] Rosemary Gregorio APRN, ESCALATOR CONSTRUCTOR, M.S. [address] [place] [phone] 12/31/2023 12:40 PM CDT Ancillary Procedure Department of Cardiovascular Medicine in [place], [place] [address] [place] [phone] Fredi Horner M.D. [address] [place] [phone] 12/31/2023 1:45 PM CDT Comprehensive Visit Department of Urology in [place], [place] [address] [place] [phone] Tabitha Rich P.A.-C. [address] [place] [phone] 12/31/2023 2:30 PM CDT Procedure visit Department of Urology in [place], [place] [address] [place] [phone] Rosemary Gregorio APRN, ESCALATOR CONSTRUCTOR, M.S. [address] [place] [phone] 01/01/2024 8:00 AM CDT Comprehensive Visit Department of Cardiovascular Medicine in [place], [place] [address] [place] [phone] Fredi Horner M.D. [address] [place] [phone] 01/01/2024 1:30 PM CDT Comprehensive Visit Division of Endocrinology in [place], [place] [address] [place] [phone] Horacio Harp M.D. 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
--- OUTSIDE RECORDS SUMMARY | 2023-11-09 00:51 | XMS_ITS | Encounter Summary ---
Author Organization [facility] Address [address] [place] [address] Care Team Providers Care Radio Program Director Name Role Phone Unavailable Primary Care Provider Unavailabl e Reason for Visit * Outpatient (Routine) - Closed Specialty Diagnoses / Procedures Referred By Candice maki Referred To Contact Wellness Diagnoses Wellness Screening Avtar Aaron M.D. [address] [place] [phone] [facility] Referral ID Status Reason Start Date Expiration Date Visits Re quested Visits Authorized [id number] Closed 09/14/2023 03/15/2025 1 1 Encounter Details Date Type Department Care Team (Latest Contact Info) Description 11/03/2023 10:00 AM CDT Clinical Support Healthy Living Program in [place], [place] [address] [place] [address] Avtar Aaron M.D. [address] [place] [phone] Kiersten Quigley, [facility] Wellness Screening (Primary Dx) Social History Tobacco Use Types Packs/Day Years [...] many years. I stopped in 2013. [facility] Utilities Answer Date Recorded In the past 12 months has th e [employer], gas, oil, or water company threatened to [...] your living situation today? I have a [employer] place to live 10/01/2023 Sex and Gender Information Value Date Recorded Sex Assigned at Male 09/11/2023 10:52 AM CDT Gender Identity Male 09/11/2023 10:52 AM CDT Sexual Orientation Straight 09/11/2023 10 :52 AM CDT documented as of this encounter Progress Notes * Kiersten Quigley, [facility], [facility] - 11/03/2023 10:00 AM CDT SUBJECTIVE REASON FOR VISIT Wellness Coaching Wellness Coaching The sports fitness and wellness director from this encounter is a non-physician health health care consultant certified by [facility] Board for Health and Wellness Coaching.?Coin Rolling Machine Operator training includes behavior change theory, motivational strategies, communication techniques, and health promotion. Wellness coaches build relationships to support patients in moving toward optimal health and wellness by experimenting with behaviors or ways of thinking, overcoming barriers, identifying support networks and building self-awareness.?? HISTORY OF PRESENT ILLNESS Michael Bauman engaged in wellness coaching through a Lifestyle Medicine Consult at the [facility] Healthy Living Program via [id number] visit. Session Summary This session focused on health behaviors that support: a healthy mindset. With this focus in mind, we spent time: exploring past successes and how these past successes can be translated into future success related to the desired behavior change. Michael is intentional about his wellness in regard to nutrition, exercise, sleep, candelario, prayer and relationships. He enjoys serving others through encouragement, mentoring or meeting other needs they might have. He shared that he'd like to keep acne at bay - recommended reaching out to his primary provider for a referral to dermatology or tracking his wellness behaviors for a few weeks ot see if nutrition, stress, sleep, etc. Might play a role in clearer skin. Throughout our conversation, I observed various strengths and values to support the change process, including adaptability, drive, resilience , resourcefulness, and thoughtfulness. Goals and Experiments 1) Eat less red meat and more fruits and vegetables by making intentional choices when grocery shopping. Time with patient: 25 minutes documented in this encounter Plan of Treatment Upcoming Encounters Date Type Department Care Team (Latest Contact Info) Description 11/09/2023 3:45 PM CDT Clinical Communication Virtual Review in [place], [place] 200 [place] [address] 11/12/2023 8:00 AM CDT Comprehensive Visit Division of Pain Medicine in [address] [phone] Angelina Jefferson, TEOFILO, C.N.P., M.S.N. [address] [place] [phone] 11/13/2023 10:00 AM CDT Telemedicine Section of Executive Medicine in [place], [place] [address] [place] [phone] Avtar Aaron M.D. [address] [place] [phone] 12/30/2023 11:10 AM CDT Appointment Department of Laboratory Medicine and Pathology, [facility] in [place], [place] [address] [place] [phone] Rosemary Gregorio APRN, TOBACCO GROWER, M.S. [address] [place] [phone] 12/30/2023 11:20 AM CDT Appointment Department of Laboratory Medicine and Pathology, [facility] in [place], [place] [address] [place] [phone] Rosemary Gregorio APRN, TOBACCO GROWER, M.S. [address] [place] [phone] 12/30/2023 12:30 PM CDT Appointment Department of Radiology, [facility] in [place], [place] [address] [place] [phone] Rosemary Gregorio APRN, TOBACCO GROWER, M.S. [address] [place] [phone] 12/31/2023 12:40 PM CDT Ancillary Procedure Department of Cardiovascular Medicine in [place], [place] [address] [place] [phone] Fredi Horner M.D. [address] [place] [phone] 12/31/2023 1:45 PM CDT Comprehensive Visit Department of Urology in [place], [place] [address] [place] [phone] Tabitha Rich P.A.-C. [address] [place] [phone] 12/31/2023 2:30 PM CDT Procedure visit Department of Urology in [place], [place] [address] [place] [phone] Rosemary Gregorio APRN, TOBACCO GROWER, M.S. [address] [place] [phone] 01/01/2024 8:00 AM CDT Comprehensive Visit Department of Cardiovascular Medicine in [place], [place] [address] [place] [phone] Fredi Horner M.D. [address] [place] [phone] 01/01/2024 1:30 PM CDT Comprehensive Visit Division of Endocrinology in [place], [place] [address] [place] [phone] Horacio Harp M.D. 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
--- OUTSIDE RECORDS SUMMARY | 2023-11-09 00:51 | XMS_ITS ---
Author Organization [facility] Address [address] [place] [address] Care Team Providers Care Databases Computer Consultant Name Role Phone Unavailable Unavailable Unavailable Surgery Details Not on file Complications Check Surgery Details section. Procedure Estimated Blood Loss Check Surgery Details section. Procedure Findings Check Surgery Details section. Procedure Specimens Taken Check Surgery Details section.
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
--- OUTSIDE RECORDS SUMMARY | 2023-11-09 00:51 | XMS_ITS | Clinical Summary ---
Author Organization [facility] Address [address] [place] [address] Care Team Providers Care Mobility Architect Manager Name Role Phone Unavailable Primary Care Provider Unavailabl e Source Comments Patient records contain information from all sites at [facility]. For routine questions regarding patient records, call [phone] during business hours, M-F 8:00 AM - 5:00 PM Central Time. Record requests for emergency care only can be directed to [phone] at any time.[facility] Allergies Active Allergy Reactions Criticality Noted [...] mouth 2 (two) times a day. Active dilTIAZem (CARDIZEM) 30 mg tablet Take 30 mg by mouth every 6 (six) hours. Active metoprolol tartrate (LOPRESSOR) 25 mg tabletIndications: Flutter Atrial (HCC) Take 1 tablet (25 mg total) by mouth as needed (for atrial flutter). 30 tablet 10/05/2023 11/03/2023 Discontinued Active Problems Problem Noted Date Diagnosed Date Flutter Atrial 11/03/2023 Neurogenic Bladder 11/03/2023 Pain Neuropathic 11/03/2023 Paraplegia 01/17/2013 Resolved Problems Problem Noted Date Diagnosed Date Resolved Date Atypical Atrial Flutter 11/03/202310/23 Encounters Date Type Department Care Team Description 11/03/2023 11:59 AM CDT - 11/03/2023 11:59 PM CDT Hospital Encounter Department of Radiology, [facility] in [place], [place] [address] [place] [address] Rosemary Gregorio APRN, [employer]F, M.S. Injury Thoracic Spinal Cord Subsequent (HCC); Paraplegia (HCC); Osteoporosis Discharge Disposition: Home or Self Care 11/03/2023 10:00 AM CDT Clinical Support Healthy Living Program in [address] [phone] Avtar Aaron M.D. Kiersten Quigley, [facility] Wellness Screening (Primary Dx) 11/03/2023 9:00 AM CDT Clinical Support Healthy Living Program in [place], [place] [address] [place] [phone] Bubba Perez M.D., M.S. Paraplegia (HCC) (Primary Dx); Flutter Atrial (HCC); Pain Neuropathic; Wellness Screening 10/09/2023 1:00 PM CDT Comprehensive Visit Department of Physical Medicine and Rehabilitation in [place], [place] [address] [place], [place] [phone] Karoline Carney M.D. Pain Shoulder Left (Primary Dx); Tear Glenoid Labral Initial Left; Rotator Cuff Disorder Left; Tendinitis Bicipital Left 10/09/2023 Clinical Communication Division of General Internal Medicine in [place], [place] [address] [place] [phone] Avtar Aaron M.D. 10/08/2023 11:00 AM CDT Comprehensive Visit Department of Physical Medicine and Rehabilitation in [address] [phone] Avtar Aaron M.D. Stanecki, Catherine E, M.S., O.T. Injury Thoracic Spinal Cord Subsequent (HCC) (Primary Dx) Discharge Disposition: Home or Self Care 10/08/2023 10:00 AM CDT Comprehensive Visit Department of Physical Medicine and Rehabilitation in [address] [phone] Rosemary Gregorio APRN, DULCE, M.S. Paraplegia (HCC) (Primary Dx); Injury Thoracic Spinal Cord Subsequent (HCC); Osteoporosis; Neurogenic Bladder; Neurogenic Bowel; Abnormal Posture; Mobility Limited; Pain Neuropathic; Sensation Skin Altered Discharge Disposition: Home or Self Care 10/08/2023 Clinical Communication Department of Cardiovascular Medicine in [address] [phone] Inspector DialsRobert M.D. INT REF TRIAGE (INT / GIM / symptomatic a flutter.) 10/07/2023 7:24 PM CDT - 10/07/2023 11:59 PM CDT Hospital Encounter Department of Radiology, [facility], in [place], [place] [address] [place] [phone] Avtar Aaron M.D. Rotator Cuff Disorder Left Discharge Disposition: Home or Self Care 10/07/2023 Clinical Communication Division of General Internal Medicine in [place], [place] [address] [place] [phone] Avtar Aaron M.D. Holter result (Notification Result: Holter result for Michael Huialex showed atrial flutter was 30 seconds or longer during the start of the test noted on 10/06/23 8:57 AM. /) 10/07/2023 Clinical Communication Division of General Internal Medicine in [place], [place] [address] [place] [phone] Avtar Aaron M.D. 10/07/2023 Clinical Communication Division of General Internal Medicine in [place], [place] [address] [place] [phone] Avtar Aaron M.D. 10/06/2023 8:34 AM CDT - 10/06/2023 11:59 PM CDT Hospital Encounter Department of Cardiovascular Diseases in [place], [place] [address] [place] [phone] Avtar Aaron M.D. Flutter Atrial (HCC) Discharge Disposition: Home or Self Care 10/05/2023 4:03 PM CDT - 10/05/2023 11:59 PM CDT Hospital [place] [address] [place] [phone] Avtar Aaron M.D. Flutter Atrial (HCC) Discharge Disposition: Home or Self Care 10/05/2023 2:58 PM CDT - 10/05/2023 4:02 PM CDT Hospital Encounter Department of Radiology, [place], [place] [address] [place] [phone] Avtar Aaron M.D. Flutter Atrial (HCC) Discharge Disposition: Home or Self Care 10/05/2023 2:58 PM CDT - 10/05/2023 4:02 PM CDT Hospital Encounter Department of Radiology, [place], [place] [address] [place] [phone] Avtar Aaron M.D. Pain Shoulder Left Discharge Disposition: Home or Self Care 10/05/2023 2:57 PM CDT Hospital Encounter Department of Radiology, [facility] in [place], [place] [address] [place] [phone] Avtar Aaron M.D. Injury Thoracic Spinal Cord Subsequent (HCC) Discharge Disposition: Home or Self Care 10/05/2023 1:00 PM CDT Comprehensive Visit Division of General Internal Medicine in [address] [phone] Avtar Aaron M.D. Flutter Atrial (HCC) (Primary Dx); Injury Thoracic Spinal Cord Subsequent (HCC); Rotator Cuff Disorder Left; Tendinitis Bicipital Left 10/05/2023 8:50 AM CDT - 10/05/2023 2:56 PM CDT Hospital Encounter Department of Cardiovascular Diseases in [address] [phone] Avtar Aaron M.D. Flutter Atrial (HCC) Discharge Disposition: Home or Self Care 10/05/2023 Clinical Communication Division of General Internal Medicine in [address] [phone] Avtar Aaron M.D. Outside EKG reports 10/02/2023 3:00 PM CDT Clinical Communication Virtual Review in [address] [phone] Pre-visit Intake 09/15/2023 Clinical Communication Department of Cardiovascular Medicine in [address] [phone] Inspector DialsRobert M.D. INTERNAL REFERRAL ([facility] [id number]) 09/15/2023 Clinical Communication Division of General Internal Medicine in [address] [phone] Prescheduling, Provider Echo Movep for 10/04 visit 09/08/2023 Clinical Communication Division of General Internal Medicine in [address] [phone] Prescheduling, Provider Triage from Last 3 Months Immunizations Name Administration Dates Next Due DTP 12/19/1992, 0,06/13/1988,1987,02/29/1988 HepB Pediatric/Adolescent 12/29/2000,09/16/2000, 08/17/2000 Hib, Unspecified 06/11/1989 IPV 06/11/1989, 9,05/02/1988,1987 Influenza, Unspecified 10/02/2023(Deferred: Manuela ent decision) MCV4 (Menactra)(Discontinued) 12/03/2006 MMR 08/17/2000 Measles 12/19/1992 Mumps 03/19/1989 Polio, Unspecified 06/11/1989, 9,05/02/1988,1987 Rubella 03/19/1989 SARS-COV-2 (COVID-19) - MODE RNA (12 YEARS AND OLDER) [id number] 10/05/2023(Deferred: Patient decision - Patinet has received no COVID vaccines.) Td (Adult), adsorbed 05/25/2001,08/17/2000 Tdap 10/05/2023(Deferred: Other - pt states is utd),05/05/2011 Family History Medical History Relation Name Comments Coronary artery disease Father Michael Diabetes Father Michael Type 2 Hypertension Father Michael Melanoma Father Michael Skin cancer Father Michael Dementia Maternal Grandfather Melo Last co uple years of life Dementia Maternal Grandmother Gogo Mild at end of life Stroke Maternal Grandmother Gogo Transient ischemic attack Maternal Grandmother Gogo Anxiety disorder Mother Lupe Depression Mother Lupe Hyperlipidemia Mother Lupe Seizures Mother Lupe Depression Mother's Sister 1 Gogo Psychiatric Mother's Sister 2 Norma Bipolar Psychiatric Mother's Sister 3 Charo Bipolar Alcohol abuse Paternal Grandfather Wasyl Dementia Paternal Grandfather Wasyl Relation Name Status Comments Father Michael Maternal Grandfather Melo Maternal Grandmother Gogo Mother Lupe Mother's Sister 1 Gogo Mother's Sister 2 Norma Mother's Sister 3 Charo Paternal Grandfather Wasyl Social History Tobacco Use Types Packs/Day Years [...] for many years. I stopped in 2013. 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 Body Mass Index - - Plan of Treatment Upcoming Encounters Date Type Department Care Team (Latest Contact Info) Description 11/09/2023 3:45 PM CDT Clinical Communication Virtual Review in [address] [phone] 11/12/2023 8:00 AM CDT Comprehensive Visit Division of Pain Medicine in [address] [phone] Angelina Jefferson APRN, C.N.P., M.S.N. [address] [place] [phone] 11/13/2023 10:00 AM CDT Telemedicine Section of Executive Medicine in [address] [phone] Avtar Aaron M.D. [address] [place] [phone] 12/30/2023 11:10 AM CDT Appointment Department of Laboratory Medicine and Pathology, [address] [phone] Rosemary Gregorio APRN, [employer]IEF, M.S. [address] [place] [phone] 12/30/2023 11:20 AM CDT Appointment Department of Laboratory Medicine and Pathology, [facility] in [address] [phone] Rosemary Gregorio APRN, DULCE, M.S. [address] [place] [phone] 12/30/2023 12:30 PM CDT Appointment Department of Radiology, [facility], in [place], [place] [address] [place] [phone] Rosemary Gregorio APRN, [employer]IEF, M.S. [address] [place] [phone] 12/31/2023 12:40 PM CDT Ancillary Procedure Department of Cardiovascular Medicine in [place], [place] [address] [place] [phone] Fredi Horner M.D. [address] [place] [phone] 12/31/2023 1:45 PM CDT Comprehensive Visit Department of Urology in [place], [place] [address] [place] [phone] Tabitha Rich P.A.-C. [address] [place] [phone] 12/31/2023 2:30 PM CDT Procedure visit Department of Urology in [place], [place] [address] [place] [phone] Rosemary Gregorio APRN, [employer] CHIEF, M.S. [address] [place] [phone] 01/01/2024 8:00 AM CDT Comprehensive Visit Department of Cardiovascular Medicine in [place], [place] [address] [place] [phone] Fredi Horner M.D. [address] [place] [phone] 01/01/2024 1:30 PM CDT Comprehensive Visit Division of Endocrinology in [place], [place] [address] [place] [phone] Horacio Harp M.D. [address] [place] [phone] Health Maintenance Due Date Last Done Comments [...] this topic Medical Devices Implanted Type Area Employment Instructional Associate Device Identifier Shelf Expiration Date Model / Serial / Lot Conversions - Default Historical Implant Device Implanted:08/22 (Quantity not on file) Hardware e.g. pins/screws /rods Description:Device Status Te xt - Hardware. Gm-Syn Cocr 5.5 X 400mm - [employer] [id number] Implanted:Qty: 1 on 01/15/2013 Spine Implant Depuy Synthes Description:Device Manufactu rer - Synthes. Device Status Text - [id number]. Head Reduction Ti Polyaxial - [place] [id number] Implanted:Qty: 2 on 01/15/2013 Spine Implant Depuy Synthes Description:Device Manufactu rer - Synthes. Device Status Text - [id number] [id number]. Screw-Matrix Bone 5.0 X 45mm - [employer] [id number] Implanted:Qty: 8 on 01/15/2013 Spine Implant Depuy Synthes Description:Device Manufactu rer - Synthes. Device Status Text - [id number] [id number]. Synthes-Transco n. 30mm - [place] [id number] Implanted:Qty: 2 on 01/15/2013 Spine Implant Depuy Synthes Description:Device Manufactu rer - Synthes. Device Status Text - [id number] [id number]. Cap-Synthes Matrix Locking Ti - [employer] [id number] Implanted:Qty: 12 on 01/15/2013 Spine Implant Depuy Synthes Description:Device Manufactu rer - Synthes. Device Status Text - [id number] [id number]. Screw-Matrix Bone 6.0 X 45mm - [employer]ia [id number] Implanted:Qty: 4 on 01/15/2013 Spine Implant Depuy Synthes Description:Device Manufactu rer - Synthes. Device Status Text - [id number] [id number]. Cap-Synthes Matrix Polyax Head Ti - [employer] [id number] Implanted:Qty: 10 on 01/15/2013 Spine Implant Depuy Synthes Description:Device Manufactu rer - Synthes. Device Status Text - [id number] [id number]. Graft Tag Thoracic Endo 21 X 10 - [employer]ia [id number] Implanted:Qty: 1 on 01/15/2013 Vascular Graft Other/Legacy - See Implant Description [place] Description:Device Manufactu rer - [employer] [place] [employer] Body Location - Other. Vascular. Device Status Text - [id number]. Procedures Procedure Name Priority Date/Time Associated Diagnosis Comments BMD BONE DENSITY HIPS KNEES RAD - Routine (most inpatients and all outpatients) 11/03/2023 2:21 PM CDT Injury Thoracic Spinal Cord Subsequent (HCC) Paraplegia (HCC) Osteoporosis MR SHOULDER LEFT WITHOUT IV CONTRAST RAD - Routine (most inpatients and all outpatients) 10/07/2023 8:16 PM CDT Rotator Cuff Disorder Left HOLTER MONITOR - IN CLINIC TRENCH DIGGER HELPER Routine 10/07/2023 9:43 AM CDT Flutter Atrial [...] Recently Relevant to Health Maintenance Results * BMD Bone Density Hips Knees (11/03/2023 2:21 PM CDT) Anatomical Region Laterality Modality Lumbar Spine, Nuclear Medici ne RST LOS, Musculoskeletal ARZ LOS, Muskuloskeletal FLA LOS, Hip, Knee N/A Radiographic Imaging Impressions 11/03/2023 2:35 PM CDT Bone mineral density below the expected range for age. ?? Narrative 11/03/2023 2:35 PM CDT EXAM: ??BMD BONE DENSITY HIPS KNEES Bone Mineral Density (BMD) analysis performed on Enbridge with serial number [id number]. ? FINDINGS: Left Hip: Femur Neck: BMD = 0.618 g/cm2 Z-score = -2.9 Total Hip: BMD = 0.543 g/cm2 Z-score = -3.4 Right Hip: Femur Neck: BMD = 0.549 g/cm2 Z-score = -3.4 Total Hip: BMD = 0.474 g/cm2 Z-score = -3.9 ? Please note: A more comprehensive DXA report, including images and graphs, is available in [employer]. In the absence of other causes of low BMD or demonstrated skeletal fragility, osteoporosis may be diagnosed in post-menopausal women and men at or above age 50 when the T-score is at or below -2.5 as defined by the WHO. Low bone density is present at T-scores between -1 and -2.5. The diagnosis in pre-menopausal women and men < age 50 can be based on low bone density or evidence of skeletal fragility in the appropriate clinical setting. Left Knee: Region ? BMD (g/cm2) ?BMC (g) ? Area (cm2) 1 ? 0.261 ? 1.78 ?6.83 ? 2 ? 0.273 ? 1.83 ?6.71 ? Right Knee: ?? Region ? BMD (g/cm2) ?BMC (g) ?Area (cm2) 1 ? 0.353 ? 2.61 ?7.38 ? 2 ? 0.345 ? 2.73 ?7.90 ? BMD analysis of both knees was performed and is suggested for future follow-up. ??Region 1 = distal femur, region 2 = proximal tibia. As there is no normative comparison database, Z- and T-scores are not available for the knees. Patient does not meet ISCD guidelines for FRAX calculations. (YA) Procedure Note Panda Whiteside M.D. - 11/03/2023 EXAM: BMD BONE DENSITY HIPS KNEES Bone Mineral Density (BMD) analysis performed on Cell[employer] iDXA with serialnumber [id number]. FINDINGS: Left Hip: Femur Neck: BMD = 0.618 g/cm2 Z-score = -2.9 Total Hip: BMD = 0.543 g/cm2 Z-score = -3.4 Right Hip: Femur Neck: BMD = 0.549 g/cm2 Z-score = -3.4 Total Hip: BMD = 0.474 g/cm2 Z-score = -3.9 Please note: A more comprehensive DXA report, including images and graphs,is available in [employer]. In the absence of other causes of low BMD or demonstrated skeletalfragility, osteoporosis may be diagnosed in post-menopausal women and menat or above age 50 when the T-score is at or below -2.5 as defined by theWHO. Low bone density is present at T-scores between -1 and -2.5. The diagnosis in pre-menopausal women andmen < age 50 can be based on low bone density or evidence of skeletalfragility in the appropriate clinical setting. Left Knee: Region BMD (g/cm2) BMC (g) Area (cm2) 1 0.261 1.786.83 2 0.273 1.836.71 Right Knee: Region BMD (g/cm2) BMC (g) Area (cm2) 1 0.353 2.617.38 2 0.345 2.737.90 BMD analysis of both knees was performed and is suggested for futurefollow-up. Region 1 = distal femur, region 2 = proximal tibia. As thereis no normative comparison database, Z- and T-scores are not available forthe knees. Patient does not meet ISCD guidelines for FRAX calculations. (YA) IMPRESSION: Bone mineral density below the expected range for age. DULCE Perera APRN, M.S. [facility] DXA PROC EDURES * MR Shoulder Left without IV Contrast [...] 3 mm, para labral cyst (series 5 [id number]). No donal labral detachment. 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 The basic rhythm was sinus with [...] this event, there was no ectopy noted. Powder Core Tester: COLETTE Rivera/ COLETTE Bray A Holter monitor with cascade to extended monitoring was ordered for the indication of Atrial fibrillation or flutter calculate burden/% time in AF. During the Holter monitoring period, the patient did have atrial fibrillation or flutter >=30 seconds. Therefore, the study was not cascaded to extended monitoring. Procedure Note Lisandro Ellison M.D. - 10/11/2023 [place] 1. The basic rhythm was sinus with [...] this event, there was no ectopy noted. Powder Core Tester: COLETTE Rivera/ COLETTE Bray A Holter monitor [...] MUSE QTC Interval 442 ms MUSE P [place] 78 degrees MUSE R [place] 54 degrees MUSE T Wave [place] 29 degrees MUSE 10/06/2023 8:33 AM CDT [...] City/[facility]/[place] [address] * Thyroid Function [place] (10/05/2023 4:15 PM CDT) TSH, Sensitive 1.4 0.3 - 4.2 mIU/L 10/05/2023 5:30 PM CDT DTL Blood (Blood, Venous) 10/05/2023 4:15 PM CDT 10/05/2023 4:58 PM CDT Avtar Aaron M.D. LAB BLOOD ADD-O N Performing Organization Address [facility] Co de Phone Number [facility] [address] [place] [address] * Magnesium (10/05/2023 4:15 PM CDT) Magnesium, S 1.8 1.7 - 2.3 mg/dL 10/05/2023 5:30 PM CDT DTL Blood (Blood, Venous) 10/05/2023 4:15 PM CDT 10/05/2023 4:58 PM CDT Avtar Aaron M.D. LAB BLOOD ADD-O N Performing Organization Address City/[facility]/ZIP Co de Phone Number [facility] [address] [place] [address] * Hemoglobin A1c (10/05/2023 4:15 PM CDT) Hemoglobin A1c, B 4.9 4.0 - 5.6 % 10/05/2023 5:21 PM CDT DTL Blood (Blood, Venous) 10/05/2023 4:15 PM CDT 10/05/2023 4:41 PM CDT Avtar Aaron M.D. LAB BLOOD ADD-O N Performing Organization Address [facility] Co de Phone Number [facility] [address] [place] [address] * (ABNORMAL) Basic Metabolic Panel (10/05/2023 4:15 [...] M.D. LAB BLOOD ADD-O N [facility] [address] [place] [address], [facility] [address] [place] [address] * DX Chest AP or PA and [...] effusion has largely resolved. Avtar Aaron M.D. [facility] DIAGNOSTIC IMAGING PROCEDURES * DX Shoulder Left [...] IMPRESSION: Negative left shoulder. Avtar Aaron M.D. [facility] DIAGNOSTIC IMAGING PROCEDURES * DX Lumbar Spine [...] L5-S1. Thoracic aortic endograft. Avtar Aaron M.D. [facility] DIAGNOSTIC IMAGING PROCEDURES * DX Thoracic Spine [...] ECHO DOPPLER COLOR (10/05/2023 10:32 AM CDT) [facility] Ejection Fraction 50 MC CV EIMS Sinus [...] HBs Antigen, S Negative Negative [facility] Comment:Drawn From PICC Hepatitis A IgM Ab, S Negative Negative [facility] Comment:Drawn From PICC HBc IgM Ab, S Negative Negative [facility] Comment:Drawn From PICC HCV Ab, S Negative Negative [facility] Comment: Drawn From [facility] ? Pybucv-zy-goljaf ratio is <1.00. ? 02/06/2013 1:58 PM CDT 02/06/2013 1:58 PM CDT Narrative [facility] - 02/07/2013 12:12 PM CDT Drawn From PICC Hunter Celeste APRN, C.N.P., D.N.P. 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
--- OUTSIDE RECORDS SUMMARY | 2023-11-09 00:51 | XMS_ITS | Referral Summary ---
Author Organization [facility] Address [address] [place] [address] Care Team Providers Care Special Distribution Clerk Name Role Phone Unavailable Primary Care Provider Unavailabl e Source Comments Patient records contain information from all sites at [facility]. For routine questions regarding patient records, call [phone] during business hours, M-F 8:00 AM - 5:00 PM Central Time. Record requests for emergency care only can be directed to [phone] at any time.[facility] Encounters Date Type Department Care Team Description 11/03/2023 11:59 AM CDT - 11/03/2023 11:59 PM CDT Hospital Encounter Department of Radiology, [facility], in [place], [place] [address] [place] [address] Rosemary Gregorio APRN, POULTRY SCIENTIST, M.S. Injury Thoracic Spinal Cord Subsequent (HCC); Paraplegia (HCC); Osteoporosis Discharge Disposition: Home or Self Care 11/03/2023 10:00 AM CDT Clinical Support Healthy Living Program in [place], [place] [address] [place] [address] Avtar Aaron M.D. Kiersten Quigley, [facility] Wellness Screening (Primary Dx) 11/03/2023 9:00 AM CDT Clinical Support Healthy Living Program in [place], [place] [address] [place] [address] Bubba Perez M.D., M.S. Paraplegia (HCC) (Primary Dx); Flutter Atrial (HCC); Pain Neuropathic; Wellness Screening 10/09/2023 Clinical Communication Division of General Internal Medicine in [place], [place] [address] [place] [phone] Avtar Aaron M.D. 10/09/2023 1:00 PM CDT Comprehensive Visit Department of Physical Medicine and Rehabilitation in [address] [phone] Karoline Carney M.D. Pain Shoulder Left (Primary Dx); Tear Glenoid Labral Initial Left; Rotator Cuff Disorder Left; Tendinitis Bicipital Left 10/08/2023 Clinical Communication Department of Cardiovascular Medicine in [address] [phone] Lathe Set Up OperatorRobert M.D. INT REF TRIAGE (INT / GIM / symptomatic a flutter.) 10/08/2023 10:00 AM CDT Comprehensive Visit Department of Physical Medicine and Rehabilitation in [address] [phone] Rosemary Gregorio APRN, DULCE, M.S. Paraplegia (HCC) (Primary Dx); Injury Thoracic Spinal Cord Subsequent (HCC); Osteoporosis; Neurogenic Bladder; Neurogenic Bowel; Abnormal Posture; Mobility Limited; Pain Neuropathic; Sensation Skin Altered Discharge Disposition: Home or Self Care 10/08/2023 11:00 AM CDT Comprehensive Visit Department of Physical Medicine and Rehabilitation in [address] [phone] Avtar Aaron M.D. Stanecki, Catherine E, M.S., O.T. Injury Thoracic Spinal Cord Subsequent (HCC) (Primary Dx) Discharge Disposition: Home or Self Care 10/07/2023 Clinical Communication Division of General Internal Medicine in [address] [phone] Avtar Aaron M.D. Holter result (Notification Result: Holter result for Michael Bauman showed atrial flutter was 30 seconds or longer during the start of the test noted on 10/06/23 8:57 AM. /) 10/07/2023 Clinical Communication Division of General Internal Medicine in [place], [place] [address] [place] [address] Avtar Aaron M.D. 10/07/2023 Clinical Communication Division of General Internal Medicine in [place], [place] [address] [place] [address] Avtar Aaron M.D. 10/07/2023 7:24 PM CDT - 10/07/2023 11:59 PM CDT Hospital Encounter Department of Radiology, [facility] in [place], [place] [address] [place] [address] Avtar Aaron M.D. Rotator Cuff Disorder Left Discharge Disposition: Home or Self Care 10/06/2023 8:34 AM CDT - 10/06/2023 11:59 PM CDT Hospital Encounter Department of Cardiovascular Diseases in [place], [place] [address] [place] [phone] Avtar Aaron M.D. Flutter Atrial (HCC) Discharge Disposition: Home or Self Care 10/05/2023 Clinical Communication Division of General Internal Medicine in [place], [place] [address] [place] [phone] Avtar Aaron M.D. Outside EKG reports 10/05/2023 4:03 PM CDT - 10/05/2023 11:59 PM CDT Hospital Encounter Department of Laboratory Medicine and Pathology, [facility] in [place], [place] [address] [place] [address] Avtar Aaron M.D. Flutter Atrial (HCC) Discharge Disposition: Home or Self Care 10/05/2023 8:50 AM CDT - 10/05/2023 2:56 PM CDT Hospital Encounter Department of Cardiovascular Diseases in [place], [place] [address] [place] [address] Avtar Aaron M.D. Flutter Atrial (HCC) Discharge Disposition: Home or Self Care 10/05/2023 2:58 PM CDT - 10/05/2023 4:02 PM CDT Hospital Encounter Department of Radiology, [facility], in [place], [place] [address] [place] [phone] Avtar Aaron M.D. Flutter Atrial (HCC) Discharge Disposition: Home or Self Care 10/05/2023 2:58 PM CDT - 10/05/2023 4:02 PM CDT Hospital Encounter Department of Radiology, [facility], in [place], [place] [address] [place] [phone] Avtar Aaron M.D. Pain Shoulder Left Discharge Disposition: Home or Self Care 10/05/2023 2:57 PM CDT Hospital Encounter Department of Radiology, [facility], in [place], [place] [address] [place] [phone] Avtar Aaron M.D. Injury Thoracic Spinal Cord Subsequent (HCC) Discharge Disposition: Home or Self Care 10/05/2023 1:00 PM CDT Comprehensive Visit Division of General Internal Medicine in [address] [phone] Avtar Aaron M.D. Flutter Atrial (HCC) (Primary Dx); Injury Thoracic Spinal Cord Subsequent (HCC); Rotator Cuff Disorder Left; Tendinitis Bicipital Left 10/02/2023 3:00 PM CDT Clinical Communication Virtual Review in [address] [phone] Pre-visit Intake 09/15/2023 Clinical Communication Department of Cardiovascular Medicine in [address] [phone] Lathe Set Up OperatorRobert M.D. INTERNAL REFERRAL ([id number]) 09/15/2023 Clinical Communication Division of General Internal Medicine in [address] [phone] Prescheduling, Provider Echo Movep for 10/04 visit 09/08/2023 Clinical Communication Division of General Internal Medicine in [address] [phone] Prescheduling, Provider Triage from Last 3 Months [...] Date Resolved Date Atypical Atrial Flutter 11/03/202310/23 Immunizations Name Administration Dates Next Due DTP 12/19/1992, 0,06/13/1988,1987,02/29/1988 HepB Pediatric/Adolescent 12/29/2000,09/16/2000, 08/17/2000 Hib, Unspecified 06/11/1989 IPV 06/11/1989, 9,05/02/1988,1987 Influenza, Unspecified 10/02/2023(Deferred: Manuela ent decision) MCV4 (Menactra)(Discontinued) 12/03/2006 MMR 08/17/2000 Measles 12/19/1992 Mumps 03/19/1989 Polio, Unspecified 06/11/1989, 9,05/02/1988,1987 Rubella 03/19/1989 SARS-COV-2 (COVID-19) - MODE RNA (12 YEARS AND OLDER) [id number] 10/05/2023(Deferred: Patient decision - Patinet has received [...] years. I stopped in 2013. [facility] Utilities Answer Date Recorded In the past 12 months has [employer], oil, or water [employer] threatened to shut off services in your [...] cm (5' 10.08) 04/14/2013 10 :43 AM SOIL CONSERVATIONIST Vital sign result from Clinical Notes. Body Mass Index - - Plan of Treatment Upcoming Encounters Date Type Department Care Team (Latest Contact Info) Description 11/09/2023 3:45 PM CDT Clinical Communication Virtual Review in [place] [address] [place] [phone] 11/12/2023 8:00 AM CDT Comprehensive Visit Division of Pain Medicine in [place], [place] [address] [place] [phone] Angelina Jefferson APRN, Carmen.P., M.S.N. [address] [place] [phone] 11/13/2023 10:00 AM CDT Telemedicine Section of Executive Medicine in [place], [place] [address] [place] [phone] Avtar Aaron M.D. [address] [place] [phone] 12/30/2023 11:10 AM CDT Appointment Department of Laboratory Medicine and Pathology, [facility] in [place], [place] [address] [place] [phone] Rosemary Gregorio APRN, POULTRY SCIENTIST, M.S. [address] [place] [phone] 12/30/2023 11:20 AM CDT Appointment Department of Laboratory Medicine and Pathology, [facility] in [place], [place] [address] [place] [phone] Rosemary Gregorio APRN, POULTRY SCIENTIST, M.S. [address] [place] [phone] 12/30/2023 12:30 PM CDT Appointment Department of Radiology, [facility] in [place], [place] [address] [place] [phone] Rosemary Gregorio APRN, POULTRY SCIENTIST, M.S. [address] [place] [phone] 12/31/2023 12:40 PM CDT Ancillary Procedure Department of Cardiovascular Medicine in [place], [place] [address] [place] [phone] Fredi Horner M.D. [address] [place] [phone] 12/31/2023 1:45 PM CDT Comprehensive Visit Department of Urology in [place], [place] [address] [place] [phone] Tabitha Rich P.A.-C. [address] [place] [phone] 12/31/2023 2:30 PM CDT Procedure visit Department of Urology in [place], [place] [address] [place] [phone] Rosemary Gregorio APRN, POULTRY SCIENTIST, M.S. [address] [place] [phone] 01/01/2024 8:00 AM CDT Comprehensive Visit Department of Cardiovascular Medicine in [place], [place] [address] [place] [phone] Fredi Horner M.D. [address] [place] [phone] 01/01/2024 1:30 PM CDT Comprehensive Visit Division of Endocrinology in [place], [place] [address] [place] [phone] Horacio Harp M.D. [address] [place] [phone] Medical Devices Implanted Type Area Fairing Worker Device Identifier Shelf Expiration Date Model / Serial / Lot Conversions - Default Historical Implant Device Implanted:08/22 (Quantity not on file) Hardware e.g. pins/screws /rods Description:Device Status Te xt - Hardware. Gm-Syn Cocr 5.5 X 400mm - Kapadia [id number] Implanted:Qty: 1 on 01/15/2013 Spine Implant Depuy Synthes Description:Device Manufactu rer - Synthes. Device Status Text - [id number]. Head Reduction Ti Polyaxial - Kapadia [id number] Implanted:Qty: 2 on 01/15/2013 Spine Implant Depuy Synthes Description:Device Manufactu rer - Synthes. Device Status Text - [id number]. Screw-Matrix Bone 5.0 X 45mm - Kapadia [id number] Implanted:Qty: 8 on 01/15/2013 Spine Implant Depuy Synthes Description:Device Manufactu rer - Synthes. Device Status Text - [id number] [id number]. Synthes-Transco n. 30mm - Kapadia [id number] Implanted:Qty: 2 on 01/15/2013 Spine Implant Depuy Synthes Description:Device Manufactu rer - Synthes. Device Status Text - [id number] [id number]. Cap-Synthes Matrix Locking Ti - Kapadia [id number] Implanted:Qty: 12 on 01/15/2013 Spine Implant Depuy Synthes Description:Device Manufactu rer - Synthes. Device Status Text - [id number]. Screw-Matrix Bone 6.0 X 45mm - Kapadia [id number] Implanted:Qty: 4 on 01/15/2013 Spine Implant Depuy Synthes Description:Device Manufactu rer - Synthes. Device Status Text - [id number]. Cap-Synthes Matrix Polyax Head Ti - Kapadia [id number] Implanted:Qty: 10 on 01/15/2013 Spine Implant Depuy Synthes Description:Device Manufactu rer - Synthes. Device Status Text - [id number] [id number]. Graft Tag Thoracic Endo 21 X 10 - Kapadia [id number] Implanted:Qty: 1 on 01/15/2013 Vascular Graft Other/Legacy - See Implant Description Byers Description:Device Manufactu rer - [employer] Body Location - Other. Vascular. Device Status Text - [id number]. Procedures Procedure Name Priority Date/Time Associated Diagnosis Comments BMD BONE DENSITY HIPS KNEES RAD - Routine (most inpatients and all outpatients) 11/03/2023 2:21 PM CDT Injury Thoracic Spinal Cord Subsequent (HCC) Paraplegia (HCC) Osteoporosis MR SHOULDER LEFT WITHOUT IV CONTRAST RAD - Routine (most inpatients and all outpatients) 10/07/2023 8:16 PM CDT Rotator Cuff Disorder Left HOLTER MONITOR - IN CLINIC MAIL PROCESSING CLERK Routine 10/07/2023 9:43 AM CDT Flutter Atrial [...] Bone Mineral Density (BMD) analysis performed on TUKZ Undergarments with serial number [id number]. ? FINDINGS: Left Hip: Femur Neck: BMD = 0.618 g/cm2 Z-score = -2.9 Total Hip: BMD = 0.543 g/cm2 Z-score = -3.4 Right Hip: Femur Neck: BMD = 0.549 g/cm2 Z-score = -3.4 Total Hip: BMD = 0.474 g/cm2 Z-score = -3.9 ? Please note: A more comprehensive DXA report, including images and graphs, is available in [employer]. In the absence of other causes of [...] Bone Mineral Density (BMD) analysis performed on [employer] Partners[employer] with serialnumber [id number]. FINDINGS: Left Hip: Femur Neck: BMD = [...] density below the expected range for age. Rosemary Gregorio APRN, DULCE, M.S. [facility] DXA PROC EDURES * MR Shoulder Left [...] 3 mm, para labral cyst (series 5 [id number]). No donal labral detachment. The glenoid labrum [...] RES * HOLTER MONITOR - IN CLINIC MAIL PROCESSING CLERK (10/07/2023 9:43 AM CDT) Min Heart Rate [...] 1h 35m duration INFOBION IC MOME AF [place] 6.71 percent INFOBIONIC MOME Longest AF Duration 1h 36m duration INFOBIONIC MOME Symptom Count 1 count INFOBI ONIC MOME 10/06/2023 8:39 AM CDT Narrative INFOBIONIC MOME - 10/11/2023 2:23 PM CDT [facility] 1. The basic rhythm was sinus with [...] this event, there was no ectopy noted. Edge Banding Off Bearer: COLETTE Rivera/ COLETTE Bray A Holter monitor with cascade to extended monitoring was ordered for the indication of Atrial fibrillation or flutter calculate burden/% time in AF. During the Holter monitoring period, the patient did have atrial fibrillation or flutter >=30 seconds. Therefore, the study was not cascaded to extended monitoring. Procedure Note Lisandro Ellison M.D. - 10/11/2023 [facility] 1. The basic rhythm was sinus with [...] this event, there was no ectopy noted. Edge Banding Off Bearer: COLETTE Rivera/ COLETTE Bray A Holter monitor with cascade to extended monitoring was ordered for theindication of Atrial fibrillation or flutter calculate burden/% time inAF. During the Holter monitoring period, the patient did have atrialfibrillation or flutter >=30 seconds. Therefore, the study was not cascaded to extended monitoring. Avtar Aaron M.D. CV CARDIAC SERV ICES PROCEDURES Performing Organization Address [facility] de Phone Number INFOBIONIC GEMMA NA * ECG 12 Lead (10/06/2023 8:33 AM CDT) Ventricular Rate ECG/Min 89 BPM MUSE QRSD Interval 96 ms MUSE QT Interval 364 ms MUSE QTC Interval 442 ms MUSE P [place] 78 degrees MUSE R [place] 54 degrees MUSE T Wave [place] 29 degrees MUSE 10/06/2023 8:33 AM CDT [...] Aaron M.D. ECG ORDERABLES Performing Organization Address [facility] de Phone Number MUSE NA * Lipid [...] Avtar Aaron M.D. LAB BLOOD ADD-O N [facility] [address] [place] [address], [facility] [address] [place] [address] * Thyroid Function [place] (10/05/2023 4:15 PM CDT) TSH, Sensitive 1.4 0.3 - 4.2 mIU/L 10/05/2023 5:30 PM CDT DTL Blood (Blood, Venous) 10/05/2023 4:15 PM CDT 10/05/2023 4:58 PM CDT Avtar Aaron M.D. LAB BLOOD ADD-O N Performing Organization Address City/[facility]/ZIP Co de Phone Number [facility] [address] [place], [place] [phone] [place] [address] [address] [place] [address] * Magnesium (10/05/2023 4:15 PM CDT) Magnesium, S 1.8 1.7 - 2.3 mg/dL 10/05/2023 5:30 PM CDT DTL Blood (Blood, Venous) 10/05/2023 4:15 PM CDT 10/05/2023 4:58 PM CDT Avtar Aaron M.D. LAB BLOOD ADD-O N Performing Organization Address City/[facility]/ZIP Co de Phone Number [facility] [address] [place], [place] [phone] [place] [address] [address] [place] [address] * Hemoglobin A1c (10/05/2023 4:15 PM CDT) Hemoglobin A1c, B 4.9 4.0 - 5.6 % 10/05/2023 5:21 PM CDT DTL Blood (Blood, Venous) 10/05/2023 4:15 PM CDT 10/05/2023 4:41 PM CDT Avtar Aaron M.D. LAB BLOOD ADD-O N [facility] [address] [place], [place] [phone] [place] [address] 200 [place] [address] * (ABNORMAL) Basic Metabolic Panel (10/05/2023 4:15 [...] Avtar Aaron M.D. LAB BLOOD ADD-O N [facility] [address] [place] [address], [facility] [address] [place] [address] * DX Chest AP or PA and [...] effusion has largely resolved. Avtar Aaron M.D. [facility] DIAGNOSTIC IMAGING PROCEDURES * DX Shoulder Left [...] IMPRESSION: Negative left shoulder. Avtar Aaron M.D. [facility] DIAGNOSTIC IMAGING PROCEDURES * DX Lumbar Spine [...] L5-S1. Thoracic aortic endograft. Avtar Aaron M.D. [facility] DIAGNOSTIC IMAGING PROCEDURES * DX Thoracic Spine [...] L5-S1. Thoracic aortic endograft. Avtar Aaron M.D. [facility] DIAGNOSTIC IMAGING PROCEDURES * (TTE) 2D ECHO [...] PM CDT) HBs Antigen, S Negative Negative [facility] Comment:Drawn From [facility] Hepatitis A IgM Ab, S Negative Negative [facility] Comment:Drawn From [facility] HBc IgM Ab, S Negative Negative [facility] Comment:Drawn From [facility] HCV Ab, S Negative Negative [facility] Comment: Drawn From [facility] ? Sxkhnq-mn-xqpdaa ratio is <1.00. ? 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
--- OUTSIDE RECORDS SUMMARY | 2023-11-09 00:51 | XMS_ITS | Encounter Summary ---
Author Organization [facility] Address [address] [place] [address] Care Team Providers Care Levi Maker Name Role Phone Unavailable Primary Care Provider Unavailabl e Reason for Referral * Outpatient (Routine) - Closed Specialty Diagnoses / Procedures Referred By Contac t Referred To Contact Diagnoses Injury Thoracic Spinal Cord Subsequent (HCC) Paraplegia (HCC) Osteoporosis Procedures BMD Bone Density Hips Knees Rosemary Gregorio APRN, RADIOLOGICAL HEALTH SPECIALIST, M.S. [address] [place] [phone] [facility] Referral ID Status Reason Start Date Expiration Date Visits Re quested Visits Authorized [id number] Closed 10/08/2023 10/07/2024 1 1 Reason for Visit * Outpatient (Routine) - Closed Specialty Diagnoses / Procedures Referred By Contac t Referred To Contact Diagnoses Injury Thoracic Spinal Cord Subsequent (HCC) Paraplegia (HCC) Osteoporosis Procedures BMD Bone Density Hips Knees Rosemary Gregorio APRN, RADIOLOGICAL HEALTH SPECIALIST, M.S. [address] [place] [phone] [facility] Referral ID Status Reason Start Date Expiration Date Visits Re quested Visits Authorized [id number] Closed 10/08/2023 10/07/2024 1 1 Encounter Details Date Type Department Care Team (Latest Contact Info) Description 11/03/2023 11:59 AM CDT - 11/03/2023 11:59 PM CDT Hospital Encounter Department of Radiology, [facility], in [place], [place] [address] [place] [address] Rosemary Gregorio APRN, RADIOLOGICAL HEALTH SPECIALIST, M.S. [address] [place] [address] Injury Thoracic Spinal Cord Subsequent (HCC); Paraplegia (HCC); Osteoporosis Discharge Disposition: Home or Self Care Social [...] I stopped in 2013. [facility] Utilities Answer Date Recorded In the past 12 months has [employer], gas, oil, or water [employer] threatened to shut off services in your [...] your living situation today? I have a [facility] place to live 10/01/2023 Sex and Gender [...] Take 1 capsule by mouth daily. 09/27/2018 oxyBUTYnin (DITROPAN XL) 15 mg 24 hr tablet Take 15 mg by mouth daily. pregabalin (LYRICA) 150 mg capsule Take 150 mg by mouth 2 (two) times a day. documented as of this encounter Plan of Treatment Upcoming Encounters Date Type Department Care Team (Latest Contact Info) Description 11/09/2023 3:45 PM CDT Clinical Communication Virtual Review in [place], [place] 200 [place] [address] 11/12/2023 8:00 AM CDT Comprehensive Visit Division of Pain Medicine in [place], [place] [address] [place] [phone] Angelina Jefferson, TEOFILO, C.N.P., M.S.N. [address] [place] [phone] 11/13/2023 10:00 AM CDT Telemedicine Section of Executive Medicine in [place], [place] [address] [place] [phone] Avtar Aaron M.D. [address] [place] [phone] 12/30/2023 11:10 AM CDT Appointment Department of Laboratory Medicine and Pathology, [place], [place] [address] [place] [phone] Rosemary Gregorio APRN, RADIOLOGICAL HEALTH SPECIALIST, M.S. [address] [place] [phone] 12/30/2023 11:20 AM CDT Appointment Department of Laboratory Medicine and Pathology, [facility] in [place], [place] [address] [place] [phone] Rosemary Gregorio APRN, RADIOLOGICAL HEALTH SPECIALIST, M.S. [address] [place] [phone] 12/30/2023 12:30 PM CDT Appointment Department of Radiology, [facility] in [place], [place] [address] [place] [phone] Rosemary Gregorio APRN, RADIOLOGICAL HEALTH SPECIALIST, M.S. [address] [place] [phone] 12/31/2023 12:40 PM CDT Ancillary Procedure Department of Cardiovascular Medicine in [place], [place] [address] [place] [phone] Fredi Horner M.D. [address] [place] [phone] 12/31/2023 1:45 PM CDT Comprehensive Visit Department of Urology in [place], [place] [address] [place] [phone] Tabitha Rich P.A.-C. [address] [place] [phone] 12/31/2023 2:30 PM CDT Procedure visit Department of Urology in [place], [place] [address] [place] [phone] Rosemary Gregorio APRN, DULCE, M.S. [address] [place] [phone] 01/01/2024 8:00 AM CDT Comprehensive Visit Department of Cardiovascular Medicine in [place], [place] [address] [place] [phone] Fredi Horner M.D. [address] [place] [phone] 01/01/2024 1:30 PM CDT Comprehensive Visit Division of Endocrinology in [place], [place] [address] [place] [phone] Horacio Harp M.D. [address] [place] [phone] documented as of this encounter Procedures Procedure Name Priority Date/Time Associated Diagnosis Comments BMD BONE DENSITY HIPS KNEES RAD - Routine (most inpatients and all outpatients) 11/03/2023 2:21 PM CDT Injury Thoracic Spinal Cord Subsequent (HCC) Paraplegia (HCC) Osteoporosis documented in this encounter Results * BMD Bone Density Hips Knees [...] Bone Mineral Density (BMD) analysis performed on [employer] with serial number [id number]. ? FINDINGS: Left Hip: Femur Neck: BMD = 0.618 g/cm2 Z-score = -2.9 Total Hip: BMD = 0.543 g/cm2 Z-score = -3.4 Right Hip: Femur Neck: BMD = 0.549 g/cm2 Z-score = -3.4 Total Hip: BMD = 0.474 g/cm2 Z-score = -3.9 ? Please note: A more comprehensive DXA report, including images and graphs, is available in [employer]. In the absence of other causes of [...] Bone Mineral Density (BMD) analysis performed on [employer] with serialnumber [id number]. FINDINGS: Left Hip: Femur Neck: BMD = 0.618 g/cm2 Z-score = -2.9 Total Hip: BMD = 0.543 g/cm2 Z-score = -3.4 Right Hip: Femur Neck: BMD = 0.549 g/cm2 Z-score = -3.4 Total Hip: BMD = 0.474 g/cm2 Z-score = -3.9 Please note: A more comprehensive DXA report, including images and graphs,is available in [employer]. In the absence of other causes of [...] range for age. DULCE Perera APRN, M.S. 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
--- OUTSIDE RECORDS SUMMARY | 2023-11-09 00:51 | XMS_ITS | Encounter Summary ---
Author Organization [facility] Address [address] [place] [address] Care Team Providers Care Clicker Operator Name Role Phone Unavailable Primary Care Provider Unavailabl e Reason for Referral * Physical Therapy (Routine) - Authorized Specialty Diagnoses / Procedures Referred By Contac t Referred To Contact Diagnoses Paraplegia (HCC) Abnormal Posture Mobility Limited Procedures PT or OT eval and treat (first available) Rosemary Gregorio APRN, CNS, M.S. [address] [place] [phone] [facility] Referral ID Status Reason Start Date Expiration Date V isits Requested Visits Authorized [id number] Authorized 10/08/2023 10/07/2024 99 99 * Outpatient (Routine) - Authorized Specialty Diagnoses / Procedures Referred By Contact Referred To Contact Physical Medicine and Rehabilitation Rosemary Gregorio APRN, CNS, M.S. [address] [place] [phone] [facility] Referral ID Status Reason Start Date Expiration Date V isits Requested Visits Authorized [id number] Authorized 10/08/2023 04/08/2025 1 1 Scheduling Instructions Please double with seating clinic in 2024 for face to face for replacement wheelchair * Outpatient (Routine) - Authorized Specialty Diagnoses / Procedures Referred By Contac t Referred To Contact Diagnoses Paraplegia (HCC) Neurogenic Bladder Procedures US Kidneys Bilateral with Bladder Rosemary Gregorio APRN, CNS, M.S. [address] [place] [phone] [facility] Referral ID Status Reason Start Date Expiration Date V isits Requested Visits Authorized [id number] Authorized 10/08/2023 10/07/2024 1 1 * Outpatient (Routine) - Authorized Specialty Diagnoses / Procedures Referred By Contac t Referred To Contact Diagnoses Paraplegia (HCC) Neurogenic Bladder Procedures URO Urodynamic study (with flow) Rosemary Gregorio APRN, CNS, M.S. [address] [place] [phone] [facility] Referral ID Status Reason Start Date Expiration Date V isits Requested Visits Authorized [id number] Authorized 10/08/2023 10/07/2024 1 1 * Outpatient (Routine) - Authorized Specialty Diagnoses / Procedures Referred By Contac t Referred To Contact Urology Diagnoses Paraplegia (HCC) Neurogenic Bladder Rosemary Gregorio APRN, CNS, M.S. [address] [place] [phone] [facility] Referral ID Status Reason Start Date Expiration Date V isits Requested Visits Authorized [id number] Authorized 10/08/2023 04/08/2025 1 1 * Outpatient (Routine) - Closed Specialty Diagnoses / Procedures Referred By Contac t Referred To Contact Diagnoses Injury Thoracic Spinal Cord Subsequent (HCC) Paraplegia (HCC) Osteoporosis Procedures BMD Bone Density Hips Knees Rosemary Gregorio APRN, CNS, M.S. [address] [place] [phone] [facility] Referral ID Status Reason Start Date Expiration Date Visits Re quested Visits Authorized [id number] Closed 10/08/2023 10/07/2024 1 1 * Outpatient (Routine) - Authorized Specialty Diagnoses / Procedures Referred By Contac t Referred To Contact Endocrinology Diagnoses Injury Thoracic Spinal Cord Subsequent (HCC) Paraplegia (HCC) Osteoporosis Rosemary Gregorio APRN, CNS, M.S. 200 [place] [address] [facility] Referral ID Status Reason Start Date Expiration Date V isits Requested Visits Authorized [id number] Authorized 10/08/2023 04/08/2025 1 1 Reason for Visit * Outpatient (Routine) - Closed Specialty Diagnoses / Procedures Referred By Contact Referred To Contact Physical Medicine and Rehabilitation Diagnoses Injury Thoracic Spinal Cord Subsequent (HCC) Avtar Aaron M.D. [address] [place] [phone] Referral ID Status Reason Start Date Expiration Date Visits Re quested Visits Authorized [id number] Closed 09/14/2023 03/15/2025 1 1 Encounter Details Date Type Department Care Team (Latest Contact Info) Description 10/08/2023 10:00 AM CDT Comprehensive Visit Department of Physical Medicine and Rehabilitation in [place], [place] [address] [place] [phone] Rosemary Gregorio APRN, CNS, M.S. [address] [place] [phone] Paraplegia (HCC) (Primary Dx); Injury Thoracic Spinal [...] for many years. I stopped in 2013. [facility] Utilities Answer Date Recorded In the past 12 months has e [employer], gas, oil, or water [email or web address] threatened to shut off services in your [...] your living situation today? I have a [facility] place to live 10/01/2023 Sex and [...] 2012. He had been living [facility] and was followed closely by primary care provider, however not so much by a spinal cord specialist. He has moved to [place] and would like to reestablishhis care especially spinal cord related care at [facility]. 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, but would like to transition his urology care to [facility] as well. Since I have last seen [...] 2 years old that he obtained from [employer] a division of [employer]. He also has a rigid [employer] back rest. He unfortunately developed a left [...] our percutaneous spinal stimulation research here at [facility], and has been in contact with our accounts receivable coordinator. At this time he has no [...] transition to our urology colleagues here at [facility]. I did place orders for our neuro [...] have placed orders for next year for [id number] with myself and seating clinic and his [...] will be seen by our seating clinical rn liaison to assure appropriate pressure relief of [...] patient today. Signed by: Rosemary Gregorio APRN, STEAM STATION SUPERVISOR, M.S. 10/08/2023 11:01 AM CDT documented in this encounter Plan of Treatment Upcoming Encounters Date Type Department Care Team (Latest Contact Info) Description 11/09/2023 3:45 PM CDT Clinical Communication Virtual Review in [place], [place] 200 [place] [phone] 11/12/2023 8:00 AM CDT Comprehensive Visit Division of Pain Medicine in [address] [phone] Angelina Jefferson APRN, C.N.P., M.S.N. [address] [place] [phone] 11/13/2023 10:00 AM CDT Telemedicine Section of Executive Medicine in [address] [phone] Avtar Aaron M.D. [address] [place] [phone] 12/30/2023 11:10 AM CDT Appointment Department of Laboratory Medicine and Pathology, [address] [phone] Rosemary Gregorio APRN, DULCE, M.S. [address] [place] [phone] 12/30/2023 11:20 AM CDT Appointment Department of Laboratory Medicine and Pathology, [address] [phone] Rosemary Gregorio APRN, CNS, M.S. [address] [place] [phone] 12/30/2023 12:30 PM CDT Appointment Department of Radiology, [facility] in [place], [place] [address] [place] [phone] Rosemary Gregorio APRN, DULCE, M.S. [address] [place] [phone] 12/31/2023 12:40 PM CDT Ancillary Procedure Department of Cardiovascular Medicine in [place], [place] [address] [place] [phone] Fredi Horner M.D. [address] [place] [phone] 12/31/2023 1:45 PM CDT Comprehensive Visit Department of Urology in [place], [place] [address] [place] [phone] Tabitha Rich P.A.-C. [address] [place] [phone] 12/31/2023 2:30 PM CDT Procedure visit Department of Urology in [place], [place] [address] [place] [phone] Rosemary Gregorio APRN, DULCE, M.S. [address] [place] [phone] 01/01/2024 8:00 AM CDT Comprehensive Visit Department of Cardiovascular Medicine in [place], [place] [address] [place] [phone] Fredi Horner M.D. [address] [place] [phone] 01/01/2024 1:30 PM CDT Comprehensive Visit Division of Endocrinology in [place], [place] [address] [place] [phone] Horacio Harp M.D. [address] [place] [phone] (work) Scheduled Orders Name Type Priority Associated Diagnoses [...] Osteoporosis 1 Occurrences starting 10/08/2023 until 01/07/2025 Cystatin C with Estimated GFR Lab [...] Expires: 01/07/2025 documented as of this encounter Results * BMD Bone Density [...] Bone Mineral Density (BMD) analysis performed on [employer] with serial number [id number]. ? FINDINGS: Left Hip: Femur Neck: BMD = 0.618 g/cm2 Z-score = -2.9 Total Hip: BMD = 0.543 g/cm2 Z-score = -3.4 Right Hip: Femur Neck: BMD = 0.549 g/cm2 Z-score = -3.4 Total Hip: BMD = 0.474 g/cm2 Z-score = -3.9 ? Please note: A more comprehensive DXA report, including images and graphs, is available in [employer]. In the absence of other causes of [...] Bone Mineral Density (BMD) analysis performed on [employer] iDXA with serialnumber [id number]. FINDINGS: Left Hip: Femur Neck: BMD = 0.618 g/cm2 Z-score = -2.9 Total Hip: BMD = 0.543 g/cm2 Z-score = -3.4 Right Hip: Femur Neck: BMD = 0.549 g/cm2 Z-score = -3.4 Total Hip: BMD = 0.474 g/cm2 Z-score = -3.9 Please note: A more comprehensive DXA report, including images and graphs,is available in [employer]. In the absence of other causes of [...] range for age. DULCE Perera APRN, M.S. 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
--- OUTSIDE RECORDS SUMMARY | 2023-11-09 00:51 | XMS_ITS | Encounter Summary ---
Author Organization [facility] Address [address] [place] [address] Care Team Providers Care Level Vial Inside Grinder Name Role Phone Unavailable Primary Care Provider Unavailabl e Reason for Referral * Physical Therapy (Routine) - Authorized Specialty Diagnoses / Procedures Referred By Candice maki Referred To Contact Diagnoses Pain Shoulder Left Rotator Cuff Disorder Left Tear Glenoid Labral Initial Left Karoline Carney M.D. 200 [place] [phone] Referral ID Status Reason Start Date Expiration Date Visits Requested Visits Authorized [id number] Authorized Patient Preference 10/09/2023 04/09/2025 99 99 Reason for Visit * Outpatient (Routine) - Closed Specialty Diagnoses / Procedures Referred By Contact Referred To Contact Physical Medicine and Rehabilitation Diagnoses Rotator Cuff Disorder Left Tendinitis Bicipital Left Avtar Aaron M.D. 200 [place] [phone] [facility] Referral ID Status Reason Start Date Expiration Date Visits Re quested Visits Authorized [id number] Closed 10/05/2023 04/05/2025 1 1 Encounter Details Date Type Department Care Team (Latest Contact Info) Description 10/09/2023 1:00 PM CDT Comprehensive Visit Department of Physical Medicine and Rehabilitation in [place], [place] [address] [place] [phone] Karoline Carney M.D. [address] [place] [phone] Pain Shoulder Left (Primary Dx); Tear Glenoid [...] for many years. I stopped in 2013. [facility] Gl[employer] Answer Date Recorded In the past 12 months has [employer], [employer], oil, or water [employer] threatened to shut off services in your [...] upper limb weight exercises. He lives in [place], [place] having recently moved there. 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 Finley's positive in supination, labral grind positive. DIAGNOSTICS [...] barriers were identified. Total time spent including qwba-ed-ofti and non njqj-lm-nblw time [address] Castro. Karoline Reyes M.D. documented in this encounter Plan of Treatment Upcoming Encounters Date Type Department Care Team (Latest Contact Info) Description 11/09/2023 3:45 PM CDT Clinical Communication Virtual Review in [address] [phone] 11/12/2023 8:00 AM CDT Comprehensive Visit Division of Pain Medicine in [address] [phone] Angelina Jefferson APRN, C.N.P., M.S.N. [address] [place] [phone] 11/13/2023 10:00 AM CDT Telemedicine Section of Executive Medicine in [address] [phone] Avtar Aaron M.D. [address] [place] [phone] 12/30/2023 11:10 AM CDT Appointment Department of Laboratory Medicine and Pathology, [facility], in [address] [phone] Rosemary Gregorio APRN, SHANK CUTTER, M.S. [address] [place] [phone] 12/30/2023 11:20 AM CDT Appointment Department of Laboratory Medicine and Pathology, [facility] in [place], [place] [address] [place] [phone] Rosemary Gregorio APRN, DULCE, M.S. [address] [place] [phone] 12/30/2023 12:30 PM CDT Appointment Department of Radiology, [facility] in [place], [place] [address] [place] [phone] Rosemary Gregorio APRN, DULCE, M.S. [address] [place] [phone] 12/31/2023 12:40 PM CDT Ancillary Procedure Department of Cardiovascular Medicine in [place], [place] [address] [place] [phone] Fredi Horner M.D. [address] [place] [phone] 12/31/2023 1:45 PM CDT Comprehensive Visit Department of Urology in [place], [place] [address] [place] [phone] Tabitha Rich P.A.-C. [address] [place] [phone] 12/31/2023 2:30 PM CDT Procedure visit Department of Urology in [place], [place] [address] [place] [phone] Rosemary Gregorio APRN, DULCE, M.S. [address] [place] [phone] 01/01/2024 8:00 AM CDT Comprehensive Visit Department of Cardiovascular Medicine in [place], [place] [address] [place] [phone] Fredi Horner M.D. [address] [place] [phone] 01/01/2024 1:30 PM CDT Comprehensive Visit Division of Endocrinology in [place], [place] [address] [place] [address] Horacio Harp M.D. [address] [place] [phone] documented as of this encounter Visit Diagnoses [...]
--- OUTSIDE RECORDS SUMMARY | 2023-11-09 00:52 | XMS_ITS | Encounter Summary ---
Author Organization [facility] Address [address] [place] [address] Care Team Providers Care Biomass Technician Name Role Phone Unavailable Primary Care Provider Unavailabl e Encounter Details Date Type Department Care Team (Late st Contact Info) Description 10/07/2023 Clinical Communication Division of General Internal Medicine in [place], [place] [address] [place] [phone] Avtar Aaron M.D. [address] [place] [phone] Social History Tobacco Use Types Packs/Day Years [...] many years. I stopped in 2013. [facility] Utilities Answer Date Recorded In the past 12 months has [employer], gas, oil, or water [employer] threatened to shut off services in your [...] your living situation today? [facility] 10/01/2023 Sex and Gender Information Value Date Recorded Sex Assigned at Male 09/11/2023 10:52 AM CDT Gender Identity Male 09/11/2023 10:52 AM CDT Sexual Orientation Straight 09/11/2023 10 :52 AM CDT documented as of this encounter Plan of Treatment Upcoming Encounters Date Type Department Care Team (Latest Contact Info) Description 11/09/2023 3:45 PM CDT Clinical Communication Virtual Review in [place], [place] 200 [place] [address] 11/12/2023 8:00 AM CDT Comprehensive Visit Division of Pain Medicine in [place], [place] [address] [place] [phone] Angelina Jefferson, TEOFILO, C.N.P., M.S.N. [address] [place] [phone] 11/13/2023 10:00 AM CDT Telemedicine Section of Executive Medicine in [place], [place] [address] [place] [phone] Avtar Aaron M.D. [address] [place] [phone] 12/30/2023 11:10 AM CDT Appointment Department of Laboratory Medicine and Pathology, [place], [place] [address] [place] [phone] Rosemary Gregorio APRN, HIGH SCHOOL PROFESSIONAL, M.S. [address] [place] [phone] 12/30/2023 11:20 AM CDT Appointment Department of Laboratory Medicine and Pathology, [facility] in [place], [place] [address] [place] [phone] Rosemary Gregorio APRN, HIGH SCHOOL PROFESSIONAL, M.S. [address] [place] [phone] 12/30/2023 12:30 PM CDT Appointment Department of Radiology, [facility] in [place], [place] [address] [place] [phone] Rosemary Gregorio APRN, HIGH SCHOOL PROFESSIONAL, M.S. [address] [place] [phone] 12/31/2023 12:40 PM CDT Ancillary Procedure Department of Cardiovascular Medicine in [address] [phone] Fredi Horner M.D. [address] [place] [phone] 12/31/2023 1:45 PM CDT Comprehensive Visit Department of Urology in [address] [phone] Tabitha Rihc P.A.-C. [address] [place] [phone] 12/31/2023 2:30 PM CDT Procedure visit Department of Urology in [place], [place] [address] [place] [phone] Rosemary Gregorio APRN, HIGH SCHOOL PROFESSIONAL, M.S. [address] [place] [phone] 01/01/2024 8:00 AM CDT Comprehensive Visit Department of Cardiovascular Medicine in [place], [place] [address] [place] [phone] Fredi Horner M.D. [address] [place] [phone] 01/01/2024 1:30 PM CDT Comprehensive Visit Division of Endocrinology in [place], [place] [address] [place] [phone] Horacio Harp M.D. 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
--- OUTSIDE RECORDS SUMMARY | 2023-11-09 00:52 | XMS_ITS | Encounter Summary ---
Author Organization [facility] Address [address] [place] [address] Care Team Providers Care Manufacture Specialist Name Role Phone Unavailable Primary Care Provider Unavailabl e Encounter Details Date Type Department Care Team (Late st Contact Info) Description 10/07/2023 Clinical Communication Division of General Internal Medicine in [place], [place] [address] [place] [phone] Avtar Aaron M.D. [address] [place] [phone] Social History Tobacco Use Types Packs/Day Years [...] for many years. I stopped in 2013. [facility] Utilities Answer Date Recorded In the past 12 months has [employer], gas, oil, or water [employer] threatened to shut off services in your [...] your living situation today? I have a [facility] place to live 10/01/2023 Sex and Gender Information Value Date Recorded Sex Assigned at Male 09/11/2023 10:52 AM CDT Gender Identity Male 09/11/2023 10:52 AM CDT Sexual Orientation Straight 09/11/2023 10 :52 AM CDT documented as of this encounter Plan of Treatment Upcoming Encounters Date Type Department Care Team (Latest Contact Info) Description 11/09/2023 3:45 PM CDT Clinical Communication Virtual Review in [place], [place] [address] [place] [address] 11/12/2023 8:00 AM CDT Comprehensive Visit Division of Pain Medicine in [place], [place] [address] [place] [phone] Aneglina Jefferson, TEOFILO, C.N.P., M.S.N. [address] [place] [phone] 11/13/2023 10:00 AM CDT Telemedicine Section of Executive Medicine in [place], [place] [address] [place] [phone] Avtar Aaron M.D. [address] [place] [phone] 12/30/2023 11:10 AM CDT Appointment Department of Laboratory Medicine and Pathology, [place], [place] [address] [place] [phone] Rosemary Gregorio APRN, SENIOR MARKETING SPECIALIST, M.S. [address] [place] [phone] 12/30/2023 11:20 AM CDT Appointment Department of Laboratory Medicine and Pathology, [facility] in [place], [place] [address] [place] [phone] Rosemary Gregorio APRN, SENIOR MARKETING SPECIALIST, M.S. [address] [place] [phone] 12/30/2023 12:30 PM CDT Appointment Department of Radiology, [facility] in [place], [place] [address] [place] [phone] Rosemary Gregorio APRN, SENIOR MARKETING SPECIALIST, M.S. [address] [place] [phone] 12/31/2023 12:40 PM CDT Ancillary Procedure Department of Cardiovascular Medicine in [address] [phone] Fredi Horner M.D. [address] [place] [phone] 12/31/2023 1:45 PM CDT Comprehensive Visit Department of Urology in [address] [phone] Tabitha Rich P.A.-C. [address] [place] [phone] 12/31/2023 2:30 PM CDT Procedure visit Department of Urology in [place], [place] [address] [place] [phone] Rosemary Gregorio APRN, SENIOR MARKETING SPECIALIST, M.S. [address] [place] [phone] 01/01/2024 8:00 AM CDT Comprehensive Visit Department of Cardiovascular Medicine in [place], [place] [address] [place] [phone] Fredi Horner M.D. [address] [place] [phone] 01/01/2024 1:30 PM CDT Comprehensive Visit Division of Endocrinology in [place], [place] [address] [place] [phone] Horacio Harp M.D. 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
--- OUTSIDE RECORDS SUMMARY | 2023-11-09 00:52 | XMS_ITS | Encounter Summary ---
Author Organization [facility] Address [address] [place] [address] Care Team Providers Care Machine Operator Hop Picker Name Role Phone Unavailable Primary Care Provider Unavailabl e Reason for Referral * Outpatient (Routine) - Closed Specialty Diagnoses / Procedures Referred By Candice maki Referred To Contact Diagnoses Pain Shoulder Left Procedures DX Shoulder Left 2+ Views Avtar Aaron M.D. [address] [place] [address] [facility] Referral ID Status Reason Start Date Expiration Date Visits Re quested Visits Authorized [id number] Closed 09/14/2023 09/13/2024 1 1 Reason for Visit * Outpatient (Routine) - Closed Specialty Diagnoses / Procedures Referred By Candice maki Referred To Contact Diagnoses Pain Shoulder Left Procedures DX Shoulder Left 2+ Views Avtar Aaron M.D. [address] [place] [phone] [facility] Referral ID Status Reason Start Date Expiration Date Visits Re quested Visits Authorized [id number] Closed 09/14/2023 09/13/2024 1 1 Encounter Details Date Type Department Care Team (Latest Contact Info) Description 10/05/2023 2:58 PM CDT - 10/05/2023 4:02 PM CDT Hospital Encounter Department of Radiology, [facility], in [place], [place] [address] [place] [address] Avtar Aaron M.D. [address] [place] [address] Pain Shoulder Left Discharge Disposition: Home or [...] for many years. I stopped in 2013. [facility] [employer] Answer Date Recorded In the past 12 months has [employer], oil, or water [employer] threatened to shut off services in your [...] your living situation today? I have a [facility] place to live 10/01/2023 Sex and [...] by mouth 2 (two) times a day. metoprolol tartrate (LOPRESSOR) 25 mg tabletIndications:Flutte r Atrial (HCC) Take 1 tablet (25 mg total) by mouth as needed (for atrial flutter). 30 tablet 10/05/2023 11/03/2023 documented as of this encounter Plan of Treatment Upcoming Encounters Date Type Department Care Team (Latest Contact Info) Description 11/09/2023 3:45 PM CDT Clinical Communication Virtual Review in [place], [place] [address] [place] [address] 11/12/2023 8:00 AM CDT Comprehensive Visit Division of Pain Medicine in [place], [place] [address] [place] [place] [phone] Angelina Jefferson, TEOFILO, C.N.P., M.S.N. [address] [place] [address] 11/13/2023 10:00 AM CDT Telemedicine Section of Executive Medicine in [place], [place] [address] [phone] Avtar Aaron M.D. [address] [place] [phone] 12/30/2023 11:10 AM CDT Appointment Department of Laboratory Medicine and Pathology, [place], [place] [address] [place] [phone] Rosemary Gregorio APRN, , M.S. [address] [place] [phone] 12/30/2023 11:20 AM CDT Appointment Department of Laboratory Medicine and Pathology, [facility] in [place], [place] [address] [place] [phone] Rosemary Gregorio APRN, , M.S. [address] [place] [phone] 12/30/2023 12:30 PM CDT Appointment Department of Radiology, [facility] in [place], [place] [address] [place] [phone] Rosemary Gregorio APRN, , M.S. [address] [place] [phone] 12/31/2023 12:40 PM CDT Ancillary Procedure Department of Cardiovascular Medicine in [address] [phone] Fredi Horner M.D. [address] [place] [phone] 12/31/2023 1:45 PM CDT Comprehensive Visit Department of Urology in [place], [place] [address] [place] [phone] Tabitha Rich P.A.-C. [address] [place] [phone] 12/31/2023 2:30 PM CDT Procedure visit Department of Urology in [place], [place] [address] [place] [phone] Rosemary Gregorio APRN, DULCE, M.S. [address] [place] [phone] 01/01/2024 8:00 AM CDT Comprehensive Visit Department of Cardiovascular Medicine in [place], [place] [address] [place] [phone] Fredi Horner M.D. [address] [place] [phone] 01/01/2024 1:30 PM CDT Comprehensive Visit Division of Endocrinology in [place], [place] [address] [place] [phone] Horacio Harp M.D. [address] [place] [phone] documented as of this encounter Procedures Procedure [...]
--- OUTSIDE RECORDS SUMMARY | 2023-11-09 00:52 | XMS_ITS | Encounter Summary ---
Author Organization [facility] Address [address] [place] [address] Care Team Providers Care Electrician Technician Name Role Phone Unavailable Primary Care Provider Unavailabl e Reason for Referral * Outpatient (Routine) - Closed Specialty Diagnoses / Procedures Referred By Contact Referred To Contact Physical Medicine and Rehabilitation Diagnoses Rotator Cuff Disorder Left Tendinitis Bicipital Left Avtar Aaron M.D. 200 [place] [address] [facility] Referral ID Status Reason Start Date Expiration Date Visits Re quested Visits Authorized [id number] Closed 10/05/2023 04/05/2025 1 1 * MRI/CAT/PET Scan (Routine) - Closed Specialty Diagnoses / Procedures Referred By Candice maki Referred To Contact Radiology Diagnoses Rotator Cuff Disorder Left Procedures MR Shoulder Left without IV Contrast Avtar Aaron M.D. 200 [place] [address] [facility] Referral ID Status Reason Start Date Expiration Date Visits Re quested Visits Authorized [id number] Closed 10/05/2023 10/04/2024 1 1 Reason for [...] Expiration Date Visits Re quested Visits Authorized [id number] Closed 09/07/2023 09/06/2024 1 1 Encounter Details Date Type Department Care Team (Latest Contact Info) Description 10/05/2023 1:00 PM CDT Comprehensive Visit Division of General Internal Medicine in [place], [place] [address] [place] [address] Avtar Aaron M.D. [address] [place] [address] Flutter Atrial (HCC) (Primary Dx); Injury Thoracic [...] for many years. I stopped in 2013. [facility] Utilities Answer Date Recorded In the [...] your living situation today? 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 [...] -continue pregabalin -continue oxybutynin Nitesh Aaron MD Assistant Cross Country Coach Braille Teacher Consultative Medicine, General Internal Medicine [facility] Total visit time greater than 90 minutes, with over 50% spent counseling with the patient and coordination of care activities described above. documented in this encounter Plan of Treatment Upcoming Encounters Date Type Department Care Team (Latest Contact Info) Description 11/09/2023 3:45 PM CDT Clinical Communication Virtual Review in [place], [place] 200 [place] [address] 11/12/2023 8:00 AM CDT Comprehensive Visit Division of Pain Medicine in [address] [phone] Angelina Jefferson APRN, RolandN.P., M.S.N. [address] [place] [phone] 11/13/2023 10:00 AM CDT Telemedicine Section of Executive Medicine in [address] [phone] Avtar Aaron M.D. [address] [place] [phone] 12/30/2023 11:10 AM CDT Appointment Department of Laboratory Medicine and Pathology, [facility] in [address] [phone] Rosemary Gregorio APRN, RADIO MECHANIC APPRENTICE, M.S. [address] [place] [phone] 12/30/2023 11:20 AM CDT Appointment Department of Laboratory Medicine and Pathology, [facility] in [address] [phone] Rosemary Gregorio APRN, RADIO MECHANIC APPRENTICE, M.S. [address] [place] [phone] 12/30/2023 12:30 PM CDT Appointment Department of Radiology, [facility] in [address] [phone] Rosemary Gregorio APRN, RADIO MECHANIC APPRENTICE, M.S. [address] [place] [phone] 12/31/2023 12:40 PM CDT Ancillary Procedure Department of Cardiovascular Medicine in [place], [place] [address] [place] [phone] Fredi Horner M.D. [address] [place] [phone] 12/31/2023 1:45 PM CDT Comprehensive Visit Department of Urology in [place], [place] [address] [place] [phone] Tabitha Rich P.A.-C. [address] [place] [phone] 12/31/2023 2:30 PM CDT Procedure visit Department of Urology in [place], [place] [address] [place] [phone] Rosemary Gregorio APRN, RADIO MECHANIC APPRENTICE, M.S. [address] [place] [phone] 01/01/2024 8:00 AM CDT Comprehensive Visit Department of Cardiovascular Medicine in [place], [place] [address] [place] [phone] Fredi Horner M.D. [address] [place] [phone] 01/01/2024 1:30 PM CDT Comprehensive Visit Division of Endocrinology in [place], [place] [address] [place] [phone] Horacio Harp M.D. [address] [place] [phone] Scheduled Referrals Name Type Priority Associated Diagnoses [...] 3 mm, para labral cyst (series 5 [id number]). No donal labral detachment. The glenoid labrum [...] paralabral cyst. 3. Mild subacromial/subdeltoid bursopathy. Avtar [place] MRI PROCEDU RES * Magnesium (10/05/2023 4:15 PM CDT) Magnesium, S 1.8 1.7 - 2.3 mg/dL 10/05/2023 5:30 PM CDT DTL Blood (Blood, Venous) 10/05/2023 4:15 PM CDT 10/05/2023 4:58 PM CDT Avtar Aaron M.D. LAB BLOOD ADD-O N [facility] [address] [place] [address], [facility] [address] [place] [address] * Lipid Panel (10/05/2023 4:15 PM CDT) [...] LAB BLOOD ADD-O N Performing Organization Address City/[facility]/ZIP Co de Phone Number [facility] 200 [place] [address], [facility] 200 [place] [address] * Hemoglobin A1c (10/05/2023 4:15 PM CDT) Hemoglobin A1c, B 4.9 4.0 - 5.6 % 10/05/2023 5:21 PM CDT DTL Blood (Blood, Venous) 10/05/2023 4:15 PM CDT 10/05/2023 4:41 PM CDT Avtar Aaron M.D. LAB BLOOD ADD-O N Performing Organization Address City/[facility]/ZIP Co de Phone Number [facility] 200 [place] [address], [facility] 200 [place] [address] documented in this encounter Visit Diagnoses Diagnosis [...]
--- OUTSIDE RECORDS SUMMARY | 2023-11-09 00:52 | XMS_ITS | Encounter Summary ---
Author Organization [facility] Address [address] [place] [address] Care Team Providers Care Digital Content Producer Name Role Phone Unavailable Primary Care Provider Unavailabl e Reason for Referral * MRI/CAT/PET Scan (Routine) - Closed Specialty Diagnoses / Procedures Referred By Candice maki Referred To Contact Radiology Diagnoses Rotator Cuff Disorder Left Procedures MR Shoulder Left without IV Contrast Avtar Aaron M.D. 200 [place] [address] [facility] Referral ID Status Reason Start Date Expiration Date Visits Re quested Visits Authorized [id number] Closed 10/05/2023 10/04/2024 1 1 Reason for Visit * MRI/CAT/PET Scan (Routine) - Closed Specialty Diagnoses / Procedures Referred By Candice maki Referred To Contact Radiology Diagnoses Rotator Cuff Disorder Left Procedures MR Shoulder Left without IV Contrast Avtar Aaron M.D. [address] [place] [address] [facility] Referral ID Status Reason Start Date Expiration Date Visits Re quested Visits Authorized [id number] Closed 10/05/2023 10/04/2024 1 1 Encounter Details Date Type Department Care Team (Latest Contact Info) Description 10/07/2023 7:24 PM CDT - 10/07/2023 11:59 PM CDT Hospital Encounter Department of Radiology, [facility], in [place], [place] [address] [place] [address] Avtar Aaron M.D. [address] [place] [address] Rotator Cuff Disorder Left Discharge Disposition: Home [...] years. I stopped in 2013. [facility] Utilities Answer Date Recorded In the past 12 months has [employer], oil, or water [employer] threatened to shut off services in your [...] your living situation today? I have a [facility] place to live 10/01/2023 Sex [...] PM CDT Clinical Communication Virtual Review in [place], [place] [address] [place] [address] 11/12/2023 8:00 AM CDT Comprehensive Visit Division of Pain Medicine in [place], [place] [address] [place] [phone] Angelina Jefferson, TEOFILO, C.N.P., M.S.N. [address] [place] [phone] 11/13/2023 10:00 AM CDT Telemedicine Section of Executive Medicine in [place], [place] [address] [place] [phone] Avtar Aaron M.D. [address] [place] [phone] 12/30/2023 11:10 AM CDT Appointment Department of Laboratory Medicine and Pathology, [facility] in [place], [place] [address] [place] [phone] Rosemary Gregorio APRN, MANAGER LAND, M.S. [address] [place] [phone] 12/30/2023 11:20 AM CDT Appointment Department of Laboratory Medicine and Pathology, [facility] in [place], [place] [address] [place] [phone] Rosemary Gregorio APRN, MANAGER LAND, M.S. [address] [place] [phone] 12/30/2023 12:30 PM CDT Appointment Department of Radiology, [facility] in [place], [place] [address] [place] [phone] Rosemary Gregorio APRN, MANAGER LAND, M.S. [address] [place] [phone] 12/31/2023 12:40 PM CDT Ancillary Procedure Department of Cardiovascular Medicine in [place], [place] [address] [place] [phone] Fredi Horner M.D. [address] [place] [phone] 12/31/2023 1:45 PM CDT Comprehensive Visit Department of Urology in [place], [place] [address] [place] [phone] Tabitha Rich P.A.-C. [address] [place] [phone] 12/31/2023 2:30 PM CDT Procedure visit Department of Urology in [place], [place] [address] [place] [phone] Rosemary Gregorio APRN, MANAGER LAND, M.S. [address] [place] [phone] 01/01/2024 8:00 AM CDT Comprehensive Visit Department of Cardiovascular Medicine in [place], [place] [address] [place] [phone] Fredi Horner M.D. [address] [place] [phone] 01/01/2024 1:30 PM CDT Comprehensive Visit Division of Endocrinology in [address] [phone] Horacio Harp M.D. [address] [place] [phone] documented as of this encounter Procedures Procedure [...] 3 mm, para labral cyst (series 5 [id number]). No donal labral detachment. The glenoid labrum [...] Time VRE Comment:No Historical Comment Imported in [facility] 02/07/2013 02/07/2013 Assessment Noted Time PHQ-9 Depression Total Score: 1 01/28/20 13 5:52 PM CDT documented as of this encounter
--- OUTSIDE RECORDS SUMMARY | 2023-11-09 00:52 | XMS_ITS | Encounter Summary ---
Author Organization [facility] Address [address] [place] [address] Care Team Providers Care Grain Trader Name Role Phone Unavailable Primary Care Provider Unavailabl e Reason for Referral * Outpatient (Routine) - Closed Specialty Diagnoses / Procedures Referred By Contac t Referred To Contact Diagnoses Injury Thoracic Spinal Cord Subsequent (HCC) Procedures DX Thoracic Spine 2 Views Avtar Aaron M.D. 200 [place] [address] [facility] Referral ID Status Reason Start Date Expiration Date Visits Re quested Visits Authorized [id number] Closed 09/14/2023 09/13/2024 1 1 * Outpatient (Routine) - Closed Specialty Diagnoses / Procedures Referred By Contac t Referred To Contact Diagnoses Injury Thoracic Spinal Cord Subsequent (HCC) Procedures DX Lumbar Spine 2-3 Views Avtar Aaron M.D. 200 [place] [address] [facility] Referral ID Status Reason Start Date Expiration Date Visits Re quested Visits Authorized [id number] Closed 09/14/2023 09/13/2024 1 1 Reason for Visit * Outpatient (Routine) - Closed Specialty Diagnoses / Procedures Referred By Contac t Referred To Contact Diagnoses Injury Thoracic Spinal Cord Subsequent (HCC) Procedures DX Thoracic Spine 2 Views Avtar Aaron M.D. [address] [place] [address] [facility] Referral ID Status Reason Start Date Expiration Date Visits Re quested Visits Authorized [id number] Closed 09/14/2023 09/13/2024 1 1 Encounter Details Date Type Department Care Team (Latest Contact Info) Description 10/05/2023 2:57 PM CDT Hospital Encounter Department of Radiology, [facility], in [place], [place] [address] [place] [address] Avtar Aaron M.D. [address] [place] [address] Injury Thoracic Spinal Cord Subsequent [...] many years. I stopped in 2013. [facility] Utilities Answer Date Recorded In the past 12 months has [employer], [employer], oil, or water [employer] threatened to shut off services in your [...] your living situation today? [facility] 10/01/2023 Sex and [...] PM CDT Clinical Communication Virtual Review in [place], [place] 200 [place] [address] 11/12/2023 8:00 AM CDT Comprehensive Visit Division of Pain Medicine in [address] [phone] Angelina Jefferson APRN, C.N.P., M.S.N. [address] [place] [phone] 11/13/2023 10:00 AM CDT Telemedicine Section of Executive Medicine in [address] [phone] Avtar Aaron M.D. [address] [place] [phone] 12/30/2023 11:10 AM CDT Appointment Department of Laboratory Medicine and Pathology, [facility] in [address] [phone] Rosemary Gregorio APRN, DITCH RIDER, M.S. [address] [place] [phone] 12/30/2023 11:20 AM CDT Appointment Department of Laboratory Medicine and Pathology, [facility] in [place], [place] [address] [place] [phone] Rosemary Gregorio APRN, DITCH RIDER, M.S. [address] [place] [phone] 12/30/2023 12:30 PM CDT Appointment Department of Rad[facility], [facility] in [address] [phone] Rosemary Gregorio APRN, DITCH RIDER, M.S. [address] [place] [phone] 12/31/2023 12:40 PM CDT Ancillary Procedure Department of Cardiovascular Medicine in [place], [place] [address] [place] [phone] Fredi Horner M.D. [address] [place] [phone] 12/31/2023 1:45 PM CDT Comprehensive Visit Department of Urology in [place], [place] [address] [place] [phone] Tabitha Rich P.A.-C. [address] [place] [phone] 12/31/2023 2:30 PM CDT Procedure visit Department of Urology in [place], [place] [address] [place] [phone] Rosemary Gregorio APRN, DITCH RIDER, M.S. [address] [place] [phone] 01/01/2024 8:00 AM CDT Comprehensive Visit Department of Cardiovascular Medicine in [place], [place] [address] [place] [phone] Fredi Horner M.D. [address] [place] [phone] 01/01/2024 1:30 PM CDT Comprehensive Visit Division of Endocrinology in [place], [place] [address] [place] [phone] Horacio Harp M.D. [address] [place] [phone] documented as of this encounter Procedures Procedure [...]
--- OUTSIDE RECORDS SUMMARY | 2023-11-09 00:52 | XMS_ITS | Encounter Summary ---
Author Organization [facility] Address [address] [place] [address] Care Team Providers Care Building Materials Sales Attendant Name Role Phone Unavailable Primary Care Provider Unavailabl e Encounter Details Date Type Department Care Team (Latest Contact Info) Description 10/05/2023 4:03 PM CDT - 10/05/2023 11:59 PM CDT Hospital Encounter Department of Laboratory Medicine and Pathology, [place], [place] [address] [place] [address] Avtar Aaron M.D. [address] [place] [phone] Flutter Atrial (HCC) Discharge Disposition: Home or [...] for many years. I stopped in 2013. [facility] Utilities Answer Date Recorded In the past 12 months has [employer], gas, oil, or water company threatened [...] your living situation today? I have a [facility] place to live 10/01/2023 Sex and [...] PM CDT Clinical Communication Virtual Review in [address] [phone] 11/12/2023 8:00 AM CDT Comprehensive Visit Division of Pain Medicine in [address] [phone] Angelina Jefferson APRN, C.N.P., M.S.N. [address] [place] [phone] 11/13/2023 10:00 AM CDT Telemedicine Section of Executive Medicine in [address] [phone] Avtar Aaron M.D. [address] [place] [phone] 12/30/2023 11:10 AM CDT Appointment Department of Laboratory Medicine and Pathology, [address] [phone] Rosemary Gregorio APRN, EXPLOSIVES WORKER, M.S. [address] [place] [phone] 12/30/2023 11:20 AM CDT Appointment Department of Laboratory Medicine and Pathology, [facility] in [address] [phone] Rosemary Gregorio APRN, DULCE, M.S. [address] [place] [phone] 12/30/2023 12:30 PM CDT Appointment Department of Radiology, [facility], in [place], [place] [address] [place] [phone] Rosemary Gregorio APRN, DULCE, M.S. [address] [place] [phone] 12/31/2023 12:40 PM CDT Ancillary Procedure Department of Cardiovascular Medicine in [place], [place] [address] [place] [phone] Fredi Horner M.D. [address] [place] [phone] 12/31/2023 1:45 PM CDT Comprehensive Visit Department of Urology in [place], [place] [address] [place] [phone] Tabitha Rich P.A.-C. [address] [place] [phone] 12/31/2023 2:30 PM CDT Procedure visit Department of Urology in [place], [place] [address] [place] [phone] Rosemary Gregorio APRN, EXPLOSIVES WORKER, M.S. [address] [place] [phone] 01/01/2024 8:00 AM CDT Comprehensive Visit Department of Cardiovascular Medicine in [place], [place] [address] [place] [phone] Fredi Horner M.D. [address] [place] [phone] 01/01/2024 1:30 PM CDT Comprehensive Visit Division of Endocrinology in [place], [place] [address] [place] [address] Horacio Harp M.D. [address] [place] [phone] documented as of this encounter Procedures Procedure [...] Results * Magnesium (10/05/2023 4:15 PM CDT) Pathologist [facility] Magnesium, S 1.8 1.7 - 2.3 mg/dL 10/05/2023 5:30 PM CDT DTL Blood (Blood, Venous) 10/05/2023 4:15 PM CDT 10/05/2023 4:58 PM CDT Avtar Aaron M.D. LAB BLOOD ADD-O N [facility] 200 [place] [address], [place] [facility] 200 [place] [address] * Lipid Panel (10/05/2023 4:15 PM CDT) Pathologist [facility] Triglycerides 48 mg/dL 10/05/2023 5:30 PM CDT [...] Avtar Aaron M.D. LAB BLOOD ADD-O N [facility] [address] [place] [address], [facility] [address] [place] [address] * Hemoglobin A1c (10/05/2023 4:15 PM CDT) Hemoglobin A1c, B 4.9 4.0 - 5.6 % 10/05/2023 5:21 PM CDT DTL Blood (Blood, Venous) 10/05/2023 4:15 PM CDT 10/05/2023 4:41 PM CDT Avtar Aaron M.D. LAB BLOOD ADD-O N [facility] 200 [place] [address], [facility] 200 [place] [address] * Thyroid Function [place] (10/05/2023 4:15 PM CDT) TSH, Sensitive 1.4 0.3 - 4.2 mIU/L 10/05/2023 5:30 PM CDT DTL Blood (Blood, Venous) 10/05/2023 4:15 PM CDT 10/05/2023 4:58 PM CDT Avtar Aaron M.D. LAB BLOOD ADD-O N [facility] 200 [place] [address], [facility] 200 [place] [address] * (ABNORMAL) Basic Metabolic Panel (10/05/2023 4:15 [...] Avtar Aaron M.D. LAB BLOOD ADD-O N [facility] 200 [place] [address], [facility] 200 [place] [address] documented in this encounter Visit Diagnoses Diagnosis Flutter Atrial (HCC) documented in this encounter Additional Health Concerns Infection 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
--- OUTSIDE RECORDS SUMMARY | 2023-11-09 00:52 | XMS_ITS | Encounter Summary ---
Author Organization [facility] Address [address] [place] [address] Care Team Providers Care Senior Officer Name Role Phone Unavailable Primary Care Provider [...] Communication Division of General Internal Medicine in [place], [place] [address] [place] [phone] Avtar Aaron M.D. [address] [place] [phone] Holter result (Notification Result: Holter result for [...] for many years. I stopped in 2013. [facility] Utilities Answer Date Recorded In [...] PM CDT Clinical Communication Virtual Review in [place], [place] 200 [place] [address] 11/12/2023 8:00 AM CDT Comprehensive Visit Division of Pain Medicine in [place], [place] [address] [place] [phone] Angelina Jefferson APRN, C.N.P., M.S.N. [address] [place] [phone] 11/13/2023 10:00 AM CDT Telemedicine Section of Executive Medicine in [address] [phone] Avtar Aaron M.D. [address] [place] [phone] 12/30/2023 11:10 AM CDT Appointment Department of Laboratory Medicine and Pathology, [facility] in [address] [phone] Rosemary Gregorio APRN, DULCE, M.S. [address] [place] [phone] 12/30/2023 11:20 AM CDT Appointment Department of Laboratory Medicine and Pathology, [facility], in [place], [place] [address] [place] [phone] Rosemary Gregorio APRN, DULCE, M.S. [address] [place] [phone] 12/30/2023 12:30 PM CDT Appointment Department of Radiology, [facility], in [place], [place] [address] [place] [address] Rosemary Gregorio APRN, DULCE, M.S. [address] [place] [phone] 12/31/2023 12:40 PM CDT Ancillary Procedure Department of Cardiovascular Medicine in [place], [place] [address] [place] [phone] Fredi Horner M.D. [address] [place] [phone] 12/31/2023 1:45 PM CDT Comprehensive Visit Department of Urology in [place], [place] [address] [place] [phone] Tabitha Rich P.A.-C. [address] [place] [phone] 12/31/2023 2:30 PM CDT Procedure visit Department of Urology in [place], [place] [address] [place] [phone] Rosemary Gregorio APRN, DULCE, M.S. [address] [place] [phone] 01/01/2024 8:00 AM CDT Comprehensive Visit Department of Cardiovascular Medicine in [place], [place] [address] [place] [phone] Fredi Horner M.D. [address] [place] [phone] 01/01/2024 1:30 PM CDT Comprehensive Visit Division of Endocrinology in [place], [place] [address] [place] [phone] Horacio Harp M.D. 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
--- OUTSIDE RECORDS SUMMARY | 2023-11-09 00:52 | XMS_ITS | Encounter Summary ---
Author Organization [facility] Address [address] [place] [address] Care Team Providers Care Construction Representative Name Role Phone Unavailable Primary Care Provider Unavailabl e Reason for Visit * Reason Onset Date Comments INTERNAL REFERRAL 09/15/[place] [id number] Encounter Details Date Type Department Care Team (Latest Contact Info) Description 09/15/2023 Clinical Communication Department of Cardiovascular Medicine in [place], [place] [address] [place] [address] Computer Technology Instructor, Frantz Jones [place] ([place] [id number]) Social History Tobacco Use Types Packs/Day Years Used Date Smoking Tobacco: Former [facility] Utilities Answer Date Recorded In the past 12 months has [facility] electric, gas, oil, or water company threatened [...] PM CDT Clinical Communication Virtual Review in [place], [place] 200 [place] [address] 11/12/2023 8:00 AM CDT Comprehensive Visit Division of Pain Medicine in [place], [place] [address] [place] [phone] Angelina Jefferson, TEOFILO, C.N.P., M.S.N. [address] [place] [phone] 11/13/2023 10:00 AM CDT Telemedicine Section of Executive Medicine in [place], [place] [address] [place] [phone] Avtar Aaron M.D. [address] [place] [phone] 12/30/2023 11:10 AM CDT Appointment Department of Laboratory Medicine and Pathology, [facility] in [place], [place] [address] [place] [address] Rosemary Gregorio APRN, HOSE HANDLER, M.S. [address] [place] [phone] 12/30/2023 11:20 AM CDT Appointment Department of Laboratory Medicine and Pathology, [facility] in [place], [place] [address] [place] [phone] Rosemary Gregorio APRN, HOSE HANDLER, M.S. [address] [place] [phone] 12/30/2023 12:30 PM CDT Appointment Department of Radiology, [facility] in [place], [place] [address] [place] [address] Rosemary Gregorio APRN, HOSE HANDLER, M.S. [address] [place] [phone] 12/31/2023 12:40 PM CDT Ancillary Procedure Department of Cardiovascular Medicine in [place], [place] [address] [place] [phone] Fredi Horner M.D. [address] [place] [phone] 12/31/2023 1:45 PM CDT Comprehensive Visit Department of Urology in [place], [place] [address] [place] [phone] Tabitha Rich P.A.-C. [address] [place] [phone] 12/31/2023 2:30 PM CDT Procedure visit Department of Urology in [place], [place] [address] [place] [phone] Rosemary Gregorio APRN, HOSE HANDLER, M.S. [address] [place] [phone] 01/01/2024 8:00 AM CDT Comprehensive Visit Department of Cardiovascular Medicine in [place], [place] [address] [place] [phone] Fredi Horner M.D. [address] [place] [phone] 01/01/2024 1:30 PM CDT Comprehensive Visit Division of Endocrinology in [place], [place] [address] [place] [phone] Horacio Harp M.D. 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
--- OUTSIDE RECORDS SUMMARY | 2023-11-09 00:52 | XMS_ITS | Encounter Summary ---
Author Organization [facility] Address [address] [place] [address] Care Team Providers Care Single Stroke Preformer Name Role Phone Unavailable Primary Care Provider Unavailabl e Reason for Referral * Outpatient (Routine) - Closed Specialty Diagnoses / Procedures Referred By Candice maki Referred To Contact Diagnoses Flutter Atrial (HCC) Procedures Echo Transthoracic (TTE) Avtar Aaron M.D. 200 [place] [address] [facility] Referral ID Status Reason Start Date Expiration Date Visits Re quested Visits Authorized [id number] Closed 09/14/2023 09/13/2024 1 1 Reason for Visit * Outpatient (Routine) - Closed Specialty Diagnoses / Procedures Referred By Candice maki Referred To Contact Diagnoses Flutter Atrial (HCC) Procedures Echo Transthoracic (TTE) Avtar Aaron M.D. [address] [place] [phone] [facility] Referral ID Status Reason Start Date Expiration Date Visits Re quested Visits Authorized [id number] Closed 09/14/2023 09/13/2024 1 1 Encounter Details Date Type Department Care Team (Latest Contact Info) Description 10/05/2023 8:50 AM CDT - 10/05/2023 2:56 PM CDT Hospital Encounter Department of Cardiovascular Diseases in [place], [place] [address] [place] [address] Avtar Aaron M.D. [address] [place] [address] Flutter Atrial (HCC) Discharge Disposition: Home or [...] for many years. I stopped in 2013. [facility] [employer] Answer Date Recorded In the past 12 months has th e [employer], [employer], oil, or water [employer] threatened to shut off services in your [...] PM CDT Clinical Communication Virtual Review in [place], [place] [address] [place] [address] 11/12/2023 8:00 AM CDT Comprehensive Visit Division of Pain Medicine in [place], [place] [address] [place] [phone] Angelina Jefferson APRN, C.N.P., M.S.N. [address] [place] [address] 11/13/2023 10:00 AM CDT Telemedicine Section of Executive Medicine in [place], [place] [address] [place] [phone] Avtar Aaron M.D. [address] [place] [phone] 12/30/2023 11:10 AM CDT Appointment Department of Laboratory Medicine and Pathology, [facility] in [place], [place] [address] [place] [phone] Rosemary Gregorio APRN, MAINTENANCE DEPARTMENT TECHNICIAN, M.S. [address] [place] [phone] 12/30/2023 11:20 AM CDT Appointment Department of Laboratory Medicine and Pathology, [facility] in [place], [place] [address] [place] [phone] Rosemary Gregorio APRN, MAINTENANCE DEPARTMENT TECHNICIAN, M.S. [address] [place] [phone] 12/30/2023 12:30 PM CDT Appointment Department of Radiology, [facility] in [place], [place] [address] [place] [phone] Rosemary Gregorio APRN, MAINTENANCE DEPARTMENT TECHNICIAN, M.S. [address] [place] [phone] 12/31/2023 12:40 PM CDT Ancillary Procedure Department of Cardiovascular Medicine in [place], [place] [address] [place] [phone] Fredi Horner M.D. [address] [place] [phone] 12/31/2023 1:45 PM CDT Comprehensive Visit Department of Urology in [place], [place] [address] [place] [phone] Tabitha Rich P.A.-C. [address] [place] [phone] 12/31/2023 2:30 PM CDT Procedure visit Department of Urology in [place], [place] [address] [place] [phone] Rosemary Gregorio APRN, DULCE, M.S. [address] [place] [phone] 01/01/2024 8:00 AM CDT Comprehensive Visit Department of Cardiovascular Medicine in [place], [place] [address] [place] [phone] Fredi Horner M.D. [address] [place] [phone] 01/01/2024 1:30 PM CDT Comprehensive Visit Division of Endocrinology in [place], [place] [address] [place] [phone] Horacio Harp M.D. [address] [place] [phone] documented as of this encounter Procedures Procedure [...]
--- OUTSIDE RECORDS SUMMARY | 2023-11-09 00:52 | XMS_ITS | Encounter Summary ---
Author Organization [facility] Address [address] [place] [address] Care Team Providers Care Wastewater Analyst Lab Analyst Name Role Phone Unavailable Primary Care Provider Unavailabl e Reason for Referral * Outpatient (Routine) - Closed Specialty Diagnoses / Procedures Referred By Candice maki Referred To Contact Diagnoses Flutter Atrial (HCC) Procedures DX Chest AP or PA and Lateral 2 Views Avtar Aaron M.D. 200 [place] [address] [facility] Referral ID Status Reason Start Date Expiration Date Visits Re quested Visits Authorized [id number] Closed 09/14/2023 09/13/2024 1 1 Reason for Visit * Outpatient (Routine) - Closed Specialty Diagnoses / Procedures Referred By Candice maki Referred To Contact Diagnoses Flutter Atrial (HCC) Procedures DX Chest AP or PA and Lateral 2 Views Avtar Aaron M.D. [address] [place] [phone] [facility] Referral ID Status Reason Start Date Expiration Date Visits Re quested Visits Authorized [id number] Closed 09/14/2023 09/13/2024 1 1 Encounter Details Date Type Department Care Team (Latest Contact Info) Description 10/05/2023 2:58 PM CDT - 10/05/2023 4:02 PM CDT Hospital Encounter Department of Radiology, [facility], in [place], [place] [address] [place] [address] Avtar Aaron M.D. [address] [place] [address] Flutter Atrial (HCC) Discharge Disposition: Home or [...] Recorded In the past 12 months has [employer], oil, or water [employer] threatened to shut off services in your [...] your living situation today? I have a [facility] place to live 10/01/2023 Sex and [...] PM CDT Clinical Communication Virtual Review in [place], [place] [address] [place] [address] 11/12/2023 8:00 AM CDT Comprehensive Visit Division of Pain Medicine in [place], [place] [address] [place] [phone] Angelina Jefferson, TEOFILO, C.N.P., M.S.N. [address] [place] [phone] 11/13/2023 10:00 AM CDT Telemedicine Section of Executive Medicine in [place], [place] [address] [place] [phone] Avtar Aaron M.D. [address] [place] [phone] 12/30/2023 11:10 AM CDT Appointment Department of Laboratory Medicine and Pathology, [facility] in [place], [place] [address] [place] [phone] Rosemary Gregorio APRN, RESTORATIVE CARE TECHNICIAN, M.S. [address] [place] [phone] 12/30/2023 11:20 AM CDT Appointment Department of Laboratory Medicine and Pathology, [facility] in [place], [place] [address] [place] [phone] Rosemary Gregorio APRN, RESTORATIVE CARE TECHNICIAN, M.S. [address] [place] [phone] 12/30/2023 12:30 PM CDT Appointment Department of Radiology, [facility] in [place], [place] [address] [place] [phone] Rosemary Gregorio APRN, RESTORATIVE CARE TECHNICIAN, M.S. [address] [place] [phone] 12/31/2023 12:40 PM CDT Ancillary Procedure Department of Cardiovascular Medicine in [place], [place] [address] [place] [phone] Fredi Horner M.D. [address] [place] [phone] 12/31/2023 1:45 PM CDT Comprehensive Visit Department of Urology in [place], [place] [address] [place] [phone] Tabitha Rich P.A.-C. [address] [place] [phone] 12/31/2023 2:30 PM CDT Procedure visit Department of Urology in [place], [place] [address] [place] [phone] Rosemary Gregorio APRN, DULCE, M.S. [address] [place] [phone] 01/01/2024 8:00 AM CDT Comprehensive Visit Department of Cardiovascular Medicine in [address] [phone] Fredi Horner M.D. [address] [place] [phone] 01/01/2024 1:30 PM CDT Comprehensive Visit Division of Endocrinology in [address] [phone] Horacio Harp M.D. 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
--- OUTSIDE RECORDS SUMMARY | 2023-11-09 00:52 | XMS_ITS | Encounter Summary ---
Author Organization [facility] Address [address] [place] [address] Care Team Providers Care Generator Man Name Role Phone Unavailable Primary Care Provider Unavailabl e Reason for Referral * Occupational Therapy (Routine) - Pending Review Specialty Diagnoses / Procedures Referred By Contac t Referred To Contact Diagnoses Injury Thoracic Spinal Cord Subsequent (HCC) Procedures OT Ongoing Treatment Rst [place]mr [place] [address] [place] [phone] [facility] Referral ID Status Reason Start Date Expiration Date V isits Requested Visits Authorized [id number] Pending Review 10/09/2023 10/08/2024 99 99 Reason for Visit * Physical Therapy (Routine) - Closed Specialty Diagnoses / Procedures Referred By Contac t Referred To Contact Diagnoses Injury Thoracic Spinal Cord Subsequent (HCC) Procedures PT or OT eval and treat (first available) Avtar Aaron M.D. [address] [place] [phone] [facility] Referral ID Status Reason Start Date Expiration Date Visits Re quested Visits Authorized [id number] Closed 09/14/2023 09/13/2024 1 1 Encounter Details Date Type Department Care Team (Latest Contact Info) Description 10/08/2023 11:00 AM CDT Comprehensive Visit Department of Physical Medicine and Rehabilitation in [place], [place] [address] [place] [phone] Avtar Aaron M.D. [address] [place] [phone] Al Fraser M.S., O.T. [address] [place] [phone] Injury Thoracic Spinal Cord Subsequent (HCC) (Primary [...] many years. I stopped in 2013. [facility] Utilities Answer Date Recorded In the past 12 months has [employer], gas, oil, or water [employer] threatened to shut off services in your [...] your living situation today? I have a [facility] place to live 10/01/2023 Sex and [...] may be considered the completion of the iqka-eo-yqlu evaluation. SUBJECTIVE Patient's Name: Michael Merna Referring Provider: Avtar Aaron M.D. Reason for Referral: Patient was referred to the outpatient wheelchair/seating clinic for occupational therapy examination, evaluation and determination of the most appropriate durable medical equipment to accomplish mobility-related activities of daily living in the home. t 1. Injury Thoracic Spinal Cord Subsequent (HCC) Payor: [place] MEDICA[place] / Plan: [place] MEDICAID / Product Type: Medicaid / Pertinent [...] skin breakdown during ADL performance. Xensor device: [employer] First trial setup: Initial map on ride [...] note has no financial relationship with the complex rehabilitation technology vendor/supplier. Parts of this note was completed using voice recognition software ([employer]). A reasonable attempt has been made to [...] PM CDT Clinical Communication Virtual Review in [address] [phone] 11/12/2023 8:00 AM CDT Comprehensive Visit Division of Pain Medicine in [address] [phone] Angelina Jefferson, TEOFILO, C.N.P., M.S.N. [address] [place] [phone] 11/13/2023 10:00 AM CDT Telemedicine Section of Executive Medicine in [address] [phone] Avtar Aaron M.D. [address] [place] [phone] 12/30/2023 11:10 AM CDT Appointment Department of Laboratory Medicine and Pathology, [facility] in [place], [place] [address] [place] [phone] Rosemary Gregorio APRN, LOCKSTITCH BINDER, M.S. [address] [place] [phone] 12/30/2023 11:20 AM CDT Appointment Department of Laboratory Medicine and Pathology, [facility] in [place], [place] [address] [place] [phone] Rosemary Gregorio APRN, LOCKSTITCH BINDER, M.S. [address] [place] [phone] 12/30/2023 12:30 PM CDT Appointment Department of Radiology, [facility] in [place], [place] [address] [place] [address] Rosemary Gregorio APRN, LOCKSTITCH BINDER, M.S. [address] [place] [phone] 12/31/2023 12:40 PM CDT Ancillary Procedure Department of Cardiovascular Medicine in [place], [place] [address] [place] [phone] Fredi Horner M.D. [address] [place] [phone] 12/31/2023 1:45 PM CDT Comprehensive Visit Department of Urology in [place], [place] [address] [place] [phone] Tabitha Rich P.A.-C. [address] [place] [phone] 12/31/2023 2:30 PM CDT Procedure visit Department of Urology in [place], [place] [address] [place] [phone] Rosemary Gregorio APRN, LOCKSTITCH BINDER, M.S. [address] [place] [phone] 01/01/2024 8:00 AM CDT Comprehensive Visit Department of Cardiovascular Medicine in [place], [place] [address] [place] [phone] Fredi Horner M.D. [address] [place] [phone] 01/01/2024 1:30 PM CDT Comprehensive Visit Division of Endocrinology in [place], [place] [address] [place] [phone] Horacio Harp M.D. 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
--- OUTSIDE RECORDS SUMMARY | 2023-11-09 00:52 | XMS_ITS | Encounter Summary ---
Author Organization [facility] Address [address] [place] [address] Care Team Providers Care Health Education Director Name Role Phone Unavailable Primary Care Provider Unavailabl e Reason for Referral * Outpatient (Routine) - Authorized Specialty Diagnoses / Procedures Referred By Candice maki Referred To Contact Diagnoses Flutter Atrial (HCC) Procedures ECG Heart rhythm monitor (Holter) Avtar Aaron M.D. 200 [place] [address] [facility] Referral ID Status Reason Start Date Expiration Date V isits Requested Visits Authorized [id number] Authorized 09/14/2023 09/13/2024 1 1 Reason for Visit * Outpatient (Routine) - Authorized Specialty Diagnoses / Procedures Referred By Candice maki Referred To Contact Diagnoses Flutter Atrial (HCC) Procedures ECG Heart rhythm monitor (Holter) Avtar Aaron M.D. [address] [place] [address] [facility] Referral ID Status Reason Start Date Expiration Date V isits Requested Visits Authorized [id number] Authorized 09/14/2023 09/13/2024 1 1 Encounter Details Date Type Department Care Team (Latest Contact Info) Description 10/06/2023 8:34 AM CDT - 10/06/2023 11:59 PM CDT Hospital Encounter Department of Cardiovascular Diseases in [place], [place] [address] [place] [address] Avtar Aaron M.D. [address] [place] [address] Flutter Atrial (HCC) Discharge Disposition: Home or [...] years. I stopped in 2013. [facility] [employer]Aroundities Answer Date Recorded In the past 12 months has th e [employer], oil, or water [employer] threatened to shut off services in your [...] PM CDT Clinical Communication Virtual Review in [place], [place] 200 [place] [address] 11/12/2023 8:00 AM CDT Comprehensive Visit Division of Pain Medicine in [place], [place] [address] [place] [phone] Angelina Jefferson, TEOFILO, C.N.P., M.S.N. [address] [place] [phone] 11/13/2023 10:00 AM CDT Telemedicine Section of Executive Medicine in [place], [place] [address] [place] [phone] Avtar Aaron M.D. [address] [place] [phone] 12/30/2023 11:10 AM CDT Appointment Department of Laboratory Medicine and Pathology, [facility] in [place], [place] [address] [place] [phone] Rosemary Gregorio APRN, CRIME SCENE INVESTIGATOR, M.S. [address] [place] [phone] 12/30/2023 11:20 AM CDT Appointment Department of Laboratory Medicine and Pathology, [facility] in [place], [place] [address] [place] [phone] Rosemary Gregorio APRN, CRIME SCENE INVESTIGATOR, M.S. [address] [place] [phone] 12/30/2023 12:30 PM CDT Appointment Department of Radiology, [facility] in [place], [place] [address] [place] [phone] Rosemary Gregorio APRN, CRIME SCENE INVESTIGATOR, M.S. [address] [place] [phone] 12/31/2023 12:40 PM CDT Ancillary Procedure Department of Cardiovascular Medicine in [place], [place] [address] [place] [phone] Fredi Horner M.D. [address] [place] [phone] 12/31/2023 1:45 PM CDT Comprehensive Visit Department of Urology in [place], [place] [address] [place] [phone] Tabitha Rich P.A.-C. [address] [place] [phone] 12/31/2023 2:30 PM CDT Procedure visit Department of Urology in [place], [place] [address] [place] [phone] Rosemary Gregorio APRN, CRIME SCENE INVESTIGATOR, M.S. [address] [place] [phone] 01/01/2024 8:00 AM CDT Comprehensive Visit Department of Cardiovascular Medicine in [place], [place] [address] [place] [phone] Fredi Horner M.D. [address] [place] [phone] 01/01/2024 1:30 PM CDT Comprehensive Visit Division of Endocrinology in [place], [place] [address] [place] [phone] Horacio Harp M.D. [address] [place] [phone] documented as of this encounter Procedures Procedure Name Priority Date/Time Associated Diagnosis Comments HOLTER MONITOR - IN CLINIC PROFESSIONAL TUTOR Routine 10/07/2023 9:43 AM CDT Flutter Atrial (HCC) documented in this encounter Results * HOLTER MONITOR - IN CLINIC PROFESSIONAL TUTOR (10/07/2023 9:43 AM CDT) Min Heart Rate [...] 1h 35m duration INFOBION IC MOME AF [place] 6.71 percent INFOBIONIC MOME Longest AF Duration 1h 36m duration INFOBIONIC MOME Symptom Count 1 count INFOBI ONIC MOME 10/06/2023 8:39 AM CDT Narrative INFOBIONIC MOME - 10/11/2023 2:23 PM CDT [place] 1. The basic rhythm was sinus with [...] this event, there was no ectopy noted. Slate Cutter Operator: COLETTE Rivera/ COLETTE Bray A Holter monitor with cascade to extended monitoring was ordered for the indication of Atrial fibrillation or flutter calculate burden/% time in AF. During the Holter monitoring period, the patient did have atrial fibrillation or flutter >=30 seconds. Therefore, the study was not cascaded to extended monitoring. Procedure Note Lisandro Ellison M.D. - 10/11/2023 [facility] 1. The basic rhythm was sinus with [...] this event, there was no ectopy noted. Slate Cutter Operator: COLETTE Rivera/ COLETTE Bray A Holter monitor with cascade to extended monitoring was ordered for theindication of Atrial fibrillation or flutter calculate burden/% time inAF. During the Holter monitoring period, the patient did have atrialfibrillation or flutter >=30 seconds. Therefore, the study was not cascaded to extended monitoring. Avtar Aaron M.D. 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
--- OUTSIDE RECORDS SUMMARY | 2023-11-09 00:52 | XMS_ITS | Encounter Summary ---
Author Organization [facility] Address [address] [place] [address] Care Team Providers Care Manager Winter Name Role Phone Unavailable Primary Care Provider Unavailabl e Reason for Visit * Reason Onset Date Comments Outside EKG reports 10/05/2023 Encounter Details Date Type Department Care Team (Latest Contact Info) Description 10/05/2023 Clinical Communication Division of General Internal Medicine in [place], [place] [address] [place] [address] Avtar Aaron M.D. [address] [place] [phone] Outside EKG reports Social History Tobacco Use [...] for many years. I stopped in 2013. [facility] Utilities Answer Date Recorded In [...] your living situation today? I have a [facility] place to live 10/01/2023 Sex and Gender Information Value Date Recorded Sex Assigned at Male 09/11/2023 10:52 AM CDT Gender Identity Male 09/11/2023 10:52 AM CDT Sexual Orientation Straight 09/11/2023 10 :52 AM CDT documented as of this encounter Plan of Treatment Upcoming Encounters Date Type Department Care Team (Latest Contact Info) Description 11/09/2023 3:45 PM CDT Clinical Communication Virtual Review in [place], [place] [address] [place] [address] 11/12/2023 8:00 AM CDT Comprehensive Visit Division of Pain Medicine in [place], [place] [address] [place] [phone] Angelina Jefferson, TEOFILO, C.N.P., M.S.N. [address] [place] [phone] 11/13/2023 10:00 AM CDT Telemedicine Section of Executive Medicine in [place], [place] [address] [place] [phone] Avtar Aaron M.D. [address] [place] [phone] 12/30/2023 11:10 AM CDT Appointment Department of Laboratory Medicine and Pathology, [facility] in [place], [place] [address] [place] [phone] Rosemary Gregorio APRN, DATA CONVERSION OPERATOR, M.S. [address] [place] [phone] 12/30/2023 11:20 AM CDT Appointment Department of Laboratory Medicine and Pathology, [facility] in [place], [place] [address] [place] [phone] Rosemary Gregorio APRN, DATA CONVERSION OPERATOR, M.S. [address] [place] [phone] 12/30/2023 12:30 PM CDT Appointment Department of Radiology, [facility] in [place], [place] [address] [place] [phone] Rosemary Gregorio APRN, DATA CONVERSION OPERATOR, M.S. [address] [place] [phone] 12/31/2023 12:40 PM CDT Ancillary Procedure Department of Cardiovascular Medicine in [place], [place] [address] [place] [phone] Fredi Horner M.D. [address] [place] [phone] 12/31/2023 1:45 PM CDT Comprehensive Visit Department of Urology in [place], [place] [address] [place] [phone] Tabitha Rich P.A.-C. [address] [place] [phone] 12/31/2023 2:30 PM CDT Procedure visit Department of Urology in [place], [place] [address] [place] [phone] Rosemary Gregorio APRN, DATA CONVERSION OPERATOR, M.S. [address] [place] [phone] 01/01/2024 8:00 AM CDT Comprehensive Visit Department of Cardiovascular Medicine in [place], [place] [address] [place] [phone] Fredi Horner M.D. [address] [place] [phone] 01/01/2024 1:30 PM CDT Comprehensive Visit Division of Endocrinology in [place], [place] [address] [place] [phone] Horacio Harp M.D. 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
--- OUTSIDE RECORDS SUMMARY | 2023-11-09 00:52 | XMS_ITS | Encounter Summary ---
Author Organization [facility] Address [address] [place] [address] Care Team Providers Care Actuarial Assistant Name Role Phone Unavailable Primary Care Provider Unavailabl e Reason for Visit * Reason Onset Date Comments Pre-visit Intake 10/02/2023 * Appointment Request (Routine) - Authorized Specialty Diagnoses / Procedures Referred By Candice maki Referred To Contact General Internal Medicine Referral ID Status Reason Start Date Expiration Date V isits Requested Visits Authorized [id number] Authorized 09/10/2023 09/09/2024 1 1 Encounter Details Date Type Department Care Team (Latest Contact Info) Description 10/02/2023 3:00 PM CDT Clinical Communication Virtual Review in [place], [place] 200 [place] [address] Pre-visit Intake Social History Tobacco Use Types [...] In the past 12 months has e [employer], gas, oil, or water [employer] threatened to shut off services in your [...] PM CDT Clinical Communication Virtual Review in [place], [place] [address] [place] [address] 11/12/2023 8:00 AM CDT Comprehensive Visit Division of Pain Medicine in [place], [place] [address] [place] [phone] Angelina Jefferson, TEOFILO, C.N.P., M.S.N. [address] [place] [address] 11/13/2023 10:00 AM CDT Telemedicine Section of Executive Medicine in [place], [place] [address] [place] [phone] Avtar Aaron M.D. [address] [place] [phone] 12/30/2023 11:10 AM CDT Appointment Department of Laboratory Medicine and Pathology, [place], [place] [address] [place] [phone] Rosemary Gregorio APRN, HIGH SCHOOL DRAFTING TEACHER, M.S. [address] [place] [phone] 12/30/2023 11:20 AM CDT Appointment Department of Laboratory Medicine and Pathology, [facility] in [place], [place] [address] [place] [phone] Rosemary Gregorio APRN, HIGH SCHOOL DRAFTING TEACHER, M.S. [address] [place] [phone] 12/30/2023 12:30 PM CDT Appointment Department of Radiology, [facility] in [place], [place] [address] [place] [phone] Rosemary Gregorio APRN, HIGH SCHOOL DRAFTING TEACHER, M.S. [address] [place] [phone] 12/31/2023 12:40 PM CDT Ancillary Procedure Department of Cardiovascular Medicine in [place], [place] [address] [place] [phone] Fredi Horner M.D. [address] [place] [phone] 12/31/2023 1:45 PM CDT Comprehensive Visit Department of Urology in [place], [place] [address] [place] [phone] Tabitha Rich P.A.-C. [address] [place] [phone] 12/31/2023 2:30 PM CDT Procedure visit Department of Urology in [place], [place] [address] [place] [phone] Rosemary Gregorio APRN, HIGH SCHOOL DRAFTING TEACHER, M.S. [address] [place] [phone] 01/01/2024 8:00 AM CDT Comprehensive Visit Department of Cardiovascular Medicine in [place], [place] [address] [place] [phone] Fredi Horner M.D. [address] [place] [phone] 01/01/2024 1:30 PM CDT Comprehensive Visit Division of Endocrinology in [place], [place] [address] [place] [phone] Horacio Harp M.D. 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
--- OUTSIDE RECORDS SUMMARY | 2023-11-09 00:53 | XMS_ITS | Encounter Summary ---
Author Organization [facility] Address [address] [place] [address] Care Team Providers Care Recruitment Manager Name Role Phone Unavailable Primary Care Provider Unavailabl e Reason for Visit * Reason Onset Date Comments Echo Movep for 10/04 visit 09/15/2023 Encounter Details Date Type Department Care Team (Latest Contact Info) Description 09/15/2023 Clinical Communication Division of General Internal Medicine in [place], [place] [address] [place] [address] Prescheduling, Provider Echo Movep for 10/04 visit Social History Tobacco Use Types Packs/Day Years Used Date Smoking Tobacco: Former [facility] Utilities Answer Date Recorded In the past [...] your living situation today? I have a [facility] place to live 10/01/2023 Sex and Gender Information Value Date Recorded Sex Assigned at Male 09/11/2023 10:52 AM CDT Gender Identity Male 09/11/2023 10:52 AM CDT Sexual Orientation Straight 09/11/2023 10 :52 AM CDT documented as of this encounter Plan of Treatment Upcoming Encounters Date Type Department Care Team (Latest Contact Info) Description 11/09/2023 3:45 PM CDT Clinical Communication Virtual Review in [place], [place] 200 [place] [address] 11/12/2023 8:00 AM CDT Comprehensive Visit Division of Pain Medicine in [place], [place] [address] [place] [phone] Angelina Jefferson, TEOFILO, C.N.P., M.S.N. [address] [place] [phone] 11/13/2023 10:00 AM CDT Telemedicine Section of Executive Medicine in [address] [phone] Avtar Aaron M.D. [address] [place] [phone] 12/30/2023 11:10 AM CDT Appointment Department of Laboratory Medicine and Pathology, [facility] in [place], [place] [address] [place] [phone] Rosemary Gregorio APRN, DIESEL CRANE OPERATOR, M.S. [address] [place] [phone] 12/30/2023 11:20 AM CDT Appointment Department of Laboratory Medicine and Pathology, [facility] in [place], [place] [address] [place] [phone] Rosemary Gregorio APRN, DIESEL CRANE OPERATOR, M.S. [address] [place] [phone] 12/30/2023 12:30 PM CDT Appointment Department of Radiology, [facility] in [place], [place] [address] [place] [phone] Rosemary Gregorio APRN, DIESEL CRANE OPERATOR, M.S. [address] [place] [phone] 12/31/2023 12:40 PM CDT Ancillary Procedure Department of Cardiovascular Medicine in [place], [place] [address] [place] [phone] Fredi Hornre M.D. [address] [place] [phone] 12/31/2023 1:45 PM CDT Comprehensive Visit Department of Urology in [place], [place] [address] [place] [phone] Tabitha Rich P.A.-C. [address] [place] [phone] 12/31/2023 2:30 PM CDT Procedure visit Department of Urology in [place], [place] [address] [place] [phone] Rosemary Gregorio APRN, DIESEL CRANE OPERATOR, M.S. [address] [place] [phone] 01/01/2024 8:00 AM CDT Comprehensive Visit Department of Cardiovascular Medicine in [place], [place] [address] [place] [address] Fredi Horner M.D. [address] [place] [phone] 01/01/2024 1:30 PM CDT Comprehensive Visit Division of Endocrinology in [place], [place] [address] [place] [address] Horacio Harp M.D. 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
--- OUTSIDE RECORDS SUMMARY | 2023-11-09 00:53 | XMS_ITS | Encounter Summary ---
Author Organization [facility] Address [address] [place] [address] Care Team Providers Care Family Service Caseworker Name Role Phone Unavailable Primary Care Provider Unavailabl e Encounter Details Date Type Department Care Team (Late st Contact Info) Description 01/27/2013 Confidential HX RST NO MAPPING Ilir Anne, Ph.D., L.P. [address] [place] [phone] Social History Tobacco Use Types Packs/Day Years [...] 27 Y Birthdate: 1985 Sex: M Address: [facility] [address], [address] City: [place] [address] CONFIDENTIAL NOTE Service Date/Time: 27-Jan-2013 18:24 Provider: Ilir Anne, PhD, Pager: [phone] Service: PSIRCI Type/Desc: CON Status: Fnl Revision #: [address] Juliano Edward and Kusum Arriaza. CHIEF COMPLAINT/PURPOSE OF VISIT Comprehensive rehabilitation psychology evaluation. HISTORY OF PRESENT ILLNESS Mr. Michael Bauman is a 27-year-old single male from [place], [place], admitted to [address] [place] [address] on January 25 with a T7 MAC [...] injury occurred on January 15 at the [facility] in [place], [place]. The reader is referred to the [...] HISTORY: Mr. Bauman reports being born in [place] and moving to [place], [place], at age 12. He is an only child. He reports that his parents when he was 18. His father moved to [place], [place], and he was alienated from his father during his high school years with a reconciliation occurring in more recent years. 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 He reports he is becoming much more spiritual in the past year. He reports graduating from [employer] in 2006 with a 3.7 GPA. He attended [employer] for two years, majoring in biology and psychology, but it was too expensive. He had a 3.5 at [employer]. He became seriously depressed about 2008 and stayed out of school for a year. He returned to the [employer], completing a degree in psychology in 2011. He was uncertain what he wanted to do with this degree. 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 He was last working at [employer] in [employer]. He precipitously quit that job in September of this year and had been living off of savings. MENTAL HEALTH HISTORY: Mr. Bauman has struggled throughout his life with feelings of depression. He states that he was somewhat depressed as a child, [place] 12[place] He states good friends in [place] helped pull him through this early. Yet, [...] years. 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 Thus, he meets CAGE criteria for abuse. [...] 2009 he saw a psychiatrist at the [employer] [facility] and was prescribed Prozac, with the dose escalating to 40 mg. The emotional blunting and the sexual side effects resulted in him discontinuing this medication after about six months. He began taking this medication again in 2010, but again stopped its use as a result of the side effects. He also saw two different counselors, one session each at the [employer] [facility] and instantly did not like either of [...] impulsively quit his job at an upscale [place] restaurant. He had begun volunteering for a nonprofit organization called [employer]. He found this organizationon the internet. He also was beginning to get more information about [employer]. [facility] is an outdoor recreational nonprofit organization that is devoted to bringing able and rjh-lhbm-vjtvbj individuals together in recreational pursuits to the [...] further information including the new website entitled [employer]. This will be an excellent resource to him and his parents as he goes through the rehabilitation process. At the present time, there is no acute reason to pursue the issue of alcohol abuse. This issue willbe part of his overall program planning. 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 [place] II: Deferred. [place] III: T7 MAC A spinal cord injury, polytrauma [place] IV: None. [place] V: GAF equals 50/80. PATIENT EDUCATION Ready to learn, no apparent learning barriers were identified; learning preferences include listening. Explained diagnosis and treatment plan; patient expressed understanding of the content. BILLING Margin Code: DIC Total Time: 60 minutes Counseling Time: 60 minutes Original: jonna/sgf revised by jonna Electronically Signed: 04-Feb-2013 13:52 by [place] Anne, PhD, Clinical Notes - [id number] Id: [id number] Status: Fnl ATOLOGY PHYSICIAN ASSISTANT documented in this encounter Plan of Treatment Upcoming Encounters Date Type Department Care Team (Latest Contact Info) Description 11/09/2023 3:45 PM CDT Clinical Communication Virtual Review in [address] [phone] 11/12/2023 8:00 AM CDT Comprehensive Visit Division of Pain Medicine in [address] [phone] Angelina Jefferson APRN, C.N.P., M.S.N. [address] [place] [phone] 11/13/2023 10:00 AM CDT Telemedicine Section of Executive Medicine in [address] [phone] Avtar Aaron M.D. [address] [place] [phone] 12/30/2023 11:10 AM CDT Appointment Department of Laboratory Medicine and Pathology, [address] [phone] Rosemary Gregorio APRN, FIBER TECHNICIAN, M.S. [address] [place] [phone] 12/30/2023 11:20 AM CDT Appointment Department of Laboratory Medicine and Pathology, [facility] in [address] [phone] Rosemary Gregorio APRN, FIBER TECHNICIAN, M.S. [address] [place] [phone] 12/30/2023 12:30 PM CDT Appointment Department of Radiology, [facility], in [place], [place] [address] [place] [address] Rosemary Gregorio APRN, FIBER TECHNICIAN, M.S. [address] [place] [phone] 12/31/2023 12:40 PM CDT Ancillary Procedure Department of Cardiovascular Medicine in [place], [place] [address] [place] [phone] Fredi Horner M.D. [address] [place] [phone] 12/31/2023 1:45 PM CDT Comprehensive Visit Department of Urology in [place], [place] [address] [place] [phone] Tabitha Rich P.A.-C. [address] [place] [phone] 12/31/2023 2:30 PM CDT Procedure visit Department of Urology in [place], [place] [address] [place] [phone] Rosemary Gregorio APRN, FIBER TECHNICIAN, M.S. [address] [place] [phone] 01/01/2024 8:00 AM CDT Comprehensive Visit Department of Cardiovascular Medicine in [place], [place] [address] [place] [phone] Fredi Horner M.D. [address] [place] [phone] 01/01/2024 1:30 PM CDT Comprehensive Visit Division of Endocrinology in [place], [place] [address] [place] [phone] Horacio Harp M.D. 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
--- OUTSIDE RECORDS SUMMARY | 2023-11-09 00:53 | XMS_ITS | Clinical Summary ---
Author Organization [facility] Address [place], [place] [address] Care Team Providers Care [place] Tower Loader Name Role Phone Roberto Marie MD Primary Care Provider [phone] Allergies Active Allergy Reactions Criticality Noted Date [...] capsule Take 1,000 Capsules by mouth. Active Dqehe-2-NWC-EPA-F kendall Oil (Fish OiL) 1,000 mg (120 [...] Type Department Care Team Description 10/22/2023 Refill [facility] [address] [place] [address] Votel, Michael Flood MD Refill Request (Pregabalin) [...] Comments Blood Pressure 104/66 04/22/2023 4:12 PM STENCIL CUTTER Pulse 72 04/22/2023 4:12 PM STENCIL CUTTER Temperature 36.5 ??C (97.7 ??F) 08/15/2009 2:00 PM CD T Respiratory Rate - - Oxygen Saturation 94% 04/22/2023 4:12 PM STENCIL CUTTER Inhaled Oxygen Concentration - - Weight 69.4 [...] age to complete this topic Care Teams [place] Tower Loader Relationship Specialty Start Date End Date Roberto Marie MD [address] [facility] [address] [place] [address] [facility] - General 06/29/09
--- OUTSIDE RECORDS SUMMARY | 2023-11-09 00:53 | XMS_ITS | Encounter Summary ---
Author Organization [facility] Address [address] [place] [id number] Care Team Providers Care Traffic Enumerator Name Role Phone Unavailable Primary Care Provider Unavailabl e Reason for Referral * Outpatient (Routine) - Authorized Specialty Diagnoses / Procedures Referred By Contac t Referred To Contact Pain Medicine Diagnoses Injury Thoracic Spinal Cord Subsequent (HCC) Avtar Aaron M.D. 200 [place] [address] [facility] Referral ID Status Reason Start Date Expiration Date Visits Requested Visits Authorized [id number] Authorized Specialty Services Required 09/14/2023 03/15/2025 1 1 * Outpatient (Routine) - Closed Specialty Diagnoses / Procedures Referred By Contac t Referred To Contact Diagnoses Injury Thoracic Spinal Cord Subsequent (HCC) Procedures DX Thoracic Spine 2 Views Atvar Aaron M.D. 200 [place] [address] [facility] Referral ID Status Reason Start Date Expiration Date Visits Re quested Visits Authorized [id number] Closed 09/14/2023 09/13/2024 1 1 * Outpatient (Routine) - Closed Specialty Diagnoses / Procedures Referred By Contac t Referred To Contact Diagnoses Injury Thoracic Spinal Cord Subsequent (HCC) Procedures DX Lumbar Spine 2-3 Views Avtar Aaron M.D. [address] [place] [phone] [facility] Referral ID Status Reason Start Date Expiration Date Visits Re quested Visits Authorized [id number] Closed 09/14/2023 09/13/2024 1 1 * Outpatient (Routine) - Closed Specialty Diagnoses / Procedures Referred By Contact Referred To Contact Physical Medicine and Rehabilitation Diagnoses Injury Thoracic Spinal Cord Subsequent (HCC) Avtar Aaron M.D. [address] [place] [phone] Referral ID Status Reason Start Date Expiration Date Visits Re quested Visits Authorized [id number] Closed 09/14/2023 03/15/2025 1 1 * Physical Therapy (Routine) - Closed Specialty Diagnoses / Procedures Referred By Candice t Referred To Contact Diagnoses Injury Thoracic Spinal Cord Subsequent (HCC) Procedures PT or OT eval and treat (first available) Avtar Aaron M.D. [address] [place] [address] [facility] Referral ID Status Reason Start Date Expiration Date Visits Re quested Visits Authorized [id number] Closed 09/14/2023 09/13/2024 1 1 * Outpatient (Routine) - Closed Specialty Diagnoses / Procedures Referred By Contac t Referred To Contact Diagnoses Pain Shoulder Left Procedures DX Shoulder Left 2+ Views Avtar Aaron M.D. [address] [place] [address] [facility] Referral ID Status Reason Start Date Expiration Date Visits Re quested Visits Authorized [id number] Closed 09/14/2023 09/13/2024 1 1 * Outpatient (Routine) - Closed Specialty Diagnoses / Procedures Referred By Contbernardo t Referred To Contact Wellness Diagnoses Wellness Screening Avtar Aaron M.D. [address] [place] [phone] [facility] Referral ID Status Reason Start Date Expiration Date Visits Re quested Visits Authorized [id number] Closed 09/14/2023 03/15/2025 1 1 Scheduling Instructions CM * Outpatient (Routine) - Closed Specialty Diagnoses / Procedures Referred By Edwinac t Referred To Contact Diagnoses Flutter Atrial (HCC) Procedures Echo Transthoracic (TTE) Avtar Aaron M.D. [address] [place] [address] [facility] Referral ID Status Reason Start Date Expiration Date Visits Re quested Visits Authorized [id number] Closed 09/14/2023 09/13/2024 1 1 * Outpatient (Routine) - Closed Specialty Diagnoses / Procedures Referred By Contac t Referred To Contact Diagnoses Flutter Atrial (HCC) Procedures DX Chest AP or PA and Lateral 2 Views Avtar Aaron M.D. 200 [place] [address] [facility] Referral ID Status Reason Start Date Expiration Date Visits Re quested Visits Authorized [id number] Closed 09/14/2023 09/13/2024 1 1 * Outpatient (Routine) - Authorized Specialty Diagnoses / Procedures Referred By Contac t Referred To Contact Diagnoses Flutter Atrial (HCC) Procedures ECG Heart rhythm monitor (Holter) Avtar Aaron M.D. [address] [place] [phone] [facility] Referral ID Status Reason Start Date Expiration Date V isits Requested Visits Authorized [id number] Authorized 09/14/2023 09/13/2024 1 1 * Outpatient (Routine) - Closed Specialty Diagnoses / Procedures Referred By Contac t Referred To Contact Diagnoses Flutter Atrial (HCC) Procedures ECG 12 Lead Avtar Aaron M.D. [address] [place] [phone] [facility] Referral ID Status Reason Start Date Expiration Date Visits Re quested Visits Authorized [id number] Closed 09/14/2023 09/13/2024 1 1 * Outpatient (Routine) - Authorized Specialty Diagnoses / Procedures Referred By Contact Referred To Contact Cardiovascular Diseases / Cardiovascular Disease Diagnoses Flutter Atrial (HCC) Avtar Aaron M.D. [address] [place] [address] [facility] Referral ID Status Reason Start Date Expiration Date V isits Requested Visits Authorized [id number] Authorized 09/14/2023 03/15/2025 1 1 Scheduling Instructions CM Reason for Visit * Reason Onset Date Comments Triage 09/08/2023 Encounter Details Date Type Department Care Team (Late st Contact Info) Description 09/08/2023 Clinical Communication Division of General Internal Medicine in [place], [place] [address] [place] [phone] Prescheduling, Provider Triage Social History Tobacco Use Types Packs/Day Years Used Date Smoking Tobacco: Former [facility] Utilities Answer Date Recorded In the [...] your living situation today? I have a [facility] to live 10/01/2023 Sex and Gender Information Value Date Recorded Sex Assigned at Male 09/11/2023 10:52 AM CDT Gender Identity Male 09/11/2023 10:52 AM CDT Sexual Orientation Straight 09/11/2023 10 :52 AM CDT documented as of this encounter Miscellaneous Notes * Telephone Encounter - ashishLillian morrow Diogo - 09/08/2023 2:49 PM CDT Michael Bauman 1985 [id number] 37 years Height: 5'8?? Weight: 130 Lbs [...] than 12 months Previous Eval: Yes [facility] Have had: None of the above [...] than 12 months Previous Eval: Yes Location: [facility] [place] Have had: Procedures (surgeries, colonoscopies, biopsies, etc.), Images (X-Rays, CT scan, MRI scan, etc.), Blood or urine tests Diagnosis: Stage 4 Pressure Ulcer with Osteomyelitis Outcome: Flap surgery and Hyperbaric Oxygen Therapy. 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 This happened about 10 years ago. I had a spinal fusion with rods and screws placed in. Since then my posture has changed and I haven't had the hardware examined for years. I also had an aortic stent, which also hasn't been examined for years. Duration: More than 12 months Previous Eval: Yes Location: [facility] Have had: Procedures (surgeries, colonoscopies, biopsies, etc.), Images (X-Rays, CT scan, MRI scan, etc.), Blood or urine tests Diagnosis: T7 Complete Spinal Cord Injury Outcome: I was treated and rehabilitated at [facility] initially, but haven't been examined for [...] than 12 months Previous Eval: Yes Location: [facility] Have had: None of the above [...] WEEKS: SLEEP APNEA DIAGNOSIS: Willing to attend [facility] or [facility] appointments - Probably yes DAILY MEDS: 2 OPIOIDS: No CURRENT DIALYSIS: No CURRENT HEALTH/PAST YEAR: Very Good CONFIDENCE: Agree NOT AVAILABLE: 09/14, 09/20, 10/30-11/04, 12/20-Saturdays PHONE: [phone] documented in this encounter Plan of Treatment Upcoming Encounters Date Type Department Care Team (Latest Contact Info) Description 11/09/2023 3:45 PM CDT Clinical Communication Virtual Review in [place], [place] [address] [place] [address] 11/12/2023 8:00 AM CDT Comprehensive Visit Division of Pain Medicine in [place], [place] [address] [place] [phone] Angelina Jefferson APRN, C.N.P., M.S.N. [address] [place] [phone] 11/13/2023 10:00 AM CDT Telemedicine Section of Executive Medicine in [place], [place] [address] [place] [phone] Avtar Aaron M.D. [address] [place] [phone] 12/30/2023 11:10 AM CDT Appointment Department of Laboratory Medicine and Pathology, [facility] in [place], [place] [address] [place] [phone] Rosemary Gregorio APRN, BEAD WRAPPER, M.S. [address] [place] [phone] 12/30/2023 11:20 AM CDT Appointment Department of Laboratory Medicine and Pathology, [facility] in [place], [place] [address] [place] [phone] Rosemary Gregorio APRN, BEAD WRAPPER, M.S. [address] [place] [phone] 12/30/2023 12:30 PM CDT Appointment Department of Radiology, [facility] in [place], [place] [address] [place] [phone] Rosemary Gregorio APRN, BEAD WRAPPER, M.S. [address] [place] [phone] 12/31/2023 12:40 PM CDT Ancillary Procedure Department of Cardiovascular Medicine in [place], [place] [address] [place] [phone] Fredi Horner M.D. [address] [place] [phone] 12/31/2023 1:45 PM CDT Comprehensive Visit Department of Urology in [place], [place] [address] [place] [phone] Tabitha Rich P.A.-C. [address] [place] [phone] 12/31/2023 2:30 PM CDT Procedure visit Department of Urology in [place], [place] [address] [place] [phone] Rosemary Gregorio APRN, DULCE, M.S. [address] [place] [phone] 01/01/2024 8:00 AM CDT Comprehensive Visit Department of Cardiovascular Medicine in [place], [place] [address] [place] [phone] Fredi Horner M.D. [address] [place] [phone] 01/01/2024 1:30 PM CDT Comprehensive Visit Division of Endocrinology in [place], [place] [address] [place] [phone] Horacio Harp M.D. [address] [place] [phone] Scheduled Referrals Name Type Priority Associated Diagnoses [...] Results * HOLTER MONITOR - IN CLINIC B[facility]ER AND BOX BUILDER (10/07/2023 9:43 AM CDT) Min Heart Rate [...] 1h 35m duration INFOBION IC MOME AF [place] 6.71 percent INFOBIONIC MOME Longest AF Duration 1h 36m duration INFOBIONIC MOME Symptom Count 1 count INFOBI ONIC MOME 10/06/2023 8:39 AM CDT Narrative INFOBIONIC MOME - 10/11/2023 2:23 PM CDT [place] 1. The basic rhythm was sinus with [...] this event, there was no ectopy noted. Employment Advisor: COLETTE Rivera/ COLETTE Bray A Holter monitor with cascade to extended monitoring was ordered for the indication of Atrial fibrillation or flutter calculate burden/% time in AF. During the Holter monitoring period, the patient did have atrial fibrillation or flutter >=30 seconds. Therefore, the study was not cascaded to extended monitoring. Procedure Note Lisandro Ellison M.D. - 10/11/2023 [place] 1. The basic rhythm was sinus with [...] this event, there was no ectopy noted. Employment Advisor: COLETTE Rivera/ COLETTE Bray A Holter monitor [...] MUSE QTC Interval 442 ms MUSE P [place] 78 degrees MUSE R [place] 54 degrees MUSE T Wave [place] 29 degrees MUSE 10/06/2023 8:33 AM CDT [...] Aaron M.D. ECG ORDERABLES MUSE NA * Thyroid Function [place] (10/05/2023 4:15 PM CDT) TSH, Sensitive 1.4 0.3 - 4.2 mIU/L 10/05/2023 5:30 PM CDT DTL Blood (Blood, Venous) 10/05/2023 4:15 PM CDT 10/05/2023 4:58 PM CDT Avtar Aaron M.D. LAB BLOOD ADD-O N [facility] [address] [place] [address], [facility] DTL [facility] [address] [place] [address] * (ABNORMAL) Basic Metabolic Panel (10/05/2023 4:15 [...] LAB BLOOD ADD-O N [facility] [address] [place] [address], [facility] DTL [facility] [address] [place] [address] * DX Chest AP or PA and [...] effusion has largely resolved. Avtar Aaron M.D. [facility] DIAGNOSTIC IMAGING PROCEDURES * DX Shoulder Left [...] IMPRESSION: Negative left shoulder. Avtar Aaron M.D. [facility] DIAGNOSTIC IMAGING PROCEDURES * DX Thoracic Spine [...] L5-S1. Thoracic aortic endograft. Avtar Aaron M.D. [facility] DIAGNOSTIC IMAGING PROCEDURES * DX Lumbar Spine 2-3 Views (10/05/2023 3:33 PM CDT) Anatomical Region Laterality Modality Lumbar Spine, Musculoskeleta l RST LOS, Neuroradiology ARZ LOS, Muskuloskeletal FLA LOS N/A Digital Radiography Impressions 10/05/2023 3:57 PM CDT Thoracolumbar curvature. Posterior dolorse and pedicle screw fixation T7-T12. No radiographic evidence of loosening. Mild scattered spondylotic changes. Mild disc space narrowing at L5-S1. Thoracic aortic endograft. Narrative 10/05/2023 3:57 PM CDT EXAM: ??DX LUMBAR SPINE 2-3 VIEWS, DX THORACIC SPINE 2 VIEWS Procedure Note Gyala Lloyd M.D. - 10/05/2023 EXAM: DX LUMBAR [...]
== END 2023-10-24 10:41 | disposition home or self-care (01) ==
LOC: AMB 11-09 00:48
PROVIDERS: PCP Family Medicine; Visit Provider Family Medicine
DX: N41.0 Acute prostatitis (principal)
CPT/HCPCS: A0425; A0427

== ENCOUNTER 2024-01-06 16:30 | Outpatient (RCR) | payer MEDICAID, SELFPAY | END 2024-05-02 16:01 | disposition home or self-care (01) | PROVIDERS: PCP Family Medicine; Visit Provider Physical Medicine & Rehabilitation | DX: M67.912 Unspecified disorder of synovium and tendon, left shoulder (principal); S46.812A Strain of other muscles, fascia and tendons at shoulder and upper arm level, left arm, initial encounter; M25.512 Pain in left shoulder; Z51.89 Encounter for other specified aftercare; M62.81 Muscle weakness (generalized) | CPT/HCPCS: 97110; 97140; 97162; 97530 ==

== ENCOUNTER 2024-04-11 19:44 | Emergency (ER) | payer MEDICAID, SELFPAY ==
[2024-04-11 19:52] VITALS: BP 124/73; PULSE 74; RESP 18; TEMP 36.8; O2SAT 97; BMI 20.5
[2024-04-11] MEDS: SULFA/TRIMETHOPRIM 800/160 1 TAB PO (20:32)
--- NOTE | 2024-04-11 20:36 | ED.GENADULT ---
HPI - General Adult General Chief complaint: Skin/Abscess/Foreign Body Stated complaint: boil on neck infected Time Seen by Provider: 04/11/24 20:06 Source: patient Limitations: no limitations History of Present Illness HPI narrative: 38-year-old male with a notable history of prior spinal cord injury presents the emergency department for evaluation of an infection on his neck. He thinks there may have been a lump there for several months or even possibly few years and shows me a similar lesion on the top of his scalp. But for the past 5 days, he has noticed some tenderness and redness of the area. He thought it was just a pimple and tried to pop it may have gotten a little bit of drainage but it certainly seems to be getting bigger. No difficulty moving his neck, no difficulty swallowing, no neck stiffness or anterior neck pain. No prior history of similar lesions. He has had urinary infections that have been resistant to treatment in the past any does have a history of a neurogenic bladder. But he has never had resistant skin infections. He does have allergies to Cipro, vancomycin and doxycycline. The doxycycline seems to be an intolerance rather than an allergy. No fever or symptoms of systemic illness. No prior treatment of this skin lesion. Notable past medical history in addition to spinal cord injury is a history of atrial flutter, neurogenic bowel and bladder secondary to his paraplegia. Home medications reviewed, accurate as listed. ROS is notable for the skin lesion on the neck, negative for other generalized, skin or musculoskeletal changes. Related Data Home Medications ?Medication ?Instructions ?Recorded ?Confirmed diltiazem HCl 120 mg 120 mg PO DAILY PRN 11/09/23 04/11/24 capsule,extended release 24 hr (Cardizem CD) oxybutynin chloride 5 mg tablet 15 mg PO QDAY 11/09/23 04/11/24 Previous Rx's ?Medication ?Instructions ?Recorded pregabalin 150 mg capsule 150 mg PO BID #60 caps 02/24/24 sulfamethoxazole 800 1 tab PO BID 3 days #6 tabs 04/11/24 mg-trimethoprim 160 mg tablet (Bactrim DS) Allergies Allergy/AdvReac Type Severity Reaction Status Date / Time ciprofloxacin Allergy Severe Swelling Verified 04/11/24 19:56 of Lip/Tongue/Throat vancomycin Allergy Severe Swelling Verified 04/11/24 19:56 of Lip/Tongue/Throat doxycycline AdvReac Mild Diarrhea Verified 04/11/24 19:56 [facility] Medical History History of UTI ?Z87.440 - Personal history of urinary (tract) infections (ICD-10) History of alcohol use ?Z87.898 - Personal history of other specified conditions (ICD-10) Surgical History Status post skin flap graft ?Z94.5 - Skin transplant status (ICD-10) History of spinal fusion (01/15/13) ?Z98.1 - Arthrodesis status (ICD-10) Injury of aorta (01/15/13) ?S25.00XA - Unspecified injury of thoracic aorta, initial encounter (ICD-10) Status post colostomy (2022) ?Z93.3 - Colostomy status (ICD-10) Social History Narrative: Works at [employer]. 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 Does not use EtOH or drugs. Past smoker and smokeless tobacco use. What is your current living situation?: I presently have a place to live Problems where you live: no known problems In the past 12 months, utilities in danger of being shut off: no In the past 12 mos, have been you worried that your food would run out before you had money to buy more?: never true In the past 12 mos, the food you bought just didn't last and you didn't have money to buy more?: never true Smoking Status: Never smoker Do you use any of these nicotine containing products: None Second hand tobacco smoke exposure: No How often do you have a drink containing alcohol: never AUDIT-C Alcohol total score: 0 Non-prescribed substance use: denies use How often does anyone, including family, friends and others, physically hurt you: never How often does anyone, including family, friends and others, insult or talk down to you: rarely How often does anyone, including family, friends and others, threaten you with harm: rarely How often does anyone, including family, friends and others, scream or curse at you: rarely service: No Health Related Social Needs: Other personal risk factors, not elsewhere classified (Z91.89) Exam Const: Vital Signs, click to edit/add: Vital Signs - 24 hr 04/11/24 19:52 Temperature 98.2 F Pulse Rate [Pulse Oximeter] 74 Respiratory Rate 18 Blood Pressure [Le ft Upper Arm] 124/73 Pulse Oximetry 97 Oxygen Delivery Me thod Room Air Common normals: no apparent distress General appearance: cooperative, comfortable and well kempt HENMT: Common normals: normocephalic and head/scalp atraumatic Head and scalp: normocephalic and atraumatic Face and sinus: normal facial exam Mouth: oral and palatal mucosa normal Neck & C-Spine: Common normals: full ROM and no lymphadenopathy Other: Left occipital lower hairline showing a 2 cm raised, indurated area with fluctuance and mild tenderness consistent with a subcutaneous abscess. No drainage or leakage. Very thin area in center where I can see yellow liquid material. Resp: Common normals: normal respiratory effort Effort & inspection: able to speak in complete sentences Psych: Appearance: well kempt Activity/motor behavior: appropriate eye contact Mood and affect: euthymic mood Insight: insight good Judgement: judgment good Skin: Narrative: There is a 1 cm non inflamed sebaceous cyst about 5 cm superior to the inflamed lesion. Patient counseled on this lesion and it does not need treatment unless it becomes inflamed. Discussed to the inflamed sebaceous cyst in area in question. No other infected appearing lesions. Course Course ED Course: 38-year-old male with inflamed sebaceous cyst versus abscess of the left upper neck/left occipital posterior area. Recommended incision and drainage. Risks and benefits discussed. Verbal consent obtained. Procedure: Incision and drainage: Area cleansed with alcohol wipe, injected with 1 mL of 1% lidocaine with epinephrine with good anesthesia and blanching. He is in an 18 gauge needle, area was then pierced in the center and about 3 mL of sebaceous. Lint bloody material drained. Area was then scraped with the 18 gauge needle to remove all sebaceous material and any elements of capsule. This was well tolerated. Hemostatic at the end of procedure. Covered with antibiotic ointment, a folded 2 x 2 gauze and a large Band-Aid. No culture sent. Patient counseled to leave current dressing in place for 24 hours. After that, may remove, shower and wash as usual and then cover with a fresh Band-Aid daily. Should heal within the next few days. Will give Bactrim p.o. x1 here and then send an additional 3 days to the pharmacy. Alarm symptoms reviewed that would warrant ED presentation or further management. He verbalized understanding and agreement. Vital Signs Vital signs: Initial Vital Signs Temperature 98.2 F 04/11/24 19:52 Temperature Source Temporal Artery Scan 04/11/24 19:52 Pulse Rate 74 04/11/24 19:52 Respiratory Rate 18 04/11/24 19:52 Blood Pressure 124/73 04/11/24 19:52 Blood Pressure Mean 90 04/11/24 19:52 Blood Pressure Position Sitting 04/11/24 19:52 Pulse Oximetry 97 04/11/24 19:52 Oxygen Delivery Method Room Air 04/11/24 19:52 Vital Signs Temperature 98.2 F 04/11/24 19:52 Pulse Rate 74 04/11/24 19:52 Respiratory Rate 18 04/11/24 19:52 Blood Pressure 124/73 04/11/24 19:52 Pulse Oximetry 97 04/11/24 19:52 Oxygen Delivery Method Room Air 04/11/24 19:52 Temperature 98.2 F 04/11/24 19:52 Pulse Rate 74 04/11/24 19:52 Respiratory Rate 18 04/11/24 19:52 Blood Pressure 124/73 04/11/24 19:52 Pulse Oximetry 97 04/11/24 19:52 Oxygen Delivery Method Room Air 04/11/24 19:52 Medications Administered Medications: Generic Name Dose Route Start Last Admin Trade Name Freq PRN Reason Stop Dose Admin Trimethoprim/Sulfamethoxazole 1 tab 04/11/24 20:27 04/11/24 20:32 Sulfa/Trimethoprim 800/160 1 Tab PO 04/11/24 20:28 1 tab ONCE ONE Administration Discharge Plan Discharge Clinical Impression: Inflamed sebaceous cyst Patient Disposition: Home, Self-Care Condition: Improved Instructions: Abscess Incision and Drainage (DC) Additional Instructions: As we discussed, this was most likely an inflamed sebaceous cyst. These get infected with typical skin bacteria. This drained easily with incision and drainage. We started you on Bactrim, a common antibiotic for this. You will continue taking this twice daily for 3 more days. Try to leave the antibiotic ointment and bandage on for 24 hours. After that, you may remove, shower as usual and then cover with just a small, simple Band-Aid. It is okay if the wound keeps draining, that is actually what we want to happen if needed. Because of this, a piece of gauze was placed in the larger Band-Aid. It is unlikely to continue draining after 24 hours. If it swells up again, you have high fevers, difficulty swallowing or moving your neck or other signs of complication, a should come back to the emergency department. Activity Level: No Restrictions Discharge Diet: Regular Prescriptions: New sulfamethoxazole-trimethoprim [Bactrim DS] 800-160 mg tablet 1 tab PO BID 3 Days Qty: 6 0RF No Action diltiazem HCl [Cardizem CD] 120 mg capsule,extended release 24hr 120 mg PO DAILY PRN oxybutynin chloride 5 mg tablet 15 mg PO QDAY pregabalin 150 mg capsule 150 mg PO BID Qty: 60 5RF Follow Up/Referrals: Keo Cobb MD [Primary Care Provider] - Stand Alone Forms: Optherion Info Instructions
--- OUTSIDE RECORDS SUMMARY | 2024-04-11 20:38 | XMS_ITS | Encounter Summary ---
Author Organization [facility] Address [address] [place] [address] Care Team Providers Care Grouter Helper Name Role Phone Elsewhere, Pcp Primary Care Provider Unavailabl e Encounter Details Date Type Department Care Team (Late st Contact Info) Description 01/27/2013 Confidential HX RST NO MAPPING Ilir Anne, Ph.D., L.P. [address] [place] [phone] Social History Tobacco Use Types Packs/Day Years Used Date Smoking Tobacco: Never Assessed Sex and Gender Information Value Date Recorded Sex Assigned at Male 09/11/2023 10:52 AM CDT Legal Sex Male 5:59 PM PROOFSHEET CORRECTOR Gender Identity Male 09/11/2023 10:52 AM CDT Sexual Orientation Straight 09/11/2023 10 :52 AM CDT documented as of this encounter Consult Notes * Ilir Anne, Ph.D., L.P. - 01/27/2013 6:24 PM CDT DEMOGRAPHIC INFORMATION Clinic Number: [id number] Patient Name: Mr. Michael Bauman Age: 27 Y Birthdate: 1985 Sex: M Address: [address], [address] City: [place] [address] CONFIDENTIAL NOTE Service Date/Time: 27-Jan-2013 18:24 Provider: Ilir Anne, PhD, Pager: [phone] Service: PSII Type/Desc: CON Status: [facility] Revision #: [address] Juliano Edward and Kusum Arriaza. CHIEF COMPLAINT/PURPOSE OF VISIT Comprehensive rehabilitation psychology evaluation. HISTORY OF PRESENT ILLNESS Mr. Michael Bauman is a 27-year-old single male from [place], [place], admitted to [address] [place] [address] on January 25 with a T7 MAC [...] injury occurred on January 15 at the [facility] in [place], [place]. The reader is referred to the [...] HISTORY: Mr. Bauman reports being born in [place] and moving to [place], [place], at age 12. He is an only child. He reports that his parents when he was 18. His father moved to [place], [place], and he was alienated from his father during his high school years with a reconciliation occurring in more recent years. He was raised in the Faith candelario but had abandoned his candelario. He reports he is becoming much more spiritual in the past year. He reports graduating from [employer] in 2006 with a 3.7 GPA. He attended [employer] for two years, majoring in biology and psychology, but it was too expensive. He had a 3.5 at [employer]. He became seriously depressed about 2008 and stayed out of school for a year. He returned to the [employer], completing a degree in psychology in 2011. He was uncertain what he wanted to do with this degree. 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 He was last working at [employer] in [facility]. He precipitously quit that job in September of this year and had been living off of savings. MENTAL HEALTH HISTORY: Mr. Bauman has struggled throughout his life with feelings of depression. He states that he was somewhat depressed as a child, [place] 12[place] He states good friends in [place] helped pull him through this early. Yet, [...] years. On occasion he has taken an eye-student. Thus, he meets CAGE criteria for abuse. [...] 2009 he saw a psychiatrist at the [facility] and was prescribed Prozac, with the dose escalating to 40 mg. The emotional blunting and the sexual side effects resulted in him discontinuing this medication after about six months. He began taking this medication again in 2010, but again stopped its use as a result of the side effects. He also saw two different counselors, one session each at the [facility] and instantly did not like either of [...] impulsively quit his job at an upscale [place] restaurant. He had begun volunteering for a nonprofit organization called [employer]. He found this organizationon the internet. He also was beginning to get more information about [employer]. [employer] is an outdoor recreational nonprofit organization that is devoted to bringing able and psk-tung-ayqdfh individuals together in recreational pursuits to the benefit of both, and it is rather ironic that he now has a disability. He also stated that he knows Tom, who was a [employer] student, who was injured and incurred a [...] further information including the new website entitled [employer]. This will be an excellent resource to him and his parents as he goes through the rehabilitation process. At the present time, there is no acute reason to pursue the issue of alcohol abuse. This issue willbe part of his overall program planning. 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 [place] II: Deferred. [place] III: T7 MAC A spinal cord injury, polytrauma [place] IV: None. [place] V: GAF equals 50/80. PATIENT EDUCATION Ready to learn, no apparent learning barriers were identified; learning preferences include listening. Explained diagnosis and treatment plan; patient expressed understanding of the content. BILLING Margin Code: DIC Total Time: 60 minutes Counseling Time: 60 minutes Original: jonna/cierra revised by jonna Electronically Signed: 04-Feb-2013 13:52 by [place] Anne, PhD, Clinical Notes - [id number] Id: [id number] Status: Fnl FSHEET CORRECTOR documented in this encounter Plan of Treatment Upcoming Encounters Date Type Department Care Team (Latest Contact Info) Description 05/19/2024 3:00 PM PROOFSHEET CORRECTOR Comprehensive Visit Department of Physical Medicine and Rehabilitation in [place], [place] [address] [place] [phone] Rosemary Gregorio APRN, CUSTOMER CARE VOICE CONSULTANT, M.S. 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
--- OUTSIDE RECORDS SUMMARY | 2024-04-11 20:38 | XMS_ITS | Clinical Summary ---
Author Organization [facility] Address [place], [place] [address] Care Team Providers Care Policy Change Clerks Supervisor Name Role Phone Roberto Marie MD Primary Care Provider [phone] Allergies Active Allergy Reactions Criticality Noted Date [...] capsule Take 1,000 Capsules by mouth. Active Jjdep-4-FRF-EPA-Fish Oil (Fish OiL) 1,000 mg (120 mg-180 [...] mg capsuleIndications:S connor cord injury, T7-T12 (HC) TAKE 1 CAPSULE (150 MG) BY MOUTH TWO TIMES DAILY. 60 Capsule 2 01/27/2024 Active Active Problems Problem Noted Date Diagnosed Date Other acne 12/03/2006 Allergic rhinitis, cause unspecified 12/03/2006 Encounters Date Type Department Care Team Description 01/27/2024 Refill [facility] [address] [place] [address] Michael Gutiérrez MD Refill Request (Pregabalin) from Last 3 [...] Comments Blood Pressure 104/66 04/22/2023 4:12 PM LABORER CAR BARN Pulse 72 04/22/2023 4:12 PM LABORER CAR BARN Temperature 36.5 C (97.7 F) 08/15/2009 2:00 PM CDT Respiratory Rate - - Oxygen Saturation 94% 04/22/2023 4:12 PM LABORER CAR BARN Inhaled Oxygen Concentration - - Weight 69.4 [...] for age 35-44 12/22/2022 COVID-19 vaccine series (2023- season) 2024 Influenza for age 9-49 01/24/2024 Depression screening for age 12+ 04/22/2024 04/22/2023 Tdap Completed 05/05/2011 Pneumococcal series for age 6-64 Aged Out No longer eligible b ased on patient's age to complete this topic Care Teams Policy Change Clerks Supervisor Relationship Specialty Start Date End Date Roberto Marie MD [address] [place] [address] [address] [place], [place] [address] PCP - General 06/29/09
--- OUTSIDE RECORDS SUMMARY | 2024-04-11 20:38 | XMS_ITS | Encounter Summary ---
Author Organization [facility] Address [address] [place] [address] Care Team Providers Care Paper Inspector Name Role Phone Elsewhere, Pcp Primary Care Provider Unavailabl e Reason for Referral * Outpatient (Routine) - Closed Specialty Diagnoses / Procedures Referred By Candice maki Referred To Contact Diagnoses Injury Toe Initial Right Procedures DX Foot Right 3+ Views Avtar Aaron M.D. 200 [place] [address] Phone: tel: fax: [facility] Referral ID Status Reason Start Date Expiration Date Visits Re quested Visits Authorized [id number] Closed 01/01/2024 12/31/2024 1 1 Reason for Visit * Outpatient (Routine) - Closed Specialty Diagnoses / Procedures Referred By Candice maki Referred To Contact Diagnoses Injury Toe Initial Right Procedures DX Foot Right 3+ Views Avtar Aaron M.D. 200 [place] [address] Phone: tel: fax: [facility] Referral ID Status Reason Start Date Expiration Date Visits Re quested Visits Authorized [id number] Closed 01/01/2024 12/31/2024 1 1 Encounter Details Date Type Department Care Team (Latest Contact Info) Description 01/01/2024 3:36 PM CDT - 01/01/2024 11:59 PM CDT Hospital Encounter Department of Radiology, [facility], in [place], [place] [address] [place] [address] Avtar Aaron M.D. [address] [place] [address] Injury Toe Initial Right Discharge Disposition: Home or Self Care Social [...] stopped in 2013. [facility] Utilities Answer Date Recorded In the past 12 months has [employer], gas, oil, or water [employer] threatened to shut off services in your [...] AM CDT Legal Sex Male 5:59 PM CONTRACT FORESTER Gender Identity Male 09/11/2023 10:52 AM CDT Sexual Orientation Straight 09/11/2023 10 :52 AM CDT documented as of this encounter Medications at Time of Discharge ascorbic acid, vitamin C, 1,000 mg capsule Take 1,000 mg by mouth daily. 09/27/2018 cholecalciferol (VITAMIN D3) 50 mcg (2,000 Unit) tablet Take 2,000 Units by mouth daily. 07/10/2022 COQ10, UBIQUINOL, ORAL Take 100 mg by mouth 2 (two) times a day. dilTIAZem CD (Cardizem CD) 120 mg 24 hr capsule Take 120 mg by mouth as needed. Lactobacillus acidophilus (Probiotic) 10 billion cell capsule Take 1 capsule by mouth daily. 09/27/2018 oxyBUTYnin (DITROPAN XL) 15 mg 24 hr tablet Take 15 mg by mouth daily. STOP TAKING as of 01/01/2024 per Urology pregabalin (LYRICA) 150 mg capsule Take 150 mg by mouth 2 (two) times a day. documented as of this encounter Plan of Treatment Upcoming Encounters Date Type Department Care Team (Latest Contact Info) Description 05/19/2024 3:00 PM CONTRACT FORESTER Comprehensive Visit Department of Physical Medicine and Rehabilitation in [place], [place] [address] [place] [phone] Rosemary Gregorio APRN, SPARE PARTS CLERK, M.S. [address] [place] [address] documented as of this encounter Procedures Procedure Name Priority Date/Time Associated Diagnosis Comments DX FOOT RIGHT 3+ VIEWS RAD - Routine (most inpatients and all outpatients) 01/01/2024 3:59 PM CDT Injury Toe Initial Right documented in this encounter Results * DX Foot Right 3+ Views (01/01/2024 3:59 PM CDT) Anatomical Region Laterality Modality Lower Extremity, Foot, Muscu loskeletal RST LOS, Musculoskeletal ARZ LOS, Muskuloskeletal FLA LOS Right Digit al Radiography Impressions 01/01/2024 4:28 PM CDT Marked osteopenia. No acute fracture or dislocation. Hammertoe deformity. Joint spaces of the ankle are preserved. Narrative 01/01/2024 4:28 PM CDT EXAM: DX FOOT RIGHT 3+ VIEWS Procedure Note Kurt Luu M.D. - 01/01/2024 EXAM: DX FOOT RIGHT 3+ VIEWS IMPRESSION: Marked osteopenia. No acute fracture or dislocation. Hammertoe deformity.Joint spaces of the ankle are preserved. Avtar Aaron M.D. 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
--- OUTSIDE RECORDS SUMMARY | 2024-04-11 20:38 | XMS_ITS ---
Author Organization [facility] Address [address] [place] [address] Care Team Providers Care Manager Operations Research Name Role Phone Unavailable Unavailable Unavailable Surgery Details Not on file Complications Check Surgery Details section. Procedure Estimated Blood Loss Check Surgery Details section. Procedure Findings Check Surgery Details section. Procedure Specimens Taken Check Surgery Details section.
--- OUTSIDE RECORDS SUMMARY | 2024-04-11 20:38 | XMS_ITS | Encounter Summary ---
Author Organization [facility] Address [address] [place] [id number] Care Team Providers Care Gas Torch Solderer Name Role Phone Elsewhere, Pcp Primary Care Provider Unavailabl e Encounter Details Date Type Department Care Team (Late st Contact Info) Description 01/11/2024 Orders Only Department of Urology in [place], [place] [address] [place] [phone] Tabitha Rich, P.ATracy-Elo. [address] [place] [phone] Social History Tobacco Use Types Packs/Day Years [...] for many years. I stopped in 2013. 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
--- OUTSIDE RECORDS SUMMARY | 2024-04-11 20:38 | XMS_ITS | Referral Summary ---
Author Organization [facility] Address [address] [place] [id number] Care Team Providers Care Loss Prevention Leader Name Role Phone Elsewhere, Pcp Primary Care Provider Unavailabl e Source Comments Patient records contain information from all sites at [facility]. For routine questions regarding patient records, call [phone] during business hours, M-F 8:00 AM - 5:00 PM Central Time. Record requests for emergency care only can be directed to [phone] at any time.[facility] Encounters Date Type Department Care Team Description 01/11/2024 Orders Only Department of Urology in [place], [place] [address] [place] [phone] Tabitha Rich, P.A.-C. from Last 3 Months Allergies Active Allergy [...] and hair - resolved with Benadryl Medications * This document contains information received from the source organization and may not represent a complete record from that organization. ascorbic acid, vitamin C, 1,000 mg capsule [...] STOP TAKING as of 01/01/2024 per Urology Active pregabalin (LYRICA) 150 mg capsule Take 150 mg by mouth 2 (two) times a day. Active COQ10, UBIQUINOL, ORAL Take 100 mg by mouth 2 (two) times a day. Active dilTIAZem CD (Cardizem CD) 120 mg 24 hr capsule Take 120 mg by mouth as needed. Active trospium (Sanctura) 20 mg tablet Take 1 tablet (20 mg total) by mouth 2 (two) times a day before morning and evening meals. 60 tablet 11 01/11/2024 01/11/20 25 Active Active Problems Problem Noted Date Diagnosed [...] - MODE RNA (12 YEARS AND OLDER) Fall Seasonal 10/05/2023(Deferred: Patient decision - Patinet has received [...] years. I stopped in 2013. 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 Oxygen Saturation 98% 10/05/2023 12: 28 PM CDT On room air at rest. Inhaled Oxygen Concentration - - Weight 60.1 kg (132 lb 7.9 oz) 10/05/2023 12:28 PM CDT Per W/C Scale Height 178 cm (5' 10.08) 04/14/2013 10 :43 AM FUEL SYSTEM MAINTENANCE WORKER Vital sign result from Clinical Notes. Body Mass Index - - Plan of Treatment Upcoming Encounters Date Type Department Care Team (Latest Contact Info) Description 05/19/2024 3:00 PM FUEL SYSTEM MAINTENANCE WORKER Comprehensive Visit Department of Physical Medicine and Rehabilitation in [place], [place] [address] [place] [phone] Rosemary Gregorio APRN, TREATING PLANT OPERATOR, M.S. [address] [place] [phone] Medical Devices Implanted Type Area Weekend Caregiver Device Identifier Shelf Expiration Date Model / Serial / Lot Conversions - Default Historical Implant Device Implanted:08/22 (Quantity not on file) Hardware e.g. pins/screws /rods Description:Device Status Te xt - Hardware. Gm-Syn Cocr 5.5 X 400mm - [employer] [id number] Implanted:Qty: 1 on 01/15/2013 Spine Implant Depuy Synthes Description:Device Manufactu rer - Synthes. Device Status Text - [id number]. Head Reduction Ti Polyaxial - [employer] [id number] Implanted:Qty: 2 on 01/15/2013 Spine Implant Depuy Synthes Description:Device Manufactu rer - Synthes. Device Status Text - [id number]. Screw-Matrix Bone 5.0 X 45mm - [employer] [id number] Implanted:Qty: 8 on 01/15/2013 Spine Implant Depuy Synthes Description:Device Manufactu rer - Synthes. Device Status Text - [id number] [id number]. Synthes-Transco n. 30mm - [employer] [id number] Implanted:Qty: 2 on 01/15/2013 Spine Implant Depuy Synthes Description:Device Manufactu rer - Synthes. Device Status Text - [id number] [id number]. Cap-Synthes Matrix Locking Ti - [employer] [id number] Implanted:Qty: 12 on 01/15/2013 Spine Implant Depuy Synthes Description:Device Manufactu rer - Synthes. Device Status Text - [id number]. Screw-Matrix Bone 6.0 X 45mm - [employer] [id number] Implanted:Qty: 4 on 01/15/2013 Spine Implant Depuy Synthes Description:Device Manufactu rer - Synthes. Device Status Text - [id number]. Cap-Synthes Matrix Polyax Head Ti - [employer] [id number] Implanted:Qty: 10 on 01/15/2013 Spine Implant Depuy Synthes Description:Device Manufactu rer - Synthes. Device Status Text - [id number] [id number]. Graft Tag Thoracic Endo 21 X 10 - [employer] [id number] Implanted:Qty: 1 on 01/15/2013 Vascular Graft Other/Legacy - See Implant Description [place] Description:Device Manufactu rer - [employer] [place] [employer] Body Location - Other. Vascular. Device Status Text - [id number]. Procedures Procedure Name Priority Date/Time Associated Diagnosis Comments LIPID PANEL, S Routine 10/05/2023 4:15 PM CDT Flutter Atrial (HCC) ACUTE HEPATITIS PROFILE Routine 02/06/2013 1:58 PM CDT from Last 3 Months or Most Recently Relevant to Health Maintenance Results * Lipid Panel (10/05/2023 4:15 PM CDT) [...] PM CDT Avtar Aaron M.D. LAB BLOOD ADD-ON Final Result [facility] [address] [place] [address], [place] [facility] [address] [place] [address] * Acute Hepatitis Profile (02/06/2013 1:58 PM CDT) HBs Antigen, S Negative Negative [facility] Comment:Drawn From PICC Hepatitis A IgM Ab, S Negative Negative [facility] Comment:Drawn From PICC HBc IgM Ab, S Negative Negative [facility] Comment:Drawn From PICC HCV Ab, S Negative Negative [facility] Comment: Drawn From PICC Dyscai-zl-qaxrqr ratio is <1.00. 02/06/2013 1:58 PM CDT 02/06/2013 1:58 PM CDT Narrative [facility] - 02/07/2013 12:12 PM CDT Drawn From PICC us Hunter Celeste APRN, C.N.P ., D.N.P. 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
== END 2024-04-11 20:38 | disposition home or self-care (01) ==
LOC: ED 20:36
PROVIDERS: Emergency Provider Family Medicine; PCP Family Medicine
DX: L72.3 Sebaceous cyst (principal)
CPT/HCPCS: 10060; 99283; A9270

== ENCOUNTER 2024-05-16 16:11 | Inpatient (IN) | payer MEDICARE, MEDICAID, SELFPAY ==
[2024-05-16] VITALS (26 sets, daily range): BP systolic 83–129; BP diastolic 36–90; PULSE 92–122; RESP 16; TEMP 37.4–38.8; O2SAT 95–100
[2024-05-16 16:49] LABS: Appearance Urine Clear (Clear); Bilirubin Urine Negative (Negative); Blood Urine Negative (Negative); Color Urine Yellow (Yellow); Glucose Urine Negative (Negative); Ketones Urine Negative (Negative); Leukocyte Esterase Urine Trace (Negative); Nitrite Urine Negative (Negative); Protein Urine Negative (Negative); Urobilinogen Urine 0.2 (0.2-1.0)
[2024-05-16 17:22] LABS: RBC Urine 0-2 (0-2); WBC Urine 0-2 (0-5)
[2024-05-16 17:23] LABS: PCR FLU A Negative PCR FLU A (Negative); PCR FLU B Negative PCR FLU B (Negative); PCR RSV Negative PCR RSV (Negative); SARS PCR* Negative SARS-CoV-2 (Negative)
[2024-05-16 17:31] LABS: Basophils Absolute Auto 0.02 K/uL (0.00-0.30); Basophils Percent Auto 0.2 % (0.0-3.0); Eosinophils Absolute Auto 0.02 K/uL (0.00-0.50); Eosinophils Percent Auto 0.2 % (0.0-7.0); Hematocrit 45.6 % (37.0-53.0); Immature Granulocytes Abs Auto 0.01 K/uL (0.00-0.30); Immature Granulocytes Pct Auto 0.1 %; Lymphocytes Percent Auto 3.5 % (20-44); Mean Corpuscular HGB Conc 33 gm/dL (32-36); Mean Corpuscular Hemoglobin 29 pg (26-34); Mean Corpuscular Volume 87 fL (80-100); Monocytes Percent Auto 4.7 % (0.0-11.0); Neutrophils Percent Auto 91.3 % (42.0-72.0); Platelet Count* 181 K/uL (140-440); RDW Coefficient of Variation % 13.2 % (11.5-15.5); Red Blood Count 5.23 m/uL (4.30-5.90); White Blood Count* 8.26 K/uL (4.50-11.00)
[2024-05-16 17:33] LABS: Slide Review Reflex No
--- NOTE | 2024-05-16 17:37 | ED.GENADULT ---
HPI - General Adult General Date Seen: 05/16/24 Chief complaint: Weakness Stated complaint: Fever, headache, lethargy Time Seen by Provider: 05/16/24 17:34 History of Present Illness HPI narrative: 38-year-old male with a history of spinal cord injury , paraplegia, , neurogenic bladder, history of UTI , He had urosepsis with shock last year,, history of pressure ulcer on right buttock with previous buttock infections and previous flap surgery in 2022 for osteomyelitis, he believes his buttock flap is now well healed. , he also has neuropathic pain of his legs, neurogenic bowel, history of a flutter. he began to feel a little bit unwell yesterday. Just vague symptoms of not quite feeling right. No fever or chills. Since his spinal cord injury he has been and he working with his doctors to try to recover sexual function so he did try a new medication, tadalafil, yesterday. He initially thought his feeling unwell might be a side effect of the medicine. However today he began to feel worse. Today he in addition to feeling a little bit achy and fatigued and tired he started to have fever, chills, headache, body aches. No other definite symptoms. No sore throat. No earache. No cough. No shortness of breath. No abdominal pain. He has a colostomy we and has been having normal output. He has had some cloudy urine lately and wonders he might have another infection. He does have a known small dime-sized superficial sacral ulcer that he has been monitoring for the past few weeks. He has not noticed any new redness or any drainage from that ulcer lately. Knowing his history of sepsis and septic shock, with a fever and chills, he came to the ER today. Related Data Home Medications ?Medication ?Instructions ?Recorded ?Confirmed diltiazem HCl 120 mg 120 mg PO DAILY PRN 11/09/23 05/16/24 capsule,extended release 24 hr (Cardizem CD) oxybutynin chloride 5 mg tablet 15 mg PO QDAY 11/09/23 04/11/24 tadalafil 5 mg tablet 5 mg PO DAILY 05/16/24 05/16/24 trospium 20 mg tablet 20 mg PO 05/16/24 Previous Rx's ?Medication ?Instructions ?Recorded pregabalin 150 mg capsule 150 mg PO BID #60 caps 02/24/24 sulfamethoxazole 800 1 tab PO BID 3 days #6 tabs 04/11/24 mg-trimethoprim 160 mg tablet (Bactrim DS) Allergies Allergy/AdvReac Type Severity Reaction Status Date / Time ciprofloxacin Allergy Severe Swelling Verified 04/11/24 19:56 of Lip/Tongue/Throat vancomycin Allergy Severe Swelling Verified 04/11/24 19:56 of Lip/Tongue/Throat doxycycline AdvReac Mild Diarrhea Verified 04/11/24 19:56 PFSH [facility] Medical History History of UTI ?Z87.440 - Personal history of urinary (tract) infections (ICD-10) History of alcohol use ?Z87.898 - Personal history of other specified conditions (ICD-10) Surgical History Status post skin flap graft ?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 Does not use EtOH or drugs. Past smoker and smokeless tobacco use. What is your current living situation?: I presently have a place to live Problems where you live: no known problems Problems where you live details: NA In the past 12 months, utilities in danger of being shut off: no In past 12 months, lack of transportation kept you from medical appts, meetings, work, or getting things needed for daily living: no In the past 12 mos, have been you worried that your food would run out before you had money to buy more?: never true In the past 12 mos, the food you bought just didn't last and you didn't have money to buy more?: never true Highest level of school completed/degree received: Bachelor's degree Smoking Status: Never smoker Do you use any of these nicotine containing products: None Second hand tobacco smoke exposure: No How often do you have a drink containing alcohol: never AUDIT-C Alcohol total score: 0 Non-prescribed substance use: denies use How often does anyone, including family, friends and others, physically hurt you: never How often does anyone, including family, friends and others, insult or talk down to you: rarely How often does anyone, including family, friends and others, threaten you with harm: rarely How often does anyone, including family, friends and others, scream or curse at you: rarely service: No Health Related Social Needs: Other personal risk factors, not elsewhere classified (Z91.89) Exam Narrative: Exam Narrative: Constitutional: Appears well-developed and well-nourished. Alert. Conversant. Heart rate 118, sinus tach on the monitor, but otherwiseNon toxic. HENT: Head: Atraumatic. Nose: Nose normal. Mouth/Throat: Oral mucosa is clear and moist. no trismus. Pharynx normal. Tonsils symmetric. No tonsillar enlargement, erythema, or exudate. right ear, canal, mastoid, TM normal. Left ear: Canal, mastoid, normal. The left TM is mildly pink but not erythematous or bulging. Eyes: Conjunctivae normal. EOM normal. Pupils equal, round, and reactive to light. No scleral icterus. Neck: Normal range of motion. Neck supple. No tracheal deviation present. Cardiovascular: Tachycardic, regular rhythm. No gallop. No friction rub. No murmur heard. Symmetric radial artery pulses Pulmonary/Chest: Effort normal. No stridor. No respiratory distress. No wheezes. No rales. No rhonchi . No tenderness. Abdominal: Soft. Bowel sounds normal. No distension. No mass. No tenderness. No rebound. No guarding. Musculoskeletal: RUE: Normal range of motion. No tenderness. No deformity LUE: Normal range of motion. No tenderness. No deformity RLE: Normal range of motion. No edema. No tenderness. No deformity LLE: Normal range of motion. No edema. No tenderness. No deformity Lymph: No cervical adenopathy. Neurological: Alert and oriented to person, place, and time. 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 He has paraplegia. He does not have much sensation from his waist, down through his legs. Lower extremities are paralyzed. GCS eye subscore is 4. GCS verbal subscore is 5. GCS motor subscore is 6. Normal coordination Skin: he does have an erythematous rash on his upper back and shoulders which he thinks is probably just from lying on the sheets in that position. No other rashes.Skin is warm and dry. No rash noted. No pallor. Normal capillary refill. He was able to roll onto his left side for a sacrum and buttock exam. He does have a small dime says sacral ulcer that involves the epidermis but does not penetrate through the dermis. There is no purulent drainage or malodorous discharge. 2 cm rim of erythema around it. No fluctuance. No crepitus. no Psychiatric: Normal mood. Normal affect. Const: Vital Signs, click to edit/add: Vital Signs - 24 hr 05/16/24 16:19 05/16/24 17:17 05/16/24 17:27 Temperature 99.3 F Pulse Rate 118 H 113 H Pulse Rate [Pulse Oximeter] 122 H Respiratory Rate 16 Blood Pressure 129/90 H Blood Pressure [Le ft Upper Arm] 120/64 Pulse Oximetry 99 100 100 Oxygen Delivery Me thod Room Air 05/16/24 17:30 05/16/24 17:31 05/16/24 17:45 Temperature Pulse Rate 109 H 114 H 105 H Pulse Rate [Pulse Oximeter] Respiratory Rate Blood Pressure 100/59 L Blood Pressure [Le ft Upper Arm] Pulse Oximetry 97 99 99 Oxygen Delivery Me thod 05/16/24 18:00 05/16/24 18:01 05/16/24 18:02 Temperature Pulse Rate 107 H 110 H 109 H Pulse Rate [Pulse Oximeter] Respiratory Rate Blood Pressure 101/50 L Blood Pressure [Le ft Upper Arm] Pulse Oximetry 99 100 99 Oxygen Delivery Me thod 05/16/24 18:21 05/16/24 19:02 05/16/24 19:03 Temperature 101.9 F H Pulse Rate Pulse Rate [Pulse Oximeter] Respiratory Rate Blood Pressure 87/36 L 97/41 L Blood Pressure [Le ft Upper Arm] Pulse Oximetry Oxygen Delivery Me thod 05/16/24 19:16 05/16/24 19:29 05/16/24 19:31 Temperature Pulse Rate Pulse Rate [Pulse Oximeter] Respiratory Rate Blood Pressure 85/49 L 101/52 L 106/54 L Blood Pressure [Le ft Upper Arm] Pulse Oximetry Oxygen Delivery Me thod 05/16/24 20:01 05/16/24 20:16 05/16/24 20:31 Temperature 101.6 F H Pulse Rate 116 H Pulse Rate [Pulse Oximeter] Respiratory Rate Blood Pressure 83/44 L 96/54 L 93/47 L Blood Pressure [Le ft Upper Arm] Pulse Oximetry Oxygen Delivery Me thod 05/16/24 20:46 05/16/24 21:01 Temperature Pulse Rate Pulse Rate [Pulse Oximeter] Respiratory Rate Blood Pressure 98/50 L 93/49 L Blood Pressure [Le ft Upper Arm] Pulse Oximetry Oxygen Delivery Me thod Course Course ED Course: Recheck-patient says he is feeling better after Tylenol. Temperature it did go up to 11.9 so I ordered ibuprofen but he to politely declined. Her rate is down to 105-110 after IV fluids and Tylenol. Nurses noted that he had some blood pressures that were in the low normal range. Reevaluation(s) Reevaluation #1: Recheck-computer indicates that he has had a couple of hypotensive blood pressure readings. I would recheck. He was left laying on his left lateral decubitus position in bed. He was feeling fine. I had the blood pressure cuff measure while he was in the left lateral decubitus position, with the cuff on his his right arm. Cuff was above the level of heart and blood pressure reading was 85/50. I had the patient repositioned supine and recheck recheck his blood pressure and it 105/60. I think that these hypotensive blood pressure readings that had been charted are actually a runny S and are due to patient and cuff position rather than true hypotension. Nonetheless he is still febrile and still has a sinus tachycardia 1053 He is now little bit nauseous, Zofran ordered. He is not able to sense abdominal pain because of his spinal cord injury. Will obtain CT scan to look for intra-abdominal source for fever Reevaluation #2: Recheck-CT back in she is negative for any clear intra-abdominal source for fever such as appendicitis, colitis, diverticulitis, perforation, or abscess. On my read of the CT scan there does tips appear to be some inflammatory change in the skin deep to the patient's sacral ulcer. I do not see any abscess or fluid collection. The skin changes are not commented on by the reading radiologist. I contacted Dr. Guo to through [facility]. He reviewed the images with me and he agrees that there is a little bit of edema and inflammatory in the soft tissues of the skin and deep to his sacrum, indicative of cellulitis but sees no evidence for an abscess or cellulitis. Reevaluation #3: I ordered vancomycin to cover possible skin infection. However the patient is allergic, so this was not given. Changed from vancomycin to Zosyn w hich would cover all skin south as well as potential for anaerobic GI bugs (although he has a colostomy). Vital Signs Vital signs: Initial Vital Signs Temperature 99.3 F 05/16/24 16:19 Temperature Source Oral 05/16/24 16:19 Pulse Rate 122 H 05/16/24 16:19 Respiratory Rate 16 05/16/24 16:19 Blood Pressure 120/64 05/16/24 16:19 Blood Pressure Mean 82 05/16/24 16:19 Blood Pressure Position Sitting 05/16/24 16:19 Pulse Oximetry 99 05/16/24 16:19 Oxygen Delivery Method Room Air 05/16/24 16:19 Vital Signs Temperature 99.3 F 05/16/24 16:19 Pulse Rate 122 H 05/16/24 16:19 Respiratory Rate 16 05/16/24 16:19 Blood Pressure 120/64 05/16/24 16:19 Pulse Oximetry 99 05/16/24 16:19 Oxygen Delivery Method Room Air 05/16/24 16:19 Temperature 99.8 F H 05/16/24 21:58 Pulse Rate 102 H 05/16/24 21:58 Respiratory Rate 16 05/16/24 21:58 Blood Pressure 97/47 L 05/16/24 21:58 Pulse Oximetry 95 05/16/24 21:58 Oxygen Delivery Method Room Air 05/16/24 21:58 Medications Administered Medications: Generic Name Dose Route Start Last Admin Trade Name Freq PRN Reason Stop Dose Admin Piperacillin Sod/Tazobactam 100 mls @ 200 mls/hr 05/16/24 20:30 05/16/24 20:47 Sod 4.5 gm/ Sodium Chloride IVPB 200 mls/hr Q6H BRENDEN Administration Discontinued Medications Generic Name Dose Route Start Last Admin Trade Name Kelley PRN Reason Stop Dose Admin Acetaminophen 1,000 mg 05/16/24 17:58 05/16/24 18:16 Acetaminophen 500 Mg Tablet PO 05/16/24 17:59 1,000 mg ONCE ONE Administration Sodium Chloride 500 mls @ 500 mls/hr 05/16/24 17:58 05/16/24 19:08 0.9 % Sodium Chloride 500 Ml IV 05/16/24 18:57 Infused .Q1H ONE Infusion Ondansetron HCl 4 mg 05/16/24 19:35 05/16/24 19:41 Ondansetron 2 Mg/Ml Inj IVP 05/16/24 19:36 4 mg ONCE ONE Administration Ondansetron HCl 4 mg 05/16/24 20:04 05/16/24 20:15 Ondansetron 2 Mg/Ml Inj IVP 05/16/24 20:05 Not Given ONCE ONE Sodium Chloride 500 ml 05/16/24 19:21 05/16/24 19:22 0.9 % Sodium Chloride 500 Ml IV 05/16/24 19:22 500 ml ONCE ONE Administration Medical Decision Making MDM Narrative Medical decision making narrative: This is a very pleasant 38-year-old male with history of paraplegia, history of UTIs with urosepsis, also history of sacral ulcers and skin infections presents for evaluation of fever. Differential is broad. Given current prevalence of viral infections in the community, initial concern was for possible viral cause for fever. Fortunately COVID/influenza PCR is negative. No classic rash to suggest viral syndrome. No evidence for OM on exam. No pharyngitis. Differential for fever included septic arthritis, osteomyelitis but these are not seen on exam. Lungs are clear and no significant cough, and chest x-ray is negative for any pneumonia. Urinalysis is negative for UTI. The no altered mental status, neck stiffness, or severe headache to suggest meningitis. He does have mild nausea and because of his spinal cord injury difficult to interpret his abdominal exam. CT scan is negative for any intra-abdominal pathology. He does have a very superficial small sacral ulcer that is been present for the past few weeks. I do notice a rim with had radius of about 2-3 cm around it that is erythematous. However there is no purulent drainage there. Suspicious for a possible early cellulitis. CT scan of his abdomen pelvis does show inflammatory changes in the skin. No evidence for any abscess or necrotizing infection Suspect that skin cellulitis on the sacrum from the ulcer is probably the source for the patient's fever. Started on IV antibiotics. The patient does have fever, tachycardia. However blood pressure is normal, mental status normal and he is clinically well-appearing. White count is normal but he does have 90% neutrophils suggestive for probable bacterial infection. Venous lactic acid is normal. Blood pressure is normal (other than some in accurate measurements taken when the patient was laying in lateral decubitus position) here in the ER. No evidence for septic shock. However I do think the patient probably does have sepsis. Given his history and medical comorbidities he will be admitted for IV antibiotics and IV fluid and hemodynamic monitoring. Antibiotics were delayed from presentation here to the ER while we were doing the workup to determine whether not this was a viral or bacterial source for the fever. However, I feel that this delay is appropriate in effort to achieve appropriate antibiotic stewardship. Lab Data Labs: Lab Results 05/16/24 05/16/24 05/16/24 Range/Units 16:29 17:20 18:26 WBC 8.26 (4.50-11.00) K/uL RBC 5.23 (4.30-5.90) m/uL Hgb 15.0 (13.5-17.5) gm/dL Hct 45.6 (37.0-53.0) % MCV 87 (80-100) fL MCH 29 (26-34) pg MCHC 33 (32-36) gm/dL RDW Coeff of Kory 13.2 (11.5-15.5) % Plt Count 181 (140-440) K/uL Neut % (Auto) 91.3 H (42.0-72.0) % Lymph % (Auto) 3.5 L (20-44) % [place] % (Auto) 4.7 (0.0-11.0) % Eos % (Auto) 0.2 (0.0-7.0) % Baso % (Auto) 0.2 (0.0-3.0) % Neut # (Auto) 7.50 H (1.7-7.0) K/uL Lymph # (Auto) 0.30 L (0.90-2.90) K/uL [place] # (Auto) 0.40 (0.00-0.90) K/UL Eos # (Auto) 0.02 (0.00-0.50) K/uL Baso # (Auto) 0.02 (0.00-0.30) K/uL Abs Immat Gran (auto) 0.01 (0.00-0.30) K/uL Imm/Tot Granulo (auto) 0.1 % Sodium 138 (135-149) mmol/L Potassium 4.4 (3.6-5.1) mmol/L Chloride 100 (96-114) mmol/L Carbon Dioxide 29 (20-32) mmol/L Anion Gap 9 (7-15) mEq/L BUN 27 H (5-24) mg/dL Creatinine 0.6 (0.5-1.5) mg/dL Estimated GFR 128 ml/min Glucose 98 (60-115) mg/dL Lactate 0.9 (0.5-1.9) mmol/L Calcium 9.8 (8.4-10.6) mg/dL Procalcitonin 0.11 (<0.50) ng/mL Urine Color Yellow (Yellow) Urine Appearance Clear (Clear) Urine pH 6.0 (5.0-8.5) Ur Specific [place] 1.020 (1.000-1.030) Urine Protein Negative (Negative) Urine Glucose (UA) Negative (Negative) Urine Ketones Negative (Negative) Urine Blood Negative (Negative) Urine Nitrite Negative (Negative) Urine Bilirubin Negative (Negative) Urine Urobilinogen 0.2 (0.2-1.0) Ur Leukocyte Esterase Trace A (Negative) Urine RBC 0-2 (0-2) Urine WBC 0-2 (0-5) Ur Squamous Epith Cells None (None-Few) Urine Bacteria None (None) SARS-CoV-2 (PCR) Negative SARS-CoV-2 (Negative) Influenza Type A (PCR) Negative PCR FLU A (Negative) Influenza Type B (PCR) Negative PCR FLU B (Negative) RSV (PCR) Negative PCR RSV (Negative) Imaging Data Chest x-ray: Attestation: I have reviewed the pertinent imaging results. Radiologist's impression: IMPRESSION: No acute or significant findings. CT scan - abdomen: Attestation: I have reviewed the pertinent imaging results. My impression: No clear intra-abdominal pathology. There does appear to be some edema in the tissue of the patient's skin deep to his sacral ulcer. I do not see a fluid collection. Radiologist's impression: IMPRESSION: 1. Mild wall thickening and hyperenhancement involving loops of nondistended, fluid-filled small bowel diffusely, suggestive of a nonspecific infectious versus inflammatory enteritis. No bowel obstruction. 2. Left lower quadrant colostomy. Please note that all CT scans at this facility use dose modulation, iterative reconstruction, and/or weight-based dosing when appropriate to reduce radiation dose to as low as reasonably achievable. Discharge Plan Discharge Clinical Impression: Sacral decubitus ulcer, Sepsis, Fever, Cellulitis Patient Disposition: Admitted As Observation
[2024-05-16 17:46] LABS: Chloride* 100 mmol/L (96-114)
[2024-05-16 17:47] LABS: Potassium* 4.4 mmol/L (3.6-5.1); Sodium* 138 mmol/L (135-149)
[2024-05-16 17:49] LABS: Blood Urea Nitrogen* 27 mg/dL (5-24); Creatinine* 0.6 mg/dL (0.5-1.5); Estimated Glomerular Filt Rate 128 ml/min
[2024-05-16 17:50] LABS: Anion Gap 9 mEq/L (7-15); Calcium* 9.8 mg/dL (8.4-10.6); Carbon Dioxide* 29 mmol/L (20-32); Glucose* 98 mg/dL (60-115)
--- NOTE | 2024-05-16 17:59 | CRLHL7_ITS ---
For Patients: As a result of the Cures Act, medical imaging exams and procedure reports are released immediately into your electronic medical record. You may view this report before your referring provider. If you have questions, please contact your health care provider. INDICATION: Fever, chills. TECHNIQUE: Chest 2 views. COMPARISON: None. FINDINGS: Cardiovascular and mediastinum: Heart size and vasculature are normal in caliber and appearance. Descending thoracic aortic stent. Lungs and pleural spaces: Lungs are clear. No sign of infiltrate or mass. No sign of pleural effusion. No pneumothorax. Bones and soft tissues: Posterior thoracic hardware fixation. IMPRESSION: No acute or significant findings. Dictated by Derick Van MD @ 05/16/2024 7:26:51 PM (Electronically Signed)
[2024-05-16] MEDS: ACETAMINOPHEN 500 MG TABLET 1000 MG PO (18:16)
[2024-05-16] MEDS: 0.9 % SODIUM CHLORIDE 500 ML 500 ML IV (18:17)
[2024-05-16 18:36] LABS: Lactate* 0.9 mmol/L (0.5-1.9)
[2024-05-16 19:13] LABS: Procalcitonin* 0.11 ng/mL (<0.50)
[2024-05-16] MEDS: 0.9 % SODIUM CHLORIDE 500 ML IV (19:22)
--- NOTE | 2024-05-16 19:23 | ED.NURSE ---
Blood pressure decreasing- MD notified. ordered another 500mL bolus.
--- NOTE | 2024-05-16 19:26 | CRLHL7_ITS ---
For Patients: As a result of the Century Cures Act, medical imaging exams and procedure reports are released immediately into your electronic medical record. You may view this report before your referring provider. If you have questions, please contact your health care provider. INDICATION: Abdominal pain. Fever. Nausea. TECHNIQUE: Multiplanar CT examination of the abdomen and pelvis was performed after the administration of 74 mL Isovue 370 intravenous contrast. COMPARISON: None. FINDINGS: Lower chest: No focal consolidation. Normal heart size. No pleural effusions or pneumothorax. Liver: Unremarkable. Gallbladder: Unremarkable. Biliary: Unremarkable. Pancreas: Within normal limits. Spleen: Unremarkable. Adrenal glands: Unremarkable. Renal/ureters/bladder: Normal in size and symmetrically enhancing. No obstructive uropathy. No hydronephrosis or obstructive urinary calculi. No suspicious renal masses. The ureters appear unremarkable. The bladder is within normal limits. Pelvis: Unremarkable prostate. Gastrointestinal: Left lower quadrant colostomy. Mild wall thickening and hyperenhancement involving loops of nondistended, fluid-filled small bowel diffusely. No bowel obstruction. Nonvisualized appendix. No significant colonic diverticulosis. Severe colonic stool burden. Vasculature: Thoracic aortic vascular graft. No aortic aneurysm. The portal vein remains patent. No significant atherosclerotic calcifications. Lymph nodes: No pathologic lymphadenopathy by size criteria. Peritoneum: No free fluid or pneumoperitoneum. No drainable fluid collections. Abdominal wall/soft tissues: Left lower quadrant colostomy. Otherwise, unremarkable. Bones: No acute osseous abnormalities. Status post spinal fixation of the thoracolumbar spine. 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 IMPRESSION: 1. Mild wall thickening and hyperenhancement involving loops of nondistended, fluid-filled small bowel diffusely, suggestive of a nonspecific infectious versus inflammatory enteritis. No bowel obstruction. 2. Left lower quadrant colostomy. Please note that all CT scans at this facility use dose modulation, iterative reconstruction, and/or weight-based dosing when appropriate to reduce radiation dose to as low as reasonably achievable. Dictated by Eric Guo MD @ 05/16/2024 8:33:23 PM (Electronically Signed)
[2024-05-16] MEDS: ONDANSETRON 2 MG/ML inj 4 MG IVP (19:41)
[2024-05-16] MEDS: PIPERACILLIN/TAZOBACTAM 4.5 GM in 0.9 % SODIUM CHLORIDE Mini-bag 100 ML IVPB (20:47)
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
[2024-05-16] MEDS: 0.9 % SODIUM CHLORIDE 1000 ml 1,000 ML 150 ML IV (23:28)
[2024-05-16] MEDS: ACETAMINOPHEN 325 MG TABLET 975 MG PO (23:36)
[2024-05-17] VITALS (12 sets, daily range): BP systolic 81–110; BP diastolic 38–66; PULSE 76–102; RESP 16–18; TEMP 36.7–38.4; O2SAT 96–100
[2024-05-17] MEDS: PREGABALIN 75 MG CAPSULE 150 MG PO ×3 (00:27→21:56)
[2024-05-17] MEDS: PIPERACILLIN/TAZOBACTAM 4.5 GM in 0.9 % SODIUM CHLORIDE Mini-bag 100 ML IVPB ×2 (02:42→09:57)
--- NOTE | 2024-05-17 05:48 | PC.NURSE ---
[id number] Pt slept on and off during night, between cares/blood pressures. blood pressures 80's-90's systolically with an occasional systolic bp in the low 100's, pt asymptomatic with this, denies lightheaded/dizziness. denies pain,did say he had a headache, relief with prn tylenol. pt straight cath's himself, rn helps him gather his supplies. denies N/V.
[2024-05-17] MEDS: 0.9 % SODIUM CHLORIDE 1000 ml 1,000 ML 150 ML IV (06:29)
[2024-05-17 06:53] LABS: Lactate* 0.7 mmol/L (0.5-1.9)
[2024-05-17 07:06] LABS: Basophils Percent Auto 0.5 % (0.0-3.0); Eosinophils Percent Auto 0.3 % (0.0-7.0); Hematocrit 39.7 % (37.0-53.0); Lymphocytes Percent Auto 13.3 % (20-44); Mean Corpuscular HGB Conc 33 gm/dL (32-36); Mean Corpuscular Hemoglobin 29 pg (26-34); Mean Corpuscular Volume 89 fL (80-100); Monocytes Percent Auto 10.7 % (0.0-11.0); Neutrophils Percent Auto 75.2 % (42.0-72.0); Platelet Count* 148 K/uL (140-440); RDW Coefficient of Variation % 13.6 % (11.5-15.5); Red Blood Count 4.46 m/uL (4.30-5.90); White Blood Count* 3.75 K/uL (4.50-11.00)
[2024-05-17 07:22] LABS: Slide Review Reflex No
[2024-05-17 07:25] LABS: Albumin* 3.5 g/dL (3.3-5.0); Chloride* 107 mmol/L (96-114)
[2024-05-17 07:26] LABS: Potassium* 4.2 mmol/L (3.6-5.1); Sodium* 138 mmol/L (135-149)
[2024-05-17 07:28] LABS: Alkaline Phosphatase* 55 U/L (40-150); Anion Gap 3 mEq/L (7-15); Aspartate Amino Transferase* 28 U/L (12-35); Bilirubin Total* 0.7 mg/dL (0.1-1.5); Blood Urea Nitrogen* 14 mg/dL (5-24); Carbon Dioxide* 28 mmol/L (20-32); Creatinine* 0.6 mg/dL (0.5-1.5); Est. Creatinine Clearance* 143.46; Estimated Glomerular Filt Rate 128 ml/min; Total Protein* 5.8 g/dL (6.0-8.3)
[2024-05-17 07:29] LABS: Alanine Aminotransferase* 34 U/L (4-50); Calcium* 8.7 mg/dL (8.4-10.6); Glucose* 74 mg/dL (60-115)
--- NOTE | 2024-05-17 09:02 | P.GSCN_ITS ---
History of Present Illness Consult details Date Seen: 05/17/24 Consult date: 05/17/24 Narrative: Patient presented to the emergency department with fever and chills. He has a history of a T7 paraplegia with resultant neurogenic bowel and bladder. He does have an ostomy in place and self catheterizes. He has a history of a previous left ischial ulcer and underlying osteomyelitis, which was repaired with flap surgery in 2022. He does have a small wound at his sacrum. This is separate then with a flap surgery was. The wound has been present for several weeks. He denies any drainage to the area. He has been treating it with foam and trying to offload as much as possible. He has not seen anyone for this wound, but does follow up with Ana [facility] Pope for his colostomy cares. He does not have sensation to the area. Review of Systems Status of ROS: Reports: 10 or more systems reviewed and unremarkable except as noted in History and below [facility] Medical History (Updated 05/16/24 @ 23:44 by Mary Thomas MD) Neurogenic bladder ?N31.9 - Neuromuscular dysfunction of bladder, unspecified (ICD-10) Neurogenic bowel ?K59.2 - Neurogenic bowel, not elsewhere classified (ICD-10) Immobility syndrome (paraplegic) ?M62.3 - Immobility syndrome (paraplegic) (ICD-10) Neuropathic pain of both legs ?G57.93 - Unspecified mononeuropathy of bilateral lower limbs (ICD-10) Allergic rhinitis ?J30.9 - Allergic rhinitis, unspecified (ICD-10) Superior labrum kjefemlh-nv-xkdzqudpe (SLAP) tear of left shoulder (~09/2023) ?S43.432A - Superior glenoid labrum lesion of left shoulder, initial encounter (ICD-10) History of UTI ?Z87.440 - Personal history of urinary (tract) infections (ICD-10) History of alcohol use ?Z87.898 - Personal history of other specified conditions (ICD-10) Surgical History Status post skin flap graft ?Z94.5 - Skin transplant status (ICD-10) History of spinal fusion (01/15/13) ?Z98.1 - Arthrodesis status (ICD-10) Injury of aorta (01/15/13) ?S25.00XA - Unspecified injury of thoracic aorta, initial encounter (ICD-10) Status post colostomy (2022) ?Z93.3 - Colostomy status (ICD-10) Social History (Updated 05/16/24 @ 22:38 by Mary Thomas MD) Narrative: Works at [employer]. 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 Does not use EtOH or drugs. Past smoker and smokeless tobacco use. Father Bill would be MDM if needed. Full Code. What is your current living situation?: I presently have a place to live Problems where you live: no known problems Problems where you live details: NA In the past 12 months, utilities in danger of being shut off: no In past 12 months, lack of transportation kept you from medical appts, meetings, work, or getting things needed for daily living: no In the past 12 mos, have been you worried that your food would run out before you had money to buy more?: never true In the past 12 mos, the food you bought just didn't last and you didn't have money to buy more?: never true Highest level of school completed/degree received: Bachelor's degree Smoking Status: Never smoker Do you use any of these nicotine containing products: None Second hand tobacco smoke exposure: No How often do you have a drink containing alcohol: never AUDIT-C Alcohol total score: 0 Non-prescribed substance use: denies use How often does anyone, including family, friends and others, physically hurt you : never How often does anyone, including family, friends and others, insult or talk down to you: rarely How often does anyone, including family, friends and others, threaten you with harm: rarely How often does anyone, including family, friends and others, scream or curse at you: rarely service: No Health Related Social Needs: Other personal risk factors, not elsewhere classified (Z91.89) Meds Home Medications and Allergies Home Medications ?Medication ?Instructions ?Recorded ?Confirmed ?Type diltiazem HCl 120 mg 120 mg PO DAILY PRN 11/09/23 05/16/24 History capsule,extended release 24 hr (Cardizem CD) tadalafil 5 mg tablet 5 mg PO DAILY PRN 05/16/24 05/17/24 History trospium 20 mg tablet 20 mg PO BID 05/16/24 05/17/24 History Allergies Allergy/AdvReac Type Severity Reaction Status Date / Time ciprofloxacin Allergy Severe Swelling Verified 04/11/24 19:56 of Lip/Tongue/Throat vancomycin Allergy Severe Swelling Verified 04/11/24 19:56 of Lip/Tongue/Throat doxycycline AdvReac Mild Diarrhea Verified 04/11/24 19:56 Exam Narrative: Exam Narrative: General: Alert and oriented, nontoxic in appearance. Respiratory: Equal breath rise bilaterally, maintained on room air CV: Regular rhythm and rate : Foam dressing removed, small 1 cm ulceration of the sacrum to the dermis. Surrounding erythema secondary to pressure. No significant induration. No underlying fluid collection. No active drainage. Const: Vital Signs, click to edit/add: Vital Signs - 24 hr 05/16/24 16:19 05/16/24 17:17 05/16/24 17:27 Temperature 99.3 F Pulse Rate 118 H 113 H Pulse Rate [Pulse Oximeter] 122 H Pulse Rate [Right Radial] Respiratory Rate 16 Blood Pressure 129/90 H Blood Pressure [Le ft Upper Arm] 120/64 Blood Pressure [Ri ght Arm] Pulse Oximetry 99 100 100 Oxygen Delivery Me thod Room Air 05/16/24 17:30 05/16/24 17:31 05/16/24 17:45 Temperature Pulse Rate 109 H 114 H 105 H Pulse Rate [Pulse Oximeter] Pulse Rate [Right Radial] Respiratory Rate Blood Pressure 100/59 L Blood Pressure [Le ft Upper Arm] Blood Pressure [Ri ght Arm] Pulse Oximetry 97 99 99 Oxygen Delivery Me thod 05/16/24 18:00 05/16/24 18:01 05/16/24 18:02 Temperature Pulse Rate 107 H 110 H 109 H Pulse Rate [Pulse Oximeter] Pulse Rate [Right Radial] Respiratory Rate Blood Pressure 101/50 L Blood Pressure [Le ft Upper Arm] Blood Pressure [Ri ght Arm] Pulse Oximetry 99 100 99 Oxygen Delivery Me thod 05/16/24 18:21 05/16/24 19:02 05/16/24 19:03 Temperature 101.9 F H Pulse Rate Pulse Rate [Pulse Oximeter] Pulse Rate [Right Radial] Respiratory Rate Blood Pressure 87/36 L 97/41 L Blood Pressure [Le ft Upper Arm] Blood Pressure [Ri ght Arm] Pulse Oximetry Oxygen Delivery Me thod 05/16/24 19:16 05/16/24 19:29 05/16/24 19:31 Temperature Pulse Rate Pulse Rate [Pulse Oximeter] Pulse Rate [Right Radial] Respiratory Rate Blood Pressure 85/49 L 101/52 L 106/54 L Blood Pressure [Le ft Upper Arm] Blood Pressure [Ri ght Arm] Pulse Oximetry Oxygen Delivery Me thod 05/16/24 20:01 05/16/24 20:16 05/16/24 20:31 Temperature 101.6 F H Pulse Rate 116 H Pulse Rate [Pulse Oximeter] Pulse Rate [Right Radial] Respiratory Rate Blood Pressure 83/44 L 96/54 L 93/47 L Blood Pressure [Le ft Upper Arm] Blood Pressure [Ri ght Arm] Pulse Oximetry [facility] 05/16/24 20:46 05/16/24 21:01 05/16/24 21:56 Temperature 99.8 F H Pulse Rate Pulse Rate [Pulse Oximeter] Pulse Rate [Right Radial] 102 H Respiratory Rate 16 Blood Pressure 98/50 L 93/49 L Blood Pressure [Le ft Upper Arm] Blood Pressure [Ri ght Arm] 97/47 L Pulse Oximetry 95 Oxygen Delivery Wa thod Room Air 05/16/24 21:58 05/16/24 22:21 05/16/24 22:38 Temperature 99.8 F H 99.8 F H 99.8 F H Pulse Rate Pulse Rate [Pulse Oximeter] Pulse Rate [Right Radial] 102 H 102 H Respiratory Rate 16 16 Blood Pressure Blood Pressure [Le ft Upper Arm] Blood Pressure [Ri ght Arm] 97/47 L 97/47 L Pulse Oximetry 95 95 [facility]xygen [facility] [place] Room Air 05/16/24 23:00 05/16/24 23:33 05/17/24 02:00 Temperature 99.4 F Pulse Rate 92 Pulse Rate [Pulse Oximeter] Pulse Rate [Right Radial] 99 80 Respiratory Rate 16 16 Blood Pressure Blood Pressure [Le ft Upper Arm] Blood Pressure [Ri ght Arm] 101/49 L 92/43 L Pulse Oximetry 98 Oxygen Delivery Wa thod Room Air 05/17/24 03:00 05/17/24 03:45 05/17/24 04:00 Temperature 98.1 F Pulse Rate Pulse Rate [Pulse Oximeter] Pulse Rate [Right Radial] 97 Respiratory Rate 16 Blood Pressure Blood Pressure [Le ft Upper Arm] Blood Pressure [Ri ght Arm] 81/38 L 99/52 L 96/58 L Pulse Oximetry 98 Oxygen Delivery Me thod Room Air 05/17/24 06:00 Temperature 98.5 F Pulse Rate Pulse Rate [Pulse Oximeter] Pulse Rate [Right Radial] 97 Respiratory Rate 16 Blood Pressure Blood Pressure [Le ft Upper Arm] Blood Pressure [Ri ght Arm] 95/53 L Pulse Oximetry 100 Oxygen Delivery Me thod Room Air Results Labs Labs: Abnormal lab results 05/16/24 05/16/24 05/17/24 Range/Units 16:29 17:20 06:14 WBC 3.75 L (4.50-11.00) K/uL Hgb 13.0 L (13.5-17.5) gm/dL Neut % (Auto) 91.3 H 75.2 H (42.0-72.0) % Lymph % (Auto) 3.5 L 13.3 L (20-44) % Neut # (Auto) 7.50 H (1.7-7.0) K/uL Lymph # (Auto) 0.30 L 0.50 L (0.90-2.90) K/uL Anion Gap 3 L (7-15) mEq/L BUN 27 H (5-24) mg/dL Total Protein 5.8 L (6.0-8.3) g/dL Ur Leukocyte Esterase Trace A (Negative) Diabetes panel 05/16/24 05/17/24 Range/Units 17:20 06:14 Sodium 138 138 (135-149) mmol/L Potassium 4.4 4.2 (3.6-5.1) mmol/L Chloride 100 107 (96-114) mmol/L Carbon Dioxide 29 28 (20-32) mmol/L BUN 27 H 14 (5-24) mg/dL Creatinine 0.6 0.6 (0.5-1.5) mg/dL Glucose 98 74 (60-115) mg/dL Calcium 9.8 8.7 (8.4-10.6) mg/dL AST 28 (12-35) U/L ALT 34 (4-50) U/L Alkaline Phosphatase 55 (40-150) U/L Total Protein 5.8 L (6.0-8.3) g/dL Albumin 3.5 (3.3-5.0) g/dL Calcium panel 05/16/24 05/17/24 Range/Units 17:20 06:14 Calcium 9.8 8.7 (8.4-10.6) mg/dL Albumin 3.5 (3.3-5.0) g/dL Pituitary panel 05/16/24 05/17/24 Range/Units 17:20 06:14 Sodium 138 138 (135-149) mmol/L Potassium 4.4 4.2 (3.6-5.1) mmol/L Chloride 100 107 (96-114) mmol/L Carbon Dioxide 29 28 (20-32) mmol/L BUN 27 H 14 (5-24) mg/dL Creatinine 0.6 0.6 (0.5-1.5) mg/dL Glucose 98 74 (60-115) mg/dL Calcium 9.8 8.7 (8.4-10.6) mg/dL Adrenal panel 05/16/24 05/17/24 Range/Units 17:20 06:14 Sodium 138 138 (135-149) mmol/L Potassium 4.4 4.2 (3.6-5.1) mmol/L Chloride 100 107 (96-114) mmol/L Carbon Dioxide 29 28 (20-32) mmol/L BUN 27 H 14 (5-24) mg/dL Creatinine 0.6 0.6 (0.5-1.5) mg/dL Glucose 98 74 (60-115) mg/dL Calcium 9.8 8.7 (8.4-10.6) mg/dL Total Bilirubin 0.7 (0.1-1.5) mg/dL AST 28 (12-35) U/L ALT 34 (4-50) U/L Alkaline Phosphatase 55 (40-150) U/L Total Protein 5.8 L (6.0-8.3) g/dL Albumin 3.5 (3.3-5.0) g/dL All other labs normal. Imaging CT scan - pelvis: report reviewed and image reviewed Progress Note:A&P Assessment and plan (1) Sacral decubitus ulcer: Status: Acute Assessment and Plan: Patient with a stage to, partial-thickness sacral decubitus ulcer. No obvious areas of necrosis or need for debridement today. There are some pressure changes of the periwound, with patient counseled on offloading to the area. I do not think this is the source of his recent fevers. Would recommend patient e [facility]. A dressing of Betadine, medi honey and Mepilex was applied to the area. Change dressing every other day, or more often as needed. Surgery to sign off. Please call with any acute clinical changes, questions or concerns.
--- NOTE | 2024-05-17 09:13 | PM.IMPN1 ---
Progress Note: A&P Assessment and plan (1) Sepsis: Problem details: - tachycardia, fever (Tmax 101.9), hypotension - reassuring CT of C/A/P, blood and urine cultures NGTD on 05/17/24 - Zosyn (05/16), discontinued on 05/17 - POSITIVE Influenza A on 05/17 Status: Acute (2) Sacral decubitus ulcer: Problem details: - h/o osteomyelitis and flap closure 2022 - seen by General Surgery (Dr. Kaur) 05/17/24, does not feel that wound is source of infection - wound care f/u as an outpatient Status: Acute (3) Neurogenic bowel: Problem details: - colostomy Status: Acute (4) Neurogenic bladder: Problem details: - self catheterizes Status: Acute (5) Cellulitis: Problem details: - over sacral wound noted 05/16 Status: Acute (6) History of atrial flutter: Problem details: - see scanned 10/05/23 [place] H&P note, Echo & Holter reports - sinus rhythm/sinus tachycardia on telemetry during stay Status: Chronic Plan - per above - likely home 05/18 if improved and stable off of abx Subjective Date Seen: 05/17/24 Interval history: Michael was admitted to the hospital on 05/16 with sepsis: fever, tachycardia, hypotension. Received IVFs overnight; BP improving (closer to baseline, which is 100s/60s), no longer tachycardic. This morning, notes cough and mild sore throat. Strep negative, no acute findings on Chest CT, repeat Flu/COVID swab: POSITIVE Influenza A Defers Oseltamivir. Blood and urine cultures exhibit NGTD. Was put on Zosyn on admission, discontinuing this today given Positive Influenza. Exam Narrative: Exam Narrative: GEN: Alert and oriented, appears ill but nontoxic HEENT: Normal external ears, EOMIs bilaterally, no scleral icterus CV: RRR, No concerning murmurs R: LCTA bilaterally without concerning wheezing Ext: wwp, no concerning edema Skin: Sacral wound not formally examined (seen by nursing staff and General Surgeon today) Neuro: Baseline for T7 paraplegia Psych: Appropriate Const: Vital Signs, click to edit/add: Vital Signs - 24 hr 05/16/24 16:19 05/16/24 17:17 05/16/24 17:27 Temperature 99.3 F Pulse Rate 118 H 113 H Pulse Rate [Pulse Oximeter] 122 H Pulse Rate [Right Radial] Respiratory Rate 16 Blood Pressure 129/90 H Blood Pressure [Le ft Upper Arm] 120/64 Blood Pressure [Ri ght Arm] Pulse Oximetry 99 100 100 Oxygen Delivery Me thod Room Air 05/16/24 17:30 05/16/24 17:31 05/16/24 17:45 Temperature Pulse Rate 109 H 114 H 105 H Pulse Rate [Pulse Oximeter] Pulse Rate [Right Radial] Respiratory Rate Blood Pressure 100/59 L Blood Pressure [Le ft Upper Arm] Blood Pressure [Ri ght Arm] Pulse Oximetry 97 99 99 Oxygen Delivery Me thod 05/16/24 18:00 05/16/24 18:01 05/16/24 18:02 Temperature Pulse Rate 107 H 110 H 109 H Pulse Rate [Pulse Oximeter] Pulse Rate [Right Radial] Respiratory Rate Blood Pressure 101/50 L Blood Pressure [Le ft Upper Arm] Blood Pressure [Ri ght Arm] Pulse Oximetry 99 100 99 Oxygen Delivery Me thod 05/16/24 18:21 05/16/24 19:02 05/16/24 19:03 Temperature 101.9 F H Pulse Rate Pulse Rate [Pulse Oximeter] Pulse Rate [Right Radial] Respiratory Rate Blood Pressure 87/36 L 97/41 L Blood Pressure [Le ft Upper Arm] Blood Pressure [Ri ght Arm] Pulse Oximetry Oxygen Delivery Me thod 05/16/24 19:16 05/16/24 19:29 05/16/24 19:31 Temperature Pulse Rate Pulse Rate [Pulse Oximeter] Pulse Rate [Right Radial] Respiratory Rate Blood Pressure 85/49 L 101/52 L 106/54 L Blood Pressure [Le ft Upper Arm] Blood Pressure [Ri ght Arm] Pulse Oximetry Oxygen Delivery Me thod 05/16/24 20:01 05/16/24 20:16 05/16/24 20:31 Temperature 101.6 F H Pulse Rate 116 H Pulse Rate [Pulse Oximeter] Pulse Rate [Right Radial] Respiratory Rate Blood Pressure 83/44 L 96/54 L 93/47 L Blood Pressure [Le ft Upper Arm] Blood Pressure [Ri ght Arm] Pulse Oximetry Oxygen Delivery Me thod 05/16/24 20:46 05/16/24 21:01 05/16/24 21:56 Temperature 99.8 F H Pulse Rate Pulse Rate [Pulse Oximeter] Pulse Rate [Right Radial] 102 H Respiratory Rate 16 Blood Pressure 98/50 L 93/49 L Blood Pressure [Le ft Upper Arm] Blood Pressure [Ri ght Arm] 97/47 L Pulse Oximetry [address] thod Room Air 05/16/24 21:58 05/16/24 22:21 05/16/24 22:38 Temperature 99.8 F H 99.8 F H 99.8 F H Pulse Rate Pulse Rate [Pulse Oximeter] Pulse Rate [Right Radial] 102 H 102 H Respiratory Rate 16 16 Blood Pressure Blood Pressure [Le ft Upper Arm] Blood Pressure [Ri ght Arm] 97/47 L 97/47 L Pulse Oximetry [address] thod Room Air Room Air 05/16/24 23:00 05/16/24 23:33 05/17/24 02:00 Temperature 99.4 F Pulse Rate 92 Pulse Rate [Pulse Oximeter] Pulse Rate [Right Radial] 99 80 Respiratory Rate 16 16 Blood Pressure Blood Pressure [Le ft Upper Arm] Blood Pressure [Ri ght Arm] 101/49 L 92/43 L Pulse Oximetry [address] thod Room Air 05/17/24 03:00 05/17/24 03:45 05/17/24 04:00 Temperature 98.1 F Pulse Rate Pulse Rate [Pulse Oximeter] Pulse Rate [Right Radial] 97 Respiratory Rate 16 Blood Pressure Blood Pressure [Le ft Upper Arm] Blood Pressure [Ri ght Arm] 81/38 L 99/52 L 96/58 L Pulse Oximetry [address] thod Room Air 05/17/24 06:00 Temperature 98.5 F Pulse Rate Pulse Rate [Pulse Oximeter] Pulse Rate [Right Radial] 97 Respiratory Rate 16 Blood Pressure Blood Pressure [Le ft Upper Arm] Blood Pressure [Ri ght Arm] 95/53 L Pulse Oximetry [address] thod Room Air Labs Labs: Laboratory Results - last 24 hr 05/16/24 05/16/24 05/16/24 16:29 17:20 18:26 WBC 8.26 RBC 5.23 Hgb 15.0 Hct 45.6 MCV 87 MCH 29 MCHC 33 RDW Coeff of Kory 13.2 Plt Count 181 Neut % (Auto) 91.3 H Lymph % (Auto) 3.5 L [place] % (Auto) 4.7 Eos % (Auto) 0.2 Baso % (Auto) 0.2 Neut # (Auto) 7.50 H Lymph # (Auto) 0.30 L [place] # (Auto) 0.40 Eos # (Auto) 0.02 Baso # (Auto) 0.02 Abs Immat Gran (auto) 0.01 Imm/Tot Granulo (auto) 0.1 Sodium 138 Potassium 4.4 Chloride 100 Carbon Dioxide 29 Anion Gap 9 BUN 27 H Creatinine 0.6 Estimated Creat Clear Estimated GFR 128 Glucose 98 Lactate 0.9 Calcium 9.8 Total Bilirubin AST ALT Alkaline Phosphatase Total Protein Albumin Procalcitonin 0.11 Urine Color Yellow Urine Appearance Clear Urine pH 6.0 Ur Specific [place] 1.020 Urine Protein Negative Urine Glucose (UA) Negative Urine Ketones Negative Urine Blood Negative Urine Nitrite Negative Urine Bilirubin Negative Urine Urobilinogen 0.2 Ur Leukocyte Esterase Trace A Urine RBC 0-2 Urine WBC 0-2 Ur Squamous Epith Cells None Urine Bacteria None SARS-CoV-2 (PCR) Negative SARS-CoV-2 Influenza Type A (PCR) Negative PCR FLU A Influenza Type B (PCR) Negative PCR FLU B RSV (PCR) Negative PCR RSV 05/17/24 06:14 WBC 3.75 L RBC 4.46 Hgb 13.0 L Hct 39.7 MCV 89 MCH 29 MCHC 33 RDW Coeff of Kory 13.6 Plt Count 148 Neut % (Auto) 75.2 H Lymph % (Auto) 13.3 L [place] % (Auto) 10.7 Eos % (Auto) 0.3 Baso % (Auto) 0.5 Neut # (Auto) 2.80 Lymph # (Auto) 0.50 L [place] # (Auto) 0.40 Eos # (Auto) 0.00 Baso # (Auto) 0.00 Abs Immat Gran (auto) 0.00 Imm/Tot Granulo (auto) 0.0 Sodium 138 Potassium 4.2 Chloride 107 Carbon Dioxide 28 Anion Gap 3 L BUN 14 Creatinine 0.6 Estimated Creat Clear 143.46 Estimated GFR 128 Glucose 74 Lactate 0.7 Calcium 8.7 Total Bilirubin 0.7 AST 28 ALT 34 Alkaline Phosphatase 55 Total Protein 5.8 L Albumin 3.5 Procalcitonin Urine Color Urine Appearance Urine pH Ur Specific [place] Urine Protein Urine Glucose (UA) Urine Ketones Urine Blood Urine Nitrite Urine Bilirubin Urine Urobilinogen Ur Leukocyte Esterase Urine RBC Urine WBC Ur Squamous Epith Cells Urine Bacteria SARS-CoV-2 (PCR) Influenza Type A (PCR) Influenza Type B (PCR) RSV (PCR)
[2024-05-17] MEDS: oxyBUTYnin chloride 5 MG TAB.ER.24 15 MG PO (09:31)
--- NOTE | 2024-05-17 09:38 | CRLHL7_ITS ---
For Patients: As a result of the Century Cures Act, medical imaging exams and procedure reports are released immediately into your electronic medical record. You may view this report before your referring provider. If you have questions, please contact your health care provider. Indication: Cough, sepsis. Technique: CT of the chest was performed without contrast. Comparison: Chest radiograph 05/16/2024, CT 10/24/2023 and 05/16/2024. Findings: Lungs and pleura: Subpleural nodules measuring 4 mm in the right middle lobe and left lower lobe. No focal consolidation. No pleural effusion or pneumothorax. Heart and great vessels: The heart is normal in size. No pericardial effusion. Aorta and pulmonary artery are normal in caliber. Descending thoracic aortic endovascular stent. Thyroid and mediastinum: Thyroid is normal. No mediastinal lymphadenopathy by size criteria. Chest wall: Unremarkable. Visualized upper abdomen: Hyperdense sludge versus vicarious contrast excretion within the partially visualized gallbladder. Bones: Congenital fusion of C7-T3. T8-L1 posterior instrumented fusion. Bilateral L1, right T12, bilateral T11, left T10, left T9 and left T8 pedicle screws are in close proximity to the medial pedicle mata, unchanged. Mild upper lumbar degenerative disc disease. Impression: 1. No acute abnormality identified in the chest. 2. Subpleural right middle lobe and left lower lobe pulmonary nodules measuring 4 mm. If this patient is at increased risk for lung cancer, consider chest CT follow-up in 12 months. 3. Additional chronic/incidental findings as described. Please note that all CT scans at this facility use dose modulation, iterative reconstruction, and/or weight-based dosing when appropriate to reduce radiation dose to as low as reasonably achievable. Dictated by Angeles Garcia MD @ 05/17/2024 10:46:16 AM (Electronically Signed)
[2024-05-17] MEDS: ACETAMINOPHEN 325 MG TABLET 975 MG PO ×3 (10:00→22:09)
[2024-05-17 10:37] LABS: Strep A DNA Probe* NOT DETECTED (Not Detectd)
[2024-05-17 12:20] LABS: PCR FLU A POSITIVE PCR FLU A (Negative); PCR FLU B Negative PCR FLU B (Negative); PCR RSV Negative PCR RSV (Negative); SARS PCR* Negative SARS-CoV-2 (Negative)
--- NOTE | 2024-05-17 18:49 | PC.NURSE ---
DR. FELIPE IN THIS AM TO ASSESS RIGHT HIP/BUTTOCK WOUND. PATIENT STATES AREA IS IMPROVE. CLEANSED WITH BETADINE AND APPLIED MEDIHONEY AND MEPILEX PER MD. PATIENT REPORTING SORE THROAT AND INCREASED COUGHING. STREP TEST AND CHEST CT COMPLETED. COVID AND FLU TEST REPEATED AND PATIENT FOUND TO HAVE INFLUENZA A. PATIENT STRAIGHT CATHS PRN AND CARES FOR OWN OSTOMY. REPOSITIONING SELF IN BED. TOLERATING REGULAR DIET. DENIES N/V. TWO EPISODES OF 99.2 TEMP WHILE FEELING CHILLED THAT RESOLVED WITH TYLENOL.
[2024-05-17] MEDS: SODIUM CHLORIDE 0.9 % (FLUSH) 10 ML SYRINGE 5 ML IVF (21:57)
[2024-05-17] MEDS: ENOXAPARIN 40 MG/0.4 ML INJ SUBCUT (21:58)
[2024-05-18] VITALS (7 sets, daily range): BP systolic 102–112; BP diastolic 57–62; PULSE 91–104; RESP 18–20; TEMP 37.1–37.4; O2SAT 97
[2024-05-18] MEDS: ACETAMINOPHEN 325 MG TABLET 975 MG PO ×2 (04:38→12:10)
[2024-05-18 07:27] LABS: Basophils Absolute Auto 0.02 K/uL (0.00-0.30); Basophils Percent Auto 0.4 % (0.0-3.0); Eosinophils Absolute Auto 0.01 K/uL (0.00-0.50); Eosinophils Percent Auto 0.2 % (0.0-7.0); Hematocrit 40.8 % (37.0-53.0); Hemoglobin* 13.2 gm/dL (13.5-17.5); Immature Granulocytes Abs Auto 0.02 K/uL (0.00-0.30); Immature Granulocytes Pct Auto 0.4 %; Lymphocytes Percent Auto 12.3 % (20-44); Mean Corpuscular HGB Conc 32 gm/dL (32-36); Mean Corpuscular Hemoglobin 29 pg (26-34); Mean Corpuscular Volume 89 fL (80-100); Monocytes Percent Auto 8.2 % (0.0-11.0); Neutrophils Percent Auto 78.5 % (42.0-72.0); Platelet Count* 136 K/uL (140-440); RDW Coefficient of Variation % 13.8 % (11.5-15.5); Red Blood Count 4.58 m/uL (4.30-5.90); White Blood Count* 4.73 K/uL (4.50-11.00)
[2024-05-18 07:36] LABS: Albumin* 3.8 g/dL (3.3-5.0); Chloride* 102 mmol/L (96-114)
[2024-05-18 07:37] LABS: Potassium* 4.1 mmol/L (3.6-5.1); Sodium* 136 mmol/L (135-149)
[2024-05-18 07:39] LABS: Alkaline Phosphatase* 56 U/L (40-150); Anion Gap 8 mEq/L (7-15); Aspartate Amino Transferase* 34 U/L (12-35); Bilirubin Total* 0.7 mg/dL (0.1-1.5); Blood Urea Nitrogen* 11 mg/dL (5-24); Carbon Dioxide* 26 mmol/L (20-32); Creatinine* 0.5 mg/dL (0.5-1.5); Est. Creatinine Clearance* 169.69; Estimated Glomerular Filt Rate 136 ml/min; Total Protein* 6.4 g/dL (6.0-8.3)
[2024-05-18 07:40] LABS: Alanine Aminotransferase* 36 U/L (4-50); Calcium* 8.7 mg/dL (8.4-10.6); Glucose* 76 mg/dL (60-115)
[2024-05-18 07:42] LABS: Slide Review Reflex No
--- NOTE | 2024-05-18 07:42 | PC.NURSE ---
Patient pleasant, alert and oriented. Remained in bed all shift. Independent with self-catheterization and emptying colostomy. Productive cough. Given PRN Tylenol for c/o of general discomfort/chills and?temp?of 101.1 & 99.1.??
[2024-05-18] MEDS: PREGABALIN 75 MG CAPSULE 150 MG PO (09:47)
[2024-05-18] MEDS: SODIUM CHLORIDE 0.9 % (FLUSH) 10 ML SYRINGE 5 ML IVF (09:48)
[2024-05-18] MEDS: oxyBUTYnin chloride 5 MG TAB.ER.24 15 MG PO (09:48)
--- NOTE | 2024-05-18 13:09 | P.DS_ITS ---
DS: Providers Provider Date Seen: 05/18/24 Date of admission: 05/16/24 22:12 Primary care physician: Keo Cobb MD Admitting Clinician: Mary Thomas MD Attending Physician on discharge: Patricio Alexander MD Date of Discharge: 05/18/24 DS: Diagnosis Discharge Diagnosis (1) Influenza A: Status: Acute Problem details: Likely the cause of his acute onset of illness, fever, hypotension, weakness, anorexia, cough. (2) Sepsis: Status: Acute Problem details: On admission appeared to have sepsis with fever, tachycardia, hypotension. Chest abdomen pelvis CT and cultures have all been negative. He initially had a negative viral test for COVID influenza and RSV but subsequently turned positive for influenza A, the likely cause of his illness (3) Sacral decubitus ulcer: Status: Acute Problem details: - h/o osteomyelitis and flap closure 2022 - seen by General Surgery (Dr. Kaur) 05/17/24, does not feel that wound is source of infection - wound care f/u as an outpatient (4) Immobility syndrome (paraplegic): Status: Chronic Problem details: T7 [employer] Injury 2012. AIS level A - complete impairment. (5) Neurogenic bladder: Status: Acute Problem details: - self catheterizes (6) Neurogenic bowel: Status: Acute Problem details: - colostomy DS: Summary Hospital Course Hospital Course: Michael was admitted to the hospital on 05/16 with sepsis: fever, tachycardia, hypotension. Received IVFs overnight; BP improving (closer to baseline, which is 100s/60s), no longer tachycardic. This morning, notes cough and mild sore throat. Strep negative, no acute findings on Chest CT, repeat Flu/COVID swab: POSITIVE Influenza A Defers Oseltamivir. Blood and urine cultures exhibit NGTD. Was put on Zosyn on admission, discontinuing this today given Positive Influenza. Patient reports feeling better today. Fever is improved, appetite is improved. He has developed some cough and sore throat. He is feeling strong enough to go home and is anxious to go home today Time Spent with Patient Time attestation: Total time spent providing and/or coordinating discharge services:40 minutes Exam Narrative: Exam Narrative: He is alert and appears in no distress. Respirations are clear to auscultation. Cardiovascular: S1, S2, regular rate and rhythm. Abdomen: Bowel sounds active. Abdomen is soft without tenderness or mass. Colostomy draining moderate amount of soft to liquid stool. Const: Vital Signs, click to edit/add: Vital Signs - 24 hr 05/17/24 16:00 05/17/24 16:00 05/17/24 16:00 Temperature 99.2 F Pulse Rate 86 Pulse Rate [Right Radial] 99 90 Respiratory Rate 18 18 Blood Pressure [Ri ght Arm] 104/55 L Pulse Oximetry 97 Oxygen Delivery Me thod Room Air 05/17/24 20:00 05/17/24 22:03 05/17/24 22:09 Temperature 99.1 F 101.1 F H 101.1 F H Pulse Rate Pulse Rate [Right Radial] 76 102 H Respiratory Rate 18 17 Blood Pressure [Ri ght Arm] 110/66 106/52 L Pulse Oximetry 96 98 Oxygen Delivery Me thod Room Air Room Air 05/18/24 00:15 05/18/24 00:36 05/18/24 02:35 Temperature 99.3 F 99.3 F Pulse Rate 104 H Pulse Rate [Right Radial] Respiratory Rate Blood Pressure [Ri ght Arm] Pulse Oximetry Oxygen Delivery Me thod 05/18/24 04:00 05/18/24 07:00 05/18/24 09:00 Temperature 99.1 F Pulse Rate 91 Pulse Rate [Right Radial] 104 H 93 Respiratory Rate 20 18 Blood Pressure [Ri ght Arm] 102/57 L Pulse Oximetry 97 Oxygen Delivery Me thod Room Air 05/18/24 09:49 Temperature 98.7 F Pulse Rate Pulse Rate [Right Radial] 92 Respiratory Rate 20 Blood Pressure [Ri ght Arm] 112/62 Pulse Oximetry 97 Oxygen Delivery Me thod Room Air Documenting provider has reviewed patient's vital signs: yes DS: Data Data Completed and Pending Labs on day of discharge: Labs from last 24 hours 05/18/24 06:59 WBC 4.73 RBC 4.58 Hgb 13.2 L Hct 40.8 MCV 89 MCH 29 MCHC 32 RDW Coeff of [place] 13.8 Plt Count 136 L Neut % (Auto) 78.5 H Lymph % (Auto) 12.3 L [place] % (Auto) 8.2 Eos % (Auto) 0.2 Baso % (Auto) 0.4 Neut # (Auto) 3.70 Lymph # (Auto) 0.60 L [place] # (Auto) 0.40 Eos # (Auto) 0.01 Baso # (Auto) 0.02 Abs Immat Gran (auto) 0.02 Imm/Tot Granulo (auto) 0.4 Sodium 136 Potassium 4.1 Chloride 102 Carbon Dioxide 26 Anion Gap 8 BUN 11 Creatinine 0.5 Estimated Creat Clear 169.69 Estimated GFR 136 Glucose 76 Calcium 8.7 Total Bilirubin 0.7 AST 34 ALT 36 Alkaline Phosphatase 56 Total Protein 6.4 Albumin 3.8 Preliminary micro results at discharge 05/16/24 18:26 Blood Culture - Preliminary Blood NO GROWTH AFTER 24 HOURS 05/16/24 16:29 Urine Culture - Preliminary Urine,Clean Catch < 10,000 COL/ML MIXED GRAM POSITIVE CHARLIE ISOLATED NO FURTHER WORKUP Imaging CT scan - abdomen: Radiologist's impression: INDICATION: Abdominal pain. Fever. Nausea. TECHNIQUE: Multiplanar CT examination of the abdomen and pelvis was performed after the administration of 74 mL Isovue 370 intravenous contrast. COMPARISON: None. FINDINGS: Lower chest: No focal consolidation. Normal heart size. No pleural effusions or pneumothorax. Liver: Unremarkable. Gallbladder: Unremarkable. Biliary: Unremarkable. Pancreas: Within normal limits. Spleen: Unremarkable. Adrenal glands: Unremarkable. Renal/ureters/bladder: Normal in size and symmetrically enhancing. No obstructive uropathy. No hydronephrosis or obstructive urinary calculi. No suspicious renal masses. The ureters appear unremarkable. The bladder is within normal limits. Pelvis: Unremarkable prostate. Gastrointestinal: Left lower quadrant colostomy. Mild wall thickening and hyperenhancement involving loops of nondistended, fluid-filled small bowel diffusely. No bowel obstruction. Nonvisualized appendix. No significant colonic diverticulosis. Severe colonic stool burden. Vasculature: Thoracic aortic vascular graft. No aortic aneurysm. The portal vein remains patent. No significant atherosclerotic calcifications. Lymph nodes: No pathologic lymphadenopathy by size criteria. Peritoneum: No free fluid or pneumoperitoneum. No drainable fluid collections. Abdominal wall/soft tissues: Left lower quadrant colostomy. Otherwise, unremarkable. Bones: No acute osseous abnormalities. Status post spinal fixation of the thoracolumbar spine. 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 IMPRESSION: 1. Mild wall thickening and hyperenhancement involving loops of nondistended, fluid-filled small bowel diffusely, suggestive of a nonspecific infectious versus inflammatory enteritis. No bowel obstruction. 2. Left lower quadrant colostomy. CT scan - chest: Radiologist's impression: Indication: Cough, sepsis. Technique: CT of the chest was performed without contrast. Comparison: Chest radiograph 05/16/2024, CT 10/24/2023 and 05/16/2024. Findings: Lungs and pleura: Subpleural nodules measuring 4 mm in the right middle lobe and left lower lobe. No focal consolidation. No pleural effusion or pneumothorax. Heart and great vessels: The heart is normal in size. No pericardial effusion. Aorta and pulmonary artery are normal in caliber. Descending thoracic aortic endovascular stent. Thyroid and mediastinum: Thyroid is normal. No mediastinal lymphadenopathy by size criteria. Chest wall: Unremarkable. Visualized upper abdomen: Hyperdense sludge versus vicarious contrast excretion within the partially visualized gallbladder. Bones: Congenital fusion of C7-T3. T8-L1 posterior instrumented fusion. Bilateral L1, right T12, bilateral T11, left T10, left T9 and left T8 pedicle screws are in close proximity to the medial pedicle mata, unchanged. Mild upper lumbar degenerative disc disease. Impression: 1. No acute abnormality identified in the chest. 2. Subpleural right middle lobe and left lower lobe pulmonary nodules measuring 4 mm. If this patient is at increased risk for lung cancer, consider chest CT follow-up in 12 months. 3. Additional chronic/incidental findings as described. Discharge Plan Discharge Disposition: Home, Self-Care Date of Admission: 05/16/24 22:12 Attending Provider on Discharge: Brooks Alexander Consulting Providers: Ngoc Rosa; Ana Laura Pope Primary Care Provider: Keo Cobb Condition: Improved Anticipated Discharge Date/Time: 05/18/24 12:34 Discharge Medications: Continued diltiazem HCl [Cardizem CD] 120 mg capsule,extended release 24hr 120 mg PO DAILY PRN pregabalin 150 mg capsule 150 mg PO BID Qty: 60 5RF tadalafil 5 mg tablet 5 mg PO DAILY PRN trospium 20 mg tablet 20 mg PO BID Discharge Orders: Discharge Order (Routine); Ordered 05/18/24 Ordered By: Brooks Alexander Patient Education: Influenza (DC) Additional Instructions: You have influenza. This is likely the cause of your fever, fatigue, loss of appetite, cough. This is likely to get better over the next few days. You are probably contagious for the next few days. See your doctor or return to the emergency department if you are getting worse. Activity Level: Activity as Tolerated Discharge Diet: Regular Follow Up Appointments: [facility] (Patient to establish care with) Keo Cobb MD [Primary Care Provider] - Forms: [employer] Info Instructions
--- NOTE | 2024-05-18 17:10 | PC.NURSE ---
Discharge: Patient pleasant and cooperative, A&O. VSS, afebrile. Patient reports body aches this shift, managed with PRN medication, see MAR. IV removed with tip intact. Discharge instructions provided, all questions answered. Discharged to home via wheelchair.
== END 2024-05-18 14:58 | disposition home or self-care (01) | DRG 193 ==
LOC: ED 20:54 → MEDSURG 21:13
PROVIDERS: Admitting Provider Family Medicine; Emergency Provider Emergency Medicine; PCP Family Medicine; Visit Provider Family Medicine
DX: J10.1 Influenza due to other identified influenza virus with other respiratory manifestations (principal); A41.9 Sepsis, unspecified organism; G82.21 Paraplegia, complete; K59.2 Neurogenic bowel, not elsewhere classified; L89.152 Pressure ulcer of sacral region, stage 2; N31.9 Neuromuscular dysfunction of bladder, unspecified; M62.3 Immobility syndrome (paraplegic); R21 Rash and other nonspecific skin eruption; Z93.3 Colostomy status; Z94.5 Skin transplant status; G57.93 Unspecified mononeuropathy of bilateral lower limbs; Z87.440 Personal history of urinary (tract) infections
CPT/HCPCS: 36415; 71046; 71250; 74177; 80048; 80053; 81001; 83605; 84145; 85025; 87040; 87086; 87631; 87651; 99284; 99285; A9270; J1650; J2405; J2543; J7030; Q9967

== ENCOUNTER 2024-06-08 14:26 | Outpatient (CLI) | payer MEDICAID, SELFPAY | END 2024-06-08 14:27 | disposition home or self-care (01) | PROVIDERS: PCP Family Medicine; Visit Provider Surgery | DX: L89.150 Pressure ulcer of sacral region, unstageable (principal); G82.20 Paraplegia, unspecified; I49.8 Other specified cardiac arrhythmias; K59.2 Neurogenic bowel, not elsewhere classified; N31.8 Other neuromuscular dysfunction of bladder; Z99.3 Dependence on wheelchair; Z93.3 Colostomy status | CPT/HCPCS: 97597; G0463 ==

== ENCOUNTER 2024-06-15 14:29 | Outpatient (CLI) | payer MEDICAID, SELFPAY | END 2024-06-15 14:30 | disposition home or self-care (01) | LOC: WOUND 14:29 | PROVIDERS: PCP Family Medicine; Visit Provider Surgery | DX: L89.153 Pressure ulcer of sacral region, stage 3 (principal); G82.20 Paraplegia, unspecified; Z99.3 Dependence on wheelchair; Z93.3 Colostomy status | CPT/HCPCS: 97597 ==

== ENCOUNTER 2024-06-22 15:05 | Outpatient (CLI) | payer MEDICAID, SELFPAY | END 2024-06-22 15:06 | disposition home or self-care (01) | LOC: WOUND 15:05 | PROVIDERS: PCP Family Medicine; Visit Provider Surgery | DX: L89.153 Pressure ulcer of sacral region, stage 3 (principal); G82.20 Paraplegia, unspecified; Z99.3 Dependence on wheelchair | CPT/HCPCS: 97597 ==

== ENCOUNTER 2024-06-24 14:53 | Outpatient (RCR) | payer MEDICAID, SELFPAY ==
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
== END 2024-10-22 23:59 | disposition home or self-care (01) ==
PROVIDERS: PCP Family Medicine; Visit Provider Family Medicine
DX: G82.20 Paraplegia, unspecified (principal); L89.150 Pressure ulcer of sacral region, unstageable; Z99.3 Dependence on wheelchair; Z51.89 Encounter for other specified aftercare
CPT/HCPCS: 97165

== ENCOUNTER 2024-07-06 14:58 | Outpatient (CLI) | payer MEDICAID, SELFPAY | END 2024-07-06 14:59 | disposition home or self-care (01) | LOC: WOUND 14:58 | PROVIDERS: PCP Family Medicine; Visit Provider Surgery | DX: L89.153 Pressure ulcer of sacral region, stage 3 (principal); G82.20 Paraplegia, unspecified; Z99.3 Dependence on wheelchair | CPT/HCPCS: 97597 ==

== ENCOUNTER 2024-07-20 15:15 | Outpatient (CLI) | payer MEDICAID, SELFPAY | END 2024-07-20 15:16 | disposition home or self-care (01) | LOC: WOUND 15:15 | PROVIDERS: PCP Family Medicine; Visit Provider Surgery | DX: L89.153 Pressure ulcer of sacral region, stage 3 (principal); G82.20 Paraplegia, unspecified; Z99.3 Dependence on wheelchair | CPT/HCPCS: 97597 ==

== ENCOUNTER 2024-08-03 15:01 | Outpatient (CLI) | payer MEDICAID, SELFPAY | END 2024-08-03 15:02 | disposition home or self-care (01) | LOC: WOUND 15:01 | PROVIDERS: PCP Family Medicine; Visit Provider Surgery | DX: G82.20 Paraplegia, unspecified (principal); I49.8 Other specified cardiac arrhythmias; Z99.3 Dependence on wheelchair | CPT/HCPCS: 97597; G0463 ==

== ENCOUNTER 2024-10-28 12:40 | Outpatient (CLI) | payer MEDICAID, SELFPAY | END 2024-10-28 12:41 | disposition home or self-care (01) | PROVIDERS: PCP Family Medicine; Visit Provider Nurse Practitioner Family | DX: L89.153 Pressure ulcer of sacral region, stage 3 (principal); N31.8 Other neuromuscular dysfunction of bladder; G82.20 Paraplegia, unspecified; Z93.3 Colostomy status; Z99.3 Dependence on wheelchair | CPT/HCPCS: 11042 ==

== ENCOUNTER 2024-11-03 14:45 | Outpatient (CLI) | payer MEDICAID, SELFPAY | END 2024-11-03 14:46 | disposition home or self-care (01) | LOC: WOUND 14:45 | PROVIDERS: PCP Family Medicine; Visit Provider Nurse Practitioner Family | DX: N31.8 Other neuromuscular dysfunction of bladder (principal); G82.20 Paraplegia, unspecified; Z99.3 Dependence on wheelchair; L89.153 Pressure ulcer of sacral region, stage 3 | CPT/HCPCS: 11042 ==

== ENCOUNTER 2024-11-10 14:52 | Outpatient (CLI) | payer MEDICAID, SELFPAY | END 2024-11-10 14:53 | disposition home or self-care (01) | LOC: WOUND 14:52 | PROVIDERS: PCP Family Medicine; Visit Provider Nurse Practitioner Family | DX: L89.153 Pressure ulcer of sacral region, stage 3 (principal); G82.20 Paraplegia, unspecified; N31.8 Other neuromuscular dysfunction of bladder; Z93.3 Colostomy status; Z99.3 Dependence on wheelchair | CPT/HCPCS: 97597 ==

== ENCOUNTER 2024-11-16 14:27 | Outpatient (RCR) | payer MEDICAID, SELFPAY | END 2025-03-16 23:59 | disposition home or self-care (01) | PROVIDERS: PCP Family Medicine; Visit Provider Clinical Nurse Specialist | DX: G82.20 Paraplegia, unspecified (principal); L89.329 Pressure ulcer of left buttock, unspecified stage; L89.159 Pressure ulcer of sacral region, unspecified stage; Z51.89 Encounter for other specified aftercare ==

== ENCOUNTER 2024-11-24 14:52 | Outpatient (CLI) | payer MEDICAID, SELFPAY | END 2024-11-24 14:53 | disposition home or self-care (01) | LOC: WOUND 14:52 | PROVIDERS: PCP Family Medicine; Visit Provider Physician Assistant | DX: L89.153 Pressure ulcer of sacral region, stage 3 (principal); G82.20 Paraplegia, unspecified; Z99.3 Dependence on wheelchair | CPT/HCPCS: 97597 ==

== ENCOUNTER 2024-12-01 14:53 | Outpatient (CLI) | payer MEDICAID, SELFPAY | END 2024-12-01 14:54 | disposition home or self-care (01) | LOC: WOUND 14:53 | PROVIDERS: PCP Family Medicine; Visit Provider Nurse Practitioner Family | DX: L89.153 Pressure ulcer of sacral region, stage 3 (principal); G82.20 Paraplegia, unspecified; Z99.3 Dependence on wheelchair; Z93.3 Colostomy status | CPT/HCPCS: 11042 ==

== ENCOUNTER 2024-12-08 14:51 | Outpatient (CLI) | payer MEDICAID, SELFPAY | END 2024-12-08 14:52 | disposition home or self-care (01) | LOC: WOUND 14:51 | PROVIDERS: PCP Family Medicine; Visit Provider Nurse Practitioner Family | DX: L89.153 Pressure ulcer of sacral region, stage 3 (principal); G82.20 Paraplegia, unspecified; N31.8 Other neuromuscular dysfunction of bladder; Z99.3 Dependence on wheelchair | CPT/HCPCS: 97597 ==